=== PATIENT | female | born 1930 | race Caucasian/White ===

== ENCOUNTER 2016-06-15 13:35 | Inpatient (IN) | payer MEDICARE, OTHER ==
[2016-06-15] MEDS ORDERED: MORPHINE SULFATE 4 MG/ML SYRINGE IV STA ×3 (14:02→16:00)
--- NOTE | 2016-06-15 14:08 | ED ---
Lower Extremity Injury HPI - General Chief Complaint: Extremity Injury, Lower Stated Complaint: Leg Pain Time Seen by Provider: 06/15/16 13:39 Source: patient, EMS Mode of arrival: EMS Limitations: no limitations - History of Present Illness Initial Comments: This patient is an 85-year-old lady brought in by EMS to be evaluated after she had a fall. The patient states that she was at being transferred from wheelchair, lost her balance and fell landing on her left side. She complains of pain to the hip and inability to move her left leg without extreme pain. The patient denies any other injury in the fall. She denies left leg anesthesia or weakness. MD Complaint: hip injury, fall Onset/Timin -: hour(s) Injury: Hip: Left Place: home Severity: moderate Improves With: nothing Worsens With: movement Context: fall Associated Symptoms: snap/pop sensation - Related Data Home Medications Medication Instructions Recorded Confirmed Levothyroxine Sodium [Synthroid] 88 mcg PO DAILY 12/15/13 06/15/16 Allopurinol [Zyloprim] 100 mg PO DAILY 01/18/14 06/15/16 Clopidogrel [Plavix] 75 mg PO DAILY@1700 01/18/14 06/15/16 Albuterol Sulfate [Proair Hfa] 2 puff INHALATION RT-Q6H PRN 06/15/16 06/15/16 Atorvastatin [Lipitor] 20 mg PO DAILY 06/15/16 06/15/16 Cholecalciferol [Vitamin D3] 1,000 unit PO DAILY 06/15/16 06/15/16 Diclofenac 0.1% Ophth Soln 1 drops BOTH EYES QID 06/15/16 06/15/16 [Voltaren 0.1% Ophth Soln] Epoetin Basim [Procrit] 20,000 unit SQ Q14D 06/15/16 06/15/16 Ferrous Sulfate [Feosol] 325 mg PO HS 06/15/16 06/15/16 Furosemide [Lasix] 20 mg PO DAILY 06/15/16 06/15/16 HYDROcodone/APAP 5-325MG [[place] 1 tab PO DAILY PRN 06/15/16 06/15/16 5-325] Hydrocodone/Acetaminophen [[place] 1 tab PO DAILY 06/15/16 06/15/16 5-325] Insulin Glargine,Hum.rec.anlog 12 unit SQ DAILY 06/15/16 06/15/16 [Lantus Solostar] Loratadine [Claritin] 10 mg PO DAILY 06/15/16 06/15/16 Magnesium Oxide [Mag-Ox] 800 mg PO DAILY 06/15/16 06/15/16 Melatonin 3 mg PO HS 06/15/16 06/15/16 Sennosides [Senna] 8.6 mg PO BID 06/15/16 06/15/16 Triamcinolone 0.5% Cream [Kenalog 1 applic TOPICAL BID 06/15/16 06/15/16 0.5% Cream] amLODIPine [Norvasc] 5 mg PO DAILY 06/15/16 06/15/16 guaiFENesin [Mucinex] 600 mg PO Q12H 06/15/16 06/15/16 hydrALAZINE HCL [Apresoline] 25 mg PO DAILY 06/15/16 06/15/16 sitaGLIPtin PHOSPHATE [Januvia] 25 mg PO DAILY 06/15/16 06/15/16 traMADol HCL [Ultram] 50 mg PO Q6HR PRN 06/15/16 06/15/16 traMADol HCl [Ultram] 50 mg PO BID 06/15/16 06/15/16 Allergies Allergy/AdvReac Type Severity Reaction Status Date / Time amoxicillin trihydrate Allergy Unknown Verified 06/15/16 13:51 [From Augmentin] cephalexin monohydrate Allergy Unknown Verified 06/15/16 13:51 [From Keflex] cyclobenzaprine HCl Allergy Unknown Verified 06/15/16 13:51 [From Flexeril] eszopiclone [From Lunesta] Allergy Unknown Verified 06/15/16 13:51 gabapentin [From Neurontin] Allergy Unknown Verified 06/15/16 13:51 levocetirizine Allergy Unknown Verified 06/15/16 13:51 dihydrochloride [From Xyzal] meperidine HCl [From Demerol] Allergy Unknown Verified 06/15/16 13:51 potassium clavulanate Allergy Unknown Verified 06/15/16 13:51 [From Augmentin] adhesive AdvReac Unknown Verified 06/15/16 13:51 hydromorphone HCl AdvReac Hallucinati Verified 06/15/16 13:51 [From Dilaudid] ons Review of Systems ROS Statement: Those systems with pertinent positive or pertinent negative responses have been documented in the HPI. ROS Other: All systems not noted in ROS Statement are negative. Constitutional: Denies: fever Respiratory: Denies: cough, dyspnea Cardiovascular: Denies: chest pain, palpitations, syncope Gastrointestinal: Denies: abdominal pain, vomiting, diarrhea Genitourinary: Denies: dysuria Musculoskeletal: Denies: back pain Skin: Denies: rash Neurological: Denies: headache, weakness, numbness Past Medical History Past Medical History: CVA/TIA, Diabetes Mellitus, Eye Disorder, Hyperlipidemia, Hypertension, Renal Disease, Thyroid Disorder Additional Past Medical History / Comment(s): chronic back pain HAS A BROKEN TITANIUM CESIA IN HER BACK, cardiac murmur,MURMUR,RETINAL ROBLEMS, ATHRITIS, History of Any Multi-Drug Resistant Organisms: None Reported Past Surgical History: Back Surgery, Section, Cholecystectomy, Joint Replacement, Orthopedic Surgery Additional Past Surgical History / Comment(s): PARTIALthyroidECTOMY D/T NODULES trach 1195, TITANIUM CESIA IN BACK,LT KNEE REPLACEMENT,LT PARTIAL SHOULDER REPLACEMENT, Past Anesthesia/Blood Transfusion Reactions: Postoperative Nausea & Vomiting ( PONV) Past Psychological History: No Psychological Hx Reported Smoking Status: Never smoker Past Alcohol Use History: None Reported Past Drug Use History: None Reported General Exam Limitations: no limitations General appearance: alert, in no apparent distress Head exam: Present: atraumatic, normocephalic, normal inspection Eye exam: Present: normal appearance Neck exam: Present: normal inspection, full ROM. Absent: tenderness, meningismus Respiratory exam: Present: normal lung sounds bilaterally. Absent: respiratory distress, wheezes, rales, rhonchi, stridor Cardiovascular Exam: Present: regular rate, normal rhythm, normal heart sounds. Absent: systolic murmur, diastolic murmur, rubs, gallop GI/Abdominal exam: Present: soft. Absent: distended, tenderness, guarding, rebound, mass Extremities exam: Present: tenderness, normal capillary refill, other (There is foreshortening of the left leg and internal rotation. There is severe pain with attempt at range of motion of the left leg or with axial loading.). Absent : full ROM, pedal edema, calf tenderness Back exam: Absent: CVA tenderness (R), CVA tenderness (L), vertebral tenderness Neurological exam: Present: alert, oriented X3, CN II-XII intact. Absent: motor sensory deficit Skin exam: Present: warm, dry, intact, normal color. Absent: rash Course Vital Signs 06/15/16 06/15/16 13:41 15:27 Temperature 98.4 F 97.2 F L Pulse Rate 86 83 Respiratory 20 20 Rate Blood Pressure 171/81 173/76 O2 Sat by Pulse 96 96 Oximetry Medical Decision Making - Lab Data Result diagrams: 06/15/16 14:22 06/15/16 14:22 Lab Results 06/15/16 06/15/16 06/15/16 Range/Units 14:22 14:22 14:22 WBC 24.8 H (3.8-10.6) k/uL RBC 3.88 (3.80-5.40) m/uL Hgb 10.8 L (11.4-16.0) gm/dL Hct 35.0 (34.0-46.0) % MCV 90.1 (80.0-100.0) fL MCH 27.8 (25.0-35.0) pg MCHC 30.9 L (31.0-37.0) g/dL RDW 18.9 H (11.5-15.5) % Plt Count 291 (150-450) k/uL Neutrophils % 93 % Lymphocytes % 2 % Monocytes % 4 % Eosinophils % 0 % Basophils % 0 % Neutrophils # 23.1 H (1.3-7.7) k/uL Lymphocytes # 0.5 L (1.0-4.8) k/uL Monocytes # 1.0 (0-1.0) k/uL Eosinophils # 0.0 (0-0.7) k/uL Basophils # 0.1 (0-0.2) k/uL Hypochromasia Slight Anisocytosis Slight PT 11.2 (9.0-12.0) sec INR 1.1 (<1.1) APTT 25.4 (22.0-30.0) sec Sodium 138 (137-145) mmol/L Potassium 3.9 (3.5-5.1) mmol/L Chloride 102 (98-107) mmol/L Carbon Dioxide 23 (22-30) mmol/L Anion Gap 13 mmol/L BUN 38 H (7-17) mg/dL Creatinine 1.30 H (0.52-1.04) mg/dL Est GFR (MDRD) Af Amer 47 (>60 ml/min/1.73 sqM) Est GFR (MDRD) Non-Af 39 (>60 ml/min/1.73 sqM) Glucose 155 H (74-99) mg/dL Calcium 9.2 (8.4-10.2) mg/dL Urine Color Urine Appearance (Clear) Urine pH (5.0-8.0) Ur Specific [place] (1.001-1.035) Urine Protein (Negative) Urine Glucose (UA) (Negative) Urine Ketones (Negative) Urine Blood (Negative) Urine Nitrate (Negative) Urine Bilirubin (Negative) Urine Urobilinogen (<2.0) mg/dL Ur Leukocyte Esterase (Negative) Urine RBC (0-5) /hpf Urine WBC (0-5) /hpf Urine Bacteria (None) /hpf Hyaline Casts (0-2) /lpf Urine Mucus (None) /hpf 06/15/16 Range/Units 16:05 WBC (3.8-10.6) k/uL RBC (3.80-5.40) m/uL Hgb (11.4-16.0) gm/dL Hct (34.0-46.0) % MCV (80.0-100.0) fL MCH (25.0-35.0) pg MCHC (31.0-37.0) g/dL RDW (11.5-15.5) % Plt Count (150-450) k/uL Neutrophils % % Lymphocytes % % Monocytes % % Eosinophils % % Basophils % % Neutrophils # (1.3-7.7) k/uL Lymphocytes # (1.0-4.8) k/uL Monocytes # (0-1.0) k/uL Eosinophils # (0-0.7) k/uL Basophils # (0-0.2) k/uL Hypochromasia Anisocytosis PT (9.0-12.0) sec INR (<1.1) APTT (22.0-30.0) sec Sodium (137-145) mmol/L Potassium (3.5-5.1) mmol/L Chloride (98-107) mmol/L Carbon Dioxide (22-30) mmol/L Anion Gap mmol/L BUN (7-17) mg/dL Creatinine (0.52-1.04) mg/dL Est GFR (MDRD) Af Amer (>60 ml/min/1.73 sqM) Est GFR (MDRD) Non-Af (>60 ml/min/1.73 sqM) Glucose (74-99) mg/dL Calcium (8.4-10.2) mg/dL Urine Color Yellow Urine Appearance Cloudy H (Clear) Urine pH 5.0 (5.0-8.0) Ur Specific [place] 1.013 (1.001-1.035) Urine Protein 1+ H (Negative) Urine Glucose (UA) Negative (Negative) Urine Ketones Negative (Negative) Urine Blood Negative (Negative) Urine Nitrate Negative (Negative) Urine Bilirubin Negative (Negative) Urine Urobilinogen <2.0 (<2.0) mg/dL Ur Leukocyte Esterase Negative (Negative) Urine RBC 2 (0-5) /hpf Urine WBC 2 (0-5) /hpf Urine Bacteria Moderate H (None) /hpf Hyaline Casts 3 H (0-2) /lpf Urine Mucus Rare H (None) /hpf Disposition Clinical Impression: Fracture of hip Disposition: ADMITTED IP TO THIS HOSP Condition: Fair
[2016-06-15 14:34] LABS: Anisocytosis Slight; Basophils # (A) 0.1 k/uL (0-0.2); Basophils % (A) 0 %; CH 28.7; Eosinophils % (A) 0 %; HDW 2.87; HGB 10.8 gm/dL (11.4-16.0); Hypochromasia Slight; Luc # (Auto) 0.18; Luc % (Auto) 1; Lymphocytes # (A) 0.5 k/uL (1.0-4.8); Lymphocytes % (A) 2 %; MCH 27.8 pg (25.0-35.0); MCHC 30.9 g/dL (31.0-37.0); MCV 90.1 fL (80.0-100.0); Mean Platelet Volume 8.6; Monocytes % (A) 4 %; Neutrophils # (A) 23.1 k/uL (1.3-7.7); Neutrophils % (A) 93 %; RBC 3.88 m/uL (3.80-5.40); RDW 18.9 % (11.5-15.5); WBC 24.8 k/uL (3.8-10.6); WBC (Perox) 26.28
[2016-06-15 14:42] LABS: INR 1.1 (<1.1); Partial Thromboplastin Time 25.4 sec (22.0-30.0); Prothrombin Time 11.2 sec (9.0-12.0)
[2016-06-15 14:48] LABS: Calcium 9.2 mg/dL (8.4-10.2); Potassium 3.9 mmol/L (3.5-5.1)
--- NOTE | 2016-06-15 14:56 | XR ---
EXAMINATION TYPE: XR femur LT DATE OF EXAM: 06/15/2016 2:51 PM COMPARISON: NONE HISTORY: Pain post fall TECHNIQUE: 4 views of the left femur are obtained FINDINGS: There is a displaced fracture which appears comminuted through the neck of the femur. Vascu lar calcifications and severe arthropathy of the hip joint. Cortical offset of the superior pubic ramus suspected. Postsurgical change involving the knee and there is diffuse osteopenia. IMPRESSION: 1. Comminuted displaced left femoral neck fracture. 2. Could not exclude a fracture involving the left superior pubic ramus which is only partially inclu ded on the exam.
[2016-06-15 16:21] LABS: Appearance,Urine Cloudy (Clear); Bacteria,Urine Moderate /hpf; Bilirubin,Urine Negative (Negative); Glucose,Urine (UA) Negative (Negative); Ketones,Urine Negative (Negative); Leukocyte Esterase,Urine Negative (Negative); Mucus,Urine Rare /hpf; Nitrite,Urine Negative (Negative); Particle Count 15034; Protein,Urine 1+ (Negative); RBC,Urine 2 /hpf (0-5); Specific Gravity,Urine 1.013 (1.001-1.035); UA Billing (MACRO vs. MICRO) MICRO; Urobilinogen,Urine <2.0 mg/dL (<2.0); WBC,Urine 2 /hpf (0-5)
--- NOTE | 2016-06-15 16:34 | XR ---
EXAMINATION TYPE: XR chest 1V portable DATE OF EXAM: 06/15/2016 4:29 PM COMPARISON: Prior chest x-ray 20 December 2013 HISTORY: Preop TECHNIQUE: Single frontal view of the chest is obtained. FINDINGS: Postop changes noted to the left shoulder, lumbosacral spine. Lung volumes are low. No arcelia dent pneumonia, pneumothorax, or pleural effusion. Left-sided rib deformities compatible with fractur es of indeterminate age. Cardiac mediastinal silhouette, pulmonary vascularity and wilberto stable accoun ting for differences in technique. Surgical clips present in the right neck. IMPRESSION: No acute process.
--- NOTE | 2016-06-15 16:37 | XR ---
AP pelvis HISTORY: Trauma and pain Frontal view of the pelvis is submitted, 2 images There is an intertrochanteric proximal left femoral fracture with resulting varus deformity. Bone min eralization is reduced. No evident dislocation. There are vascular calcifications. Postop changes not ed at the lumbosacral spine. IMPRESSION: Proximal femoral fracture.
[2016-06-15] MEDS ORDERED: SODIUM CHLORIDE 0.9% 1,000 ML IV ONE (16:38)
[2016-06-15] MEDS: guaiFENesin 600 MG TABLET.ER PO SCH (18:03)
[2016-06-15] MEDS: HYDROcodone/APAP 5-325MG 1 EACH TAB PO PRN (18:03)
--- NOTE | 2016-06-15 18:11 | P.HPOR ---
History of Present Illness H&P Date: 06/15/16 The patient is a very pleasant 85-year-old female with a medical history significant for diabetes on insulin, peripheral vascular disease, macular degeneration, and multiple lumbar spine surgeries who is admitted with a left hip fracture. The patient currently resides at an assisted living facility and at her baseline is able to walk short distances with a walker but requires a wheelchair for any lengthy distance. Earlier today the patient was transferring from her wheelchair when she lost her balance and fell on her left side. She denies hitting her head or losing consciousness. She was a medially pain from the left hip and was unable to get up. She was brought to the emergency department where x-rays showed a displaced intertrochanteric hip fracture. She was admitted to the hospital. At time of my evaluation she is accompanied at bedside by her daughter who works at the hospital. She is complaining of isolated hip pain. She has a prior left knee replacement which is been doing well. She has no other complaints. Past Medical History Past Medical History: CVA/TIA, Diabetes Mellitus, Eye Disorder, Hyperlipidemia, Hypertension, Renal Disease, Thyroid Disorder Additional Past Medical History / Comment(s): chronic back pain HAS A BROKEN TITANIUM CESIA IN HER BACK, cardiac murmur,MURMUR,RETINAL ROBLEMS, ATHRITIS, History of Any Multi-Drug Resistant Organisms: None Reported Past Surgical History: Back Surgery, Section, Cholecystectomy, Joint Replacement, Orthopedic Surgery Additional Past Surgical History / Comment(s): PARTIALthyroidECTOMY D/T NODULES trach 1195, TITANIUM CESIA IN BACK,LT KNEE REPLACEMENT,LT PARTIAL SHOULDER REPLACEMENT, Past Anesthesia/Blood Transfusion Reactions: Postoperative Nausea & Vomiting ( PONV) Past Psychological History: No Psychological Hx Reported Smoking Status: Never smoker Past Alcohol Use History: None Reported Past Drug Use History: None Reported Medications and Allergies Home Medications Medication Instructions Recorded Confirmed Type Levothyroxine Sodium [Synthroid] 88 mcg PO DAILY 12/15/13 06/15/16 History Allopurinol [Zyloprim] 100 mg PO DAILY 01/18/14 06/15/16 History Clopidogrel [Plavix] 75 mg PO DAILY@1700 01/18/14 06/15/16 History Albuterol Sulfate [Proair Hfa] 2 puff INHALATION RT-Q6H PRN 06/15/16 06/15/16 History Atorvastatin [Lipitor] 20 mg PO DAILY 06/15/16 06/15/16 History Cholecalciferol [Vitamin D3] 1,000 unit PO DAILY 06/15/16 06/15/16 History Diclofenac 0.1% Ophth Soln 1 drops BOTH EYES QID 06/15/16 06/15/16 History [Voltaren 0.1% Ophth Soln] Epoetin Basim [Procrit] 20,000 unit SQ Q14D 06/15/16 06/15/16 History Ferrous Sulfate [Feosol] 325 mg PO HS 06/15/16 06/15/16 History Furosemide [Lasix] 20 mg PO DAILY 06/15/16 06/15/16 History HYDROcodone/APAP 5-325MG [[place] 1 tab PO DAILY PRN 06/15/16 06/15/16 History 5-325] Hydrocodone/Acetaminophen [[place] 1 tab PO DAILY 06/15/16 06/15/16 History 5-325] Insulin Glargine,Hum.rec.anlog 12 unit SQ DAILY 06/15/16 06/15/16 History [Lantus Solostar] Loratadine [Claritin] 10 mg PO DAILY 06/15/16 06/15/16 History Magnesium Oxide [Mag-Ox] 800 mg PO DAILY 06/15/16 06/15/16 History Melatonin 3 mg PO HS 06/15/16 06/15/16 History Sennosides [Senna] 8.6 mg PO BID 06/15/16 06/15/16 History Triamcinolone 0.5% Cream [Kenalog 1 applic TOPICAL BID 06/15/16 06/15/16 History 0.5% Cream] amLODIPine [Norvasc] 5 mg PO DAILY 06/15/16 06/15/16 History guaiFENesin [Mucinex] 600 mg PO Q12H 06/15/16 06/15/16 History hydrALAZINE HCL [Apresoline] 25 mg PO DAILY 06/15/16 06/15/16 History sitaGLIPtin PHOSPHATE [Januvia] 25 mg PO DAILY 06/15/16 06/15/16 History traMADol HCL [Ultram] 50 mg PO Q6HR PRN 06/15/16 06/15/16 History traMADol HCl [Ultram] 50 mg PO BID 06/15/16 06/15/16 History Allergies Allergy/AdvReac Type Severity Reaction Status Date / Time amoxicillin trihydrate Allergy Unknown Verified 06/15/16 13:51 [From Augmentin] cephalexin monohydrate Allergy Unknown Verified 06/15/16 13:51 [From Keflex] cyclobenzaprine HCl Allergy Unknown Verified 06/15/16 13:51 [From Flexeril] eszopiclone [From Lunesta] Allergy Unknown Verified 06/15/16 13:51 gabapentin [From Neurontin] Allergy Unknown Verified 06/15/16 13:51 levocetirizine Allergy Unknown Verified 06/15/16 13:51 dihydrochloride [From Xyzal] meperidine HCl [From Demerol] Allergy Unknown Verified 06/15/16 13:51 potassium clavulanate Allergy Unknown Verified 06/15/16 13:51 [From Augmentin] adhesive AdvReac Unknown Verified 06/15/16 13:51 hydromorphone HCl AdvReac Hallucinati Verified 06/15/16 13:51 [From Dilaudid] ons Physical Examination On exam the patient is in no apparent distress and is alert. Her head is normocephalic and atraumatic. Cervical spine is nontender. She demonstrates nonlabored breathing with symmetric chest expansion. Her abdomen is soft and nontender. She has no tenderness in her upper extremities. On examination of the lower extremities the left leg is shortened and externally rotated. She has a healed anterior incision over the knee from her prior knee replacement. She has no tenderness throughout the right leg. She has pain with any movement of the left leg. She has tenderness over the proximal aspect of the leg. She has no tenderness over her knee. She has no tenderness in his ankle or foot. Thigh and calf are soft. Sensation is intact to light touch throughout the left leg. An actively plantarflex dorsal flex her ankles and toes. Results AP pelvis and x-rays of the left femur show displaced intertrochanteric hip fracture. There is a total knee replacement distally on the left with no periprosthetic fractures. There is been higher lumbar spine surgery - Labs Result Diagrams: 06/15/16 14:22 06/15/16 14:22 Assessment and Plan (1) Fracture of hip Status: Acute Plan: Patient is admitted with a displaced intertrochanteric hip fracture. I had lengthy discussion with the patient and her daughter on treatment. We discussed standard of care for intertrochanteric fracture fractures is operative fixation to facilitate early mobilization. My recommendation was to go forward with an intramedullary screw. The patient is to remain nonweightbearing with strict bedrest toe after surgery. Internal medicine has been consulted for preoperative clearance and perioperative medical management. We'll plan for surgery tomorrow once she is cleared by internal medicine. We discussed potential risks and complication of surgery including but not limited to risk of anesthesia, risk of superficial infection, risk of deep infection, risk of damage to local blood vessels or nerves, risk of intraoperative fracture , risk of malreduction, risk of varus collapse with failure of implant postoperatively, risk of chronic pain, risk of inability to ambulate, risk of need for further surgery, risk of periprosthetic fracture, risk of need for revision surgery and possibly risk of medical complications including DVT, PE, acute coronary event, stroke, acute blood loss anemia requiring transfusion, urinary tract infection, pressure sore, and possibly .
[2016-06-15] MEDS: LEVOFLOXACIN 250MG-D5W PMX 250 MG in DEXTROSE/WATER 1 50ML.BAG IVPB SCH (18:32)
[2016-06-15] MEDS: traMADol 50 MG TAB PO PRN (18:39)
[2016-06-15] MEDS: DICLOFENAC 0.1% OPHTH SOLN 2.5 ML BTL BOTH EYES SCH ×2 (18:40→21:12)
[2016-06-15] MEDS: MORPHINE SULFATE 4 MG/ML SYRINGE IV PRN ×2 (21:00→23:11)
[2016-06-15] MEDS ORDERED: DARBEPOETIN ALFA 60 MCG/0.3 ML SYRINGE SQ SCH (21:00)
[2016-06-15] MEDS: MELATONIN 3 MG TABLET PO SCH (21:09)
[2016-06-15] MEDS: SENNOSIDES 8.6 MG TAB PO SCH (21:09)
[2016-06-15] MEDS: FERROUS SULFATE 325 MG TAB PO SCH (22:18)
[2016-06-16] MEDS: HYDROcodone/APAP 5-325MG 1 EACH TAB PO PRN ×3 (00:07→11:48)
[2016-06-16] MEDS: traMADol 50 MG TAB PO PRN ×3 (01:33→14:04)
[2016-06-16] MEDS: MORPHINE SULFATE 4 MG/ML SYRINGE IV PRN ×4 (02:23→12:39)
[2016-06-16] MEDS: guaiFENesin 600 MG TABLET.ER PO SCH ×2 (05:35→22:08)
[2016-06-16] MEDS: LEVOTHYROXINE 88 MCG TAB PO SCH (05:35)
[2016-06-16 07:05] LABS: Anisocytosis Slight; Basophils # (A) 0.1 k/uL (0-0.2); Basophils % (A) 1 %; CH 28.2; CHCM 30.8; Eosinophils # (A) 0.1 k/uL (0-0.7); Eosinophils % (A) 1 %; HCT 31.1 % (34.0-46.0); HGB 9.7 gm/dL (11.4-16.0); Hypochromasia Moderate; Luc # (Auto) 0.46; Luc % (Auto) 3; Lymphocytes # (A) 1.2 k/uL (1.0-4.8); Lymphocytes % (A) 8 %; MCH 28.7 pg (25.0-35.0); MCHC 31.1 g/dL (31.0-37.0); MCV 92.2 fL (80.0-100.0); Mean Platelet Volume 7.5; Monocytes # (A) 1.2 k/uL (0-1.0); Monocytes % (A) 9 %; Neutrophils % (A) 78 %; RBC 3.38 m/uL (3.80-5.40); RDW 18.4 % (11.5-15.5); WBC 14.1 k/uL (3.8-10.6); WBC (Perox) 15.18
[2016-06-16 07:15] LABS: Potassium 4.2 mmol/L (3.5-5.1); Total Bilirubin 0.8 mg/dL (0.2-1.3); Total Protein 5.5 g/dL (6.3-8.2)
[2016-06-16 07:30] LABS: Glucose,Whole Blood 93 mg/dL (75-99)
[2016-06-16] MEDS: hydrALAZINE HCL 25 MG TAB PO SCH (08:06)
[2016-06-16] MEDS: amLODIPine 5 MG TAB PO SCH (08:06)
[2016-06-16] MEDS: ALLOPURINOL 100 MG TAB PO SCH (08:06)
[2016-06-16] MEDS: SENNOSIDES 8.6 MG TAB PO SCH ×2 (08:07→22:10)
[2016-06-16] MEDS: LORATADINE 10 MG TAB PO SCH (08:07)
[2016-06-16] MEDS: DICLOFENAC 0.1% OPHTH SOLN 2.5 ML BTL BOTH EYES SCH ×4 (08:08→22:13)
[2016-06-16] MEDS: LINAGLIPTIN 5 MG TABLET PO SCH (08:08)
[2016-06-16] MEDS ORDERED: FUROSEMIDE 20 MG TAB PO SCH (09:00)
[2016-06-16] MEDS: ATORVASTATIN 20 MG TAB PO SCH (09:42)
[2016-06-16] MEDS: INSULIN GLARGINE 100 UNIT/ML 10 ML VIAL SQ SCH (10:41)
[2016-06-16] MEDS: MAGNESIUM OXIDE 400 MG TAB PO SCH (10:55)
[2016-06-16] MEDS: CHOLECALCIFEROL 1,000 UNIT TAB PO SCH (10:55)
--- NOTE | 2016-06-16 11:09 | P.CRDCN ---
History of Present Illness Consult date: 06/16/16 Reason for Consult (text): Preop clearance History of present illness: This is a 85-year-old female with history of chronic renal failure, chronic anemia, hyperlipidemia and also known aortic stenosis is admitted to the hospital with history of fall and fracture of the hip on the left side. [facility] and her activity is mostly wheelchair-bound. Appears that patient may be using a walker for walking. Yesterday while transferring from a walker to a recliner chair, patient fell and sustained a fracture of the left hip. Patient is being considered for surgery. She claims she did not have any chest pain, shortness of breath dizziness or syncopal episodes. A transthoracic echocardiogram showed significant gradient across the aortic valve. However some of the increasing gradient could be related to anemia. Given her age and multiple comorbidities including severe aortic stenosis, her risk for surgery is high. Family and patient understood and would like to undergo the surgery. Review of Systems As per the chart Past Medical History Past Medical History: CVA/TIA, Diabetes Mellitus, Eye Disorder, Hyperlipidemia, Hypertension, Osteoarthritis (OA), Renal Disease, Thyroid Disorder Additional Past Medical History / Comment(s): 06-15-16 fall/fx lt hip. chronic back pain HAS A BROKEN TITANIUM CESIA IN HER BACK, cardiac murmur, lt detatched retina," bleeding behind eyes' History of Any Multi-Drug Resistant Organisms: None Reported Past Surgical History: Back Surgery, Section, Cholecystectomy, Joint Replacement, Orthopedic Surgery Additional Past Surgical History / Comment(s): PARTIALthyroidECTOMY D/T NODULES -"had bleeding internal after sx ended up with a trach" . TITANIUM CESIA IN BACK, LT KNEE REPLACEMENT,LT PARTIAL SHOULDER REPLACEMENT,marlee cataracts, sx for detatched retina lt eye. Past Anesthesia/Blood Transfusion Reactions: Postoperative Nausea & Vomiting ( PONV) Past Psychological History: No Psychological Hx Reported Smoking Status: Never smoker Past Alcohol Use History: None Reported Past Drug Use History: None Reported - Past Family History Father Family Medical History: Diabetes Mellitus Mother Additional Family Medical History / Comment(s): jeimy(non smoker) at age 65 Medications and Allergies Home Medications Medication Instructions Recorded Confirmed Type Levothyroxine Sodium [Synthroid] 88 mcg PO DAILY 12/15/13 06/15/16 History Allopurinol [Zyloprim] 100 mg PO DAILY 01/18/14 06/15/16 History Clopidogrel [Plavix] 75 mg PO DAILY@1700 01/18/14 06/15/16 History Albuterol Sulfate [Proair Hfa] 2 puff INHALATION RT-Q6H PRN 06/15/16 06/15/16 History Atorvastatin [Lipitor] 20 mg PO DAILY 06/15/16 06/15/16 History Cholecalciferol [Vitamin D3] 1,000 unit PO DAILY 06/15/16 06/15/16 History Diclofenac 0.1% Ophth Soln 1 drops BOTH EYES QID 06/15/16 06/15/16 History [Voltaren 0.1% Ophth Soln] Epoetin Basim [Procrit] 20,000 unit SQ Q14D 06/15/16 06/15/16 History Ferrous Sulfate [Feosol] 325 mg PO HS 06/15/16 06/15/16 History Furosemide [Lasix] 20 mg PO DAILY 06/15/16 06/15/16 History HYDROcodone/APAP 5-325MG [[place] 1 tab PO DAILY PRN 06/15/16 06/15/16 History 5-325] Hydrocodone/Acetaminophen [[place] 1 tab PO DAILY 06/15/16 06/15/16 History 5-325] Insulin Glargine,Hum.rec.anlog 12 unit SQ DAILY 06/15/16 06/15/16 History [Lantus Solostar] Loratadine [Claritin] 10 mg PO DAILY 06/15/16 06/15/16 History Magnesium Oxide [Mag-Ox] 800 mg PO DAILY 06/15/16 06/15/16 History Melatonin 3 mg PO HS 06/15/16 06/15/16 History Sennosides [Senna] 8.6 mg PO BID 06/15/16 06/15/16 History Triamcinolone 0.5% Cream [Kenalog 1 applic TOPICAL BID 06/15/16 06/15/16 History 0.5% Cream] amLODIPine [Norvasc] 5 mg PO DAILY 06/15/16 06/15/16 History guaiFENesin [Mucinex] 600 mg PO Q12H 06/15/16 06/15/16 History hydrALAZINE HCL [Apresoline] 25 mg PO DAILY 06/15/16 06/15/16 History sitaGLIPtin PHOSPHATE [Januvia] 25 mg PO DAILY 06/15/16 06/15/16 History traMADol HCL [Ultram] 50 mg PO Q6HR PRN 06/15/16 06/15/16 History traMADol HCl [Ultram] 50 mg PO BID 06/15/16 06/15/16 History Allergies Allergy/AdvReac Type Severity Reaction Status Date / Time amoxicillin trihydrate Allergy Unknown Verified 06/15/16 13:51 [From Augmentin] cephalexin monohydrate Allergy Unknown Verified 06/15/16 13:51 [From Keflex] cyclobenzaprine HCl Allergy Unknown Verified 06/15/16 13:51 [From Flexeril] eszopiclone [From Lunesta] Allergy Unknown Verified 06/15/16 13:51 gabapentin [From Neurontin] Allergy Unknown Verified 06/15/16 13:51 levocetirizine Allergy Unknown Verified 06/15/16 13:51 dihydrochloride [From Xyzal] meperidine HCl [From Demerol] Allergy Unknown Verified 06/15/16 13:51 potassium clavulanate Allergy Unknown Verified 06/15/16 13:51 [From Augmentin] adhesive AdvReac Unknown Verified 06/15/16 13:51 hydromorphone HCl AdvReac Hallucinati Verified 06/15/16 13:51 [From Dilaudid] ons Physical Exam Vitals: Vital Signs Temp Pulse Pulse Resp BP BP Pulse Ox 06/16/16 08:00 79 16 06/16/16 07:00 97.5 F L 79 16 165/74 92 L 06/16/16 06:09 97.5 F L 75 18 154/77 97 06/15/16 19:17 86 16 06/15/16 17:40 97.4 F L 86 16 174/81 95 06/15/16 16:57 84 16 167/74 94 L Intake and Output 06/15/16 06/16/16 06/16/16 22:59 06:59 14:59 Intake Total 725 Output Total 500 Balance 225 Intake: IV 675 Sodium Chloride 0.9% 1, 675 000 ml @ 75 mls/hr IV . [id number] ONE Rx#:[id number] Intake, IV Titration 50 Amount Levofloxacin 250Mg-D5w 50 Pmx 250 mg In Dextrose/ Water 1 50ml.bag @ 50 mls /hr IVPB Q24H [facility] Rx#: [id number] Output: Urine 500 Other: Voiding Method Indwelling Catheter Indwelling Catheter GENERAL EXAM: Patient is alert and oriented and doesn't appear to be in any acute distress HEENT: Normocephalic. Normal reaction of pupils, equal size, normal range of extraocular motion. No erythema or exudates in the throat. NECK: No masses, no nuchal rigidity. CHEST: No chest wall deformity. LUNGS: Systolic murmur heard in the aortic area. Second sound is soft HEART: S1 and S2 normal with no audible mumurs or gallops. Regular rhythm, femorals equal on both sides.. ABDOMEN: No hepatosplenomegaly, normal bowel sounds, no guarding or rigidity. SKIN: No rashes CENTRAL NERVOUS SYSTEM: No focal deficits. EXTREMITIES: Mild edema Results 06/16/16 06:31 06/16/16 06:38 Cardiac Enzymes 06/16/16 Range/Units 06:38 AST 21 (14-36) U/L CBC 06/16/16 Range/Units 06:31 WBC 14.1 H (3.8-10.6) k/uL RBC 3.38 L (3.80-5.40) m/uL Hgb 9.7 L (11.4-16.0) gm/dL Hct 31.1 L (34.0-46.0) % Plt Count 253 (150-450) k/uL Comprehensive Metabolic Panel 06/16/16 Range/Units 06:38 Sodium 137 (137-145) mmol/L Potassium 4.2 (3.5-5.1) mmol/L Chloride 102 (98-107) mmol/L Carbon Dioxide 26 (22-30) mmol/L BUN 38 H (7-17) mg/dL Creatinine 1.32 H (0.52-1.04) mg/dL Glucose 95 (74-99) mg/dL Calcium 9.0 (8.4-10.2) mg/dL AST 21 (14-36) U/L ALT 30 (9-52) U/L Alkaline Phosphatase 121 (38-126) U/L Total Protein 5.5 L (6.3-8.2) g/dL Albumin 3.2 L (3.5-5.0) g/dL Current Medications Generic Name Dose Route Start Last Admin Trade Name Freq PRN Reason Stop Dose Admin Acetaminophen/Hydrocodone Bitart 1 each 06/15/16 17:49 06/16/16 06:32 [place] 5-325 PO 1 each Q6HR PRN Administration Pain Albuterol Sulfate 2.5 mg 06/15/16 16:41 Ventolin Nebulized INHALATION RT-Q6H PRN Shortness Of Breath Allopurinol 100 mg 06/16/16 09:00 06/16/16 08:06 Zyloprim PO 100 mg DAILY RAISA Administration Amlodipine Besylate 5 mg 06/16/16 09:00 06/16/16 08:06 Norvasc PO 5 mg DAILY RAISA Administration Atorvastatin Calcium 20 mg 06/16/16 09:00 06/16/16 09:42 Lipitor PO Not Given DAILY [facility] Cholecalciferol 1,000 unit 06/16/16 12:00 06/16/16 10:55 Vitamin D3 PO Not Given DAILY@1200 [facility] Darbepoetin Basim 60 mcg 06/15/16 21:00 06/15/16 22:16 Aranesp SQ 60 mcg Q14D [facility] Administration Diclofenac Sodium 1 drops 06/15/16 18:00 06/16/16 08:08 Voltaren 0.1% Ophth Soln BOTH EYES 1 drops QID [facility] Administration Ferrous Sulfate 325 mg 06/15/16 21:00 06/15/16 22:18 Feosol PO 325 mg HS [facility] Administration Guaifenesin 600 mg 06/15/16 18:00 06/16/16 05:35 Mucinex PO 600 mg Q12H RAISA Administration Hydralazine HCl 25 mg 06/16/16 09:00 06/16/16 08:06 Apresoline PO 25 mg DAILY [facility] Administration Levofloxacin/Dextrose 250 mg/ 50 mls @ 50 mls/hr 06/15/16 18:00 06/15/16 18: 32 IV Solution IVPB 50 mls/hr Q24H RAISA Administration Insulin Glargine 12 unit 06/16/16 09:00 06/16/16 10:41 Lantus SQ Not Given DAILY [facility] Levothyroxine Sodium 88 mcg 06/16/16 06:30 06/16/16 05:35 Synthroid PO 88 mcg DAILY@0630 [facility] Administration Linagliptin 5 mg 06/16/16 09:00 06/16/16 08:08 Tradjenta PO 5 mg DAILY RAISA Administration Loratadine 10 mg 06/16/16 09:00 06/16/16 08:07 Claritin PO 10 mg DAILY RAISA Administration Magnesium Oxide 800 mg 06/16/16 12:00 06/16/16 10:55 Mag-Ox PO Not Given DAILY@1200 [facility] Melatonin 3 mg 06/15/16 21:00 06/15/16 21:09 Melatonin PO 3 mg HS [facility] Administration Morphine Sulfate 4 mg 06/15/16 16:42 06/16/16 10:10 Morphine Sulfate (Inj) IV 4 mg Q3H PRN Administration MODERATE PAIN Senna 8.6 mg 06/15/16 21:00 06/16/16 08:07 Senokot PO 8.6 mg BID RAISA Administration Tramadol HCl 50 mg 06/15/16 16:41 06/16/16 08:05 Ultram PO 50 mg Q6HR PRN Administration Pain Intake and Output 06/15/16 06/16/16 06/16/16 22:59 06:59 14:59 Intake Total 725 Output Total 500 Balance 225 Intake: IV 675 Sodium Chloride 0.9% 1, 675 000 ml @ 75 mls/hr IV . [id number] ONE Rx#:[id number] Intake, IV Titration 50 Amount Levofloxacin 250Mg-D5w 50 Pmx 250 mg In Dextrose/ Water 1 50ml.bag @ 50 mls /hr IVPB Q24H [facility] Rx#: [id number] Output: Urine 500 Other: Voiding Method Indwelling Catheter Indwelling Catheter 06/16/16 06:31 06/16/16 06:38 EKG Interpretations (text) Sinus tachycardia Assessment and Plan (1) Chronic kidney failure Status: Acute (2) Fracture of hip Status: Acute (3) Chronic renal failure Status: Acute (4) Severe aortic stenosis Status: Acute (5) Chronic anemia Status: Acute Plan: This patient is admitted following a fall with fracture of the left hip. Patient doesn't have any symptoms of unstable angina or congestive heart failure. Patient does have history of chronic renal failure, chronic anemia and evidence of severe aortic stenosis. Given her multiple comorbidities and age, her risk for surgery is high. Family and patient fully understood and wants to go through the procedure. I'll recommend optimal blood pressure control and avoiding fluid overload and prognosis is guarded
--- NOTE | 2016-06-16 11:34 | ECHOF ---
Referral Reason:, preop MEASUREMENTS -------- HEIGHT: 157.5 cm WEIGHT: 67.1 kg BP: IVSd: 1.6 cm (0.6 - 1.1) LVIDd: 3.7 cm (3.9 - 5.3) LVPWd: 1.5 cm (0.6 - 1.1) IVSs: 2.1 cm LVIDs: 2.8 cm LVPWs: 1.8 cm LAESV Index (A-L): 60.23 ml/m MV EXCURSION: 10.065 mm (> 18.000) MV EF SLOPE: 32 mm/s (70 - 150) EPSS: 1.5 cm MV E Richard: 0.49 m/s MV DecT: 367 ms MV A Richard: 0.91 m/s MV E/A Ratio: 0.54 AV maxP.65 mmHg AV meanP.06 mmHg RAP: 5.00 mmHg RVSP: 21.83 mmHg FINDINGS -------- Sinus rhythm. Pt FX Left Hip: not able to turn. There is moderate concentric left ventricular hypertrophy. Overall left ventricular systolic function is low-normal with, an EF between 50 - 55 %. The right ventricle is normal in size. LA is severely dilated >40 ml/m2 The right atrial size is normal. There is mild aortic regurgitation. There is severe aortic stenosis present. Peak/mean gradient across the Aortic Valve is 109.65mmHg / 70.06mmHg. Mild mitral annular calcification present. Mild mitral regurgitation is present. Mild tricuspid regurgitation present. There is no evidence of pulmonary hypertension. The right ventricular systolic pressure, as measured by Doppler, is 21.83mmHg. The pulmonic valve was not well visualized. The aortic root size is normal. There is no pericardial effusion. CONCLUSIONS -------- 1. Pt FX Left Hip: not able to turn. 2. Mild tricuspid regurgitation present. 3. There is no evidence of pulmonary hypertension. 4. The right ventricular systolic pressure, as measured by Doppler, is 21.83mmHg. 5. The pulmonic valve was not well visualized. 6. There is moderate concentric left ventricular hypertrophy. 7. Overall left ventricular systolic function is low-normal with, an EF between 50 - 55 %. 8. LA is severely dilated >40 ml/m2 9. There is mild aortic regurgitation. 10. There is severe aortic stenosis present. 11. Peak/mean gradient across the Aortic Valve is 109.65mmHg / 70.06mmHg. 12. Mild mitral annular calcification present. 13. Mild mitral regurgitation is present. DIRECTOR REGULATORY AFFAIRS: Taina Underwood RDCS
[2016-06-16 12:02] LABS: Glucose,Whole Blood 104 mg/dL (75-99)
[2016-06-16] MEDS ORDERED: LACTATED RINGERS 1,000 ML IV ONE (15:07)
[2016-06-16 15:23] LABS: Glucose,Whole Blood 93 mg/dL (75-99)
[2016-06-16] MEDS ORDERED: ETOMIDATE 2 MG/ML 10 ML VIAL ONE (15:36)
[2016-06-16] MEDS ORDERED: fentaNYL (PF) 50 MCG/ML 2 ML AMP ONE (15:36)
[2016-06-16] MEDS ORDERED: PHENYLEPHRINE-0.9% NACL SYG 1 MG/10 ML SYRINGE ONE (15:36)
[2016-06-16] MEDS ORDERED: SUCCINYLCHOLINE CHLORIDE 100 MG/5 ML SYR IV ONE (15:36)
[2016-06-16] MEDS ORDERED: SODIUM CHLORIDE 0.9% 100 ML with CLINDAMYCIN 600 MG IV ONE ×2 (16:04)
[2016-06-16] MEDS ORDERED: CLINDAMYCIN 600 MG in SODIUM CHLORIDE 0.9% 1,000 ML IRRIGATION ONE (16:44)
[2016-06-16] MEDS ORDERED: MORPHINE SULFATE 2 MG/ML SYRINGE IV PRN (17:28)
[2016-06-16] MEDS ORDERED: NALOXONE 0.4 MG/ML 1 ML VIAL IV PRN (17:28)
[2016-06-16] MEDS ORDERED: MAGNESIUM HYDROXIDE 2,400 MG/10 ML CUP PO PRN (17:28)
--- NOTE | 2016-06-16 17:46 | P.OP ---
Date of Procedure: 06/16/16 Preoperative Diagnosis: 1. Left Intertrochanteric hip fracture 2. Insulin dependent Diabetes 3. Peripheral vascular disease 4. Coronary artery disease 5. Aortic Stenosis 6. History of stroke 7. Osteoporosis Postoperative Diagnosis: Same Procedure(s) Performed: Operative fixation of left hip fracture with intramedullary hip screw Implants: Short Synthes TFN nail Anesthesia: KAREEN Surgeon: Saurabh Carmona Pen Tester #1: Shereen Madrigal Estimated Blood Loss (ml): 200 IV fluids (ml): 1,200 Pathology: none sent Condition: stable Disposition: PACU Indications for Procedure: The patient is an 85-year-old female with multiple medical problems who at her baseline is only able to walk short distances with a walker and is otherwise in a wheelchair. She lives in an assisted living facility. Yesterday she was transferring from her wheelchair when she fell in her left hip area she was brought to the ER and x-rays showed a displaced hip fracture. She was admitted under the care of orthopedics. Internal medicine and cardiology saw her preoperatively and cleared her for surgery with a high risk due to her extensive medical problems. I do lengthy discussion with the patient and her family prior to surgery. We discussed that in the [place] standard of care is to fix hip fractures to facilitate early motion. The patient and her family understand that she is at a high risk of having a postoperative complication due to her multiple medical problems. We discussed the potential risks and complications of surgery including but not limited to risk of anesthesia, risk of superficial infection, risk of deep infection, risk of delayed wound healing, risk of intraoperative fracture, risk of postoperative periprosthetic fracture, risk of hardware failure, risk of varus collapse with cut out of the lag screw, risk of malreduction, risk of fracture nonunion, risk of hardware, risk of need for further surgery, risk of inability to ambulate, and possibly risk of postoperative medical problems including DVT, PE, acute coronary event, stroke, acute blood loss anemia requiring transfusion, pneumonia , urinary tract infection, pressure sore and possibly . Again the patient and her family understand the high risk due to her multiple medical problems but wished to proceed with operative stabilization of her hip fracture. Description of Procedure: I met with the patient and her family in preoperative holding and reviewed the consent form. All their questions were answered. The correct left leg was marked with a marker. The patient was then brought back to the operating room. Upon entering the operating room a general anesthetic was administered on her gurney. The patient was then carefully transferred onto the fracture table. Her left leg was placed in a boot attached the fracture table and her right leg was flexed and gently abducted at the hip and placed in a leg courtney. All bony prominences were well-padded. A perineal post was placed. The patient's left arm was draped across her body. Was gently shifted toward the right. C-arm was then brought in and a closed reduction was performed with the assistance of the fracture table. A combination of longitudinal traction, adduction, and internal rotation was performed. The hip fracture appeared to reduce in both the AP and lateral planes. The left leg was then prepped and draped in the standard sterile fashion. Prior to starting surgery timeout was performed identifying the correct patient operative extremity and procedure. A 3 cm incision was made just proximal to the greater trochanter in line with the femur. A guidepin was placed at the medial tip of the greater trochanter and was centered on both the AP and lateral planes. A scalpel was used to open a track along the guidepin and then an opening reamer was used again entrance the proximal femoral canal. A short 11 mm diameter Synthes TFN nail was then dispensed. I verified that the targeting arm and trochars lined up to the slots on the nail for the helical blade and distal interlocking screw. The short nail was then gently placed into the previously made opening the proximal femur and tapped down into the femur. Once the nail was fully seated the trocar for the helical blade was placed through the targeting arm down to the lateral skin over the femur and a skin incision was made in the corresponding location through the subcutaneous tissue and IT band. The trocar for the helical blade was brought down to the lateral aspect of the femur. A guidepin was then placed up attempting to place it within the center center position of the femoral head. C-arm was used to verify position of the guidepin in both the AP and lateral planes. I measured the guidepin to a depth of just over 90 mm. We elected to use a 90 mm helical blade. We then used a cannulated reamer to make a track for the helical blade. The helical blade was then dispensed and tapped up into the femoral head. Proximally the set screw was brought down and then backed off half a turn. The compression nut was used to generate slight compression at the fracture site. The trocar for the helical blade was then removed area a trocar for the distal interlocking screw was then placed through the targeting arm and down to the skin of the lateral aspect of the femur. A stab incision was made in the skin and through the IT band. The trocar was placed down to bone and a drill was used to create a bicortical hole. A 38 mm distal interlocking screw was dispensed and placed. The targeting arm was then removed. Final x-rays including an AP and lateral shots were taken. The fracture appeared reduced and the hardware was in except we'll place. All wounds were then copiously irrigated. The IT band was closed with an interrupted 0 Vicryl stitch. The deep subcu was closed with interrupted 2-0 Vicryl. Skin was closed with lynne. A sterile dressing consisting of Adaptic , 4 x 4, and ABDs was applied. The patient was then gently taken out of the fracture table and transferred to the [facility] having tolerated the procedure well. After the incisions were closer verified that all instrument, sponge, and sharp counts were correct. The patient was brought to PACU having tied the procedure well. Shereen Madrigal PA-C was needed as a skilled recruitment and outreach assistant throughout the procedure for assistance with patient positioning, reduction, placement of the intramedullary hip screw, closure of surgical wounds, and application of postoperative dressings. Plan: The patient is to be toe-touch weightbearing on the left leg. 24 hours of postoperative antibiotics. DVT prophylaxis with Lovenox 30 mg daily 4 weeks. Appreciate internal medicine and cardiology management for postoperative medical management.
[2016-06-16 18:07] LABS: Glucose,Whole Blood 111 mg/dL (75-99)
[2016-06-16 18:10] LABS: Anisocytosis Slight; Basophils # (A) 0.1 k/uL (0-0.2); Basophils % (A) 1 %; CH 28.5; CHCM 30.8; Eosinophils # (A) 0.2 k/uL (0-0.7); Eosinophils % (A) 1 %; HDW 2.83; HGB 9.2 gm/dL (11.4-16.0); Hypochromasia Moderate; Luc # (Auto) 0.41; Luc % (Auto) 2; Lymphocytes % (A) 4 %; MCH 28.5 pg (25.0-35.0); MCHC 30.6 g/dL (31.0-37.0); MCV 92.9 fL (80.0-100.0); Mean Platelet Volume 8.6; Monocytes # (A) 1.7 k/uL (0-1.0); Monocytes % (A) 7 %; Neutrophils # (A) 21.2 k/uL (1.3-7.7); Neutrophils % (A) 86 %; RBC 3.23 m/uL (3.80-5.40); RDW 18.6 % (11.5-15.5); WBC 24.7 k/uL (3.8-10.6); WBC (Perox) 26.58
--- NOTE | 2016-06-16 18:53 | P.CONS ---
History of Present Illness - Reason for Consult Consult date: 06/15/16 Medical management. Requesting physician: Saurabh Carmona - Chief Complaint Left intertrochanteric hip fracture/UTI with sepsis - History of Present Illness This is an 85-year-old female one of Dr. Silverio Chaney with a previous medical history significant for hypertension and hypertensive cardio vascular disease with left ventricular hypertrophy, hypothyroidism, chronic kidney disease stage II, diabetes mellitus type 2, hyperlipidemia, patient resides at assisted living facility in [place] and today she was transferring from her wheelchair using the walker and she lost her balance ended up falling onto her left side and she had a treatment as amount of pain she ended up getting transferred to [facility] where she was found to have a left intertrochanteric hip fracture she was admitted to the hospital and orthopedic surgery and we were asked to see the patient for medical management and preoperative medical clearance. Apparently the patient does appear to have a significant and severe aortic valve stenosis, and because of her comorbidities it was thought that the patient is at high risk for surgical intervention subsequently consult cardiology for further care and the patient will have an echo care gram for eval you should've LV function as well as the severity of her aortic valve stenosis prior to her surgical intervention. Review of Systems Constitutional: Reports fatigue, Reports weakness, Reports weight loss, Denies chronic headaches, Denies lethargy Eyes: bilateral blurred vision, denies bulging eye Ears: bilateral: decreased hearing Ears, nose, mouth and throat: Denies dysphagia, Denies neck lump, Denies sore throat, Denies vertigo Cardiovascular: Reports decreased exercise tolerance, Reports dyspnea on exertion, Reports high blood pressure, Reports shortness of breath, Denies chest pain, Denies rapid heart beat, Denies syncope Respiratory: Denies congestion, Denies home oxygen, Denies sleep apnea, Denies snoring, Denies wheezing Gastrointestinal: Denies abdominal pain, Denies bloating, Denies BRBPR, Denies excessive gas, Denies heartburn, Denies melena, Denies nausea, Denies vomiting Genitourinary: Denies dysuria, Denies urgency Menstruation: Reports post hysterectomy, Reports postmenopausal Musculoskeletal: Reports frequent falls, Reports gait dysfunction, Reports low back pain, Denies myalgias Musculoskeletal: left: hip pain, hip stiffness, hip swelling, knee pain, absent : ankle pain, ankle stiffness, ankle swelling, elbow pain, elbow stiffness, elbow swelling, foot pain, foot stiffness, foot swelling, hand pain, hand stiffness, hand swelling, knee stiffness, knee swelling, shoulder pain, shoulder stiffness, shoulder swelling, wrist pain, wrist stiffness, wrist swelling Integumentary: Denies pruritus, Denies rash Neurological: Reports gait dysfunction Psychiatric: Denies anxiety, Denies depression Endocrine: Denies fatigue, Denies weight change Past Medical History Past Medical History: CVA/TIA, Diabetes Mellitus, Eye Disorder, Hyperlipidemia, Hypertension, Musculoskeletal Disorder, Osteoarthritis (OA), Renal Disease, Thyroid Disorder Additional Past Medical History / Comment(s): chronic back pain HAS A BROKEN TITANIUM CESIA IN HER BACK, cardiac murmur,MURMUR,RETINAL ROBLEMS, ATHRITIS, History of Any Multi-Drug Resistant Organisms: None Reported Past Surgical History: Back Surgery, Section, Cholecystectomy, Joint Replacement, Orthopedic Surgery Additional Past Surgical History / Comment(s): PARTIALthyroidECTOMY D/T NODULES trach 1195, TITANIUM CESIA IN BACK,LT KNEE REPLACEMENT,LT PARTIAL SHOULDER REPLACEMENT, Past Anesthesia/Blood Transfusion Reactions: Postoperative Nausea & Vomiting ( PONV) Past Psychological History: No Psychological Hx Reported Smoking Status: Never smoker Past Alcohol Use History: None Reported Past Drug Use History: None Reported - Past Family History Father Family Medical History: Diabetes Mellitus (Father at age 75 from diabetes mellitus competition.) Mother Family Medical History: COPD (Mother at age of 68 from COPD/emphysema.) Additional Family Medical History / Comment(s): emyphema(non smoker) at age 65 Brother(s) Family Medical History: Diabetes Mellitus (Patient has one brother with diabetes minutes type II) Sister(s) Family Medical History: No Reported History (Patient has one sister who from old age.) Son(s) Family Medical History: No Reported History (Patient has 2 sons no major medical problems) Daughter(s) Family Medical History: Diabetes Mellitus (Patient has 2 daughters one with diabetes.) Medications and Allergies Home Medications Medication Instructions Recorded Confirmed Type Levothyroxine Sodium [Synthroid] 88 mcg PO DAILY 12/15/13 06/15/16 History Allopurinol [Zyloprim] 100 mg PO DAILY 01/18/14 06/15/16 History Clopidogrel [Plavix] 75 mg PO DAILY@1700 01/18/14 06/15/16 History Albuterol Sulfate [Proair Hfa] 2 puff INHALATION RT-Q6H PRN 06/15/16 06/15/16 History Atorvastatin [Lipitor] 20 mg PO DAILY 06/15/16 06/15/16 History Cholecalciferol [Vitamin D3] 1,000 unit PO DAILY 06/15/16 06/15/16 History Diclofenac 0.1% Ophth Soln 1 drops BOTH EYES QID 06/15/16 06/15/16 History [Voltaren 0.1% Ophth Soln] Epoetin Basim [Procrit] 20,000 unit SQ Q14D 06/15/16 06/15/16 History Ferrous Sulfate [Feosol] 325 mg PO HS 06/15/16 06/15/16 History Furosemide [Lasix] 20 mg PO DAILY 06/15/16 06/15/16 History HYDROcodone/APAP 5-325MG [[place] 1 tab PO DAILY PRN 06/15/16 06/15/16 History 5-325] Hydrocodone/Acetaminophen [[place] 1 tab PO DAILY 06/15/16 06/15/16 History 5-325] Insulin Glargine,Hum.rec.anlog 12 unit SQ DAILY 06/15/16 06/15/16 History [Lantus Solostar] Loratadine [Claritin] 10 mg PO DAILY 06/15/16 06/15/16 History Magnesium Oxide [Mag-Ox] 800 mg PO DAILY 06/15/16 06/15/16 History Melatonin 3 mg PO HS 06/15/16 06/15/16 History Sennosides [Senna] 8.6 mg PO BID 06/15/16 06/15/16 History Triamcinolone 0.5% Cream [Kenalog 1 applic TOPICAL BID 06/15/16 06/15/16 History 0.5% Cream] amLODIPine [Norvasc] 5 mg PO DAILY 06/15/16 06/15/16 History guaiFENesin [Mucinex] 600 mg PO Q12H 06/15/16 06/15/16 History hydrALAZINE HCL [Apresoline] 25 mg PO DAILY 06/15/16 06/15/16 History sitaGLIPtin PHOSPHATE [Januvia] 25 mg PO DAILY 06/15/16 06/15/16 History traMADol HCL [Ultram] 50 mg PO Q6HR PRN 06/15/16 06/15/16 History traMADol HCl [Ultram] 50 mg PO BID 06/15/16 06/15/16 History Allergies Allergy/AdvReac Type Severity Reaction Status Date / Time amoxicillin trihydrate Allergy Unknown Verified 06/15/16 13:51 [From Augmentin] cephalexin monohydrate Allergy Unknown Verified 06/15/16 13:51 [From Keflex] cyclobenzaprine HCl Allergy Unknown Verified 06/15/16 13:51 [From Flexeril] eszopiclone [From Lunesta] Allergy Unknown Verified 06/15/16 13:51 gabapentin [From Neurontin] Allergy Unknown Verified 06/15/16 13:51 levocetirizine Allergy Unknown Verified 06/15/16 13:51 dihydrochloride [From Xyzal] meperidine HCl [From Demerol] Allergy Unknown Verified 06/15/16 13:51 potassium clavulanate Allergy Unknown Verified 06/15/16 13:51 [From Augmentin] adhesive AdvReac Unknown Verified 06/15/16 13:51 hydromorphone HCl AdvReac Hallucinati Verified 06/15/16 13:51 [From Dilaudid] ons Physical Exam Vitals: Vital Signs Temp Pulse Pulse Resp BP BP Pulse Ox 06/15/16 17:40 97.4 F L 86 16 174/81 95 06/15/16 16:57 84 16 167/74 94 L - Constitutional General appearance: average body habitus, mild distress - EENT Eyes: anicteric sclerae, PERRLA, no ptosis, no scleral icterus, normal appearance ENT: hard of hearing, normal oropharynx, no thrush Ears: bilateral: normal - Neck Neck: no lymphadenopathy, normal ROM, no rigidity, no stridor, no thyromegaly Carotids: bilateral: upstroke delayed Thyroid: bilateral: normal size - Respiratory Respiratory: bilateral: diminished, negative: dullness, rales, rhonchi, wheezing , prolonged expiration, prolonged inspiration - Cardiovascular Rhythm: regular Heart sounds: normal: S1, S2 Abnormal Heart Sounds: systolic murmur (Systolic ejection murmur 3/6 located in the right upper sternal border radiating to the base of the neck), no S3 Gallop , no S4 Gallop, no click - Gastrointestinal General gastrointestinal: normal bowel sounds, soft, no splenomegaly, no tenderness, no umbilical hernia, no ventral hernia - Integumentary Integumentary: normal, normal turgor - Neurologic Neurologic: CNII-XII intact, focal deficits - Musculoskeletal Musculoskeletal: generalized weakness, left sided weakness - Psychiatric Psychiatric: A&O x's 3, appropriate affect, intact judgment & insight Results CBC & Chem 7: 06/16/16 17:42 06/16/16 06:38 Assessment and Plan Plan: Assessment and plan: 1. Left intertrochanteric hip fracture post fall. Patient is scheduled to go for intramedullary nailing of the left hip, patient does have significant coronary disease including severe aortic valve stenosis, chronic kidney disease , diabetes, hypertension, hyperlipidemia, was thought that she is at high risk for surgical intervention however the family is in agreement to go ahead and perform surgery, patient will be seen in consultation by cardiology for further recommendation, we will obtain echocardiogram to evaluate LV function as well as the severity of aortic valve stenosis. 2. Severe aortic valve stenosis. Check echocardiogram. 3. Hypertension and hypertensive cardiovascular disease. Continue patient on hydralazine 25 mg orally once every day, amlodipine 10 mg orally once every day. 4. Diabetes mellitus type 2. Continue Lantus 12 units at bedtime, Tradjenta 5 mg orally once every day, BGM before each meal and at bedtime. Apply sliding scale insulin . 5. Hypothyroidism. Continue Synthroid 88 g orally once every day. 6. Chronic kidney disease stage II. Monitor the patient CMP. 7. UTI with sepsis. Urine culture, blood culture, start the patient on Levaquin 500 mg IV piggyback every 24 hours. 8. Gout. Continue allopurinol 100 mg orally once every day. 9. Hyperlipidemia. Continue Lipitor 20 mg orally once every day. 10. Anemia of chronic renal disease. Continue Aranesp and iron supplement. Monitor the patient's CBC. 11. DVT prophylaxis. Continue the patient on Lovenox 30 mg subcutaneously every 24 hours. 12. GI prophylaxis. Continue Protonix 40 mg orally once every day. 13. Patient is full code. 14. Thank you Dr. Carmona for allowing me to participate in the care of your patient, we will follow the patient along with you.
--- NOTE | 2016-06-16 19:20 | XR ---
EXAMINATION TYPE: XR Hip Limited LT DATE OF EXAM: 06/16/2016 6:28 PM COMPARISON: NONE HISTORY: Postoperative left hip fracture TECHNIQUE: Single AP view FINDINGS: Postsurgical cutaneous and subcutaneous soft tissue changes are appreciated. Orthopedic ailin lia is well visualized, as is the orientation of the proximal femur with the left hip. IMPRESSION: Postoperative left hip.
[2016-06-16] MEDS: CLINDAMYCIN 900 MG in DEXTROSE 5% IN WATER 50 ML IVPB SCH ×2 (20:01)
[2016-06-16 21:54] LABS: Glucose,Whole Blood 114 mg/dL (75-99)
[2016-06-16] MEDS: MORPHINE SULFATE 2 MG/ML SYRINGE IV PRN (22:06)
[2016-06-16] MEDS: LEVOFLOXACIN 250MG-D5W PMX 250 MG in DEXTROSE/WATER 1 50ML.BAG IVPB SCH (22:08)
[2016-06-16] MEDS: MELATONIN 3 MG TABLET PO SCH (22:10)
[2016-06-16] MEDS: CALCIUM CARBONATE 500 MG CHEWABLE PO SCH (22:10)
[2016-06-16] MEDS: SENNOSIDES-DOCUSATE SODIUM 1 EACH TAB PO SCH (22:12)
--- NOTE | 2016-06-16 22:38 | FL ---
PROCEDURE: Fluoroscopy guidance provided in the operating room for the procedure. DESCRIPTION: 2 minutes 50 seconds fluoroscopy was provided, with 2 images stored. IMPRESSION: Operating room fluoroscopy guidance.
[2016-06-16] MEDS: FERROUS SULFATE 325 MG TAB PO SCH (23:22)
[2016-06-17] MEDS: CLINDAMYCIN 900 MG in DEXTROSE 5% IN WATER 50 ML IVPB SCH ×2 (00:03)
[2016-06-17] MEDS: MORPHINE SULFATE 2 MG/ML SYRINGE IV PRN ×2 (01:05→05:00)
[2016-06-17 06:23] LABS: Glucose,Whole Blood 117 mg/dL (75-99)
[2016-06-17] MEDS: LEVOTHYROXINE 88 MCG TAB PO SCH (06:31)
[2016-06-17] MEDS: guaiFENesin 600 MG TABLET.ER PO SCH ×2 (06:31→18:12)
--- NOTE | 2016-06-17 07:49 | XR ---
EXAMINATION TYPE: XR Hip Complete LT DATE OF EXAM: 06/16/2016 6:29 PM CLINICAL HISTORY: ORIF left hip 2 min 50 sec fl-2 images
[2016-06-17] MEDS: ALLOPURINOL 100 MG TAB PO SCH (08:20)
[2016-06-17] MEDS: amLODIPine 5 MG TAB PO SCH (08:20)
[2016-06-17] MEDS: DICLOFENAC 0.1% OPHTH SOLN 2.5 ML BTL BOTH EYES SCH ×4 (08:21→20:31)
[2016-06-17] MEDS: ATORVASTATIN 20 MG TAB PO SCH (08:21)
[2016-06-17] MEDS: hydrALAZINE HCL 25 MG TAB PO SCH (08:21)
[2016-06-17] MEDS: CALCIUM CARBONATE 500 MG CHEWABLE PO SCH ×3 (08:21→20:30)
[2016-06-17] MEDS: ENOXAPARIN 30 MG/0.3 ML SYRINGE SQ SCH (08:21)
[2016-06-17] MEDS: LORATADINE 10 MG TAB PO SCH (08:22)
[2016-06-17] MEDS: LINAGLIPTIN 5 MG TABLET PO SCH (08:22)
[2016-06-17] MEDS: SENNOSIDES 8.6 MG TAB PO SCH ×2 (08:22→20:30)
[2016-06-17] MEDS: INSULIN GLARGINE 100 UNIT/ML 10 ML VIAL SQ SCH (08:27)
[2016-06-17] MEDS: HYDROcodone/APAP 5-325MG 1 EACH TAB PO PRN ×2 (08:27→18:14)
--- NOTE | 2016-06-17 09:19 | P.PN ---
Subjective No acute events overnight. This morning the patient is complaining of mild discomfort in her left hip but otherwise has no complaints. She denies chest pain or shortness of breath. Objective - Vital Signs Vital signs: Vital Signs Temp 97 F L 06/17/16 08:00 Pulse 84 06/17/16 08:00 Resp 17 06/17/16 08:00 BP 126/58 06/17/16 08:00 Pulse Ox 100 06/17/16 08:00 Intake & Output 06/16/16 06/17/16 06/17/16 18:59 06:59 18:59 Intake Total 2003 680 Output Total 600 600 Balance 1404 80 Intake: IV 2004 310 0.9 160 Sodium Chloride 0.9% 1, 800 150 000 ml @ 75 mls/hr IV . [id number] [facility] Rx#:[id number] Intake, IV Titration 170 Amount Clindamycin 900 mg In 100 Dextrose 5% in Water 50 ml @ 100 mls/hr IVPB Q6HR [facility] Rx#:[id number] Lactated Ringers 1,000 ml 20 As IV .STK-MED ONE Rx#: [id number] Levofloxacin 250Mg-D5w 50 Pmx 250 mg In Dextrose/ Water 1 50ml.bag @ 50 mls /hr IVPB Q24H [facility] Rx#: [id number] Oral 200 Output: Urine 400 600 Estimated Blood Loss 200 Other: Voiding Method Indwelling Catheter Indwelling Catheter Indwelling Catheter - Exam On examination the patient is alert and able to answer questions. On examination of her left hip there is a clean-appearing dressing with no saturated blood. Her thigh and calf are soft. Sensation is intact to light touch in her left foot. She is able to actively plantarflex and dorsiflex her ankle and toes. She has no pain with passive range of motion of her foot - Labs CBC & Chem 7: 06/16/16 17:42 06/16/16 06:38 Labs: Abnormal Lab Results - Last 24 Hours (Table) 06/16/16 06/16/16 06/16/16 Range/Units 11:44 17:42 18:04 WBC 24.7 H (3.8-10.6) k/uL RBC 3.23 L (3.80-5.40) m/uL Hgb 9.2 L (11.4-16.0) gm/dL Hct 30.0 L (34.0-46.0) % MCHC 30.6 L (31.0-37.0) g/dL RDW 18.6 H (11.5-15.5) % Neutrophils # 21.2 H (1.3-7.7) k/uL Monocytes # 1.7 H (0-1.0) k/uL POC Glucose (mg/dL) 104 H 111 H (75-99) mg/dL 06/16/16 06/17/16 Range/Units 21:49 06:14 WBC (3.8-10.6) k/uL RBC (3.80-5.40) m/uL Hgb (11.4-16.0) gm/dL Hct (34.0-46.0) % MCHC (31.0-37.0) g/dL RDW (11.5-15.5) % Neutrophils # (1.3-7.7) k/uL Monocytes # (0-1.0) k/uL POC Glucose (mg/dL) 114 H 117 H (75-99) mg/dL Microbiology - Last 24 Hours (Table) 06/15/16 18:07 Blood Culture - Preliminary Blood No Growth after 24 hours 06/15/16 18:44 Urine Culture - Final Urine,Catheterized Assessment and Plan (1) Fracture of hip Status: Acute Plan: Postoperative day #1 status post operative fixation of left intertrochanteric hip fracture with intramedullary hip screw. 1. Toe-touch weight-bearing left leg 2. Mobilize out of bed into chair 3. 2 doses postoperative antibiotics 4. DVT prophylaxis with Lovenox 30 mg daily 4 weeks 5. Appreciate internal medicine and cardiology for perioperative medical management 6. Discharge planning
--- NOTE | 2016-06-17 09:36 | P.PN ---
Subjective Principal diagnosis: Left hip fracture This is a pleasant 85-year-old female with history of chronic renal failure, chronic anemia, hyperlipidemia, hypertension, diabetes, prior TIA, hypothyroidism, severe aortic stenosis who presented to the hospital after experiencing a fall. She had a hip fracture on the left side for which she underwent surgery. Cardiology consultation was initially requested preoperatively for clearance. She did have an echocardiogram with Doppler study performed this admission which revealed an ejection fraction of 50-55%, severe aortic stenosis with a peak/mean gradient of 109mmHg/70mmHg. She is now being followed on the telemetry unit, daughter is at bedside. At the time of my examination this morning, she is quite comfortable, states she only has pain when she moves. Breathing is stable. Blood pressure this morning 126/58, heart rate in the 80s, 100% on room air. Objective - Vital Signs Vital signs: Vital Signs Temp 97 F L 06/17/16 08:00 Pulse 84 06/17/16 08:00 Resp 17 06/17/16 08:00 BP 126/58 06/17/16 08:00 Pulse Ox 100 06/17/16 08:00 Intake & Output 06/16/16 06/17/16 06/17/16 18:59 06:59 18:59 Intake Total 2003 680 Output Total 600 600 Balance 1404 80 Intake: IV 2004 310 0.9 160 Sodium Chloride 0.9% 1, 800 150 000 ml @ 75 mls/hr IV . [id number] [facility] Rx#:[id number] Intake, IV Titration 170 Amount Clindamycin 900 mg In 100 Dextrose 5% in Water 50 ml @ 100 mls/hr IVPB Q6HR [facility] Rx#:[id number] Lactated Ringers 1,000 ml 20 As IV .STK-MED ONE Rx#: [id number] Levofloxacin 250Mg-D5w 50 Pmx 250 mg In Dextrose/ Water 1 50ml.bag @ 50 mls /hr IVPB Q24H [facility] Rx#: [id number] Oral 200 Output: Urine 400 600 Estimated Blood Loss 200 Other: Voiding Method Indwelling Catheter Indwelling Catheter Indwelling Catheter - Exam PHYSICAL EXAMINATION: HEENT: Head is atraumatic, normocephalic. Pupils equal, round. Neck is supple. There is no elevated jugular venous pressure. HEART EXAMINATION: Heart S1 and S2 systolic murmur is heard in the aortic area CHEST EXAMINATION: Lungs are clear to auscultation and precussion. No chest wall tenderness is noted on palpation or with deep breathing. ABDOMEN: Soft, nontender. Bowel sounds are heard. No organomegaly noted. EXTREMITIES: 2+ peripheral pulses with no evidence of peripheral edema and no calf tenderness noted. NEUROLOGIC patient is awake, alert and oriented -3. . - Labs CBC & Chem 7: 06/16/16 17:42 06/16/16 06:38 Labs: Abnormal Lab Results - Last 24 Hours (Table) 06/16/16 06/16/16 06/16/16 Range/Units 11:44 17:42 18:04 WBC 24.7 H (3.8-10.6) k/uL RBC 3.23 L (3.80-5.40) m/uL Hgb 9.2 L (11.4-16.0) gm/dL Hct 30.0 L (34.0-46.0) % MCHC 30.6 L (31.0-37.0) g/dL RDW 18.6 H (11.5-15.5) % Neutrophils # 21.2 H (1.3-7.7) k/uL Monocytes # 1.7 H (0-1.0) k/uL POC Glucose (mg/dL) 104 H 111 H (75-99) mg/dL 06/16/16 06/17/16 Range/Units 21:49 06:14 WBC (3.8-10.6) k/uL RBC (3.80-5.40) m/uL Hgb (11.4-16.0) gm/dL Hct (34.0-46.0) % MCHC (31.0-37.0) g/dL RDW (11.5-15.5) % Neutrophils # (1.3-7.7) k/uL Monocytes # (0-1.0) k/uL POC Glucose (mg/dL) 114 H 117 H (75-99) mg/dL Microbiology - Last 24 Hours (Table) 06/15/16 18:07 Blood Culture - Preliminary Blood No Growth after 24 hours 06/15/16 18:44 Urine Culture - Final Urine,Catheterized Assessment and Plan (1) Hip fracture, left Status: Acute (2) Diabetes Status: Acute (3) HTN (hypertension) Status: Acute (4) TIA (transient ischemic attack) Status: Acute (5) Hypothyroid Status: Acute (6) Severe aortic stenosis Status: Acute (7) Chronic renal failure Status: Acute Plan: From cardiology's perspective, patient overall is doing fairly well. Hemodynamically stable. She may be able to be transferred to the surgical unit. Follow-up appointment with Dr. Blair in the office post discharge. DNP note has been reviewed, I agree with a documented findings and plan of care. Patient was seen and examined.
[2016-06-17] MEDS: MULTIVITAMINS, THERA 1 EACH TAB PO SCH (11:16)
[2016-06-17] MEDS: CHOLECALCIFEROL 1,000 UNIT TAB PO SCH (11:16)
[2016-06-17] MEDS: MAGNESIUM OXIDE 400 MG TAB PO SCH (11:17)
[2016-06-17 11:50] LABS: Glucose,Whole Blood 128 mg/dL (75-99)
[2016-06-17] MEDS: traMADol 50 MG TAB PO PRN ×2 (13:09→20:40)
[2016-06-17] MEDS: ALBUTEROL NEBULIZED 2.5 MG/3 ML INHALATION PRN ×2 (13:39→21:02)
--- NOTE | 2016-06-17 16:08 | P.PN ---
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 with a previous medical history significant for hypertension and hypertensive cardio vascular disease with left ventricular hypertrophy, hypothyroidism, chronic kidney disease stage II, diabetes mellitus type 2, hyperlipidemia, patient resides at assisted living facility in [place] and today she was transferring from her wheelchair using the walker and she lost her balance ended up falling onto her left side and she had a treatment as amount of pain she ended up getting transferred to [facility] where she was found to have a left intertrochanteric hip fracture she was admitted to the hospital and orthopedic surgery and we were asked to see the patient for medical management and preoperative medical clearance. Apparently the patient does appear to have a significant and severe aortic valve stenosis, and because of her comorbidities it was thought that the patient is at high risk for surgical intervention subsequently consult cardiology for further care and the patient will have an echo care gram for eval you should've LV function as well as the severity of her aortic valve stenosis prior to her surgical intervention. Patient underwent left hip intertrochanteric IM nailing that was done by Dr. Carmona and she was admitted to the [facility] for overnight subsequent she was moved to the surgical unit in the morning, patient is sitting up in bed that she appears to be quite tired, her daughter was at bedside. She denies any chest pain or shortness breath she has no abdominal pain, she disclaims some neck pain that she has poor appetite today she did not eat much. Objective - Vital Signs Vital signs: Vital Signs Temp 97.5 F L 06/17/16 11:51 Pulse 92 06/17/16 11:51 Resp 15 06/17/16 11:51 BP 123/51 06/17/16 11:51 Pulse Ox 98 06/17/16 11:51 Intake & Output 06/16/16 06/17/16 06/17/16 18:59 06:59 18:59 Intake Total 2003 680 Output Total 600 600 Balance 1404 80 Intake: IV 2003 310 0.9 160 Sodium Chloride 0.9% 1, 800 150 000 ml @ 75 mls/hr IV . [id number] ONE Rx#:[id number] Intake, IV Titration 170 Amount Clindamycin 900 mg In 100 Dextrose 5% in Water 50 ml @ 100 mls/hr IVPB Q6HR [facility] Rx#:[id number] Lactated Ringers 1,000 ml 20 As IV .[facility] Rx#: [id number] Levofloxacin 250Mg-D5w 50 Pmx 250 mg In Dextrose/ Water 1 50ml.bag @ 50 mls /hr IVPB Q24H [facility] Rx#: [id number] Oral 200 Output: Urine 400 600 Estimated Blood Loss 200 Other: Voiding Method Indwelling Catheter Indwelling Catheter Indwelling Catheter - Exam - Constitutional General appearance: average body habitus, mild distress - EENT Eyes: anicteric sclerae, PERRLA, no ptosis, no scleral icterus, normal appearance ENT: hard of hearing, normal oropharynx, no thrush Ears: bilateral: normal - Neck Neck: no lymphadenopathy, normal ROM, no rigidity, no stridor, no thyromegaly Carotids: bilateral: upstroke delayed Thyroid: bilateral: normal size - Respiratory Respiratory: bilateral: diminished, negative: dullness, rales, rhonchi, wheezing , prolonged expiration, prolonged inspiration - Cardiovascular Rhythm: regular Heart sounds: normal: S1, S2 Abnormal Heart Sounds: systolic murmur (Systolic ejection murmur 3/6 located in the right upper sternal border radiating to the base of the neck), no S3 Gallop , no S4 Gallop, no click - Gastrointestinal General gastrointestinal: normal bowel sounds, soft, no splenomegaly, no tenderness, no umbilical hernia, no ventral hernia - Integumentary Integumentary: normal, normal turgor - Neurologic Neurologic: CNII-XII intact, focal deficits - Musculoskeletal Musculoskeletal: generalized weakness, left sided weakness - Psychiatric Psychiatric: A&O x's 3, appropriate affect, intact judgment & insight - Labs CBC & Chem 7: 06/16/16 17:42 06/16/16 06:38 Labs: Abnormal Lab Results - Last 24 Hours (Table) 06/16/16 06/16/16 06/16/16 Range/Units 17:42 18:04 21:49 WBC 24.7 H (3.8-10.6) k/uL RBC 3.23 L (3.80-5.40) m/uL Hgb 9.2 L (11.4-16.0) gm/dL Hct 30.0 L (34.0-46.0) % MCHC 30.6 L (31.0-37.0) g/dL RDW 18.6 H (11.5-15.5) % Neutrophils # 21.2 H (1.3-7.7) k/uL Monocytes # 1.7 H (0-1.0) k/uL POC Glucose (mg/dL) 111 H 114 H (75-99) mg/dL 06/17/16 06/17/16 Range/Units 06:14 11:47 WBC (3.8-10.6) k/uL RBC (3.80-5.40) m/uL Hgb (11.4-16.0) gm/dL Hct (34.0-46.0) % MCHC (31.0-37.0) g/dL RDW (11.5-15.5) % Neutrophils # (1.3-7.7) k/uL Monocytes # (0-1.0) k/uL POC Glucose (mg/dL) 117 H 128 H (75-99) mg/dL Microbiology - Last 24 Hours (Table) 06/15/16 18:07 Blood Culture - Preliminary Blood No Growth after 24 hours 06/15/16 18:44 Urine Culture - Final Urine,Catheterized Assessment and Plan Plan: Assessment and plan: 1. Left intertrochanteric hip fracture post fall. This is postoperative day # 1 status post left intertrochanteric IM nail. Continue since around her, continue current pain management, continue with physical therapy evaluation in the next 24 hours. Continue incentive spirometer to reduce the incidence of atelectasis and hospital acquired pneumonia 2. Severe aortic valve stenosis. Stable. 3. Hypertension and hypertensive cardiovascular disease. Continue patient on hydralazine 25 mg orally once every day, amlodipine 10 mg orally once every day. 4. Diabetes mellitus type 2. Continue Lantus 12 units at bedtime, Tradjenta 5 mg orally once every day, BGM before each meal and at bedtime. Apply sliding scale insulin . 5. Hypothyroidism. Continue Synthroid 88 g orally once every day. 6. Chronic kidney disease stage II. Monitor the patient CMP. 7. UTI with sepsis. Urine culture, blood culture, start the patient on Levaquin 500 mg IV piggyback every 24 hours. 8. Gout. Continue allopurinol 100 mg orally once every day. 9. Hyperlipidemia. Continue Lipitor 20 mg orally once every day. 10. Anemia of chronic renal disease. Continue Aranesp and iron supplement. Monitor the patient's CBC. 11. DVT prophylaxis. Continue the patient on Lovenox 30 mg subcutaneously every 24 hours. 12. GI prophylaxis. Continue Protonix 40 mg orally once every day. 13. Patient is full code.
[2016-06-17 17:34] LABS: Glucose,Whole Blood 135 mg/dL (75-99)
[2016-06-17] MEDS: LEVOFLOXACIN 250MG-D5W PMX 250 MG in DEXTROSE/WATER 1 50ML.BAG IVPB SCH (18:25)
[2016-06-17] MEDS: SENNOSIDES-DOCUSATE SODIUM 1 EACH TAB PO SCH (20:20)
[2016-06-17] MEDS: FERROUS SULFATE 325 MG TAB PO SCH (20:30)
[2016-06-17] MEDS: MELATONIN 3 MG TABLET PO SCH (20:30)
[2016-06-17 20:34] LABS: Glucose,Whole Blood 180 mg/dL (75-99)
[2016-06-17 20:48] LABS: Glucose,Whole Blood 187 mg/dL (75-99)
[2016-06-18] MEDS: HYDROcodone/APAP 5-325MG 1 EACH TAB PO PRN ×3 (05:25→18:01)
[2016-06-18] MEDS: LEVOTHYROXINE 88 MCG TAB PO SCH (05:48)
[2016-06-18] MEDS: guaiFENesin 600 MG TABLET.ER PO SCH ×2 (05:48→08:18)
[2016-06-18 06:50] LABS: Glucose,Whole Blood 191 mg/dL (75-99)
[2016-06-18 07:06] LABS: Anisocytosis Slight; Basophils % (A) 0 %; CH 28.1; CHCM 30.3; Calcium 8.4 mg/dL (8.4-10.2); Eosinophils # (A) 0.1 k/uL (0-0.7); Eosinophils % (A) 1 %; HCT 22.5 % (34.0-46.0); HDW 2.73; Hypochromasia Moderate; Luc # (Auto) 0.44; Luc % (Auto) 3; Lymphocytes # (A) 0.7 k/uL (1.0-4.8); Lymphocytes % (A) 4 %; MCH 29.2 pg (25.0-35.0); MCHC 31.4 g/dL (31.0-37.0); MCV 93.1 fL (80.0-100.0); Mean Platelet Volume 8.2; Monocytes # (A) 1.1 k/uL (0-1.0); Monocytes % (A) 7 %; Neutrophils % (A) 86 %; Potassium 4.2 mmol/L (3.5-5.1); RBC 2.42 m/uL (3.80-5.40); RDW 18.6 % (11.5-15.5); Total Bilirubin 0.6 mg/dL (0.2-1.3); Total Protein 4.6 g/dL (6.3-8.2); WBC 16.4 k/uL (3.8-10.6); WBC (Perox) 17.29
[2016-06-18 07:18] LABS: HGB 7.1 gm/dL (11.4-16.0)
[2016-06-18] MEDS: ALBUTEROL NEBULIZED 2.5 MG/3 ML INHALATION PRN ×4 (07:23→21:40)
[2016-06-18] MEDS: INSULIN GLARGINE 100 UNIT/ML 10 ML VIAL SQ SCH (08:07)
[2016-06-18] MEDS: MAGNESIUM OXIDE 400 MG TAB PO SCH (08:17)
[2016-06-18] MEDS: MULTIVITAMINS, THERA 1 EACH TAB PO SCH (08:17)
[2016-06-18] MEDS: ALLOPURINOL 100 MG TAB PO SCH (08:18)
[2016-06-18] MEDS: CHOLECALCIFEROL 1,000 UNIT TAB PO SCH (08:18)
[2016-06-18] MEDS: CALCIUM CARBONATE 500 MG CHEWABLE PO SCH ×3 (08:19→23:05)
[2016-06-18] MEDS: amLODIPine 5 MG TAB PO SCH (08:19)
[2016-06-18] MEDS: ATORVASTATIN 20 MG TAB PO SCH (08:19)
[2016-06-18] MEDS: DICLOFENAC 0.1% OPHTH SOLN 2.5 ML BTL BOTH EYES SCH ×4 (08:19→23:09)
[2016-06-18] MEDS: hydrALAZINE HCL 25 MG TAB PO SCH (08:20)
[2016-06-18] MEDS: LINAGLIPTIN 5 MG TABLET PO SCH (08:20)
[2016-06-18] MEDS: SENNOSIDES 8.6 MG TAB PO SCH ×2 (08:20→23:05)
[2016-06-18] MEDS: LORATADINE 10 MG TAB PO SCH (08:20)
[2016-06-18] MEDS: ENOXAPARIN 30 MG/0.3 ML SYRINGE SQ SCH (08:20)
[2016-06-18] MEDS: traMADol 50 MG TAB PO PRN ×3 (08:21→21:14)
--- NOTE | 2016-06-18 10:28 | P.PN ---
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 with a previous medical history significant for hypertension and hypertensive cardio vascular disease with left ventricular hypertrophy, hypothyroidism, chronic kidney disease stage II, diabetes mellitus type 2, hyperlipidemia, patient resides at assisted living facility in [place] and today she was transferring from her wheelchair using the walker and she lost her balance ended up falling onto her left side and she had a treatment as amount of pain she ended up getting transferred to [facility] where she was found to have a left intertrochanteric hip fracture she was admitted to the hospital and orthopedic surgery and we were asked to see the patient for medical management and preoperative medical clearance. Apparently the patient does appear to have a significant and severe aortic valve stenosis, and because of her comorbidities it was thought that the patient is at high risk for surgical intervention subsequently consult cardiology for further care and the patient will have an echo care gram for eval you should've LV function as well as the severity of her aortic valve stenosis prior to her surgical intervention. Patient underwent left hip intertrochanteric IM nailing that was done by Dr. Carmona and she was admitted to the [facility] for overnight subsequent she was moved to the surgical unit in the morning, patient is sitting up in bed that she appears to be quite tired, her daughter was at bedside. She denies any chest pain or shortness breath she has no abdominal pain, she disclaims some neck pain that she has poor appetite today she did not eat much. 06/18: Patient is sitting up in the recliner today she feels dizzy, she denies any chest pain, shortness breath, she has no abdominal pain, her photoradio operator better, her hemoglobin dropped to 7.1, she is scheduled to go for a 1 unit packed red blood cell transfusion today hold physical therapy and after blood transfusion. Objective - Vital Signs Vital signs: Vital Signs Temp 97.0 F L 06/18/16 01:08 Pulse 88 06/18/16 07:32 Resp 16 06/18/16 01:08 BP 116/56 06/18/16 01:08 Pulse Ox 97 06/18/16 07:24 Intake & Output 06/17/16 06/18/16 06/18/16 18:59 06:59 18:59 Intake Total 60 300 Output Total 600 Balance 60 -300 Weight 67.132 kg Intake: IV 300 Sodium Chloride 0.9% 1, 300 000 ml @ 75 mls/hr IV . [id number] ONE Rx#:[id number] Oral 60 Output: Urine 600 Uretheral (Douglas) 600 Other: Voiding Method Indwelling Catheter Indwelling Catheter # Voids 1 - Exam - Constitutional General appearance: average body habitus, mild distress - EENT Eyes: anicteric sclerae, PERRLA, no ptosis, no scleral icterus, normal appearance ENT: hard of hearing, normal oropharynx, no thrush Ears: bilateral: normal - Neck Neck: no lymphadenopathy, normal ROM, no rigidity, no stridor, no thyromegaly Carotids: bilateral: upstroke delayed Thyroid: bilateral: normal size - Respiratory Respiratory: bilateral: diminished, negative: dullness, rales, rhonchi, wheezing , prolonged expiration, prolonged inspiration - Cardiovascular Rhythm: regular Heart sounds: normal: S1, S2 Abnormal Heart Sounds: systolic murmur (Systolic ejection murmur 3/6 located in the right upper sternal border radiating to the base of the neck), no S3 Gallop , no S4 Gallop, no click - Gastrointestinal General gastrointestinal: normal bowel sounds, soft, no splenomegaly, no tenderness, no umbilical hernia, no ventral hernia - Integumentary Integumentary: normal, normal turgor - Neurologic Neurologic: CNII-XII intact, focal deficits - Musculoskeletal Musculoskeletal: generalized weakness, left sided weakness - Psychiatric Psychiatric: A&O x's 3, appropriate affect, intact judgment & insight - Labs CBC & Chem 7: 06/18/16 06:30 06/18/16 06:30 Labs: Abnormal Lab Results - Last 24 Hours (Table) 06/16/16 06/17/16 06/17/16 Range/Units 15:15 11:47 17:11 WBC (3.8-10.6) k/uL RBC (3.80-5.40) m/uL Hgb (11.4-16.0) gm/dL Hct (34.0-46.0) % RDW (11.5-15.5) % Neutrophils # (1.3-7.7) k/uL Lymphocytes # (1.0-4.8) k/uL Monocytes # (0-1.0) k/uL Sodium (137-145) mmol/L Carbon Dioxide (22-30) mmol/L BUN (7-17) mg/dL Creatinine (0.52-1.04) mg/dL Glucose (74-99) mg/dL POC Glucose (mg/dL) 128 H 135 H (75-99) mg/dL Total Protein (6.3-8.2) g/dL Albumin (3.5-5.0) g/dL Crossmatch See Detail 06/17/16 06/17/16 06/18/16 Range/Units 20:33 20:35 06:30 WBC 16.4 H (3.8-10.6) k/uL RBC 2.42 L (3.80-5.40) m/uL Hgb 7.1 L D (11.4-16.0) gm/dL Hct 22.5 L (34.0-46.0) % RDW 18.6 H (11.5-15.5) % Neutrophils # 14.0 H (1.3-7.7) k/uL Lymphocytes # 0.7 L (1.0-4.8) k/uL Monocytes # 1.1 H (0-1.0) k/uL Sodium (137-145) mmol/L Carbon Dioxide (22-30) mmol/L BUN (7-17) mg/dL Creatinine (0.52-1.04) mg/dL Glucose (74-99) mg/dL POC Glucose (mg/dL) 180 H 187 H (75-99) mg/dL Total Protein (6.3-8.2) g/dL Albumin (3.5-5.0) g/dL Crossmatch 06/18/16 06/18/16 Range/Units 06:30 06:48 WBC (3.8-10.6) k/uL RBC (3.80-5.40) m/uL Hgb (11.4-16.0) gm/dL Hct (34.0-46.0) % RDW (11.5-15.5) % Neutrophils # (1.3-7.7) k/uL Lymphocytes # (1.0-4.8) k/uL Monocytes # (0-1.0) k/uL Sodium 136 L (137-145) mmol/L Carbon Dioxide 18 L (22-30) mmol/L BUN 46 H (7-17) mg/dL Creatinine 1.59 H (0.52-1.04) mg/dL Glucose 163 H (74-99) mg/dL POC Glucose (mg/dL) 191 H (75-99) mg/dL Total Protein 4.6 L (6.3-8.2) g/dL Albumin 2.4 L (3.5-5.0) g/dL Crossmatch Microbiology - Last 24 Hours (Table) 06/15/16 18:07 Blood Culture - Preliminary Blood No Growth after 48 hours Assessment and Plan Plan: Assessment and plan: 1. Left intertrochanteric hip fracture post fall. This is postoperative day # 1 status post left intertrochanteric IM nail. Continue since around her, continue current pain management, continue with physical therapy evaluation in the next 24 hours. Continue incentive spirometer to reduce the incidence of atelectasis and hospital acquired pneumonia 2. Severe aortic valve stenosis. Stable. 3. Hypertension and hypertensive cardiovascular disease. Continue patient on hydralazine 25 mg orally once every day, amlodipine 10 mg orally once every day. 4. Diabetes mellitus type 2. Continue Lantus 12 units at bedtime, Tradjenta 5 mg orally once every day, BGM before each meal and at bedtime. Apply sliding scale insulin . 5. Hypothyroidism. Continue Synthroid 88 g orally once every day. 6. Chronic kidney disease stage II. Monitor the patient CMP. 7. UTI with sepsis. Urine culture, blood culture, start the patient on Levaquin 500 mg IV piggyback every 24 hours. 8. Gout. Continue allopurinol 100 mg orally once every day. 9. Hyperlipidemia. Continue Lipitor 20 mg orally once every day. 10. Anemia of chronic renal disease. Continue Aranesp and iron supplement. Monitor the patient's CBC. 11. DVT prophylaxis. Continue the patient on Lovenox 30 mg subcutaneously every 24 hours. 12. GI prophylaxis. Continue Protonix 40 mg orally once every day. 13. Patient is full code. 14. Acute blood loss anemia. Type and cross and transfuse 1 unit of packed cells. 15. Acute prerenal azotemia. IV fluid resuscitation normal saline 75 mL an hour, repeat CMP magnesium tomorrow morning.
--- NOTE | 2016-06-18 11:11 | P.PN ---
Subjective Principal diagnosis: Intertrochanteric fracture left hip Status post closed reduction, insertion intertrochanteric nail left hip This is an 85-year-old female who is status post close reduction and insertion of intertrochanteric nail left hip. She is stable from an orthopedic standpoint. She has no new complaints or concerns today. Vital signs are stable. Hemoglobin is 7.1 today. Objective - Vital Signs Vital signs: Vital Signs Temp 97.0 F L 06/18/16 01:08 Pulse 92 06/18/16 11:05 Resp 16 06/18/16 01:08 BP 116/56 06/18/16 01:08 Pulse Ox 97 06/18/16 07:24 Intake & Output 06/17/16 06/18/16 06/18/16 18:59 06:59 18:59 Intake Total 60 300 300 Output Total 600 200 Balance 60 -300 100 Weight 67.132 kg Intake: IV 300 Sodium Chloride 0.9% 1, 300 000 ml @ 75 mls/hr IV . [id number] ONE Rx#:[id number] Oral 60 300 Output: Urine 600 200 Uretheral (Douglas) 600 200 Other: Voiding Method Indwelling Catheter Indwelling Catheter # Voids 1 - Exam This is a pleasant 85-year-old female in no acute distress. She is alert and oriented 3. Her skin is pale and she has some global weakness. Exam of the left hip reveals that her dressings are clean, dry and intact. She has full foot and ankle motion without difficulty or pain. Neurovascular status to the lower extremity is intact. - Labs CBC & Chem 7: 06/18/16 06:30 06/18/16 06:30 Labs: Abnormal Lab Results - Last 24 Hours (Table) 06/16/16 06/17/16 06/17/16 Range/Units 15:15 11:47 17:11 WBC (3.8-10.6) k/uL RBC (3.80-5.40) m/uL Hgb (11.4-16.0) gm/dL Hct (34.0-46.0) % RDW (11.5-15.5) % Neutrophils # (1.3-7.7) k/uL Lymphocytes # (1.0-4.8) k/uL Monocytes # (0-1.0) k/uL Sodium (137-145) mmol/L Carbon Dioxide (22-30) mmol/L BUN (7-17) mg/dL Creatinine (0.52-1.04) mg/dL Glucose (74-99) mg/dL POC Glucose (mg/dL) 128 H 135 H (75-99) mg/dL Total Protein (6.3-8.2) g/dL Albumin (3.5-5.0) g/dL Crossmatch See Detail 06/17/16 06/17/16 06/18/16 Range/Units 20:33 20:35 06:30 WBC 16.4 H (3.8-10.6) k/uL RBC 2.42 L (3.80-5.40) m/uL Hgb 7.1 L D (11.4-16.0) gm/dL Hct 22.5 L (34.0-46.0) % RDW 18.6 H (11.5-15.5) % Neutrophils # 14.0 H (1.3-7.7) k/uL Lymphocytes # 0.7 L (1.0-4.8) k/uL Monocytes # 1.1 H (0-1.0) k/uL Sodium (137-145) mmol/L Carbon Dioxide (22-30) mmol/L BUN (7-17) mg/dL Creatinine (0.52-1.04) mg/dL Glucose (74-99) mg/dL POC Glucose (mg/dL) 180 H 187 H (75-99) mg/dL Total Protein (6.3-8.2) g/dL Albumin (3.5-5.0) g/dL Crossmatch 06/18/16 06/18/16 Range/Units 06:30 06:48 WBC (3.8-10.6) k/uL RBC (3.80-5.40) m/uL Hgb (11.4-16.0) gm/dL Hct (34.0-46.0) % RDW (11.5-15.5) % Neutrophils # (1.3-7.7) k/uL Lymphocytes # (1.0-4.8) k/uL Monocytes # (0-1.0) k/uL Sodium 136 L (137-145) mmol/L Carbon Dioxide 18 L (22-30) mmol/L BUN 46 H (7-17) mg/dL Creatinine 1.59 H (0.52-1.04) mg/dL Glucose 163 H (74-99) mg/dL POC Glucose (mg/dL) 191 H (75-99) mg/dL Total Protein 4.6 L (6.3-8.2) g/dL Albumin 2.4 L (3.5-5.0) g/dL Crossmatch Microbiology - Last 24 Hours (Table) 06/15/16 18:07 Blood Culture - Preliminary Blood No Growth after 48 hours Assessment and Plan (1) Chronic anemia Status: Acute (2) Severe aortic stenosis Status: Acute (3) Intertrochanteric fracture of left hip Status: Acute Plan: The clinical findings are discussed with the patient and her . Blood transfusion has been ordered this morning by internal medicine. We will continue to progress physical therapy as tolerated. We are planning discharge to inpatient rehab when cleared medically.
[2016-06-18 11:36] LABS: Glucose,Whole Blood 229 mg/dL (75-99)
[2016-06-18] MEDS: SODIUM CHLORIDE 0.9% 1,000 ML IV SCH ×2 (15:53→23:04)
[2016-06-18 16:45] LABS: Glucose,Whole Blood 165 mg/dL (75-99)
[2016-06-18] MEDS: LEVOFLOXACIN 250MG-D5W PMX 250 MG in DEXTROSE/WATER 1 50ML.BAG IVPB SCH (18:00)
[2016-06-18] MEDS ORDERED: FUROSEMIDE 10 MG/ML 4 ML VIAL IVP STA (21:50)
[2016-06-18 22:02] LABS: Glucose,Whole Blood 177 mg/dL (75-99)
[2016-06-18] MEDS: FERROUS SULFATE 325 MG TAB PO SCH (23:05)
[2016-06-18] MEDS: MELATONIN 3 MG TABLET PO SCH (23:05)
[2016-06-18] MEDS: INSULIN LISPRO (humaLOG) 300 UNIT/3 ML VIAL SQ SCH (23:13)
[2016-06-19] MEDS: SENNOSIDES-DOCUSATE SODIUM 1 EACH TAB PO SCH ×2 (00:14→19:43)
[2016-06-19] MEDS: HYDROcodone/APAP 5-325MG 1 EACH TAB PO PRN ×3 (02:38→19:50)
[2016-06-19] MEDS: guaiFENesin 600 MG TABLET.ER PO SCH ×2 (06:11→19:06)
[2016-06-19] MEDS: LEVOTHYROXINE 88 MCG TAB PO SCH (06:11)
[2016-06-19] MEDS: traMADol 50 MG TAB PO PRN ×2 (06:25→13:03)
[2016-06-19 06:33] LABS: Anisocytosis Slight; Basophils % (A) 0 %; CHCM 31.4; Eosinophils # (A) 0.1 k/uL (0-0.7); Eosinophils % (A) 0 %; HCT 26.2 % (34.0-46.0); HDW 3.19; HGB 8.4 gm/dL (11.4-16.0); Hypochromasia Slight; Luc # (Auto) 0.39; Luc % (Auto) 2; Lymphocytes # (A) 0.8 k/uL (1.0-4.8); Lymphocytes % (A) 3 %; MCH 29.6 pg (25.0-35.0); MCHC 31.9 g/dL (31.0-37.0); MCV 92.7 fL (80.0-100.0); Mean Platelet Volume 8.5; Monocytes # (A) 1.2 k/uL (0-1.0); Monocytes % (A) 5 %; Neutrophils # (A) 20.6 k/uL (1.3-7.7); Neutrophils % (A) 89 %; RBC 2.83 m/uL (3.80-5.40); RDW 17.7 % (11.5-15.5); WBC (Perox) 24.31
[2016-06-19 06:54] LABS: Calcium 8.7 mg/dL (8.4-10.2); Total Bilirubin 0.9 mg/dL (0.2-1.3); Total Protein 4.6 g/dL (6.3-8.2)
[2016-06-19 06:58] LABS: Glucose,Whole Blood 163 mg/dL (75-99)
[2016-06-19] MEDS: ALBUTEROL NEBULIZED 2.5 MG/3 ML INHALATION PRN ×3 (07:35→18:58)
[2016-06-19] MEDS: INSULIN GLARGINE 100 UNIT/ML 10 ML VIAL SQ SCH (08:04)
--- NOTE | 2016-06-19 08:17 | P.PN ---
Subjective Principal diagnosis: Intertrochanteric fracture left hip Status post closed reduction, insertion intertrochanteric nail left hip This is an 85-year-old female who is status post close reduction and insertion of intertrochanteric nail left hip. She is stable from an orthopedic standpoint. She has no new complaints or concerns today. Vital signs are stable. Hemoglobin is 8.4 today. Objective - Vital Signs Vital signs: Vital Signs Temp 98.2 F 06/19/16 02:00 Pulse 102 H 06/19/16 07:48 Resp 20 06/19/16 07:35 BP 152/69 06/19/16 02:00 Pulse Ox 98 06/19/16 02:00 Intake & Output 06/18/16 06/19/16 06/19/16 18:59 06:59 18:59 Intake Total 970 250 Output Total 334 Balance 636 250 Intake: IV 150 0.9 150 Oral 660 100 Blood Product 310 Rc As-1 Unit 310 [id number] Output: Urine 300 Uretheral (Douglas) 200 Post Void Residual 34 Other: Voiding Method Indwelling Catheter Diaper # Voids 1 - Exam This is a pleasant 85-year-old female in no acute distress. She is alert and oriented 3. Her skin is pale and she has some global weakness. Exam of the left hip reveals that her dressings are clean, dry and intact. She has full foot and ankle motion without difficulty or pain. Neurovascular status to the lower extremity is intact. - Labs CBC & Chem 7: 06/19/16 06:04 06/19/16 06:04 Labs: Abnormal Lab Results - Last 24 Hours (Table) 06/16/16 06/18/16 06/18/16 Range/Units 15:15 11:13 16:43 WBC (3.8-10.6) k/uL RBC (3.80-5.40) m/uL Hgb (11.4-16.0) gm/dL Hct (34.0-46.0) % RDW (11.5-15.5) % Neutrophils # (1.3-7.7) k/uL Lymphocytes # (1.0-4.8) k/uL Monocytes # (0-1.0) k/uL Sodium (137-145) mmol/L Carbon Dioxide (22-30) mmol/L BUN (7-17) mg/dL Creatinine (0.52-1.04) mg/dL Glucose (74-99) mg/dL POC Glucose (mg/dL) 229 H 165 H (75-99) mg/dL AST (14-36) U/L Total Protein (6.3-8.2) g/dL Albumin (3.5-5.0) g/dL Crossmatch See Detail 06/18/16 06/19/16 06/19/16 Range/Units 21:58 06:04 06:04 WBC 23.0 H (3.8-10.6) k/uL RBC 2.83 L (3.80-5.40) m/uL Hgb 8.4 L (11.4-16.0) gm/dL Hct 26.2 L (34.0-46.0) % RDW 17.7 H (11.5-15.5) % Neutrophils # 20.6 H (1.3-7.7) k/uL Lymphocytes # 0.8 L (1.0-4.8) k/uL Monocytes # 1.2 H (0-1.0) k/uL Sodium 135 L (137-145) mmol/L Carbon Dioxide 21 L (22-30) mmol/L BUN 49 H (7-17) mg/dL Creatinine 1.60 H (0.52-1.04) mg/dL Glucose 158 H (74-99) mg/dL POC Glucose (mg/dL) 177 H (75-99) mg/dL AST 38 H (14-36) U/L Total Protein 4.6 L (6.3-8.2) g/dL Albumin 2.4 L (3.5-5.0) g/dL Crossmatch 06/19/16 Range/Units 06:50 WBC (3.8-10.6) k/uL RBC (3.80-5.40) m/uL Hgb (11.4-16.0) gm/dL Hct (34.0-46.0) % RDW (11.5-15.5) % Neutrophils # (1.3-7.7) k/uL Lymphocytes # (1.0-4.8) k/uL Monocytes # (0-1.0) k/uL Sodium (137-145) mmol/L Carbon Dioxide (22-30) mmol/L BUN (7-17) mg/dL Creatinine (0.52-1.04) mg/dL Glucose (74-99) mg/dL POC Glucose (mg/dL) 163 H (75-99) mg/dL AST (14-36) U/L Total Protein (6.3-8.2) g/dL Albumin (3.5-5.0) g/dL Crossmatch Microbiology - Last 24 Hours (Table) 06/15/16 18:07 Blood Culture - Preliminary Blood No Growth after 72 hours Assessment and Plan (1) Chronic anemia Status: Acute (2) Severe aortic stenosis Status: Acute (3) Intertrochanteric fracture of left hip Status: Acute
[2016-06-19] MEDS: INSULIN LISPRO (humaLOG) 300 UNIT/3 ML VIAL SQ SCH ×4 (08:18→22:16)
[2016-06-19] MEDS: DICLOFENAC 0.1% OPHTH SOLN 2.5 ML BTL BOTH EYES SCH ×4 (08:20→22:16)
[2016-06-19] MEDS: CHOLECALCIFEROL 1,000 UNIT TAB PO SCH (08:21)
[2016-06-19] MEDS: MULTIVITAMINS, THERA 1 EACH TAB PO SCH (08:21)
[2016-06-19] MEDS: CALCIUM CARBONATE 500 MG CHEWABLE PO SCH ×3 (08:21→19:48)
[2016-06-19] MEDS: MAGNESIUM OXIDE 400 MG TAB PO SCH (08:21)
[2016-06-19] MEDS: ALLOPURINOL 100 MG TAB PO SCH (08:21)
[2016-06-19] MEDS: LORATADINE 10 MG TAB PO SCH (08:22)
[2016-06-19] MEDS: LINAGLIPTIN 5 MG TABLET PO SCH (08:22)
[2016-06-19] MEDS: SENNOSIDES 8.6 MG TAB PO SCH ×2 (08:22→19:48)
[2016-06-19] MEDS: ENOXAPARIN 30 MG/0.3 ML SYRINGE SQ SCH (08:22)
[2016-06-19] MEDS: amLODIPine 5 MG TAB PO SCH (08:22)
[2016-06-19] MEDS: ATORVASTATIN 20 MG TAB PO SCH (08:22)
[2016-06-19] MEDS: hydrALAZINE HCL 25 MG TAB PO SCH (08:22)
[2016-06-19 11:40] LABS: Glucose,Whole Blood 162 mg/dL (75-99)
[2016-06-19] MEDS ORDERED: FUROSEMIDE 10 MG/ML 4 ML VIAL IV STA (14:57)
[2016-06-19] MEDS ORDERED: POTASSIUM CHLORIDE ER 20 MEQ TAB.ER PO STA (14:57)
--- NOTE | 2016-06-19 15:38 | P.PN ---
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 with a previous medical history significant for hypertension and hypertensive cardio vascular disease with left ventricular hypertrophy, hypothyroidism, chronic kidney disease stage II, diabetes mellitus type 2, hyperlipidemia, patient resides at assisted living facility in [place] and today she was transferring from her wheelchair using the walker and she lost her balance ended up falling onto her left side and she had a treatment as amount of pain she ended up getting transferred to [facility] where she was found to have a left intertrochanteric hip fracture she was admitted to the hospital and orthopedic surgery and we were asked to see the patient for medical management and preoperative medical clearance. Apparently the patient does appear to have a significant and severe aortic valve stenosis, and because of her comorbidities it was thought that the patient is at high risk for surgical intervention subsequently consult cardiology for further care and the patient will have an echo care gram for eval you should've LV function as well as the severity of her aortic valve stenosis prior to her surgical intervention. Patient underwent left hip intertrochanteric IM nailing that was done by Dr. Carmona and she was admitted to the [facility] for overnight subsequent she was moved to the surgical unit in the morning, patient is sitting up in bed that she appears to be quite tired, her daughter was at bedside. She denies any chest pain or shortness breath she has no abdominal pain, she disclaims some neck pain that she has poor appetite today she did not eat much. 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 2/6: Patient did receive 1 unit of packed RBCs for hemoglobin of 7.1 from last night. Patient did develop some shortness of following this for which she'll was given Lasix. She is now on oxygen and continues to have some shortness of breath. A second dose of Lasix has been ordered. Repeat hemoglobin is 8.4. BUN 49 and creatinine 1.6. Anticipate she will be ready for discharge to [facility] tomorrow. Objective - Vital Signs Vital signs: Vital Signs Temp 97.8 F 06/19/16 07:00 Pulse 91 06/19/16 08:00 Resp 20 06/19/16 07:35 BP 133/60 06/19/16 07:00 Pulse Ox 96 06/19/16 07:00 Intake & Output 06/18/16 06/19/16 06/19/16 18:59 06:59 18:59 Intake Total 970 250 360 Output Total 334 Balance 636 250 360 Intake: IV 150 0.9 150 Oral 660 100 360 Blood Product 310 Rc As-1 Unit 310 [id number] Output: Urine 300 Uretheral (Douglas) 200 Post Void Residual 34 Other: Voiding Method Indwelling Catheter Diaper Diaper # Voids 1 1 - Exam General appearance: average body habitus, mild distress - EENT Eyes: anicteric sclerae, PERRLA, no ptosis, no scleral icterus, normal appearance ENT: hard of hearing, normal oropharynx, no thrush Ears: bilateral: normal - Neck Neck: no lymphadenopathy, normal ROM, no rigidity, no stridor, no thyromegaly Carotids: bilateral: upstroke delayed Thyroid: bilateral: normal size - Respiratory Respiratory: bilateral: diminished, negative: dullness, rales, rhonchi, wheezing , prolonged expiration, prolonged inspiration - Cardiovascular Rhythm: regular Heart sounds: normal: S1, S2 Abnormal Heart Sounds: systolic murmur (Systolic ejection murmur 3/6 located in the right upper sternal border radiating to the base of the neck), no S3 Gallop , no S4 Gallop, no click - Gastrointestinal General gastrointestinal: normal bowel sounds, soft, no splenomegaly, no tenderness, no umbilical hernia, no ventral hernia - Integumentary Integumentary: normal, normal turgor - Neurologic Neurologic: CNII-XII intact, focal deficits - Musculoskeletal Musculoskeletal: generalized weakness, left sided weakness - Psychiatric Psychiatric: A&O x's 3, appropriate affect, intact judgment & insight - Labs CBC & Chem 7: 06/19/16 06:04 06/19/16 06:04 Labs: Abnormal Lab Results - Last 24 Hours (Table) 06/16/16 06/18/16 06/18/16 Range/Units 15:15 11:13 16:43 WBC (3.8-10.6) k/uL RBC (3.80-5.40) m/uL Hgb (11.4-16.0) gm/dL Hct (34.0-46.0) % RDW (11.5-15.5) % Neutrophils # (1.3-7.7) k/uL Lymphocytes # (1.0-4.8) k/uL Monocytes # (0-1.0) k/uL Sodium (137-145) mmol/L Carbon Dioxide (22-30) mmol/L BUN (7-17) mg/dL Creatinine (0.52-1.04) mg/dL Glucose (74-99) mg/dL POC Glucose (mg/dL) 229 H 165 H (75-99) mg/dL AST (14-36) U/L Total Protein (6.3-8.2) g/dL Albumin (3.5-5.0) g/dL Crossmatch See Detail 06/18/16 06/19/16 06/19/16 Range/Units 21:58 06:04 06:04 WBC 23.0 H (3.8-10.6) k/uL RBC 2.83 L (3.80-5.40) m/uL Hgb 8.4 L (11.4-16.0) gm/dL Hct 26.2 L (34.0-46.0) % RDW 17.7 H (11.5-15.5) % Neutrophils # 20.6 H (1.3-7.7) k/uL Lymphocytes # 0.8 L (1.0-4.8) k/uL Monocytes # 1.2 H (0-1.0) k/uL Sodium 135 L (137-145) mmol/L Carbon Dioxide 21 L (22-30) mmol/L BUN 49 H (7-17) mg/dL Creatinine 1.60 H (0.52-1.04) mg/dL Glucose 158 H (74-99) mg/dL POC Glucose (mg/dL) 177 H (75-99) mg/dL AST 38 H (14-36) U/L Total Protein 4.6 L (6.3-8.2) g/dL Albumin 2.4 L (3.5-5.0) g/dL Crossmatch 06/19/16 Range/Units 06:50 WBC (3.8-10.6) k/uL RBC (3.80-5.40) m/uL Hgb (11.4-16.0) gm/dL Hct (34.0-46.0) % RDW (11.5-15.5) % Neutrophils # (1.3-7.7) k/uL Lymphocytes # (1.0-4.8) k/uL Monocytes # (0-1.0) k/uL Sodium (137-145) mmol/L Carbon Dioxide (22-30) mmol/L BUN (7-17) mg/dL Creatinine (0.52-1.04) mg/dL Glucose (74-99) mg/dL POC Glucose (mg/dL) 163 H (75-99) mg/dL AST (14-36) U/L Total Protein (6.3-8.2) g/dL Albumin (3.5-5.0) g/dL Crossmatch Microbiology - Last 24 Hours (Table) 06/15/16 18:07 Blood Culture - Preliminary Blood No Growth after 72 hours Assessment and Plan Plan: 1. Left intertrochanteric hip fracture post fall. This is postoperative day # 1 status post left intertrochanteric IM nail. Continue since around her, continue current pain management, continue with physical therapy evaluation in the next 24 hours. Continue incentive spirometer to reduce the incidence of atelectasis and hospital acquired pneumonia 2. Severe aortic valve stenosis. Stable. 3. Hypertension and hypertensive cardiovascular disease. Continue patient on hydralazine 25 mg orally once every day, amlodipine 10 mg orally once every day. 4. Diabetes mellitus type 2. Continue Lantus 12 units at bedtime, Tradjenta 5 mg orally once every day, BGM before each meal and at bedtime. Apply sliding scale insulin . 5. Hypothyroidism. Continue Synthroid 88 g orally once every day. 6. Chronic kidney disease stage II. Monitor the patient CMP. 7. UTI with sepsis. Urine culture, blood culture, start the patient on Levaquin 500 mg IV piggyback every 24 hours. 8. Gout. Continue allopurinol 100 mg orally once every day. 9. Hyperlipidemia. Continue Lipitor 20 mg orally once every day. 10. Anemia of chronic renal disease. Continue Aranesp and iron supplement. Monitor the patient's CBC. 11. DVT prophylaxis. Continue the patient on Lovenox 30 mg subcutaneously every 24 hours. 12. GI prophylaxis. Continue Protonix 40 mg orally once every day. 13. Patient is full code. 14. Acute blood loss anemia. Type and cross and transfuse 1 unit of packed cells. 15. Acute kidney injury. Repeat BMP magnesium tomorrow morning. 16. Acute diastolic heart failure due to fluid overload from blood transfusion and IV fluid resuscitation for acute kidney injury. Discharge plan: [facility] tomorrow. Impression and plan of care have been directed as dictated by the signing physician. Daiana Panda nurse practitioner acting as scribe for signing physician. Time with Patient: Greater than 30
[2016-06-19 16:38] LABS: Glucose,Whole Blood 157 mg/dL (75-99)
[2016-06-19] MEDS: LEVOFLOXACIN 250 MG TAB PO SCH (19:04)
[2016-06-19] MEDS: MELATONIN 3 MG TABLET PO SCH (19:47)
[2016-06-19] MEDS: FERROUS SULFATE 325 MG TAB PO SCH (19:47)
[2016-06-19 20:49] LABS: Glucose,Whole Blood 186 mg/dL (75-99)
[2016-06-20] MEDS: ALBUTEROL NEBULIZED 2.5 MG/3 ML INHALATION PRN ×2 (03:58→12:24)
[2016-06-20] MEDS: traMADol 50 MG TAB PO PRN ×3 (05:03→20:49)
[2016-06-20] MEDS: guaiFENesin 600 MG TABLET.ER PO SCH ×2 (05:36→17:36)
[2016-06-20] MEDS: LEVOTHYROXINE 88 MCG TAB PO SCH (05:36)
[2016-06-20 07:12] LABS: Glucose,Whole Blood 144 mg/dL (75-99)
[2016-06-20] MEDS: INSULIN LISPRO (humaLOG) 300 UNIT/3 ML VIAL SQ SCH ×4 (08:11→20:38)
[2016-06-20] MEDS: CALCIUM CARBONATE 500 MG CHEWABLE PO SCH ×3 (08:12→20:33)
[2016-06-20] MEDS: SENNOSIDES 8.6 MG TAB PO SCH ×2 (08:12→20:30)
[2016-06-20] MEDS: ENOXAPARIN 30 MG/0.3 ML SYRINGE SQ SCH (08:13)
[2016-06-20] MEDS: hydrALAZINE HCL 25 MG TAB PO SCH (08:13)
[2016-06-20] MEDS: LORATADINE 10 MG TAB PO SCH (08:13)
[2016-06-20] MEDS: LINAGLIPTIN 5 MG TABLET PO SCH (08:13)
[2016-06-20] MEDS: DICLOFENAC 0.1% OPHTH SOLN 2.5 ML BTL BOTH EYES SCH ×4 (08:14→20:40)
[2016-06-20] MEDS: amLODIPine 5 MG TAB PO SCH (08:14)
[2016-06-20] MEDS: ALLOPURINOL 100 MG TAB PO SCH (08:14)
[2016-06-20] MEDS: ATORVASTATIN 20 MG TAB PO SCH (08:15)
[2016-06-20] MEDS: INSULIN GLARGINE 100 UNIT/ML 10 ML VIAL SQ SCH (08:35)
[2016-06-20 08:50] LABS: Anisocytosis Slight; CH 28.9; CHCM 31.1; HCT 26.4 % (34.0-46.0); HDW 3.02; HGB 8.4 gm/dL (11.4-16.0); Hypochromasia Slight; MCH 29.5 pg (25.0-35.0); MCHC 31.6 g/dL (31.0-37.0); MCV 93.3 fL (80.0-100.0); Mean Platelet Volume 7.8; RBC 2.83 m/uL (3.80-5.40); RDW 17.9 % (11.5-15.5); WBC 16.9 k/uL (3.8-10.6)
[2016-06-20 09:06] LABS: Potassium 4.3 mmol/L (3.5-5.1)
--- NOTE | 2016-06-20 10:25 | P.PN ---
Subjective Principal diagnosis: Status post left IT nail for left femur fracture Patient is pleasant 85-year-old female seen at bedside this morning. She's postop day #4 from left IT nail insertion for left femur fracture performed by Dr. Carmona. She has pain at the surgical site as expected but is controlled mostly with medication. She denies any new left lower extremity complaints including numbness, tingling, calf pain or weakness. She continues to have some labored breathing where she's on 2 L of nasal cannula oxygen and also has albuterol when necessary. He is followed by internal medicine for medical management. Review of systems is negative for fever, chills, chest pain, nausea , vomiting, dizziness, headaches, slurred speech, calf pain. Objective - Vital Signs Vital signs: Vital Signs Temp 97.4 F L 06/20/16 07:00 Pulse 92 06/20/16 08:00 Resp 16 06/20/16 08:00 BP 138/75 06/20/16 07:00 Pulse Ox 100 06/20/16 07:54 Intake & Output 06/19/16 06/20/16 06/20/16 18:59 06:59 18:59 Intake Total 1440 Balance 1440 Weight 67.132 kg Intake: Oral 1440 Other: Voiding Method Diaper Bedpan Bedpan Incontinent Diaper Diaper Incontinent Incontinent # Voids 1 1 # Bowel Movements 1 - Exam Inspection of the left lower extremity reveals a benign surgical wounds with lynne in place. There is no active bleeding, dehiscence or purulent drainage. Neurovascular status is intact throughout the left lower extremity where she has active plantarflexion and dorsiflexion the left foot and toes. Sensation to touch is intact at the left lower extremity. Calf is soft and nontender. There is 2+ dorsalis pedis pulse and less than 2 second cap refill. - Constitutional General appearance: Present: no acute distress - Psychiatric Psychiatric: Present: A&O x's 3, appropriate affect, intact judgment & insight - Labs CBC & Chem 7: 06/20/16 07:55 06/20/16 08:00 Labs: Abnormal Lab Results - Last 24 Hours (Table) 06/19/16 06/19/16 06/19/16 Range/Units 11:27 16:22 20:47 WBC (3.8-10.6) k/uL RBC (3.80-5.40) m/uL Hgb (11.4-16.0) gm/dL Hct (34.0-46.0) % RDW (11.5-15.5) % BUN (7-17) mg/dL Creatinine (0.52-1.04) mg/dL Glucose (74-99) mg/dL POC Glucose (mg/dL) 162 H 157 H 186 H (75-99) mg/dL 06/20/16 06/20/16 06/20/16 Range/Units 07:02 07:55 08:00 WBC 16.9 H (3.8-10.6) k/uL RBC 2.83 L (3.80-5.40) m/uL Hgb 8.4 L (11.4-16.0) gm/dL Hct 26.4 L (34.0-46.0) % RDW 17.9 H (11.5-15.5) % BUN 52 H (7-17) mg/dL Creatinine 1.61 H (0.52-1.04) mg/dL Glucose 134 H (74-99) mg/dL POC Glucose (mg/dL) 144 H (75-99) mg/dL Microbiology - Last 24 Hours (Table) 06/15/16 18:07 Blood Culture - Preliminary Blood No Growth after 96 hours Assessment and Plan (1) Intertrochanteric fracture of left hip Narrative/Plan: She'll continue with routine postop orthopedic protocol including pain management, wound care, physical therapy, DVT prophylaxis and medical management. When internal medicine feels she is stable she may be transferred to an extended care facility for rehab. Status: Acute Time with Patient: Less than 30
[2016-06-20 11:31] LABS: Glucose,Whole Blood 169 mg/dL (75-99)
[2016-06-20] MEDS: HYDROcodone/APAP 5-325MG 1 EACH TAB PO PRN (12:18)
[2016-06-20] MEDS: MAGNESIUM OXIDE 400 MG TAB PO SCH (12:19)
[2016-06-20] MEDS: CHOLECALCIFEROL 1,000 UNIT TAB PO SCH (12:19)
[2016-06-20] MEDS: MULTIVITAMINS, THERA 1 EACH TAB PO SCH (12:19)
--- NOTE | 2016-06-20 14:06 | FL ---
MODIFIED SWALLOW / DEGLUTITION STUDY DATE OF EXAM: 06/20/2016 1:43 PM CLINICAL HISTORY: 85-year-old female rule out aspiration, patient with wet sounds on exam. TECHNIQUE: Deglutition study is performed utilizing thin liquid barium, honey and nectar thick liqui d barium, barium thick applesauce, and barium coated cracker. COMPARISON: None. FINDINGS: The oral and pharyngeal phases show satisfactory initiation and propagation with all modalities teste d. Normal mastication is seen with solid modalities tested. There are vallecular residuals noted. T ransient penetration is seen with nectar thickened liquid. There is deep penetration to the level of the false cords with thin liquid consistency. No aspiration is seen to course of the exam. IMPRESSION: Transient penetration with nectar thick liquids and deep penetration to the false vocal folds with th in liquids. No sowmya aspiration. Please refer to speech therapist notes for further details if necess moi.
--- NOTE | 2016-06-20 14:49 | XR ---
EXAMINATION TYPE: XR chest 1V DATE OF EXAM: 06/20/2016 2:44 PM COMPARISON: 06/15/2016 HISTORY: TECHNIQUE: Single frontal view of the chest is obtained. FINDINGS: Surgical changes noted. There is a new left lower lobe infiltrate and small effusion corre late for mild central venous congestion. Heart size, aorta and upper mediastinum is somewhat prominent. No pneumothorax. IMPRESSION: 1. New lower lobe infiltrate and small pleural effusion correlate for mild venous congestion.
[2016-06-20] MEDS ORDERED: POTASSIUM CHLORIDE ER 20 MEQ TAB.ER PO STA (15:52)
[2016-06-20] MEDS ORDERED: FUROSEMIDE 40 MG TAB PO STA (15:52)
[2016-06-20] MEDS: CLINDAMYCIN 150 MG CAP PO SCH ×2 (16:29→20:34)
[2016-06-20 16:37] LABS: Glucose,Whole Blood 120 mg/dL (75-99)
[2016-06-20] MEDS: LEVOFLOXACIN 250 MG TAB PO SCH (17:35)
[2016-06-20] MEDS: SENNOSIDES-DOCUSATE SODIUM 1 EACH TAB PO SCH (20:30)
[2016-06-20] MEDS: MELATONIN 3 MG TABLET PO SCH (20:34)
[2016-06-20] MEDS: FERROUS SULFATE 325 MG TAB PO SCH (20:35)
[2016-06-20 20:52] LABS: Glucose,Whole Blood 133 mg/dL (75-99)
[2016-06-21] MEDS: ALBUTEROL NEBULIZED 2.5 MG/3 ML INHALATION PRN ×2 (02:27→08:34)
[2016-06-21] MEDS: traMADol 50 MG TAB PO PRN ×3 (05:17→18:19)
[2016-06-21] MEDS: LEVOTHYROXINE 88 MCG TAB PO SCH (05:17)
[2016-06-21] MEDS: guaiFENesin 600 MG TABLET.ER PO SCH ×2 (05:17→18:23)
[2016-06-21 07:02] LABS: Glucose,Whole Blood 145 mg/dL (75-99)
[2016-06-21] MEDS: INSULIN GLARGINE 100 UNIT/ML 10 ML VIAL SQ SCH (08:32)
[2016-06-21] MEDS: ALLOPURINOL 100 MG TAB PO SCH (08:33)
[2016-06-21] MEDS: HYDROcodone/APAP 5-325MG 1 EACH TAB PO PRN (08:33)
[2016-06-21] MEDS: INSULIN LISPRO (humaLOG) 300 UNIT/3 ML VIAL SQ SCH ×4 (08:33→21:09)
[2016-06-21] MEDS: ATORVASTATIN 20 MG TAB PO SCH (08:34)
[2016-06-21] MEDS: amLODIPine 5 MG TAB PO SCH (08:34)
[2016-06-21] MEDS: CALCIUM CARBONATE 500 MG CHEWABLE PO SCH ×3 (08:34→20:56)
[2016-06-21] MEDS: CLINDAMYCIN 150 MG CAP PO SCH (08:34)
[2016-06-21] MEDS: LINAGLIPTIN 5 MG TABLET PO SCH (08:36)
[2016-06-21] MEDS: hydrALAZINE HCL 25 MG TAB PO SCH (08:36)
[2016-06-21] MEDS: ENOXAPARIN 30 MG/0.3 ML SYRINGE SQ SCH (08:36)
[2016-06-21] MEDS: SENNOSIDES 8.6 MG TAB PO SCH ×2 (08:36→20:56)
[2016-06-21] MEDS: LORATADINE 10 MG TAB PO SCH (08:36)
[2016-06-21] MEDS: DICLOFENAC 0.1% OPHTH SOLN 2.5 ML BTL BOTH EYES SCH ×4 (08:37→20:56)
--- NOTE | 2016-06-21 09:28 | P.PN ---
Subjective Principal diagnosis: Status post left IT nail for left femur fracture Patient is pleasant 85-year-old female seen at bedside this morning. She's postop day #5 from left IT nail insertion for left femur fracture performed by Dr. Carmona. She has pain at the surgical site as expected but is controlled mostly with medication. She denies any new left lower extremity complaints including numbness, tingling, calf pain or weakness. She continues to have labored breathing. She is followed by internal medicine for medical management. Review of systems is negative for fever, chills, chest pain, nausea , vomiting, dizziness, headaches, slurred speech, calf pain. Objective - Vital Signs Vital signs: Vital Signs Temp 98.6 F 06/21/16 07:00 Pulse 92 06/21/16 08:45 Resp 20 06/21/16 07:00 BP 163/74 06/21/16 07:00 Pulse Ox 97 06/21/16 07:00 Intake & Output 06/20/16 06/21/16 06/21/16 18:59 06:59 18:59 Intake Total 200 240 Balance 200 240 Weight 67.132 kg Intake: Oral 200 240 Other: Voiding Method Bedpan Bedpan Diaper Diaper Incontinent Incontinent # Voids 3 - Exam Inspection of the left lower extremity reveals a benign surgical wounds with lynne in place. There is no active bleeding, dehiscence or purulent drainage. Neurovascular status is intact throughout the left lower extremity where she has active plantarflexion and dorsiflexion the left foot and toes. Sensation to touch is intact at the left lower extremity. Calf is soft and nontender. There is 2+ dorsalis pedis pulse and less than 2 second cap refill. - Constitutional General appearance: Present: no acute distress - Psychiatric Psychiatric: Present: A&O x's 3, appropriate affect, intact judgment & insight - Labs CBC & Chem 7: 06/20/16 07:55 06/20/16 08:00 Labs: Abnormal Lab Results - Last 24 Hours (Table) 06/20/16 06/20/16 06/20/16 Range/Units 11:27 16:34 20:32 POC Glucose (mg/dL) 169 H 120 H 133 H (75-99) mg/dL 06/21/16 Range/Units 06:58 POC Glucose (mg/dL) 145 H (75-99) mg/dL Microbiology - Last 24 Hours (Table) 06/15/16 18:07 Blood Culture - Preliminary Blood No Growth after 120 hours Assessment and Plan (1) Intertrochanteric fracture of left hip Narrative/Plan: She'll continue with routine postop orthopedic protocol including pain management, wound care, physical therapy, DVT prophylaxis and medical management. When internal medicine feels she is stable she may be transferred to an extended care facility for rehab. Status: Acute Time with Patient: Less than 30
[2016-06-21] MEDS ORDERED: FUROSEMIDE 10 MG/ML 4 ML VIAL IV STA (09:54)
--- NOTE | 2016-06-21 10:11 | P.PN ---
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 with a previous medical history significant for hypertension and hypertensive cardio vascular disease with left ventricular hypertrophy, hypothyroidism, chronic kidney disease stage II, diabetes mellitus type 2, hyperlipidemia, patient resides at assisted living facility in [place] and today she was transferring from her wheelchair using the walker and she lost her balance ended up falling onto her left side and she had a treatment as amount of pain she ended up getting transferred to [facility] where she was found to have a left intertrochanteric hip fracture she was admitted to the hospital and orthopedic surgery and we were asked to see the patient for medical management and preoperative medical clearance. Apparently the patient does appear to have a significant and severe aortic valve stenosis, and because of her comorbidities it was thought that the patient is at high risk for surgical intervention subsequently consult cardiology for further care and the patient will have an echo care gram for eval you should've LV function as well as the severity of her aortic valve stenosis prior to her surgical intervention. Patient underwent left hip intertrochanteric IM nailing that was done by Dr. Carmona and she was admitted to the [facility] for overnight subsequent she was moved to the surgical unit in the morning, patient is sitting up in bed that she appears to be quite tired, her daughter was at bedside. She denies any chest pain or shortness breath she has no abdominal pain, she disclaims some neck pain that she has poor appetite today she did not eat much. 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 2: Patient did receive 1 unit of packed RBCs for hemoglobin of 7.1 from last night. Patient did develop some shortness of following this for which she'll was given Lasix. She is now on oxygen and continues to have some shortness of breath. A second dose of Lasix has been ordered. Repeat hemoglobin is 8.4. BUN 49 and creatinine 1.6. Anticipate she will be ready for discharge to [facility] tomorrow. 06/20: Repeat BUN 52 and creatinine 1.61. Hemoglobin 8.4 and white count 16.9. Blood blood glucose running between 134 and 186. Patient continues to have shortness of breath but pulse ox is running 97 200% on 2 L. Patient has been sleepy and weak. Repeat chest x-ray will be ordered. She underwent a modified barium swallow with recommendations for pured dysphagia 1, no straws, one-to- one supervision, encouraged chin tuck. Advance to soft diet as tolerated. Discharge to senior living was held today. Objective - Vital Signs Vital signs: Vital Signs Temp 97.4 F L 06/20/16 07:00 Pulse 92 06/20/16 08:00 Resp 16 06/20/16 08:00 BP 138/75 06/20/16 07:00 Pulse Ox 100 06/20/16 07:54 Intake & Output 06/19/16 06/20/16 06/20/16 18:59 06:59 18:59 Intake Total 1440 Balance 1440 Weight 67.132 kg Intake: Oral 1440 Other: Voiding Method Diaper Bedpan Bedpan Incontinent Diaper Diaper Incontinent Incontinent # Voids 1 1 # Bowel Movements 1 - Exam General appearance: average body habitus, mild distress - EENT Eyes: anicteric sclerae, PERRLA, no ptosis, no scleral icterus, normal appearance ENT: hard of hearing, normal oropharynx, no thrush Ears: bilateral: normal - Neck Neck: no lymphadenopathy, normal ROM, no rigidity, no stridor, no thyromegaly Carotids: bilateral: upstroke delayed Thyroid: bilateral: normal size - Respiratory Respiratory: bilateral: diminished, negative: dullness, rales, rhonchi, wheezing , prolonged expiration, prolonged inspiration - Cardiovascular Rhythm: regular Heart sounds: normal: S1, S2 Abnormal Heart Sounds: systolic murmur (Systolic ejection murmur 3/6 located in the right upper sternal border radiating to the base of the neck), no S3 Gallop , no S4 Gallop, no click - Gastrointestinal General gastrointestinal: normal bowel sounds, soft, no splenomegaly, no tenderness, no umbilical hernia, no ventral hernia - Integumentary Integumentary: normal, normal turgor - Neurologic Neurologic: CNII-XII intact, focal deficits - Musculoskeletal Musculoskeletal: generalized weakness, left sided weakness - Psychiatric Psychiatric: A&O x's 3, appropriate affect, intact judgment & insight - Labs CBC & Chem 7: 06/20/16 07:55 06/20/16 08:00 Labs: Abnormal Lab Results - Last 24 Hours (Table) 06/19/16 06/19/16 06/19/16 Range/Units 11:27 16:22 20:47 WBC (3.8-10.6) k/uL RBC (3.80-5.40) m/uL Hgb (11.4-16.0) gm/dL Hct (34.0-46.0) % RDW (11.5-15.5) % BUN (7-17) mg/dL Creatinine (0.52-1.04) mg/dL Glucose (74-99) mg/dL POC Glucose (mg/dL) 162 H 157 H 186 H (75-99) mg/dL 06/20/16 06/20/16 06/20/16 Range/Units 07:02 07:55 08:00 WBC 16.9 H (3.8-10.6) k/uL RBC 2.83 L (3.80-5.40) m/uL Hgb 8.4 L (11.4-16.0) gm/dL Hct 26.4 L (34.0-46.0) % RDW 17.9 H (11.5-15.5) % BUN 52 H (7-17) mg/dL Creatinine 1.61 H (0.52-1.04) mg/dL Glucose 134 H (74-99) mg/dL POC Glucose (mg/dL) 144 H (75-99) mg/dL 06/20/16 Range/Units 11:27 WBC (3.8-10.6) k/uL RBC (3.80-5.40) m/uL Hgb (11.4-16.0) gm/dL Hct (34.0-46.0) % RDW (11.5-15.5) % BUN (7-17) mg/dL Creatinine (0.52-1.04) mg/dL Glucose (74-99) mg/dL POC Glucose (mg/dL) 169 H (75-99) mg/dL Microbiology - Last 24 Hours (Table) 06/15/16 18:07 Blood Culture - Preliminary Blood No Growth after 96 hours Assessment and Plan Plan: 1. Left intertrochanteric hip fracture post fall. This is postoperative day # 1 status post left intertrochanteric IM nail. Continue since around her, continue current pain management, continue with physical therapy evaluation in the next 24 hours. Continue incentive spirometer to reduce the incidence of atelectasis and hospital acquired pneumonia 2. Severe aortic valve stenosis. Stable. 3. Hypertension and hypertensive cardiovascular disease. Continue patient on hydralazine 25 mg orally once every day, amlodipine 10 mg orally once every day. 4. Diabetes mellitus type 2. Continue Lantus 12 units at bedtime, Tradjenta 5 mg orally once every day, BGM before each meal and at bedtime. Apply sliding scale insulin . 5. Hypothyroidism. Continue Synthroid 88 g orally once every day. 6. Chronic kidney disease stage II. Monitor the patient CMP. 7. UTI with sepsis. Urine culture, blood culture, start the patient on Levaquin 500 mg IV piggyback every 24 hours. 8. Gout. Continue allopurinol 100 mg orally once every day. 9. Hyperlipidemia. Continue Lipitor 20 mg orally once every day. 10. Anemia of chronic renal disease. Continue Aranesp and iron supplement. Monitor the patient's CBC. 11. DVT prophylaxis. Continue the patient on Lovenox 30 mg subcutaneously every 24 hours. 12. GI prophylaxis. Continue Protonix 40 mg orally once every day. 13. Patient is full code. 14. Acute blood loss anemia. Type and cross and transfuse 1 unit of packed cells. 15. Acute kidney injury. Repeat BMP magnesium tomorrow morning. 16. Acute diastolic heart failure due to fluid overload from blood transfusion and IV fluid resuscitation for acute kidney injury. Discharge plan: [facility] tomorrow. Impression and plan of care have been directed as dictated by the signing physician. Daiana Panda nurse practitioner acting as scribe for signing physician. Time with Patient: Greater than 30
[2016-06-21] MEDS: CHOLECALCIFEROL 1,000 UNIT TAB PO SCH (10:45)
[2016-06-21] MEDS: MAGNESIUM OXIDE 400 MG TAB PO SCH (10:45)
[2016-06-21] MEDS: MULTIVITAMINS, THERA 1 EACH TAB PO SCH (10:46)
[2016-06-21 11:52] LABS: Glucose,Whole Blood 211 mg/dL (75-99)
[2016-06-21 12:01] LABS: Calcium 8.8 mg/dL (8.4-10.2); Total Protein 4.9 g/dL (6.3-8.2)
[2016-06-21] MEDS: methylPREDNISolone SOD SUCCI 125 MG/2 ML VIAL IV SCH ×2 (13:51→18:24)
--- NOTE | 2016-06-21 13:56 | NM ---
EXAMINATION TYPE: NM pul vent and perfuse DATE OF EXAM: 06/21/2016 1:50 PM COMPARISON: Chest x-ray 06/20/2016 HISTORY: Shortness of breath TECHNIQUE: Utilizing inhalation of 71.5 mCi Tc 99m DTPA aerosol and intravenous injection of 5.5 mCi of Tc 99m MAA, ventilation and perfusion images are acquired post injection in multiple projections. FINDINGS: There is a triple match involving the left lower lobe corresponding to the area of consolidation and pleural effusion at the left lung base noted by chest x-ray. IMPRESSION: Triple match compatible with intermediate probability for pulmonary embolism
[2016-06-21] MEDS: ALBUTEROL NEBULIZED 2.5 MG/3 ML INHALATION SCH ×4 (14:04→21:18)
--- NOTE | 2016-06-21 15:25 | P.PN ---
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 with a previous medical history significant for hypertension and hypertensive cardio vascular disease with left ventricular hypertrophy, hypothyroidism, chronic kidney disease stage II, diabetes mellitus type 2, hyperlipidemia, patient resides at assisted living facility in [place] and today she was transferring from her wheelchair using the walker and she lost her balance ended up falling onto her left side and she had a treatment as amount of pain she ended up getting transferred to [facility] where she was found to have a left intertrochanteric hip fracture she was admitted to the hospital and orthopedic surgery and we were asked to see the patient for medical management and preoperative medical clearance. Apparently the patient does appear to have a significant and severe aortic valve stenosis, and because of her comorbidities it was thought that the patient is at high risk for surgical intervention subsequently consult cardiology for further care and the patient will have an echo care gram for eval you should've LV function as well as the severity of her aortic valve stenosis prior to her surgical intervention. Patient underwent left hip intertrochanteric IM nailing that was done by Dr. Carmona and [facility] she was moved to the surgical unit in the morning, patient is sitting up in bed that she appears to be quite tired, her daughter was at bedside. She denies any chest pain or shortness breath she has no abdominal pain, she disclaims some neck pain that she has poor appetite today she did not eat much. 2: Patient is sitting up in the recliner today she feels dizzy, she denies any chest pain, shortness breath, she has no abdominal pain, her assembly member better, her hemoglobin dropped to 7.1, she is scheduled to go for a 1 unit packed red blood cell transfusion today hold physical therapy and after blood transfusion. 2: Patient did receive 1 unit of packed RBCs for hemoglobin of 7.1 from last night. Patient did develop some shortness of following this for which she'll was given Lasix. She is now on oxygen and continues to have some shortness of breath. A second dose of Lasix has been ordered. Repeat hemoglobin is 8.4. BUN 49 and creatinine 1.6. Anticipate she will be ready for discharge to [facility] tomorrow. 06/20: Repeat BUN 52 and creatinine 1.61. Hemoglobin 8.4 and white count 16.9. Blood blood glucose running between 134 and 186. Patient continues to have shortness of breath but pulse ox is running 97 200% on 2 L. Patient has been sleepy and weak. Repeat chest x-ray will be ordered. She underwent a modified barium swallow with recommendations for pured dysphagia 1, no straws, one-to- one supervision, encouraged chin tuck. Advance to soft diet as tolerated. Discharge to assisted was held today. 06/21: Patient is having more shortness of breath today despite nebulizer treatment with tachypnea and appears to be mostly upper airway distress. Additional dose of IV Lasix ordered. Chest x-ray shows new lower lobe infiltrate and small pleural effusion correlate for mild venous congestion. Patient was placed on clindamycin and Levaquin for possible aspiration. V/Q scan is showing triple match compatible with intermediate probability for pulmonary embolism. Lovenox increased to 90 mg daily subcu. Consult with Dr. Annie osman with anticipated possible need for ICU treatment if she does not turn around. She was started on IV Solu-Medrol at 60 mg IV every 6 hours 3 doses. ABGs ordered. Objective - Vital Signs Vital signs: Vital Signs Temp 98.6 F 06/21/16 07:00 Pulse 92 06/21/16 08:45 Resp 20 06/21/16 07:00 BP 163/74 06/21/16 07:00 Pulse Ox 97 06/21/16 07:00 Intake & Output 06/20/16 06/21/16 06/21/16 18:59 06:59 18:59 Intake Total 200 240 Balance 200 240 Weight 67.132 kg Intake: Oral 200 240 Other: Voiding Method Bedpan Bedpan Diaper Diaper Incontinent Incontinent # Voids 3 - Exam General appearance: average body habitus, mild distress - EENT Eyes: anicteric sclerae, PERRLA, no ptosis, no scleral icterus, normal appearance ENT: hard of hearing, normal oropharynx, no thrush Ears: bilateral: normal - Neck Neck: no lymphadenopathy, normal ROM, no rigidity, no stridor, no thyromegaly Carotids: bilateral: upstroke delayed Thyroid: bilateral: normal size - Respiratory Respiratory: bilateral: diminished, negative: dullness, rales, rhonchi, wheezing , prolonged expiration, prolonged inspiration - Cardiovascular Rhythm: regular Heart sounds: normal: S1, S2 Abnormal Heart Sounds: systolic murmur (Systolic ejection murmur 3/6 located in the right upper sternal border radiating to the base of the neck), no S3 Gallop , no S4 Gallop, no click - Gastrointestinal General gastrointestinal: normal bowel sounds, soft, no splenomegaly, no tenderness, no umbilical hernia, no ventral hernia - Integumentary Integumentary: normal, normal turgor - Neurologic Neurologic: CNII-XII intact, focal deficits - Musculoskeletal Musculoskeletal: generalized weakness, left sided weakness - Psychiatric Psychiatric: A&O x's 3, appropriate affect, intact judgment & insight - Labs CBC & Chem 7: 06/20/16 07:55 06/21/16 11:35 Labs: Abnormal Lab Results - Last 24 Hours (Table) 06/20/16 06/20/16 06/20/16 Range/Units 11:27 16:34 20:32 POC Glucose (mg/dL) 169 H 120 H 133 H (75-99) mg/dL 06/21/16 Range/Units 06:58 POC Glucose (mg/dL) 145 H (75-99) mg/dL Microbiology - Last 24 Hours (Table) 06/15/16 18:07 Blood Culture - Preliminary Blood No Growth after 120 hours Assessment and Plan Plan: 1. Left intertrochanteric hip fracture post fall. This is postoperative day # 1 status post left intertrochanteric IM nail. Continue since around her, continue current pain management, continue with physical therapy evaluation in the next 24 hours. Continue incentive spirometer to reduce the incidence of atelectasis and hospital acquired pneumonia 2. Severe aortic valve stenosis. Stable. 3. Hypertension and hypertensive cardiovascular disease. Continue patient on hydralazine 25 mg orally once every day, amlodipine 10 mg orally once every day. 4. Diabetes mellitus type 2. Continue Lantus 12 units at bedtime, Tradjenta 5 mg orally once every day, BGM before each meal and at bedtime. Apply sliding scale insulin . 5. Hypothyroidism. Continue Synthroid 88 g orally once every day. 6. Chronic kidney disease stage II. Monitor the patient CMP. 7. UTI with sepsis. Urine culture, blood culture, start the patient on Levaquin 500 mg IV piggyback every 24 hours. 8. Gout. Continue allopurinol 100 mg orally once every day. 9. Hyperlipidemia. Continue Lipitor 20 mg orally once every day. 10. Anemia of chronic renal disease. Continue Aranesp and iron supplement. Monitor the patient's CBC. 11. DVT prophylaxis. Continue the patient on Lovenox 30 mg subcutaneously every 24 hours. 12. GI prophylaxis. Continue Protonix 40 mg orally once every day. 13. Patient is full code. 14. Acute blood loss anemia. Type and cross and transfuse 1 unit of packed cells. 15. Acute kidney injury. Repeat BMP magnesium tomorrow morning. 16. Acute respiratory distress due to combination of acute diastolic heart failure due to fluid overload from blood transfusion and IV fluid resuscitation for acute kidney injury, possible aspiration pneumonia, possible pulmonary embolism. Antibiotics changed to Zosyn and Levaquin. Consult with Dr. Valencia requested and patient may need transfer to ICU. Solu-Medrol 60 mg IV every 6 hours 3 doses. ABGs. [facility] Impression and plan of care have been directed as dictated by the signing physician. Daiana Panda nurse practitioner acting as scribe for signing physician. Time with Patient: Greater than 30
[2016-06-21] MEDS ORDERED: ENOXAPARIN 40 MG/0.4 ML SYRINGE SQ ONE (16:00)
[2016-06-21 17:00] LABS: ABG Base Excess 0.3 mmol/L; ABG HCO3 24 mmol/L (21-25); ABG PCO2 36 mmHg (35-45); ABG PH 7.44 (7.35-7.45); ABG PO2 92 mmHg (83-108); ABG TCO2 25 mmol/L (19-24)
--- NOTE | 2016-06-21 17:08 | US ---
EXAMINATION TYPE: US chest DATE OF EXAM: 06/21/2016 5:01 PM COMPARISON: NONE CLINICAL HISTORY: LEFT PLEURAL EFFUSION. EXAM MEASUREMENTS: Left Pleural Effusion fluid pocket: 4.6 cm Left skin to fluid thickness: 1.6 cm Left side marked for possible thoracentesis outside the dept. Let nurse know pocket is very small. Pulmonologists are able to review the images in the patient?s EMR. TECHNOLOGIST IMPRESSION: IMPRESSIONS: Left pleural effusion is demonstrated that measures 3 cm in thickness.
[2016-06-21 17:59] LABS: Glucose,Whole Blood 168 mg/dL (75-99)
--- NOTE | 2016-06-21 18:03 | P.CNPUL ---
History of Present Illness Consult date: 06/21/16 Requesting physician: Jessica Francis Reason for consult: dyspnea Chief complaint: Shortness of breath History of present illness: This is an 85-year-old female with history of hypertension, hypothyroidism, chronic kidney disease stage II, type 2 diabetes, admitted recently with left hip fracture. Patient underwent surgery on 06/19/2016 and her immediate postoperative course was relatively uneventful. On 06/20/2016, patient had issue with swallowing, and a swallowing evaluation done showed transient penetration with nectar thick liquids and deep penetration into the false vocal cords with thin liquids. Chest x-ray on 06/20/2016 was suggestive of a new left lower lobe infiltrate and possibly a small pleural effusion. Patient was started on antibiotics, and she was also given Lasix. However she does not seem to be making much improvement. I was asked to see her today on consultation. Patient has mostly shortness of breath, she has a weak cough, no fever no chills no hemoptysis. VQ scan showed low to intermediate probability of pulmonary embolism, ultrasound of the chest showed a small tiny pocket of fluid , I did not feel it is safe enough to perform a left sided thoracentesis. Patient has mostly atelectasis with very minimal amount of fluid and even if drained will not make significant improvement in her overall pulmonary status. In the meantime the patient is on bronchodilators in the form of Ventolin updrafts, she is also on antibiotics, and on diuretics. Solu-Medrol was even added today. I even recommended a venous Doppler on both lower extremities to rule out possibility of DVT. However I believe we are dealing mostly with a picture of left lower lobe atelectasis or and the patient may need more aggressive incentive spirometry encouraging cough, and continue updrafts. Review of Systems 12 point review of systems were obtained, please refer to pertinent positives and negatives in HPI Past Medical History Past Medical History: CVA/TIA, Diabetes Mellitus, Eye Disorder, Hyperlipidemia, Hypertension, Musculoskeletal Disorder, Osteoarthritis (OA), Renal Disease, Thyroid Disorder Additional Past Medical History / Comment(s): chronic back pain HAS A BROKEN TITANIUM CESIA IN HER BACK, cardiac murmur,MURMUR,RETINAL ROBLEMS, ATHRITIS, history of aortic stenosis, severe History of Any Multi-Drug Resistant Organisms: None Reported Past Surgical History: Back Surgery, Section, Cholecystectomy, Joint Replacement, Orthopedic Surgery Additional Past Surgical History / Comment(s): PARTIALthyroidECTOMY D/T NODULES trach 1195, TITANIUM CESIA IN BACK,LT KNEE REPLACEMENT,LT PARTIAL SHOULDER REPLACEMENT, Past Anesthesia/Blood Transfusion Reactions: Postoperative Nausea & Vomiting ( PONV) Past Psychological History: No Psychological Hx Reported Smoking Status: Never smoker Past Alcohol Use History: None Reported Past Drug Use History: None Reported - Past Family History Father Family Medical History: Diabetes Mellitus (Father at age 75 from diabetes mellitus competition.) Mother Family Medical History: COPD (Mother at age of 68 from COPD/emphysema.) Additional Family Medical History / Comment(s): jeimy(non smoker) at age 65 Brother(s) Family Medical History: Diabetes Mellitus (Patient has one brother with diabetes minutes type II) Sister(s) Family Medical History: No Reported History (Patient has one sister who from old age.) Son(s) Family Medical History: No Reported History (Patient has 2 sons no major medical problems) Daughter(s) Family Medical History: Diabetes Mellitus (Patient has 2 daughters one with diabetes.) Medications and Allergies Home Medications Medication Instructions Recorded Confirmed Type Levothyroxine Sodium [Synthroid] 88 mcg PO DAILY 12/15/13 06/15/16 History Allopurinol [Zyloprim] 100 mg PO DAILY 01/18/14 06/15/16 History Clopidogrel [Plavix] 75 mg PO DAILY@1700 01/18/14 06/15/16 History Albuterol Sulfate [Proair Hfa] 2 puff INHALATION RT-Q6H PRN 06/15/16 06/15/16 History Atorvastatin [Lipitor] 20 mg PO DAILY 06/15/16 06/15/16 History Cholecalciferol [Vitamin D3] 1,000 unit PO DAILY 06/15/16 06/15/16 History Diclofenac 0.1% Ophth Soln 1 drops BOTH EYES QID 06/15/16 06/15/16 History [Voltaren 0.1% Ophth Soln] Epoetin Basim [Procrit] 20,000 unit SQ Q14D 06/15/16 06/15/16 History Ferrous Sulfate [Feosol] 325 mg PO HS 06/15/16 06/15/16 History Furosemide [Lasix] 20 mg PO DAILY 06/15/16 06/15/16 History HYDROcodone/APAP 5-325MG [Laurens 1 tab PO DAILY PRN 06/15/16 06/15/16 History 5-325] Hydrocodone/Acetaminophen [Laurens 1 tab PO DAILY 06/15/16 06/15/16 History 5-325] Insulin Glargine,Hum.rec.anlog 12 unit SQ DAILY 06/15/16 06/15/16 History [Lantus Solostar] Loratadine [Claritin] 10 mg PO DAILY 06/15/16 06/15/16 History Magnesium Oxide [Mag-Ox] 800 mg PO DAILY 06/15/16 06/15/16 History Melatonin 3 mg PO HS 06/15/16 06/15/16 History Sennosides [Senna] 8.6 mg PO BID 06/15/16 06/15/16 History Triamcinolone 0.5% Cream [Kenalog 1 applic TOPICAL BID 06/15/16 06/15/16 History 0.5% Cream] amLODIPine [Norvasc] 5 mg PO DAILY 06/15/16 06/15/16 History guaiFENesin [Mucinex] 600 mg PO Q12H 06/15/16 06/15/16 History hydrALAZINE HCL [Apresoline] 25 mg PO DAILY 06/15/16 06/15/16 History sitaGLIPtin PHOSPHATE [Januvia] 25 mg PO DAILY 06/15/16 06/15/16 History traMADol HCL [Ultram] 50 mg PO Q6HR PRN 06/15/16 06/15/16 History traMADol HCl [Ultram] 50 mg PO BID 06/15/16 06/15/16 History Allergies Allergy/AdvReac Type Severity Reaction Status Date / Time amoxicillin trihydrate Allergy Unknown Verified 06/15/16 13:51 [From Augmentin] cephalexin monohydrate Allergy Unknown Verified 06/15/16 13:51 [From Keflex] cyclobenzaprine HCl Allergy Unknown Verified 06/15/16 13:51 [From Flexeril] eszopiclone [From Lunesta] Allergy Unknown Verified 06/15/16 13:51 gabapentin [From Neurontin] Allergy Unknown Verified 06/15/16 13:51 levocetirizine Allergy Unknown Verified 06/15/16 13:51 dihydrochloride [From Xyzal] meperidine HCl [From Demerol] Allergy Unknown Verified 06/15/16 13:51 potassium clavulanate Allergy Unknown Verified 06/15/16 13:51 [From Augmentin] adhesive AdvReac Unknown Verified 06/15/16 13:51 hydromorphone HCl AdvReac Hallucinati Verified 06/15/16 13:51 [From Dilaudid] ons Physical Exam Vitals: Vital Signs Temp Pulse Pulse Resp BP Pulse Ox 06/21/16 16:48 98 06/21/16 14:19 98 06/21/16 14:17 97 28 H 158/74 100 06/21/16 14:04 96 06/21/16 10:47 98.8 F 98 30 H 133/60 93 L 06/21/16 08:45 92 06/21/16 08:35 92 06/21/16 07:00 98.6 F 86 30 H 163/74 97 06/21/16 03:11 97.8 F 96 18 146/75 100 06/21/16 02:37 88 06/21/16 02:29 84 06/20/16 19:07 97.0 F L 97 18 160/75 99 Intake and Output 06/21/16 06/21/16 06/21/16 06:59 14:59 22:59 Other: # Voids 3 2 # Bowel Movements 2 Weight 67.132 kg Patient Weight 06/22/16 06:59 Weight 67.132 kg Physical Exam: Revealed an 85-year-old female on room air, O2 sats are in the mid 90s, in minimal respiratory distress. HEENT:[Neck is supple.] [No neck masses.] [No thyromegaly.] [No JVD.] Chest: [Diminished breath sounds at the left base, no crackles or rhonchi or wheezes.] Cardiac Exam: [Normal S1 and S2, no S3 gallop, 2/6 systolic murmur over the right parasternal area..] Abdomen: [Soft, nontender, no megaly, no rebound, no guarding, normal bowel sounds.] Extremities: [No clubbing, no edema, no cyanosis.] Neurological Exam: [No focal neurologic deficit.] Results - Laboratory Findings CBC and BMP: 06/20/16 07:55 06/21/16 11:35 ABG ABG pH 7.44 (7.35-7.45) 06/21/16 16:45 ABG pCO2 36 mmHg (35-45) 06/21/16 16:45 ABG pO2 92 mmHg (83-108) 06/21/16 16:45 ABG O2 Saturation 98.0 % (94-97) H 06/21/16 16:45 PT/INR, D-dimer PT 11.2 sec (9.0-12.0) 06/15/16 14:22 INR 1.1 (<1.1) 06/15/16 14:22 Abnormal lab findings: Abnormal Labs 06/16/16 06/16/16 06/16/16 06:31 06:38 11:44 WBC 14.1 H RBC 3.38 L Hgb 9.7 L Hct 31.1 L MCHC RDW 18.4 H Neutrophils # 11.0 H Lymphocytes # Monocytes # 1.2 H ABG Total CO2 ABG O2 Saturation Sodium Carbon Dioxide BUN 38 H Creatinine 1.32 H Glucose POC Glucose (mg/dL) 104 H AST Total Protein 5.5 L Albumin 3.2 L Crossmatch 06/16/16 06/16/16 06/16/16 15:15 17:42 18:04 WBC 24.7 H RBC 3.23 L Hgb 9.2 L Hct 30.0 L MCHC 30.6 L RDW 18.6 H Neutrophils # 21.2 H Lymphocytes # Monocytes # 1.7 H ABG Total CO2 ABG O2 Saturation Sodium Carbon Dioxide BUN Creatinine Glucose POC Glucose (mg/dL) 111 H AST Total Protein Albumin Crossmatch See Detail 06/16/16 06/17/16 06/17/16 21:49 06:14 11:47 WBC RBC Hgb Hct MCHC RDW Neutrophils # Lymphocytes # Monocytes # ABG Total CO2 ABG O2 Saturation Sodium Carbon Dioxide BUN Creatinine Glucose POC Glucose (mg/dL) 114 H 117 H 128 H AST Total Protein Albumin Crossmatch 06/17/16 06/17/16 06/17/16 17:11 20:33 20:35 WBC RBC Hgb Hct MCHC RDW Neutrophils # Lymphocytes # Monocytes # ABG Total CO2 ABG O2 Saturation Sodium Carbon Dioxide BUN Creatinine Glucose POC Glucose (mg/dL) 135 H 180 H 187 H AST Total Protein Albumin Crossmatch 06/18/16 06/18/16 06/18/16 06:30 06:30 06:48 WBC 16.4 H RBC 2.42 L Hgb 7.1 L D Hct 22.5 L MCHC RDW 18.6 H Neutrophils # 14.0 H Lymphocytes # 0.7 L Monocytes # 1.1 H ABG Total CO2 ABG O2 Saturation Sodium 136 L Carbon Dioxide 18 L BUN 46 H Creatinine 1.59 H Glucose 163 H POC Glucose (mg/dL) 191 H AST Total Protein 4.6 L Albumin 2.4 L Crossmatch 06/18/16 06/18/16 06/18/16 11:13 16:43 21:58 WBC RBC Hgb Hct MCHC RDW Neutrophils # Lymphocytes # Monocytes # ABG Total CO2 ABG O2 Saturation Sodium Carbon Dioxide BUN Creatinine Glucose POC Glucose (mg/dL) 229 H 165 H 177 H AST Total Protein Albumin Crossmatch 06/19/16 06/19/16 06/19/16 06:04 06:04 06:50 WBC 23.0 H RBC 2.83 L Hgb 8.4 L Hct 26.2 L MCHC RDW 17.7 H Neutrophils # 20.6 H Lymphocytes # 0.8 L Monocytes # 1.2 H ABG Total CO2 ABG O2 Saturation Sodium 135 L Carbon Dioxide 21 L BUN 49 H Creatinine 1.60 H Glucose 158 H POC Glucose (mg/dL) 163 H AST 38 H Total Protein 4.6 L Albumin 2.4 L Crossmatch 06/19/16 06/19/16 06/19/16 11:27 16:22 20:47 WBC RBC Hgb Hct MCHC RDW Neutrophils # Lymphocytes # Monocytes # ABG Total CO2 ABG O2 Saturation Sodium Carbon Dioxide BUN Creatinine Glucose POC Glucose (mg/dL) 162 H 157 H 186 H AST Total Protein Albumin Crossmatch 06/20/16 06/20/16 06/20/16 07:02 07:55 08:00 WBC 16.9 H RBC 2.83 L Hgb 8.4 L Hct 26.4 L MCHC RDW 17.9 H Neutrophils # Lymphocytes # Monocytes # ABG Total CO2 ABG O2 Saturation Sodium Carbon Dioxide BUN 52 H Creatinine 1.61 H Glucose 134 H POC Glucose (mg/dL) 144 H AST Total Protein Albumin Crossmatch 06/20/16 06/20/16 06/20/16 11:27 16:34 20:32 WBC RBC Hgb Hct MCHC RDW Neutrophils # Lymphocytes # Monocytes # ABG Total CO2 ABG O2 Saturation Sodium Carbon Dioxide BUN Creatinine Glucose POC Glucose (mg/dL) 169 H 120 H 133 H AST Total Protein Albumin Crossmatch 06/21/16 06/21/16 06/21/16 06:58 11:32 11:35 WBC RBC Hgb Hct MCHC RDW Neutrophils # Lymphocytes # Monocytes # ABG Total CO2 ABG O2 Saturation Sodium Carbon Dioxide BUN 47 H Creatinine 1.49 H Glucose 208 H POC Glucose (mg/dL) 145 H 211 H AST Total Protein 4.9 L Albumin 2.7 L Crossmatch 06/21/16 16:45 WBC RBC Hgb Hct MCHC RDW Neutrophils # Lymphocytes # Monocytes # ABG Total CO2 25 H ABG O2 Saturation 98.0 H Sodium Carbon Dioxide BUN Creatinine Glucose POC Glucose (mg/dL) AST Total Protein Albumin Crossmatch - Diagnostic Findings Chest x-ray: image reviewed (Left lower lobe atelectasis and a small tiny effusion noted. Ultrasound was also reviewed and showed a small pocket of fluid not large enough to consider safe thoracentesis.) Assessment and Plan Plan: Impression: 1 Status post repair of left intertrochanteric hip fracture secondary to fall. Postoperative day #2. 2 left lower lobe atelectasis and small tiny left pleural effusion 3 history of severe aortic stenosis but stable 4 multiple comorbidities including hypertension and diabetes hypothyroidism chronic kidney disease and history of gout. Recommendation: Continue present treatment plan results of the VQ scan were reviewed ultrasound of the chest was reviewed. Chest x-ray was reviewed. Discussed her condition with the family at bedside, and I plan to transfer the patient to [facility] for close monitoring, will continue incentive spirometry continue updrafts, continue diuretics and antibiotics, and venous Doppler of lower extremities was ordered to make sure that were not dealing with DVT and pulmonary embolism clinically felt to be less likely. We'll continue to follow. Time with Patient: Greater than 30
[2016-06-21] MEDS: PIPERACILLIN-TAZOBACTAM 3.375 GM in DEXTROSE/WATER 1 50ML.BAG IVPB SCH (18:22)
[2016-06-21] MEDS: LEVOFLOXACIN 250 MG TAB PO SCH (18:23)
--- NOTE | 2016-06-21 18:27 | US ---
EXAMINATION TYPE: US venous doppler duplex LE DATE OF EXAM: 06/21/2016 6:16 PM COMPARISON: NONE CLINICAL HISTORY: possible dvt. SOB, patient had surgery on left hip about x1 week ago, is currently taking blood thinners. Extremely limited and difficult exam due to small vessel size. Exam was done a t the bedside, patient is unable to move left leg to achieve elongated images of left popliteal vein or proximal calf vein SIDE PERFORMED: Bilateral VESSELS IMAGED: External Iliac Vein (EIV) Common Femoral Vein Deep Femoral Vein Greater Saphenous Vein * Femoral Vein Popliteal Vein Small Saphenous Vein * Proximal Calf Veins (* superficial vessels) TECHNOLOGIST IMPRESSION: Right Leg: Unable to achieve complete color fill in right mid femoral vein, however there is spontan eous flow Left Leg: Unable to achieve complete color fill from the left mid to the lower femoral vein. There d oes appear to be spontaneous flow within IMPRESSION: Exam was technically limited. There is no evidence of acute deep venous thrombosis. Ther e was incomplete color filling of the femoral veins that may indicate some element of bilateral chron ic deep venous thrombosis.
[2016-06-21] MEDS: SENNOSIDES-DOCUSATE SODIUM 1 EACH TAB PO SCH (20:52)
[2016-06-21] MEDS: MELATONIN 3 MG TABLET PO SCH (20:56)
[2016-06-21] MEDS: FERROUS SULFATE 325 MG TAB PO SCH (20:56)
[2016-06-21 21:09] LABS: Glucose,Whole Blood 198 mg/dL (75-99)
[2016-06-22] MEDS: methylPREDNISolone SOD SUCCI 125 MG/2 ML VIAL IV SCH (00:01)
[2016-06-22] MEDS: traMADol 50 MG TAB PO PRN ×3 (02:09→20:18)
[2016-06-22] MEDS: ALBUTEROL NEBULIZED 2.5 MG/3 ML INHALATION PRN ×2 (02:10→20:20)
[2016-06-22 06:25] LABS: Glucose,Whole Blood 178 mg/dL (75-99)
[2016-06-22 06:28] LABS: Anisocytosis Slight; Basophils % (A) 0 %; CH 28.7; CHCM 30.3; Eosinophils % (A) 0 %; HCT 27.9 % (34.0-46.0); HDW 2.87; HGB 8.4 gm/dL (11.4-16.0); Hypochromasia Moderate; Luc # (Auto) 0.04; Luc % (Auto) 1; Lymphocytes # (A) 0.7 k/uL (1.0-4.8); Lymphocytes % (A) 9 %; MCH 28.9 pg (25.0-35.0); MCHC 30.3 g/dL (31.0-37.0); MCV 95.1 fL (80.0-100.0); Macrocytosis Slight; Mean Platelet Volume 8.2; Monocytes # (A) 0.2 k/uL (0-1.0); Monocytes % (A) 3 %; Neutrophils # (A) 6.7 k/uL (1.3-7.7); Neutrophils % (A) 88 %; RBC 2.93 m/uL (3.80-5.40); RDW 18.1 % (11.5-15.5); WBC 7.6 k/uL (3.8-10.6); WBC (Perox) 7.84
[2016-06-22 06:44] LABS: Calcium 8.7 mg/dL (8.4-10.2); Potassium 4.5 mmol/L (3.5-5.1)
[2016-06-22] MEDS: LEVOTHYROXINE 88 MCG TAB PO SCH (06:44)
[2016-06-22] MEDS: guaiFENesin 600 MG TABLET.ER PO SCH ×2 (06:44→17:35)
[2016-06-22] MEDS: INSULIN LISPRO (humaLOG) 300 UNIT/3 ML VIAL SQ SCH ×4 (06:47→21:05)
[2016-06-22] MEDS: ALBUTEROL NEBULIZED 2.5 MG/3 ML INHALATION SCH ×2 (07:43→11:54)
--- NOTE | 2016-06-22 09:54 | P.PN ---
Subjective Principal diagnosis: Status post left IT nail for left femur fracture Patient is pleasant 85-year-old female seen at bedside this morning. She's postop day #6 from left IT nail insertion for left femur fracture performed by Dr. Carmona. She has pain at the surgical site as expected but is improving. She denies any new left lower extremity complaints including numbness, tingling , calf pain or weakness. her labored breathing is improved today and is being treated per IM and Pulmonology. Review of systems is negative for fever, chills , chest pain, nausea, vomiting, dizziness, headaches, slurred speech, calf pain. Objective - Vital Signs Vital signs: Vital Signs Temp 96.8 F L 06/22/16 04:00 Pulse 86 06/22/16 07:57 Resp 20 06/22/16 04:00 BP 143/75 06/22/16 04:00 Pulse Ox 100 06/22/16 04:00 Intake & Output 06/21/16 06/22/16 06/22/16 18:59 06:59 18:59 Intake Total 170 120 Balance 170 120 Weight 67.132 kg Intake: IV 170 0.9 120 Piperacillin-Tazobactam 3 50 .375 gm In Dextrose/Water 1 50ml.bag @ 12.5 mls/hr IVPB Q8HR [facility] Rx#: [id number] Oral 120 Other: Voiding Method Diaper Diaper Incontinent # Voids 2 # Bowel Movements 2 - Exam Inspection of the left lower extremity reveals a benign surgical wounds with lynne in place. There is no active bleeding, dehiscence or purulent drainage. Neurovascular status is intact throughout the left lower extremity where she has active plantarflexion and dorsiflexion the left foot and toes. Sensation to touch is intact at the left lower extremity. Calf is soft and nontender. There is 2+ dorsalis pedis pulse and less than 2 second cap refill. - Constitutional General appearance: Present: no acute distress - Psychiatric Psychiatric: Present: A&O x's 3, appropriate affect, intact judgment & insight - Labs CBC & Chem 7: 06/22/16 05:42 06/22/16 05:38 Labs: Abnormal Lab Results - Last 24 Hours (Table) 06/21/16 06/21/16 06/21/16 Range/Units 11:32 11:35 16:45 RBC (3.80-5.40) m/uL Hgb (11.4-16.0) gm/dL Hct (34.0-46.0) % MCHC (31.0-37.0) g/dL RDW (11.5-15.5) % Lymphocytes # (1.0-4.8) k/uL ABG Total CO2 25 H (19-24) mmol/L ABG O2 Saturation 98.0 H (94-97) % BUN 47 H (7-17) mg/dL Creatinine 1.49 H (0.52-1.04) mg/dL Glucose 208 H (74-99) mg/dL POC Glucose (mg/dL) 211 H (75-99) mg/dL Total Protein 4.9 L (6.3-8.2) g/dL Albumin 2.7 L (3.5-5.0) g/dL 06/21/16 06/21/16 06/22/16 Range/Units 17:52 21:08 05:38 RBC (3.80-5.40) m/uL Hgb (11.4-16.0) gm/dL Hct (34.0-46.0) % MCHC (31.0-37.0) g/dL RDW (11.5-15.5) % Lymphocytes # (1.0-4.8) k/uL ABG Total CO2 (19-24) mmol/L ABG O2 Saturation (94-97) % BUN 57 H (7-17) mg/dL Creatinine 1.72 H (0.52-1.04) mg/dL Glucose 188 H (74-99) mg/dL POC Glucose (mg/dL) 168 H 198 H (75-99) mg/dL Total Protein (6.3-8.2) g/dL Albumin (3.5-5.0) g/dL 06/22/16 06/22/16 Range/Units 05:42 06:24 RBC 2.93 L (3.80-5.40) m/uL Hgb 8.4 L (11.4-16.0) gm/dL Hct 27.9 L (34.0-46.0) % MCHC 30.3 L (31.0-37.0) g/dL RDW 18.1 H (11.5-15.5) % Lymphocytes # 0.7 L (1.0-4.8) k/uL ABG Total CO2 (19-24) mmol/L ABG O2 Saturation (94-97) % BUN (7-17) mg/dL Creatinine (0.52-1.04) mg/dL Glucose (74-99) mg/dL POC Glucose (mg/dL) 178 H (75-99) mg/dL Total Protein (6.3-8.2) g/dL Albumin (3.5-5.0) g/dL Microbiology - Last 24 Hours (Table) 06/15/16 18:07 Blood Culture - Final Blood No Growth after 144 hours Assessment and Plan (1) Intertrochanteric fracture of left hip Narrative/Plan: She'll continue with routine postop orthopedic protocol including pain management, wound care, physical therapy, DVT prophylaxis and medical management. When internal medicine/pulmonology feels she is stable she may be transferred to an extended care facility for rehab. Status: Acute Time with Patient: Less than 30
[2016-06-22] MEDS: ALLOPURINOL 100 MG TAB PO SCH (10:15)
[2016-06-22] MEDS: CALCIUM CARBONATE 500 MG CHEWABLE PO SCH ×3 (10:16→20:16)
[2016-06-22] MEDS: amLODIPine 5 MG TAB PO SCH (10:16)
[2016-06-22] MEDS: ATORVASTATIN 20 MG TAB PO SCH (10:16)
[2016-06-22] MEDS: ENOXAPARIN 80 MG/0.8 ML SYRINGE SQ SCH (10:16)
[2016-06-22] MEDS: hydrALAZINE HCL 25 MG TAB PO SCH (10:17)
[2016-06-22] MEDS: LINAGLIPTIN 5 MG TABLET PO SCH (10:17)
[2016-06-22] MEDS: LORATADINE 10 MG TAB PO SCH (10:17)
[2016-06-22] MEDS: SENNOSIDES 8.6 MG TAB PO SCH ×2 (10:17→20:16)
[2016-06-22] MEDS: CHOLECALCIFEROL 1,000 UNIT TAB PO SCH (10:18)
[2016-06-22] MEDS: MAGNESIUM OXIDE 400 MG TAB PO SCH (10:18)
[2016-06-22] MEDS: methylPREDNISolone SOD SUCCI 40 MG/ML 1 ML VIAL IV SCH ×3 (10:18→23:02)
[2016-06-22] MEDS: MULTIVITAMINS, THERA 1 EACH TAB PO SCH (10:19)
--- NOTE | 2016-06-22 11:06 | P.PN ---
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 with a previous medical history significant for hypertension and hypertensive cardio vascular disease with left ventricular hypertrophy, hypothyroidism, chronic kidney disease stage II, diabetes mellitus type 2, hyperlipidemia, patient resides at assisted living facility in [place] and today she was transferring from her wheelchair using the walker and she lost her balance ended up falling onto her left side and she had a treatment as amount of pain she ended up getting transferred to [facility] where she was found to have a left intertrochanteric hip fracture she was admitted to the hospital and orthopedic surgery and we were asked to see the patient for medical management and preoperative medical clearance. Apparently the patient does appear to have a significant and severe aortic valve stenosis, and because of her comorbidities it was thought that the patient is at high risk for surgical intervention subsequently consult cardiology for further care and the patient will have an echo care gram for eval you should've LV function as well as the severity of her aortic valve stenosis prior to her surgical intervention. Patient underwent left hip intertrochanteric IM nailing that was done by Dr. Carmona and she was admitted to the [facility] for overnight subsequent she was moved to the surgical unit in the morning, patient is sitting up in bed that she appears to be quite tired, her daughter was at bedside. She denies any chest pain or shortness breath she has no abdominal pain, she disclaims some neck pain that she has poor appetite today she did not eat much. 2: Patient is sitting up in the recliner today she feels dizzy, she denies any chest pain, shortness breath, she has no abdominal pain, her daycare manager better, her hemoglobin dropped to 7.1, she is scheduled to go for a 1 unit packed red blood cell transfusion today hold physical therapy and after blood transfusion. 2: Patient did receive 1 unit of packed RBCs for hemoglobin of 7.1 from last night. Patient did develop some shortness of following this for which she'll was given Lasix. She is now on oxygen and continues to have some shortness of breath. A second dose of Lasix has been ordered. Repeat hemoglobin is 8.4. BUN 49 and creatinine 1.6. Anticipate she will be ready for discharge to [facility] tomorrow. 06/20: Repeat BUN 52 and creatinine 1.61. Hemoglobin 8.4 and white count 16.9. Blood blood glucose running between 134 and 186. Patient continues to have shortness of breath but pulse ox is running 97 200% on 2 L. Patient has been sleepy and weak. Repeat chest x-ray will be ordered. She underwent a modified barium swallow with recommendations for pured dysphagia 1, no straws, one-to- one supervision, encouraged chin tuck. Advance to soft diet as tolerated. Discharge to residential was held today. 06/21: Patient is having more shortness of breath today despite nebulizer treatment with tachypnea and appears to be mostly upper airway distress. Additional dose of IV Lasix ordered. Chest x-ray shows new lower lobe infiltrate and small pleural effusion correlate for mild venous congestion. Patient was placed on clindamycin and Levaquin for possible aspiration. V/Q scan is showing triple match compatible with intermediate probability for pulmonary embolism. Lovenox increased to 90 mg daily subcu. Consult with Dr. Valencia placed with anticipated possible need for ICU treatment if she does not turn around. She was started on IV Solu-Medrol at 60 mg IV every 6 hours 3 doses. ABGs ordered. 06/22: Patient was seen in consultation by Dr. Valencia. Pulmonary embolism was felt to be less likely. Ultrasound of the lower extremities was limited. No evidence of acute DVT. Patient was transferred to [facility] yesterday. Her breathing status is less labored today. Steroids are decreased to 40 mg every 8 hours IV. Patient does state that she slept better last evening. She seems to be most comfortable sitting up and was comfortable lying flat. She is bringing up more mucus this which is yellow and sputum culture has been requested. Anticipate that she may be ready for transfer to [facility] on Sunday. Objective - Vital Signs Vital signs: Vital Signs Temp 96.8 F L 06/22/16 04:00 Pulse 86 06/22/16 07:57 Resp 20 06/22/16 04:00 BP 143/75 06/22/16 04:00 Pulse Ox 100 06/22/16 04:00 Intake & Output 06/21/16 06/22/16 06/22/16 18:59 06:59 18:59 Intake Total 170 120 Balance 170 120 Weight 67.132 kg Intake: IV 170 0.9 120 Piperacillin-Tazobactam 3 50 .375 gm In Dextrose/Water 1 50ml.bag @ 12.5 mls/hr IVPB Q8HR [facility] Rx#: [id number] Oral 120 Other: Voiding Method Diaper Diaper Incontinent # Voids 2 # Bowel Movements 2 - Exam General appearance: average body habitus, mild distress - EENT Eyes: anicteric sclerae, PERRLA, no ptosis, no scleral icterus, normal appearance ENT: hard of hearing, normal oropharynx, no thrush Ears: bilateral: normal - Neck Neck: no lymphadenopathy, normal ROM, no rigidity, no stridor, no thyromegaly Carotids: bilateral: upstroke delayed Thyroid: bilateral: normal size - Respiratory Respiratory: bilateral: diminished, negative: dullness, rales, rhonchi, wheezing , prolonged expiration, prolonged inspiration - Cardiovascular Rhythm: regular Heart sounds: normal: S1, S2 Abnormal Heart Sounds: systolic murmur (Systolic ejection murmur 3/6 located in the right upper sternal border radiating to the base of the neck), no S3 Gallop , no S4 Gallop, no click - Gastrointestinal General gastrointestinal: normal bowel sounds, soft, no splenomegaly, no tenderness, no umbilical hernia, no ventral hernia - Integumentary Integumentary: normal, normal turgor - Neurologic Neurologic: CNII-XII intact, focal deficits - Musculoskeletal Musculoskeletal: generalized weakness, left sided weakness - Psychiatric Psychiatric: A&O x's 3, appropriate affect, intact judgment & insight - Labs CBC & Chem 7: 06/22/16 05:42 06/22/16 05:38 Labs: Abnormal Lab Results - Last 24 Hours (Table) 06/21/16 06/21/16 06/21/16 Range/Units 11:32 11:35 16:45 RBC (3.80-5.40) m/uL Hgb (11.4-16.0) gm/dL Hct (34.0-46.0) % MCHC (31.0-37.0) g/dL RDW (11.5-15.5) % Lymphocytes # (1.0-4.8) k/uL ABG Total CO2 25 H (19-24) mmol/L ABG O2 Saturation 98.0 H (94-97) % BUN 47 H (7-17) mg/dL Creatinine 1.49 H (0.52-1.04) mg/dL Glucose 208 H (74-99) mg/dL POC Glucose (mg/dL) 211 H (75-99) mg/dL Total Protein 4.9 L (6.3-8.2) g/dL Albumin 2.7 L (3.5-5.0) g/dL 06/21/16 06/21/16 06/22/16 Range/Units 17:52 21:08 05:38 RBC (3.80-5.40) m/uL Hgb (11.4-16.0) gm/dL Hct (34.0-46.0) % MCHC (31.0-37.0) g/dL RDW (11.5-15.5) % Lymphocytes # (1.0-4.8) k/uL ABG Total CO2 (19-24) mmol/L ABG O2 Saturation (94-97) % BUN 57 H (7-17) mg/dL Creatinine 1.72 H (0.52-1.04) mg/dL Glucose 188 H (74-99) mg/dL POC Glucose (mg/dL) 168 H 198 H (75-99) mg/dL Total Protein (6.3-8.2) g/dL Albumin (3.5-5.0) g/dL 06/22/16 06/22/16 Range/Units 05:42 06:24 RBC 2.93 L (3.80-5.40) m/uL Hgb 8.4 L (11.4-16.0) gm/dL Hct 27.9 L (34.0-46.0) % MCHC 30.3 L (31.0-37.0) g/dL RDW 18.1 H (11.5-15.5) % Lymphocytes # 0.7 L (1.0-4.8) k/uL ABG Total CO2 (19-24) mmol/L ABG O2 Saturation (94-97) % BUN (7-17) mg/dL Creatinine (0.52-1.04) mg/dL Glucose (74-99) mg/dL POC Glucose (mg/dL) 178 H (75-99) mg/dL Total Protein (6.3-8.2) g/dL Albumin (3.5-5.0) g/dL Microbiology - Last 24 Hours (Table) 06/15/16 18:07 Blood Culture - Final Blood No Growth after 144 hours Assessment and Plan Plan: 1. Left intertrochanteric hip fracture post fall. This is postoperative day # 1 status post left intertrochanteric IM nail. Continue since around her, continue current pain management, continue with physical therapy evaluation in the next 24 hours. Continue incentive spirometer to reduce the incidence of atelectasis and hospital acquired pneumonia 2. Severe aortic valve stenosis. Stable. 3. Hypertension and hypertensive cardiovascular disease. Continue patient on hydralazine 25 mg orally once every day, amlodipine 10 mg orally once every day. 4. Diabetes mellitus type 2. Continue Lantus 12 units at bedtime, Tradjenta 5 mg orally once every day, BGM before each meal and at bedtime. Apply sliding scale insulin . 5. Hypothyroidism. Continue Synthroid 88 g orally once every day. 6. Chronic kidney disease stage II. Monitor the patient CMP. 7. UTI with sepsis. Urine culture, blood culture, start the patient on Levaquin 500 mg IV piggyback every 24 hours. 8. Gout. Continue allopurinol 100 mg orally once every day. 9. Hyperlipidemia. Continue Lipitor 20 mg orally once every day. 10. Anemia of chronic renal disease. Continue Aranesp and iron supplement. Monitor the patient's CBC. 11. DVT prophylaxis. Continue the patient on Lovenox 30 mg subcutaneously every 24 hours. 12. GI prophylaxis. Continue Protonix 40 mg orally once every day. 13. Patient is full code. 14. Acute blood loss anemia. Type and cross and transfuse 1 unit of packed cells. 15. Acute kidney injury. Repeat BMP magnesium tomorrow morning. 16. Acute respiratory distress due to combination of acute diastolic heart failure due to fluid overload from blood transfusion and IV fluid resuscitation for acute kidney injury, possible aspiration pneumonia, pulmonary embolism ruled out. Antibiotics changed to Zosyn and Levaquin. Consult with Dr. Valencia requested and patient transferred to [facility]. Solu-Medrol 40 mg IV every 8 hours. Discharge plan: on Sunday Impression and plan of care have been directed as dictated by the signing physician. Daiana Panda nurse practitioner acting as scribe for signing physician. Time with Patient: Greater than 30
[2016-06-22] MEDS: INSULIN GLARGINE 100 UNIT/ML 10 ML VIAL SQ SCH (11:58)
[2016-06-22] MEDS: DICLOFENAC 0.1% OPHTH SOLN 2.5 ML BTL BOTH EYES SCH ×4 (11:59→21:04)
[2016-06-22 12:26] LABS: Glucose,Whole Blood 347 mg/dL (75-99)
[2016-06-22] MEDS: PIPERACILLIN-TAZOBACTAM 3.375 GM in DEXTROSE/WATER 1 50ML.BAG IVPB SCH ×3 (13:08→17:46)
--- NOTE | 2016-06-22 13:45 | P.PN ---
Subjective This is an 85-year-old female with history of hypertension, hypothyroidism, chronic kidney disease stage II, type 2 diabetes, admitted recently with left hip fracture. Patient underwent surgery on 06/19/2016 and her immediate postoperative course was relatively uneventful. On 06/20/2016, patient had issue with swallowing, and a swallowing evaluation done showed transient penetration with nectar thick liquids and deep penetration into the false vocal cords with thin liquids. Chest x-ray on 06/20/2016 was suggestive of a new left lower lobe infiltrate and possibly a small pleural effusion. Patient was started on antibiotics, and she was also given Lasix. However she does not seem to be making much improvement. I was asked to see her today on consultation. Patient has mostly shortness of breath, she has a weak cough, no fever no chills no hemoptysis. VQ scan showed low to intermediate probability of pulmonary embolism, ultrasound of the chest showed a small tiny pocket of fluid , we did not feel it is safe enough to perform a left sided thoracentesis. Patient has mostly atelectasis with very minimal amount of fluid and even if drained will not make significant improvement in her overall pulmonary status. In the meantime the patient is on bronchodilators in the form of Ventolin updrafts, she is also on antibiotics, and on diuretics. Solu-Medrol was even added today. We even recommended a venous Doppler on both lower extremities to rule out possibility of DVT. However we believe we are dealing mostly with a picture of left lower lobe atelectasis and the patient needed more aggressive incentive spirometry encouraging cough, and continue updrafts. The patient is seen again today 06/22/2016 in follow-up on the selective care unit. The bilateral Doppler of the lower extremities revealed no acute DVT. There was some incomplete filling in the femoral veins indicative of some component of bilateral chronic DVTs. She is anticoagulated with Lovenox. She is awake and alert in no acute distress. She is breathing easier today as compared to yesterday. Her family is at the bedside and also feels she is improved in the past 24 hours. She is less short of breath. She is maintaining O2 saturations up to 100% on 2 L/m per nasal cannula. Respiratory rate 16. She is afebrile. No leukocytosis. Hemoglobin stable at 8.4. Hemodynamically stable. She is working well with her incentive spirometer. Objective - Vital Signs Vital signs: Vital Signs Temp 97.2 F L 06/22/16 11:25 Pulse 96 06/22/16 12:05 Resp 18 06/22/16 11:25 BP 117/64 06/22/16 11:25 Pulse Ox 100 06/22/16 11:25 Intake & Output 06/21/16 06/22/16 06/22/16 18:59 06:59 18:59 Intake Total 170 550 Balance 170 550 Weight 67.132 kg Intake: IV 170 30 0.9 120 30 Piperacillin-Tazobactam 3 50 .375 gm In Dextrose/Water 1 50ml.bag @ 12.5 mls/hr IVPB Q8HR [facility] Rx#: [id number] Oral 520 Other: Voiding Method Diaper Diaper Diaper Incontinent Incontinent # Voids 2 # Bowel Movements 2 - Exam GENERAL EXAM: Alert, comfortable in no apparent distress. HEAD: Normocephalic. EYES: Normal reaction of pupils, equal size. NOSE: Clear with pink turbinates. THROAT: No erythema or exudates. NECK: No masses, no JVD. CHEST: No chest wall deformity. LUNGS: Equal air entry with faint crackles in the posterior bases. CVS: S1 and S2 normal with an audible murmur, regular rhythm. ABDOMEN: No hepatosplenomegaly, normal bowel sounds, no guarding or rigidity. Extremities: There is trace peripheral edema. No clubbing, no cyanosis. Peripheral pulses are intact. - Labs CBC & Chem 7: 06/22/16 05:42 06/22/16 05:38 Labs: Abnormal Lab Results - Last 24 Hours (Table) 06/21/16 06/21/16 06/21/16 Range/Units 16:45 17:52 21:08 RBC (3.80-5.40) m/uL Hgb (11.4-16.0) gm/dL Hct (34.0-46.0) % MCHC (31.0-37.0) g/dL RDW (11.5-15.5) % Lymphocytes # (1.0-4.8) k/uL ABG Total CO2 25 H (19-24) mmol/L ABG O2 Saturation 98.0 H (94-97) % BUN (7-17) mg/dL Creatinine (0.52-1.04) mg/dL Glucose (74-99) mg/dL POC Glucose (mg/dL) 168 H 198 H (75-99) mg/dL 06/22/16 06/22/16 06/22/16 Range/Units 05:38 05:42 06:24 RBC 2.93 L (3.80-5.40) m/uL Hgb 8.4 L (11.4-16.0) gm/dL Hct 27.9 L (34.0-46.0) % MCHC 30.3 L (31.0-37.0) g/dL RDW 18.1 H (11.5-15.5) % Lymphocytes # 0.7 L (1.0-4.8) k/uL ABG Total CO2 (19-24) mmol/L ABG O2 Saturation (94-97) % BUN 57 H (7-17) mg/dL Creatinine 1.72 H (0.52-1.04) mg/dL Glucose 188 H (74-99) mg/dL POC Glucose (mg/dL) 178 H (75-99) mg/dL 06/22/16 Range/Units 11:52 RBC (3.80-5.40) m/uL Hgb (11.4-16.0) gm/dL Hct (34.0-46.0) % MCHC (31.0-37.0) g/dL RDW (11.5-15.5) % Lymphocytes # (1.0-4.8) k/uL ABG Total CO2 (19-24) mmol/L ABG O2 Saturation (94-97) % BUN (7-17) mg/dL Creatinine (0.52-1.04) mg/dL Glucose (74-99) mg/dL POC Glucose (mg/dL) 347 H (75-99) mg/dL Microbiology - Last 24 Hours (Table) 06/15/16 18:07 Blood Culture - Final Blood No Growth after 144 hours Assessment and Plan Plan: Impression: #1 Left hip fracture secondary to fall. Status post repair of a left intercostal Canter Fracture. Postoperative day #3. #2 Left lower lobe atelectasis and small tiny left pleural effusion. Ultrasound reveals no significant fluid. No plans for thoracentesis. #3 Acute hypoxic respiratory failure secondary to above. #4 Severe aortic stenosis. #5 Hypertension. #6 Diabetes mellitus. #7 Hypothyroidism. #8 Chronic kidney disease. #9 History of gout. Plan: The patient was seen and evaluated by Dr. Valencia. She is improved today as compared to yesterday. We'll continue with bronchodilators, IV Solu-Medrol, antibiotics. We will continue to increase use of the incentive spirometer and encourage cough and deep breathing exercises. Will increase her activity as tolerated. She remains anticoagulated with Lovenox. We will continue to follow make further recommendations based on her clinical status.
[2016-06-22 16:57] LABS: Glucose,Whole Blood 259 mg/dL (75-99)
[2016-06-22] MEDS: LEVOFLOXACIN 250 MG TAB PO SCH (17:35)
[2016-06-22] MEDS: HYDROcodone/APAP 5-325MG 1 EACH TAB PO PRN ×2 (17:46→23:02)
[2016-06-22] MEDS: MELATONIN 3 MG TABLET PO SCH (20:15)
[2016-06-22] MEDS: FERROUS SULFATE 325 MG TAB PO SCH (20:15)
[2016-06-22] MEDS: SENNOSIDES-DOCUSATE SODIUM 1 EACH TAB PO SCH (20:16)
[2016-06-22 20:53] LABS: Glucose,Whole Blood 215 mg/dL (75-99)
[2016-06-23 06:30] LABS: Anisocytosis Slight; CH 28.5; CHCM 30.3; HCT 26.5 % (34.0-46.0); HGB 8.2 gm/dL (11.4-16.0); Hypochromasia Moderate; MCH 29.1 pg (25.0-35.0); MCHC 30.8 g/dL (31.0-37.0); MCV 94.7 fL (80.0-100.0); Macrocytosis Slight; Mean Platelet Volume 7.7; RDW 18.2 % (11.5-15.5); WBC 21.7 k/uL (3.8-10.6)
[2016-06-23 06:32] LABS: Glucose,Whole Blood 225 mg/dL (75-99)
[2016-06-23] MEDS: guaiFENesin 600 MG TABLET.ER PO SCH ×2 (06:36→17:30)
[2016-06-23] MEDS: INSULIN LISPRO (humaLOG) 300 UNIT/3 ML VIAL SQ SCH ×4 (06:36→22:18)
[2016-06-23] MEDS: LEVOTHYROXINE 88 MCG TAB PO SCH (06:36)
[2016-06-23] MEDS: traMADol 50 MG TAB PO PRN ×3 (06:47→22:17)
[2016-06-23 06:52] LABS: Calcium 8.9 mg/dL (8.4-10.2); Potassium 4.5 mmol/L (3.5-5.1); Total Bilirubin 0.8 mg/dL (0.2-1.3)
[2016-06-23] MEDS: PIPERACILLIN-TAZOBACTAM 3.375 GM in DEXTROSE/WATER 1 50ML.BAG IVPB SCH ×2 (08:13→22:19)
[2016-06-23] MEDS: ENOXAPARIN 80 MG/0.8 ML SYRINGE SQ SCH (08:13)
[2016-06-23] MEDS: HYDROcodone/APAP 5-325MG 1 EACH TAB PO PRN ×2 (08:13→17:38)
[2016-06-23] MEDS: LORATADINE 10 MG TAB PO SCH (08:14)
[2016-06-23] MEDS: ATORVASTATIN 20 MG TAB PO SCH (08:14)
[2016-06-23] MEDS: hydrALAZINE HCL 25 MG TAB PO SCH (08:14)
[2016-06-23] MEDS: SENNOSIDES 8.6 MG TAB PO SCH ×3 (08:14→22:19)
[2016-06-23] MEDS: methylPREDNISolone SOD SUCCI 40 MG/ML 1 ML VIAL IV SCH ×2 (08:15→17:30)
[2016-06-23] MEDS: ALLOPURINOL 100 MG TAB PO SCH (08:16)
[2016-06-23] MEDS: amLODIPine 5 MG TAB PO SCH (08:16)
[2016-06-23] MEDS: DICLOFENAC 0.1% OPHTH SOLN 2.5 ML BTL BOTH EYES SCH ×4 (08:16→22:21)
[2016-06-23] MEDS: CALCIUM CARBONATE 500 MG CHEWABLE PO SCH ×3 (08:16→22:17)
[2016-06-23] MEDS: LINAGLIPTIN 5 MG TABLET PO SCH (08:17)
[2016-06-23] MEDS: INSULIN GLARGINE 100 UNIT/ML 10 ML VIAL SQ SCH (08:17)
[2016-06-23] MEDS: ALBUTEROL NEBULIZED 2.5 MG/3 ML INHALATION PRN ×2 (09:28→19:33)
[2016-06-23] MEDS ORDERED: SODIUM FERRIC GLUCONAT-SUCROSE 125 MG in SODIUM CHLORIDE 0.9% 100 ML IVPB ONE ×2 (09:37→11:00)
[2016-06-23] MEDS ORDERED: SODIUM CHLORIDE 0.9% 1,000 ML IV SCH (09:45)
--- NOTE | 2016-06-23 09:59 | P.PN ---
Subjective Principal diagnosis: Left hip fracture This is a pleasant 85-year-old female with history of chronic renal failure, chronic anemia, hyperlipidemia, hypertension, diabetes, prior TIA, hypothyroidism, severe aortic stenosis who presented to the hospital after experiencing a fall. She had a hip fracture on the left side for which she underwent surgery. She did have an echocardiogram with Doppler study performed this admission which revealed an ejection fraction of 50-55%, severe aortic stenosis with a peak/mean gradient of 109mmHg/70mmHg. She is now being followed on the telemetry unit, daughter is at bedside. VQ scan was performed which was intermediate probability for PE, patient was initiated on Eliquis this morning. At the time of my examination this morning, she is quite comfortable, states she only has pain when she moves. Breathing is stable. Blood pressure this morning 136/68, heart rate in the 80s, 100% on 2 L O2 Objective - Vital Signs Vital signs: Vital Signs Temp 96.7 F L 06/23/16 04:00 Pulse 80 06/23/16 09:41 Resp 16 06/23/16 04:00 BP 139/68 06/23/16 04:00 Pulse Ox 100 06/23/16 04:00 Intake & Output 06/22/16 06/23/16 06/23/16 18:59 06:59 18:59 Intake Total 730 130 Balance 730 130 Weight 67 kg Intake: IV 30 130 0.9 30 80 Piperacillin-Tazobactam 3 50 .375 gm In Dextrose/Water 1 50ml.bag @ 12.5 mls/hr IVPB Q8HR [facility] Rx#: [id number] Oral 700 Other: Voiding Method Diaper Diaper Incontinent Incontinent # Voids 1 - Exam PHYSICAL EXAMINATION: HEENT: Head is atraumatic, normocephalic. Pupils equal, round. Neck is supple. There is no elevated jugular venous pressure. HEART EXAMINATION: Heart S1 and S2 systolic murmur is heard in the aortic area CHEST EXAMINATION: Lungs are clear to auscultation and precussion. No chest wall tenderness is noted on palpation or with deep breathing. ABDOMEN: Soft, nontender. Bowel sounds are heard. No organomegaly noted. EXTREMITIES: 2+ peripheral pulses with no evidence of peripheral edema and no calf tenderness noted. NEUROLOGIC patient is awake, alert and oriented -3. . - Labs CBC & Chem 7: 06/23/16 05:49 06/23/16 05:49 Labs: Abnormal Lab Results - Last 24 Hours (Table) 06/22/16 06/22/16 06/22/16 Range/Units 11:52 16:51 20:52 WBC (3.8-10.6) k/uL RBC (3.80-5.40) m/uL Hgb (11.4-16.0) gm/dL Hct (34.0-46.0) % MCHC (31.0-37.0) g/dL RDW (11.5-15.5) % Sodium (137-145) mmol/L BUN (7-17) mg/dL Creatinine (0.52-1.04) mg/dL Glucose (74-99) mg/dL POC Glucose (mg/dL) 347 H 259 H 215 H (75-99) mg/dL Total Protein (6.3-8.2) g/dL Albumin (3.5-5.0) g/dL 06/23/16 06/23/16 06/23/16 Range/Units 05:49 05:49 06:30 WBC 21.7 H (3.8-10.6) k/uL RBC 2.80 L (3.80-5.40) m/uL Hgb 8.2 L (11.4-16.0) gm/dL Hct 26.5 L (34.0-46.0) % MCHC 30.8 L (31.0-37.0) g/dL RDW 18.2 H (11.5-15.5) % Sodium 136 L (137-145) mmol/L BUN 75 H (7-17) mg/dL Creatinine 2.00 H (0.52-1.04) mg/dL Glucose 215 H (74-99) mg/dL POC Glucose (mg/dL) 225 H (75-99) mg/dL Total Protein 5.0 L (6.3-8.2) g/dL Albumin 2.9 L (3.5-5.0) g/dL Assessment and Plan (1) Hip fracture, left Status: Acute (2) Diabetes Status: Acute (3) HTN (hypertension) Status: Acute (4) TIA (transient ischemic attack) Status: Acute (5) Hypothyroid Status: Acute (6) Severe aortic stenosis Status: Acute (7) Chronic renal failure Status: Acute (8) Pulmonary embolism Status: Acute Plan: From cardiology's perspective, patient overall is doing fairly well. Hemodynamically stable. Initiated on Eliquis for PE. We will follow this patient with you now on an as-needed basis only, please don't hesitate to call with any questions. A follow-up appointment will be made in the office post discharge. DNP note has been reviewed, I agree with a documented findings and plan of care. Patient was seen and examined.
--- NOTE | 2016-06-23 11:39 | P.PN ---
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 with a previous medical history significant for hypertension and hypertensive cardio vascular disease with left ventricular hypertrophy, hypothyroidism, chronic kidney disease stage II, diabetes mellitus type 2, hyperlipidemia, patient resides at assisted living facility in [place] and today she was transferring from her wheelchair using the walker and she lost her balance ended up falling onto her left side and she had a treatment as amount of pain she ended up getting transferred to [facility] where she was found to have a left intertrochanteric hip fracture she was admitted to the hospital and orthopedic surgery and we were asked to see the patient for medical management and preoperative medical clearance. Apparently the patient does appear to have a significant and severe aortic valve stenosis, and because of her comorbidities it was thought that the patient is at high risk for surgical intervention subsequently consult cardiology for further care and the patient will have an echo care gram for eval you should've LV function as well as the severity of her aortic valve stenosis prior to her surgical intervention. Patient underwent left hip intertrochanteric IM nailing that was done by Dr. Carmona and she was admitted to the [facility] for overnight subsequent she was moved to the surgical unit in the morning, patient is sitting up in bed that she appears to be quite tired, her daughter was at bedside. She denies any chest pain or shortness breath she has no abdominal pain, she disclaims some neck pain that she has poor appetite today she did not eat much. 2: Patient is sitting up in the recliner today she feels dizzy, she denies any chest pain, shortness breath, she has no abdominal pain, her minibus driver better, her hemoglobin dropped to 7.1, she is scheduled to go for a 1 unit packed red blood cell transfusion today hold physical therapy and after blood transfusion. 2: Patient did receive 1 unit of packed RBCs for hemoglobin of 7.1 from last night. Patient did develop some shortness of following this for which she'll was given Lasix. She is now on oxygen and continues to have some shortness of breath. A second dose of Lasix has been ordered. Repeat hemoglobin is 8.4. BUN 49 and creatinine 1.6. Anticipate she will be ready for discharge to [facility] tomorrow. 06/20: Repeat BUN 52 and creatinine 1.61. Hemoglobin 8.4 and white count 16.9. Blood blood glucose running between 134 and 186. Patient continues to have shortness of breath but pulse ox is running 97 200% on 2 L. Patient has been sleepy and weak. Repeat chest x-ray will be ordered. She underwent a modified barium swallow with recommendations for pured dysphagia 1, no straws, one-to- one supervision, encouraged chin tuck. Advance to soft diet as tolerated. Discharge to group home was held today. 06/21: Patient is having more shortness of breath today despite nebulizer treatment with tachypnea and appears to be mostly upper airway distress. Additional dose of IV Lasix ordered. Chest x-ray shows new lower lobe infiltrate and small pleural effusion correlate for mild venous congestion. Patient was placed on clindamycin and Levaquin for possible aspiration. V/Q scan is showing triple match compatible with intermediate probability for pulmonary embolism. Lovenox increased to 90 mg daily subcu. Consult with Dr. Valencia placed with anticipated possible need for ICU treatment if she does not turn around. She was started on IV Solu-Medrol at 60 mg IV every 6 hours 3 doses. ABGs ordered. 06/22: Patient was seen in consultation by Dr. Valencia. Pulmonary embolism was felt to be less likely. Ultrasound of the lower extremities was limited. No evidence of acute DVT. Patient was transferred to [facility] care yesterday. Her breathing status is less labored today. Steroids are decreased to 40 mg every 8 hours IV. Patient does state that she slept better last evening. She seems to be most comfortable sitting up and was comfortable lying flat. She is bringing up more mucus this which is yellow and sputum culture has been requested. Anticipate that she may be ready for transfer to [facility] on Sunday. 06/23: White count 21.7, hemoglobin 8.2, sodium 136, BUN 75, creatinine 2.0. Her blood glucose running between 215 and 225. Steroids will be decreased and switched over to oral in the morning. IV fluids started at 50 mL per hour for 12 hours. At the group home, patient will be on eliquis 2.5 mg twice daily for 4 weeks and once this is completed, Plavix will be resumed. Patient will be given 1 dose of Ferrlecit. Medication reconciliation has been completed with anticipated discharge to [facility] on Sunday morning. Objective - Vital Signs Vital signs: Vital Signs Temp 96.7 F L 06/23/16 04:00 Pulse 84 06/23/16 04:00 Resp 16 06/23/16 04:00 BP 139/68 06/23/16 04:00 Pulse Ox 100 06/23/16 04:00 Intake & Output 06/22/16 06/23/16 06/23/16 18:59 06:59 18:59 Intake Total 730 130 Balance 730 130 Weight 67 kg Intake: IV 30 130 0.9 30 80 Piperacillin-Tazobactam 3 50 .375 gm In Dextrose/Water 1 50ml.bag @ 12.5 mls/hr IVPB Q8HR [facility] Rx#: [id number] Oral 700 Other: Voiding Method Diaper Diaper Incontinent Incontinent # Voids 1 - Exam General appearance: average body habitus, mild distress - EENT Eyes: anicteric sclerae, PERRLA, no ptosis, no scleral icterus, normal appearance ENT: hard of hearing, normal oropharynx, no thrush Ears: bilateral: normal - Neck Neck: no lymphadenopathy, normal ROM, no rigidity, no stridor, no thyromegaly Carotids: bilateral: upstroke delayed Thyroid: bilateral: normal size - Respiratory Respiratory: bilateral: diminished, negative: dullness, rales, rhonchi, wheezing , prolonged expiration, prolonged inspiration - Cardiovascular Rhythm: regular Heart sounds: normal: S1, S2 Abnormal Heart Sounds: systolic murmur (Systolic ejection murmur 3/6 located in the right upper sternal border radiating to the base of the neck), no S3 Gallop , no S4 Gallop, no click - Gastrointestinal General gastrointestinal: normal bowel sounds, soft, no splenomegaly, no tenderness, no umbilical hernia, no ventral hernia - Integumentary Integumentary: normal, normal turgor - Neurologic Neurologic: CNII-XII intact, focal deficits - Musculoskeletal Musculoskeletal: generalized weakness, left sided weakness - Psychiatric Psychiatric: A&O x's 3, appropriate affect, intact judgment & insight - Labs CBC & Chem 7: 06/23/16 05:49 06/23/16 05:49 Labs: Abnormal Lab Results - Last 24 Hours (Table) 06/22/16 06/22/16 06/22/16 Range/Units 11:52 16:51 20:52 WBC (3.8-10.6) k/uL RBC (3.80-5.40) m/uL Hgb (11.4-16.0) gm/dL Hct (34.0-46.0) % MCHC (31.0-37.0) g/dL RDW (11.5-15.5) % Sodium (137-145) mmol/L BUN (7-17) mg/dL Creatinine (0.52-1.04) mg/dL Glucose (74-99) mg/dL POC Glucose (mg/dL) 347 H 259 H 215 H (75-99) mg/dL Total Protein (6.3-8.2) g/dL Albumin (3.5-5.0) g/dL 06/23/16 06/23/16 06/23/16 Range/Units 05:49 05:49 06:30 WBC 21.7 H (3.8-10.6) k/uL RBC 2.80 L (3.80-5.40) m/uL Hgb 8.2 L (11.4-16.0) gm/dL Hct 26.5 L (34.0-46.0) % MCHC 30.8 L (31.0-37.0) g/dL RDW 18.2 H (11.5-15.5) % Sodium 136 L (137-145) mmol/L BUN 75 H (7-17) mg/dL Creatinine 2.00 H (0.52-1.04) mg/dL Glucose 215 H (74-99) mg/dL POC Glucose (mg/dL) 225 H (75-99) mg/dL Total Protein 5.0 L (6.3-8.2) g/dL Albumin 2.9 L (3.5-5.0) g/dL Assessment and Plan Plan: 1. Left intertrochanteric hip fracture post fall. This is postoperative day # 1 status post left intertrochanteric IM nail. Continue since around her, continue current pain management, continue with physical therapy evaluation in the next 24 hours. Continue incentive spirometer to reduce the incidence of atelectasis and hospital acquired pneumonia 2. Severe aortic valve stenosis. Stable. 3. Hypertension and hypertensive cardiovascular disease. Continue patient on hydralazine 25 mg orally once every day, amlodipine 10 mg orally once every day. 4. Diabetes mellitus type 2. Continue Lantus 12 units at bedtime, Tradjenta 5 mg orally once every day, BGM before each meal and at bedtime. Apply sliding scale insulin . 5. Hypothyroidism. Continue Synthroid 88 g orally once every day. 6. Chronic kidney disease stage II. Monitor the patient CMP. 7. UTI with sepsis. Urine culture, blood culture, Levaquin every 24 hours. 8. Gout. Continue allopurinol 100 mg orally once every day. 9. Hyperlipidemia. Continue Lipitor 20 mg orally once every day. 10. Anemia of chronic renal disease. Continue Aranesp and iron supplement. Monitor the patient's CBC. 11. DVT prophylaxis. Continue the patient on Lovenox 30 mg subcutaneously every 24 hours. 12. GI prophylaxis. Continue Protonix 40 mg orally once every day. 13. Patient is full code. 14. Acute blood loss anemia. Type and cross and transfuse 1 unit of packed cells. 15. Acute kidney injury. Repeat BMP magnesium tomorrow morning. 16. Acute respiratory distress due to combination of acute diastolic heart failure due to fluid overload from blood transfusion and IV fluid resuscitation for acute kidney injury, possible aspiration pneumonia, pulmonary embolism ruled out. Antibiotics changed to Zosyn and Levaquin. Consult with Dr. Valencia requested and patient transferred to [facility] care. Solu-Medrol to prednisone , nebulizer treatments, Mucinex, Lovenox. Discharge plan: [facility] on Sunday Impression and plan of care have been directed as dictated by the signing physician. Daiana Panda nurse practitioner acting as scribe for signing physician. Time with Patient: Greater than 30
[2016-06-23 11:51] LABS: Glucose,Whole Blood 311 mg/dL (75-99)
[2016-06-23] MEDS: MAGNESIUM OXIDE 400 MG TAB PO SCH (12:00)
[2016-06-23] MEDS: MULTIVITAMINS, THERA 1 EACH TAB PO SCH (12:01)
[2016-06-23] MEDS: CHOLECALCIFEROL 1,000 UNIT TAB PO SCH (12:01)
[2016-06-23 14:39] VITALS: BMI 27.0
--- NOTE | 2016-06-23 15:13 | P.PN ---
Subjective Principal diagnosis: Status post left IT nail for left femur fracture Patient is pleasant 85-year-old female seen at bedside this morning. She's postop day #7 from left IT nail insertion for left femur fracture performed by Dr. Carmona. She has pain at the surgical site as expected but is improving. She denies any new left lower extremity complaints including numbness, tingling , calf pain or weakness. Her labored breathing continues to improve and is being treated per IM and Pulmonology. Review of systems is negative for fever, chills, chest pain, nausea, vomiting, dizziness, headaches, slurred speech, calf pain. Objective - Vital Signs Vital signs: Vital Signs Temp 97.4 F L 06/23/16 12:00 Pulse 82 06/23/16 12:00 Resp 16 06/23/16 12:00 BP 127/54 06/23/16 12:00 Pulse Ox 100 06/23/16 12:00 Intake & Output 06/22/16 06/23/16 06/23/16 18:59 06:59 18:59 Intake Total 730 130 Balance 730 130 Weight 67 kg 67 kg Intake: IV 30 130 0.9 30 80 Piperacillin-Tazobactam 3 50 .375 gm In Dextrose/Water 1 50ml.bag @ 12.5 mls/hr IVPB Q8HR [facility] Rx#: [id number] Oral 700 Other: Voiding Method Diaper Diaper Diaper Incontinent Incontinent Incontinent # Voids 1 2 - Exam Inspection of the left lower extremity reveals a benign surgical wounds with lynne in place. There is no active bleeding, dehiscence or purulent drainage. Neurovascular status is intact throughout the left lower extremity where she has active plantarflexion and dorsiflexion the left foot and toes. Sensation to touch is intact at the left lower extremity. Calf is soft and nontender. There is 2+ dorsalis pedis pulse and less than 2 second cap refill. - Constitutional General appearance: Present: no acute distress - Psychiatric Psychiatric: Present: A&O x's 3, appropriate affect, intact judgment & insight - Labs CBC & Chem 7: 06/23/16 05:49 06/23/16 05:49 Labs: Abnormal Lab Results - Last 24 Hours (Table) 06/22/16 06/22/16 06/23/16 Range/Units 16:51 20:52 05:49 WBC 21.7 H (3.8-10.6) k/uL RBC 2.80 L (3.80-5.40) m/uL Hgb 8.2 L (11.4-16.0) gm/dL Hct 26.5 L (34.0-46.0) % MCHC 30.8 L (31.0-37.0) g/dL RDW 18.2 H (11.5-15.5) % Sodium (137-145) mmol/L BUN (7-17) mg/dL Creatinine (0.52-1.04) mg/dL Glucose (74-99) mg/dL POC Glucose (mg/dL) 259 H 215 H (75-99) mg/dL Total Protein (6.3-8.2) g/dL Albumin (3.5-5.0) g/dL 06/23/16 06/23/16 06/23/16 Range/Units 05:49 06:30 11:45 WBC (3.8-10.6) k/uL RBC (3.80-5.40) m/uL Hgb (11.4-16.0) gm/dL Hct (34.0-46.0) % MCHC (31.0-37.0) g/dL RDW (11.5-15.5) % Sodium 136 L (137-145) mmol/L BUN 75 H (7-17) mg/dL Creatinine 2.00 H (0.52-1.04) mg/dL Glucose 215 H (74-99) mg/dL POC Glucose (mg/dL) 225 H 311 H (75-99) mg/dL Total Protein 5.0 L (6.3-8.2) g/dL Albumin 2.9 L (3.5-5.0) g/dL Assessment and Plan (1) Intertrochanteric fracture of left hip Narrative/Plan: She'll continue with routine postop orthopedic protocol including pain management, wound care, physical therapy, DVT prophylaxis and medical management. has cleared her to transfer to rehab tomorrow 06/24/16 should she remain stable and continue to improve. Status: Acute Time with Patient: Less than 30
[2016-06-23 17:01] LABS: Glucose,Whole Blood 329 mg/dL (75-99)
--- NOTE | 2016-06-23 17:29 | P.PN ---
Subjective Principal diagnosis: Acute left lower lobe atelectasis and small left pleural effusion This is an 85-year-old female with history of hypertension, hypothyroidism, chronic kidney disease stage II, type 2 diabetes, admitted recently with left hip fracture. Patient underwent surgery on 06/19/2016 and her immediate postoperative course was relatively uneventful. On 06/20/2016, patient had issue with swallowing, and a swallowing evaluation done showed transient penetration with nectar thick liquids and deep penetration into the false vocal cords with thin liquids. Chest x-ray on 06/20/2016 was suggestive of a new left lower lobe infiltrate and possibly a small pleural effusion. Patient was started on antibiotics, and she was also given Lasix. However she does not seem to be making much improvement. I was asked to see her today on consultation. Patient has mostly shortness of breath, she has a weak cough, no fever no chills no hemoptysis. VQ scan showed low to intermediate probability of pulmonary embolism, ultrasound of the chest showed a small tiny pocket of fluid , we did not feel it is safe enough to perform a left sided thoracentesis. Patient has mostly atelectasis with very minimal amount of fluid and even if drained will not make significant improvement in her overall pulmonary status. In the meantime the patient is on bronchodilators in the form of Ventolin updrafts, she is also on antibiotics, and on diuretics. Solu-Medrol was even added today. We even recommended a venous Doppler on both lower extremities to rule out possibility of DVT. However we believe we are dealing mostly with a picture of left lower lobe atelectasis and the patient needed more aggressive incentive spirometry encouraging cough, and continue updrafts. The patient is seen again today 06/22/2016 in follow-up on the selective care unit. The bilateral Doppler of the lower extremities revealed no acute DVT. There was some incomplete filling in the femoral veins indicative of some component of bilateral chronic DVTs. She is anticoagulated with Lovenox. She is awake and alert in no acute distress. She is breathing easier today as compared to yesterday. Her family is at the bedside and also feels she is improved in the past 24 hours. She is less short of breath. She is maintaining O2 saturations up to 100% on 2 L/m per nasal cannula. Respiratory rate 16. She is afebrile. No leukocytosis. Hemoglobin stable at 8.4. Hemodynamically stable. She is working well with her incentive spirometer. Patient was reevaluated today on 06/23/2016, he is basically about the same, she continues to have a very weak cough, and not doing extremely well with incentive spirometry. But she seems to be saturating well on nasal cannula, and does not seem to be in any form of respiratory distress. Objective - Vital Signs Vital signs: Vital Signs Temp 98.4 F 06/23/16 15:25 Pulse 84 06/23/16 15:25 Resp 16 06/23/16 15:25 BP 142/66 06/23/16 15:25 Pulse Ox 100 06/23/16 15:25 Intake & Output 06/22/16 06/23/16 06/23/16 18:59 06:59 18:59 Intake Total 730 130 Balance 730 130 Weight 67 kg 67 kg Intake: IV 30 130 0.9 30 80 Piperacillin-Tazobactam 3 50 .375 gm In Dextrose/Water 1 50ml.bag @ 12.5 mls/hr IVPB Q8HR [facility] Rx#: [id number] Oral 700 Other: Voiding Method Diaper Diaper Diaper Incontinent Incontinent Incontinent # Voids 1 2 - Exam GENERAL EXAM: Alert, comfortable in no apparent distress. HEAD: Normocephalic. EYES: Normal reaction of pupils, equal size. NOSE: Clear with pink turbinates. THROAT: No erythema or exudates. NECK: No masses, no JVD. CHEST: No chest wall deformity. LUNGS: Equal air entry with faint crackles in the posterior bases. CVS: S1 and S2 normal with an audible murmur, regular rhythm. ABDOMEN: No hepatosplenomegaly, normal bowel sounds, no guarding or rigidity. Extremities: There is trace peripheral edema. No clubbing, no cyanosis. Peripheral pulses are intact. - Labs CBC & Chem 7: 06/23/16 05:49 06/23/16 05:49 Labs: Abnormal Lab Results - Last 24 Hours (Table) 06/22/16 06/23/16 06/23/16 Range/Units 20:52 05:49 05:49 WBC 21.7 H (3.8-10.6) k/uL RBC 2.80 L (3.80-5.40) m/uL Hgb 8.2 L (11.4-16.0) gm/dL Hct 26.5 L (34.0-46.0) % MCHC 30.8 L (31.0-37.0) g/dL RDW 18.2 H (11.5-15.5) % Sodium 136 L (137-145) mmol/L BUN 75 H (7-17) mg/dL Creatinine 2.00 H (0.52-1.04) mg/dL Glucose 215 H (74-99) mg/dL POC Glucose (mg/dL) 215 H (75-99) mg/dL Total Protein 5.0 L (6.3-8.2) g/dL Albumin 2.9 L (3.5-5.0) g/dL 06/23/16 06/23/16 06/23/16 Range/Units 06:30 11:45 16:55 WBC (3.8-10.6) k/uL RBC (3.80-5.40) m/uL Hgb (11.4-16.0) gm/dL Hct (34.0-46.0) % MCHC (31.0-37.0) g/dL RDW (11.5-15.5) % Sodium (137-145) mmol/L BUN (7-17) mg/dL Creatinine (0.52-1.04) mg/dL Glucose (74-99) mg/dL POC Glucose (mg/dL) 225 H 311 H 329 H (75-99) mg/dL Total Protein (6.3-8.2) g/dL Albumin (3.5-5.0) g/dL Assessment and Plan Plan: #1 Left hip fracture secondary to fall. Status post repair of a left intercostal Canter Fracture. Postoperative day #3. #2 Left lower lobe atelectasis and small tiny left pleural effusion. Ultrasound reveals no significant fluid. No plans for thoracentesis. #3 Acute hypoxic respiratory failure secondary to above. #4 Severe aortic stenosis. #5 Hypertension. #6 Diabetes mellitus. #7 Hypothyroidism. #8 Chronic kidney disease. #9 History of gout. Recommendation: Continue present treatment plan including bronchodilators, antibiotics, steroids, incentive spirometry, and hopefully early ambulation. Continue Lovenox empirically. We'll continue to follow Time with Patient: Less than 30
[2016-06-23] MEDS: LEVOFLOXACIN 250 MG TAB PO SCH (17:30)
[2016-06-23 18:31] LABS: Glucose,Whole Blood 315 mg/dL (75-99)
[2016-06-23 20:55] LABS: Glucose,Whole Blood 351 mg/dL (75-99)
[2016-06-23] MEDS ORDERED: FUROSEMIDE 10 MG/ML 4 ML VIAL IV STA (21:05)
[2016-06-23] MEDS ORDERED: POTASSIUM CHLORIDE ORAL LIQUID 40 MEQ/30 ML CUP PO ONE (21:06)
[2016-06-23] MEDS: MELATONIN 3 MG TABLET PO SCH (22:17)
[2016-06-23] MEDS: FERROUS SULFATE 325 MG TAB PO SCH (22:18)
[2016-06-23] MEDS: SENNOSIDES-DOCUSATE SODIUM 1 EACH TAB PO SCH (22:47)
[2016-06-24] MEDS: LEVOTHYROXINE 88 MCG TAB PO SCH (06:09)
[2016-06-24] MEDS: HYDROcodone/APAP 5-325MG 1 EACH TAB PO PRN (06:09)
[2016-06-24] MEDS: guaiFENesin 600 MG TABLET.ER PO SCH ×2 (06:09→16:06)
[2016-06-24 06:19] LABS: Anisocytosis Slight; CH 28.7; CHCM 30.6; HCT 25.8 % (34.0-46.0); HGB 7.9 gm/dL (11.4-16.0); Hypochromasia Moderate; MCH 28.9 pg (25.0-35.0); MCHC 30.7 g/dL (31.0-37.0); MCV 94.2 fL (80.0-100.0); Mean Platelet Volume 7.7; RBC 2.74 m/uL (3.80-5.40); RDW 18.2 % (11.5-15.5)
[2016-06-24 06:23] LABS: WBC 29.2 k/uL (3.8-10.6)
[2016-06-24 06:24] LABS: Glucose,Whole Blood 154 mg/dL (75-99)
[2016-06-24 06:33] LABS: Calcium 8.9 mg/dL (8.4-10.2); Potassium 4.4 mmol/L (3.5-5.1); Total Bilirubin 0.8 mg/dL (0.2-1.3); Total Protein 5.1 g/dL (6.3-8.2)
[2016-06-24] MEDS: INSULIN LISPRO (humaLOG) 300 UNIT/3 ML VIAL SQ SCH ×4 (06:58→22:23)
[2016-06-24] MEDS: ALBUTEROL NEBULIZED 2.5 MG/3 ML INHALATION PRN ×3 (07:23→19:19)
--- NOTE | 2016-06-24 08:30 | XR ---
EXAMINATION TYPE: XR chest 1V portable DATE OF EXAM: 06/24/2016 7:17 AM COMPARISON: 06/20/2016 INDICATION: Left lower lobe atelectasis TECHNIQUE: Single frontal view of the chest is obtained. FINDINGS: The heart size is normal. The pulmonary vasculature is normal. Left lower lobe infiltrate remains present. This is slightly improved over the interval. Small left p leural effusion may be present. IMPRESSION: 1. Left lower lobe infiltrate. Correlate for atelectasis versus pneumonia. A small left pleural effus ion may be present.
[2016-06-24] MEDS: ENOXAPARIN 80 MG/0.8 ML SYRINGE SQ SCH (08:51)
[2016-06-24] MEDS: DICLOFENAC 0.1% OPHTH SOLN 2.5 ML BTL BOTH EYES SCH ×4 (08:51→22:23)
[2016-06-24] MEDS: CALCIUM CARBONATE 500 MG CHEWABLE PO SCH ×3 (08:52→22:22)
[2016-06-24] MEDS: LINAGLIPTIN 5 MG TABLET PO SCH (08:52)
[2016-06-24] MEDS: MAGNESIUM OXIDE 400 MG TAB PO SCH (08:52)
[2016-06-24] MEDS: CHOLECALCIFEROL 1,000 UNIT TAB PO SCH (08:52)
[2016-06-24] MEDS: MULTIVITAMINS, THERA 1 EACH TAB PO SCH (08:53)
[2016-06-24] MEDS: ATORVASTATIN 20 MG TAB PO SCH (08:54)
[2016-06-24] MEDS: hydrALAZINE HCL 25 MG TAB PO SCH (08:54)
[2016-06-24] MEDS: ALLOPURINOL 100 MG TAB PO SCH (08:54)
[2016-06-24] MEDS: LORATADINE 10 MG TAB PO SCH (08:54)
[2016-06-24] MEDS: amLODIPine 5 MG TAB PO SCH (08:54)
[2016-06-24] MEDS: INSULIN GLARGINE 100 UNIT/ML 10 ML VIAL SQ SCH (08:57)
[2016-06-24] MEDS ORDERED: predniSONE 50 MG TAB PO SCH (09:00)
[2016-06-24] MEDS ORDERED: FUROSEMIDE 20 MG TAB PO SCH (09:45)
--- NOTE | 2016-06-24 10:12 | P.PN ---
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 with a previous medical history significant for hypertension and hypertensive cardio vascular disease with left ventricular hypertrophy, hypothyroidism, chronic kidney disease stage II, diabetes mellitus type 2, hyperlipidemia, patient resides at assisted living facility in [place] and today she was transferring from her wheelchair using the walker and she lost her balance ended up falling onto her left side and she had a treatment as amount of pain she ended up getting transferred to [facility] where she was found to have a left intertrochanteric hip fracture she was admitted to the hospital and orthopedic surgery and we were asked to see the patient for medical management and preoperative medical clearance. Apparently the patient does appear to have a significant and severe aortic valve stenosis, and because of her comorbidities it was thought that the patient is at high risk for surgical intervention subsequently consult cardiology for further care and the patient will have an echo care gram for eval you should've LV function as well as the severity of her aortic valve stenosis prior to her surgical intervention. Patient underwent left hip intertrochanteric IM nailing that was done by Dr. Carmona and [facility] subsequent she was moved to the surgical unit in the morning, patient is sitting up in bed that she appears to be quite tired, her daughter was at bedside. She denies any chest pain or shortness breath she has no abdominal pain, she disclaims some neck pain that she has poor appetite today she did not eat much. 2: Patient is sitting up in the recliner today she feels dizzy, she denies any chest pain, shortness breath, she has no abdominal pain, her roll grinder better, her hemoglobin dropped to 7.1, she is scheduled to go for a 1 unit packed red blood cell transfusion today hold physical therapy and after blood transfusion. 2: Patient did receive 1 unit of packed RBCs for hemoglobin of 7.1 from last night. Patient did develop some shortness of following this for which she'll was given Lasix. She is now on oxygen and continues to have some shortness of breath. A second dose of Lasix has been ordered. Repeat hemoglobin is 8.4. BUN 49 and creatinine 1.6. Anticipate she will be ready for discharge to [facility] tomorrow. 06/20: Repeat BUN 52 and creatinine 1.61. Hemoglobin 8.4 and white count 16.9. Blood blood glucose running between 134 and 186. Patient continues to have shortness of breath but pulse ox is running 97 200% on 2 L. Patient has been sleepy and weak. Repeat chest x-ray will be ordered. She underwent a modified barium swallow with recommendations for pured dysphagia 1, no straws, one-to- one supervision, encouraged chin tuck. Advance to soft diet as tolerated. Discharge to long-term was held today. 06/21: Patient is having more shortness of breath today despite nebulizer treatment with tachypnea and appears to be mostly upper airway distress. Additional dose of IV Lasix ordered. Chest x-ray shows new lower lobe infiltrate and small pleural effusion correlate for mild venous congestion. Patient was placed on clindamycin and Levaquin for possible aspiration. V/Q scan is showing triple match compatible with intermediate probability for pulmonary embolism. Lovenox increased to 90 mg daily subcu. Consult with Dr. Valencia placed with anticipated possible need for ICU treatment if she does not turn around. She was started on IV Solu-Medrol at 60 mg IV every 6 hours 3 doses. ABGs ordered. 06/22: Patient was seen in consultation by Dr. Valencia. Pulmonary embolism was felt to be less likely. Ultrasound of the lower extremities was limited. No evidence of acute DVT. Patient was transferred to [facility] care yesterday. Her breathing status is less labored today. Steroids are decreased to 40 mg every 8 hours IV. Patient does state that she slept better last evening. She seems to be most comfortable sitting up and was comfortable lying flat. She is bringing up more mucus this which is yellow and sputum culture has been requested. Anticipate that she may be ready for transfer to [facility] on Sunday. 06/23: White count 21.7, hemoglobin 8.2, sodium 136, BUN 75, creatinine 2.0. Her blood glucose running between 215 and 225. Steroids will be decreased and switched over to oral in the morning. IV fluids started at 50 mL per hour for 12 hours. At the long-term, patient will be on eliquis 2.5 mg twice daily for 4 weeks and once this is completed, Plavix will be resumed. Patient will be given 1 dose of Ferrlecit. Medication reconciliation has been completed with anticipated discharge to [facility] on Sunday morning. 06/24: Repeat white count is 29.2, hemoglobin 7.9. BUN 80 and creatinine 1.91. Patient had increased shortness of breath last night for which IV fluids were discontinued and she was given 1 dose of IV Lasix. Discharge to [facility] will be held. At time of evaluation, breathing status is stable and she has no respiratory distress. Objective - Vital Signs Vital signs: Vital Signs Temp 98.0 F 06/24/16 04:00 Pulse 78 06/24/16 07:37 Resp 18 06/24/16 04:00 BP 151/61 06/24/16 04:00 Pulse Ox 99 06/24/16 04:00 Intake & Output 06/23/16 06/24/16 06/24/16 18:59 06:59 18:59 Weight 67 kg 67 kg Other: Voiding Method Diaper Diaper Incontinent Incontinent # Voids 2 2 - Exam General appearance: average body habitus, mild distress - EENT Eyes: anicteric sclerae, PERRLA, no ptosis, no scleral icterus, normal appearance ENT: hard of hearing, normal oropharynx, no thrush Ears: bilateral: normal - Neck Neck: no lymphadenopathy, normal ROM, no rigidity, no stridor, no thyromegaly Carotids: bilateral: upstroke delayed Thyroid: bilateral: normal size - Respiratory Respiratory: bilateral: diminished, negative: dullness, rales, rhonchi, wheezing , prolonged expiration, prolonged inspiration - Cardiovascular Rhythm: regular Heart sounds: normal: S1, S2 Abnormal Heart Sounds: systolic murmur (Systolic ejection murmur 3/6 located in the right upper sternal border radiating to the base of the neck), no S3 Gallop , no S4 Gallop, no click - Gastrointestinal General gastrointestinal: normal bowel sounds, soft, no splenomegaly, no tenderness, no umbilical hernia, no ventral hernia - Integumentary Integumentary: normal, normal turgor - Neurologic Neurologic: CNII-XII intact, focal deficits - Musculoskeletal Musculoskeletal: generalized weakness, left sided weakness - Psychiatric Psychiatric: A&O x's 3, appropriate affect, intact judgment & insight - Labs CBC & Chem 7: 06/24/16 05:45 06/24/16 05:45 Labs: Abnormal Lab Results - Last 24 Hours (Table) 06/23/16 06/23/16 06/23/16 Range/Units 11:45 16:55 18:30 WBC (3.8-10.6) k/uL RBC (3.80-5.40) m/uL Hgb (11.4-16.0) gm/dL Hct (34.0-46.0) % MCHC (31.0-37.0) g/dL RDW (11.5-15.5) % Sodium (137-145) mmol/L BUN (7-17) mg/dL Creatinine (0.52-1.04) mg/dL Glucose (74-99) mg/dL POC Glucose (mg/dL) 311 H 329 H 315 H (75-99) mg/dL Total Protein (6.3-8.2) g/dL Albumin (3.5-5.0) g/dL 06/23/16 06/24/16 06/24/16 Range/Units 20:52 05:45 05:45 WBC 29.2 H* (3.8-10.6) k/uL RBC 2.74 L (3.80-5.40) m/uL Hgb 7.9 L (11.4-16.0) gm/dL Hct 25.8 L (34.0-46.0) % MCHC 30.7 L (31.0-37.0) g/dL RDW 18.2 H (11.5-15.5) % Sodium 136 L (137-145) mmol/L BUN 80 H* (7-17) mg/dL Creatinine 1.91 H (0.52-1.04) mg/dL Glucose 156 H (74-99) mg/dL POC Glucose (mg/dL) 351 H (75-99) mg/dL Total Protein 5.1 L (6.3-8.2) g/dL Albumin 2.8 L (3.5-5.0) g/dL 06/24/16 Range/Units 06:11 WBC (3.8-10.6) k/uL RBC (3.80-5.40) m/uL Hgb (11.4-16.0) gm/dL Hct (34.0-46.0) % MCHC (31.0-37.0) g/dL RDW (11.5-15.5) % Sodium (137-145) mmol/L BUN (7-17) mg/dL Creatinine (0.52-1.04) mg/dL Glucose (74-99) mg/dL POC Glucose (mg/dL) 154 H (75-99) mg/dL Total Protein (6.3-8.2) g/dL Albumin (3.5-5.0) g/dL Microbiology - Last 24 Hours (Table) 06/23/16 18:00 Gram Stain - Preliminary Sputum Sputum Culture - Preliminary Assessment and Plan Plan: 1. Left intertrochanteric hip fracture post fall. This is postoperative day # 1 status post left intertrochanteric IM nail. Continue since around her, continue current pain management, continue with physical therapy evaluation in the next 24 hours. Continue incentive spirometer to reduce the incidence of atelectasis and hospital acquired pneumonia 2. Severe aortic valve stenosis. Stable. 3. Hypertension and hypertensive cardiovascular disease. Continue patient on hydralazine 25 mg orally once every day, amlodipine 10 mg orally once every day. 4. Diabetes mellitus type 2. Continue Lantus 12 units at bedtime, Tradjenta 5 mg orally once every day, BGM before each meal and at bedtime. Apply sliding scale insulin . 5. Hypothyroidism. Continue Synthroid 88 g orally once every day. 6. Chronic kidney disease stage II. Monitor the patient CMP. 7. UTI with sepsis. Urine culture, blood culture, Levaquin every 24 hours. 8. Gout. Continue allopurinol 100 mg orally once every day. 9. Hyperlipidemia. Continue Lipitor 20 mg orally once every day. 10. Anemia of chronic renal disease. Continue Aranesp and iron supplement. Monitor the patient's CBC. 11. DVT prophylaxis. Continue the patient on Lovenox 30 mg subcutaneously every 24 hours. 12. GI prophylaxis. Continue Protonix 40 mg orally once every day. 13. Patient is full code. 14. Acute blood loss anemia. Type and cross and transfuse 1 unit of packed cells. 15. Acute kidney injury. Repeat BMP magnesium tomorrow morning. 16. Acute respiratory distress due to combination of acute diastolic heart failure due to fluid overload from blood transfusion and IV fluid resuscitation for acute kidney injury, possible aspiration pneumonia, pulmonary embolism ruled out. Antibiotics changed to Zosyn and Levaquin. Consult with Dr. Valencia requested and patient transferred to [facility] care. Solu-Medrol to prednisone , nebulizer treatments, Mucinex, Lovenox. Discharge plan: on Sunday Impression and plan of care have been directed as dictated by the signing physician. Daiana Panda nurse practitioner acting as scribe for signing physician. Time with Patient: Greater than 30
--- NOTE | 2016-06-24 10:38 | P.PN ---
Subjective This is an 85-year-old female who is status post IT nail insertion of the left femur. Today's postoperative day #8. She has minimal pain at her left hip today. She continues to have some difficulty with breathing is being followed closely by medicine and pulmonology. She reports little improvement in her breathing at this time. She otherwise has no other new complaints. Objective - Vital Signs Vital signs: Vital Signs Temp 98.2 F 06/24/16 08:00 Pulse 87 06/24/16 08:00 Resp 18 06/24/16 08:00 BP 131/52 06/24/16 08:00 Pulse Ox 100 06/24/16 08:00 Intake & Output 06/23/16 06/24/16 06/24/16 18:59 06:59 18:59 Weight 67 kg 67 kg Other: Voiding Method Diaper Diaper Diaper Incontinent Incontinent Incontinent # Voids 2 2 - Exam The patient does not appear in acute distress. Alert and orientated 3. Dressing is clean dry and intact. Incision appears fine with no erythema or active drainage. Calf is soft and nontender. Good foot and ankle motion without difficulty. Sensation and circulatory status is intact. - Labs CBC & Chem 7: 06/24/16 05:45 06/24/16 05:45 Labs: Abnormal Lab Results - Last 24 Hours (Table) 06/23/16 06/23/16 06/23/16 Range/Units 11:45 16:55 18:30 WBC (3.8-10.6) k/uL RBC (3.80-5.40) m/uL Hgb (11.4-16.0) gm/dL Hct (34.0-46.0) % MCHC (31.0-37.0) g/dL RDW (11.5-15.5) % Sodium (137-145) mmol/L BUN (7-17) mg/dL Creatinine (0.52-1.04) mg/dL Glucose (74-99) mg/dL POC Glucose (mg/dL) 311 H 329 H 315 H (75-99) mg/dL Total Protein (6.3-8.2) g/dL Albumin (3.5-5.0) g/dL 06/23/16 06/24/16 06/24/16 Range/Units 20:52 05:45 05:45 WBC 29.2 H* (3.8-10.6) k/uL RBC 2.74 L (3.80-5.40) m/uL Hgb 7.9 L (11.4-16.0) gm/dL Hct 25.8 L (34.0-46.0) % MCHC 30.7 L (31.0-37.0) g/dL RDW 18.2 H (11.5-15.5) % Sodium 136 L (137-145) mmol/L BUN 80 H* (7-17) mg/dL Creatinine 1.91 H (0.52-1.04) mg/dL Glucose 156 H (74-99) mg/dL POC Glucose (mg/dL) 351 H (75-99) mg/dL Total Protein 5.1 L (6.3-8.2) g/dL Albumin 2.8 L (3.5-5.0) g/dL 06/24/16 Range/Units 06:11 WBC (3.8-10.6) k/uL RBC (3.80-5.40) m/uL Hgb (11.4-16.0) gm/dL Hct (34.0-46.0) % MCHC (31.0-37.0) g/dL RDW (11.5-15.5) % Sodium (137-145) mmol/L BUN (7-17) mg/dL Creatinine (0.52-1.04) mg/dL Glucose (74-99) mg/dL POC Glucose (mg/dL) 154 H (75-99) mg/dL Total Protein (6.3-8.2) g/dL Albumin (3.5-5.0) g/dL Microbiology - Last 24 Hours (Table) 06/23/16 18:00 Gram Stain - Preliminary Sputum Sputum Culture - Preliminary Assessment and Plan (1) Intertrochanteric fracture of left hip Status: Acute Plan: Continue with routine postoperative care. Continue workup with internal medicine and pulmonary. The patient is not stable for transfer today. She was noted to have leukocytosis as well. She is currently on steroids.
[2016-06-24] MEDS: PIPERACILLIN-TAZOBACTAM 3.375 GM in DEXTROSE/WATER 1 50ML.BAG IVPB SCH ×2 (10:48→22:22)
[2016-06-24] MEDS: traMADol 50 MG TAB PO PRN ×3 (11:04→22:21)
--- NOTE | 2016-06-24 11:55 | P.PN ---
Subjective Principal diagnosis: Acute left lower lobe atelectasis and small left pleural effusion This is an 85-year-old female with history of hypertension, hypothyroidism, chronic kidney disease stage II, type 2 diabetes, admitted recently with left hip fracture. Patient underwent surgery on 06/19/2016 and her immediate postoperative course was relatively uneventful. On 06/20/2016, patient had issue with swallowing, and a swallowing evaluation done showed transient penetration with nectar thick liquids and deep penetration into the false vocal cords with thin liquids. Chest x-ray on 06/20/2016 was suggestive of a new left lower lobe infiltrate and possibly a small pleural effusion. Patient was started on antibiotics, and she was also given Lasix. However she does not seem to be making much improvement. I was asked to see her today on consultation. Patient has mostly shortness of breath, she has a weak cough, no fever no chills no hemoptysis. VQ scan showed low to intermediate probability of pulmonary embolism, ultrasound of the chest showed a small tiny pocket of fluid , we did not feel it is safe enough to perform a left sided thoracentesis. Patient has mostly atelectasis with very minimal amount of fluid and even if drained will not make significant improvement in her overall pulmonary status. In the meantime the patient is on bronchodilators in the form of Ventolin updrafts, she is also on antibiotics, and on diuretics. Solu-Medrol was even added today. We even recommended a venous Doppler on both lower extremities to rule out possibility of DVT. However we believe we are dealing mostly with a picture of left lower lobe atelectasis and the patient needed more aggressive incentive spirometry encouraging cough, and continue updrafts. The patient is seen again today 06/22/2016 in follow-up on the selective care unit. The bilateral Doppler of the lower extremities revealed no acute DVT. There was some incomplete filling in the femoral veins indicative of some component of bilateral chronic DVTs. She is anticoagulated with Lovenox. She is awake and alert in no acute distress. She is breathing easier today as compared to yesterday. Her family is at the bedside and also feels she is improved in the past 24 hours. She is less short of breath. She is maintaining O2 saturations up to 100% on 2 L/m per nasal cannula. Respiratory rate 16. She is afebrile. No leukocytosis. Hemoglobin stable at 8.4. Hemodynamically stable. She is working well with her incentive spirometer. Patient was reevaluated today on 06/23/2016, he is basically about the same, she continues to have a very weak cough, and not doing extremely well with incentive spirometry. But she seems to be saturating well on nasal cannula, and does not seem to be in any form of respiratory distress. Patient was reevaluated today on 06/24/2016, overall the patient is about the same, feels a bit better, chest x-ray is improved but the atelectasis is not completely resolved. But definite improvement compared to her baseline chest x- ray a few days ago. Patient continues to have a weak cough, she is compliant with incentive spirometry, overall the patient is doing better. Her white count however is 29.2, hemoglobin is 7.9, BUN is 80 creatinine is 1.91. The Lasix dose has been adjusted. Patient remains on antibiotics in the form of Levaquin 250 mg every 24 hours she also remains on Zosyn, and this is an excellent empiric coverage. I will cut down the prednisone dose significantly, no need for such a high dose at this point. Objective - Vital Signs Vital signs: Vital Signs Temp 98.2 F 06/24/16 08:00 Pulse 87 06/24/16 08:00 Resp 18 06/24/16 08:00 BP 131/52 06/24/16 08:00 Pulse Ox 100 06/24/16 08:00 Intake & Output 06/23/16 06/24/16 06/24/16 18:59 06:59 18:59 Weight 67 kg 67 kg Other: Voiding Method Diaper Diaper Diaper Incontinent Incontinent Incontinent # Voids 2 2 - Exam GENERAL EXAM: Alert, comfortable in no apparent distress. HEAD: Normocephalic. EYES: Normal reaction of pupils, equal size. NOSE: Clear with pink turbinates. THROAT: No erythema or exudates. NECK: No masses, no JVD. CHEST: No chest wall deformity. LUNGS: Equal air entry better flow noted at the left base today. CVS: S1 and S2 normal with an audible systolic ejection murmur, regular rhythm. ABDOMEN: No hepatosplenomegaly, normal bowel sounds, no guarding or rigidity. Extremities: There is trace peripheral edema. No clubbing, no cyanosis. Peripheral pulses are intact. - Labs CBC & Chem 7: 06/24/16 05:45 06/24/16 05:45 Labs: Abnormal Lab Results - Last 24 Hours (Table) 06/23/16 06/23/16 06/23/16 Range/Units 11:45 16:55 18:30 WBC (3.8-10.6) k/uL RBC (3.80-5.40) m/uL Hgb (11.4-16.0) gm/dL Hct (34.0-46.0) % MCHC (31.0-37.0) g/dL RDW (11.5-15.5) % Sodium (137-145) mmol/L BUN (7-17) mg/dL Creatinine (0.52-1.04) mg/dL Glucose (74-99) mg/dL POC Glucose (mg/dL) 311 H 329 H 315 H (75-99) mg/dL Total Protein (6.3-8.2) g/dL Albumin (3.5-5.0) g/dL 06/23/16 06/24/16 06/24/16 Range/Units 20:52 05:45 05:45 WBC 29.2 H* (3.8-10.6) k/uL RBC 2.74 L (3.80-5.40) m/uL Hgb 7.9 L (11.4-16.0) gm/dL Hct 25.8 L (34.0-46.0) % MCHC 30.7 L (31.0-37.0) g/dL RDW 18.2 H (11.5-15.5) % Sodium 136 L (137-145) mmol/L BUN 80 H* (7-17) mg/dL Creatinine 1.91 H (0.52-1.04) mg/dL Glucose 156 H (74-99) mg/dL POC Glucose (mg/dL) 351 H (75-99) mg/dL Total Protein 5.1 L (6.3-8.2) g/dL Albumin 2.8 L (3.5-5.0) g/dL 06/24/16 Range/Units 06:11 WBC (3.8-10.6) k/uL RBC (3.80-5.40) m/uL Hgb (11.4-16.0) gm/dL Hct (34.0-46.0) % MCHC (31.0-37.0) g/dL RDW (11.5-15.5) % Sodium (137-145) mmol/L BUN (7-17) mg/dL Creatinine (0.52-1.04) mg/dL Glucose (74-99) mg/dL POC Glucose (mg/dL) 154 H (75-99) mg/dL Total Protein (6.3-8.2) g/dL Albumin (3.5-5.0) g/dL Microbiology - Last 24 Hours (Table) 06/23/16 18:00 Gram Stain - Preliminary Sputum Sputum Culture - Preliminary Assessment and Plan Plan: #1 Left hip fracture secondary to fall. Status post repair of a left intercostal Canter Fracture. Postoperative day #4 #2 Left lower lobe atelectasis and small tiny left pleural effusion. Ultrasound reveals no significant fluid. No plans for thoracentesis. Patient continues to have a minimal atelectasis, chest x-ray is improving, strongly doubt pneumonia. #3 Acute hypoxic respiratory failure secondary to above. #4 Severe aortic stenosis. #5 Hypertension. #6 Diabetes mellitus. #7 Hypothyroidism. #8 Chronic kidney disease. #9 History of gout. Recommendation: Continue present treatment plan, cut down the prednisone dose that may help the leukocytosis, Lasix has been cut down already continue antibiotics empirically, continue incentive spirometry and hopefully rehab referral next week. Time with Patient: Less than 30
[2016-06-24 12:00] LABS: Glucose,Whole Blood 270 mg/dL (75-99)
[2016-06-24 14:24] LABS: Glucose,Whole Blood 288 mg/dL (75-99)
[2016-06-24] MEDS: LEVOFLOXACIN 250 MG TAB PO SCH (16:06)
[2016-06-24 16:51] LABS: Glucose,Whole Blood 282 mg/dL (75-99)
[2016-06-24 21:12] LABS: Glucose,Whole Blood 352 mg/dL (75-99)
[2016-06-24] MEDS: SENNOSIDES-DOCUSATE SODIUM 1 EACH TAB PO SCH (22:22)
[2016-06-24] MEDS: MELATONIN 3 MG TABLET PO SCH (22:22)
[2016-06-24] MEDS: APIXABAN 2.5 MG TABLET PO SCH (22:22)
[2016-06-24] MEDS: SENNOSIDES 8.6 MG TAB PO SCH (22:22)
[2016-06-24] MEDS: FERROUS SULFATE 325 MG TAB PO SCH (22:22)
[2016-06-25] MEDS: ALBUTEROL NEBULIZED 2.5 MG/3 ML INHALATION PRN ×3 (02:15→19:02)
[2016-06-25] MEDS: traMADol 50 MG TAB PO PRN ×2 (03:46→09:35)
[2016-06-25 06:28] LABS: Glucose,Whole Blood 145 mg/dL (75-99)
[2016-06-25] MEDS: guaiFENesin 600 MG TABLET.ER PO SCH ×2 (06:44→16:56)
[2016-06-25] MEDS: LEVOTHYROXINE 88 MCG TAB PO SCH (06:44)
[2016-06-25] MEDS: INSULIN LISPRO (humaLOG) 300 UNIT/3 ML VIAL SQ SCH ×4 (06:45→23:14)
[2016-06-25] MEDS ORDERED: POTASSIUM CHLORIDE ER 20 MEQ TAB.ER PO STA (08:46)
[2016-06-25] MEDS: CALCIUM CARBONATE 500 MG CHEWABLE PO SCH ×3 (09:15→22:51)
[2016-06-25] MEDS: MULTIVITAMINS, THERA 1 EACH TAB PO SCH (09:15)
[2016-06-25] MEDS: ATORVASTATIN 20 MG TAB PO SCH (09:15)
[2016-06-25] MEDS: SENNOSIDES 8.6 MG TAB PO SCH ×2 (09:15→22:50)
[2016-06-25] MEDS: DICLOFENAC 0.1% OPHTH SOLN 2.5 ML BTL BOTH EYES SCH ×4 (09:16→22:51)
[2016-06-25] MEDS: MAGNESIUM OXIDE 400 MG TAB PO SCH (09:16)
[2016-06-25] MEDS: APIXABAN 2.5 MG TABLET PO SCH ×2 (09:16→22:49)
[2016-06-25] MEDS: hydrALAZINE HCL 25 MG TAB PO SCH (09:16)
[2016-06-25] MEDS: CHOLECALCIFEROL 1,000 UNIT TAB PO SCH (09:17)
[2016-06-25] MEDS: ALLOPURINOL 100 MG TAB PO SCH (09:17)
[2016-06-25] MEDS: amLODIPine 5 MG TAB PO SCH (09:17)
[2016-06-25] MEDS: LINAGLIPTIN 5 MG TABLET PO SCH (09:17)
[2016-06-25] MEDS: LORATADINE 10 MG TAB PO SCH (09:17)
[2016-06-25] MEDS: PIPERACILLIN-TAZOBACTAM 3.375 GM in DEXTROSE/WATER 1 50ML.BAG IVPB SCH ×2 (09:18→22:55)
[2016-06-25] MEDS: predniSONE 20 MG TAB PO SCH (09:18)
[2016-06-25] MEDS: INSULIN GLARGINE 100 UNIT/ML 10 ML VIAL SQ SCH (09:20)
[2016-06-25 09:46] LABS: Anisocytosis Slight; CH 28.4; CHCM 30.1; HCT 28.1 % (34.0-46.0); HGB 8.6 gm/dL (11.4-16.0); Hypochromasia Marked; MCH 29.2 pg (25.0-35.0); MCHC 30.8 g/dL (31.0-37.0); MCV 94.9 fL (80.0-100.0); Macrocytosis Slight; Mean Platelet Volume 8.2; RBC 2.96 m/uL (3.80-5.40); RDW 18.1 % (11.5-15.5)
[2016-06-25 09:50] LABS: WBC 29.7 k/uL (3.8-10.6)
[2016-06-25 09:57] LABS: Calcium 8.8 mg/dL (8.4-10.2); Potassium 3.8 mmol/L (3.5-5.1); Total Bilirubin 0.9 mg/dL (0.2-1.3); Total Protein 5.2 g/dL (6.3-8.2)
[2016-06-25] MEDS ORDERED: FUROSEMIDE 10 MG/ML 4 ML VIAL IV SCH (10:00)
--- NOTE | 2016-06-25 10:12 | P.PN ---
Subjective This is an 85-year-old female who is status post IT nail insertion of the left femur. Today's postoperative day #9. She has minimal pain at her left hip today. She continues to have some difficulty with breathing is being followed closely by medicine and pulmonology. Family is present at bedside. Objective - Vital Signs Vital signs: Vital Signs Temp 97.4 F L 06/25/16 04:00 Pulse 84 06/25/16 09:01 Resp 16 06/25/16 04:00 BP 153/64 06/25/16 04:00 Pulse Ox 100 06/25/16 04:00 Intake & Output 06/24/16 06/25/16 06/25/16 18:59 06:59 18:59 Intake Total 240 Output Total 0 Balance 0 240 Weight 67 kg Intake: Oral 240 Output: Emesis 0 Other: Voiding Method Diaper Diaper Incontinent Incontinent # Voids 1 - Exam The patient does not appear in acute distress. Alert and orientated 3. Dressing is clean dry and intact. Incision appears fine with no erythema or active drainage. Clement are intact. Calf is soft and nontender. Good foot and ankle motion without difficulty. Sensation and circulatory status is intact. - Labs CBC & Chem 7: 06/25/16 09:36 06/25/16 09:30 Labs: Abnormal Lab Results - Last 24 Hours (Table) 06/24/16 06/24/16 06/24/16 Range/Units 11:53 14:21 16:46 WBC (3.8-10.6) k/uL RBC (3.80-5.40) m/uL Hgb (11.4-16.0) gm/dL Hct (34.0-46.0) % MCHC (31.0-37.0) g/dL RDW (11.5-15.5) % Sodium (137-145) mmol/L BUN (7-17) mg/dL Creatinine (0.52-1.04) mg/dL Glucose (74-99) mg/dL POC Glucose (mg/dL) 270 H 288 H 282 H (75-99) mg/dL Total Protein (6.3-8.2) g/dL Albumin (3.5-5.0) g/dL 06/24/16 06/25/16 06/25/16 Range/Units 21:08 06:24 09:30 WBC (3.8-10.6) k/uL RBC (3.80-5.40) m/uL Hgb (11.4-16.0) gm/dL Hct (34.0-46.0) % MCHC (31.0-37.0) g/dL RDW (11.5-15.5) % Sodium 136 L (137-145) mmol/L BUN 74 H (7-17) mg/dL Creatinine 1.56 H (0.52-1.04) mg/dL Glucose 186 H (74-99) mg/dL POC Glucose (mg/dL) 352 H 145 H (75-99) mg/dL Total Protein 5.2 L (6.3-8.2) g/dL Albumin 2.9 L (3.5-5.0) g/dL 06/25/16 Range/Units 09:36 WBC 29.7 H* (3.8-10.6) k/uL RBC 2.96 L (3.80-5.40) m/uL Hgb 8.6 L (11.4-16.0) gm/dL Hct 28.1 L (34.0-46.0) % MCHC 30.8 L (31.0-37.0) g/dL RDW 18.1 H (11.5-15.5) % Sodium (137-145) mmol/L BUN (7-17) mg/dL Creatinine (0.52-1.04) mg/dL Glucose (74-99) mg/dL POC Glucose (mg/dL) (75-99) mg/dL Total Protein (6.3-8.2) g/dL Albumin (3.5-5.0) g/dL Assessment and Plan (1) Intertrochanteric fracture of left hip Status: Acute Plan: Continue with routine postoperative care. Continue workup with internal medicine and pulmonary. Anticipate transfer to rehab when she is medically stable.
[2016-06-25 11:25] LABS: Glucose,Whole Blood 266 mg/dL (75-99)
--- NOTE | 2016-06-25 12:10 | P.PN ---
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 with a previous medical history significant for hypertension and hypertensive cardio vascular disease with left ventricular hypertrophy, hypothyroidism, chronic kidney disease stage II, diabetes mellitus type 2, hyperlipidemia, patient resides at assisted living facility in [place] and today she was transferring from her wheelchair using the walker and she lost her balance ended up falling onto her left side and she had a treatment as amount of pain she ended up getting transferred to [facility] where she was found to have a left intertrochanteric hip fracture she was admitted to the hospital and orthopedic surgery and we were asked to see the patient for medical management and preoperative medical clearance. Apparently the patient does appear to have a significant and severe aortic valve stenosis, and because of her comorbidities it was thought that the patient is at high risk for surgical intervention subsequently consult cardiology for further care and the patient will have an echo care gram for eval you should've LV function as well as the severity of her aortic valve stenosis prior to her surgical intervention. Patient underwent left hip intertrochanteric IM nailing that was done by Dr. Carmona and [facility] she was moved to the surgical unit in the morning, patient is sitting up in bed that she appears to be quite tired, her daughter was at bedside. She denies any chest pain or shortness breath she has no abdominal pain, she disclaims some neck pain that she has poor appetite today she did not eat much. 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 2: Patient did receive 1 unit of packed RBCs for hemoglobin of 7.1 from last night. Patient did develop some shortness of following this for which she'll was given Lasix. She is now on oxygen and continues to have some shortness of breath. A second dose of Lasix has been ordered. Repeat hemoglobin is 8.4. BUN 49 and creatinine 1.6. Anticipate she will be ready for discharge to [facility] tomorrow. 06/20: Repeat BUN 52 and creatinine 1.61. Hemoglobin 8.4 and white count 16.9. Blood blood glucose running between 134 and 186. Patient continues to have shortness of breath but pulse ox is running 97 200% on 2 L. Patient has been sleepy and weak. Repeat chest x-ray will be ordered. She underwent a modified barium swallow with recommendations for pured dysphagia 1, no straws, one-to- one supervision, encouraged chin tuck. Advance to soft diet as tolerated. Discharge to [facility] was held today. 06/21: Patient is having more shortness of breath today despite nebulizer treatment with tachypnea and appears to be mostly upper airway distress. Additional dose of IV Lasix ordered. Chest x-ray shows new lower lobe infiltrate and small pleural effusion correlate for mild venous congestion. Patient was placed on clindamycin and Levaquin for possible aspiration. V/Q scan is showing triple match compatible with intermediate probability for pulmonary embolism. Lovenox increased to 90 mg daily subcu. Consult with Dr. Valencia placed with anticipated possible need for ICU treatment if she does not turn around. She was started on IV Solu-Medrol at 60 mg IV every 6 hours 3 doses. ABGs ordered. 06/22: Patient was seen in consultation by Dr. Valencia. Pulmonary embolism was felt to be less likely. Ultrasound of the lower extremities was limited. No evidence of acute DVT. Patient was transferred to [facility] yesterday. Her breathing status is less labored today. Steroids are decreased to 40 mg every 8 hours IV. Patient does state that she slept better last evening. She seems to be most comfortable sitting up and was comfortable lying flat. She is bringing up more mucus this which is yellow and sputum culture has been requested. Anticipate that she may be ready for transfer to [facility] on Sunday. 06/23: White count 21.7, hemoglobin 8.2, sodium 136, BUN 75, creatinine 2.0. Her blood glucose running between 215 and 225. Steroids will be decreased and switched over to oral in the morning. IV fluids started at 50 mL per hour for 12 hours. At the [facility], patient will be on eliquis 2.5 mg twice daily for 4 weeks and once this is completed, Plavix will be resumed. Patient will be given 1 dose of Ferrlecit. Medication reconciliation has been completed with anticipated discharge to [facility] on Sunday morning. 06/24: Repeat white count is 29.2, hemoglobin 7.9. BUN 80 and creatinine 1.91. Patient had increased shortness of breath last night for which IV fluids were discontinued and she was given 1 dose of IV Lasix. Discharge to [facility] will be held. At time of evaluation, breathing status is stable and she has no respiratory distress. 06/25: Patient had another episode of shortness of breath last night but her pulse ox was 100%. We have added and Plavix 40 mg daily and Pulmicort was also added. Noted Dr. Antoine decrease prednisone to 20 mg which is also been updated on a new medication reconciliation done today. White count remains elevated at 29.7, hemoglobin improved to 8.6. Kidney function is much improved BUN of 74 and creatinine 1.56. Anticipate patient will be ready for discharge to [facility] tomorrow. Objective - Vital Signs Vital signs: Vital Signs Temp 97.4 F L 06/25/16 04:00 Pulse 83 06/25/16 04:00 Resp 16 06/25/16 04:00 BP 153/64 06/25/16 04:00 Pulse Ox 100 06/25/16 04:00 Intake & Output 06/24/16 06/25/16 06/25/16 18:59 06:59 18:59 Output Total 0 Balance 0 Weight 67 kg Output: Emesis 0 Other: Voiding Method Diaper Diaper Incontinent Incontinent # Voids 1 - Exam General appearance: average body habitus, mild distress - EENT Eyes: anicteric sclerae, PERRLA, no ptosis, no scleral icterus, normal appearance ENT: hard of hearing, normal oropharynx, no thrush Ears: bilateral: normal - Neck Neck: no lymphadenopathy, normal ROM, no rigidity, no stridor, no thyromegaly Carotids: bilateral: upstroke delayed Thyroid: bilateral: normal size - Respiratory Respiratory: bilateral: diminished, negative: dullness, rales, rhonchi, wheezing , prolonged expiration, prolonged inspiration - Cardiovascular Rhythm: regular Heart sounds: normal: S1, S2 Abnormal Heart Sounds: systolic murmur (Systolic ejection murmur 3/6 located in the right upper sternal border radiating to the base of the neck), no S3 Gallop , no S4 Gallop, no click - Gastrointestinal General gastrointestinal: normal bowel sounds, soft, no splenomegaly, no tenderness, no umbilical hernia, no ventral hernia - Integumentary Integumentary: normal, normal turgor - Neurologic Neurologic: CNII-XII intact, focal deficits - Musculoskeletal Musculoskeletal: generalized weakness, left sided weakness - Psychiatric Psychiatric: A&O x's 3, appropriate affect, intact judgment & insight - Labs CBC & Chem 7: 06/25/16 09:36 06/25/16 09:30 Labs: Abnormal Lab Results - Last 24 Hours (Table) 06/24/16 06/24/16 06/24/16 Range/Units 11:53 14:21 16:46 POC Glucose (mg/dL) 270 H 288 H 282 H (75-99) mg/dL 06/24/16 06/25/16 Range/Units 21:08 06:24 POC Glucose (mg/dL) 352 H 145 H (75-99) mg/dL Assessment and Plan Plan: 1. Left intertrochanteric hip fracture post fall. Status post left intertrochanteric IM nail. Continue since around her, continue current pain management, continue with physical therapy evaluation in the next 24 hours. Continue incentive spirometer to reduce the incidence of atelectasis and hospital acquired pneumonia 2. Severe aortic valve stenosis. Stable. 3. Hypertension and hypertensive cardiovascular disease. Continue patient on hydralazine 25 mg orally once every day, amlodipine 10 mg orally once every day. 4. Diabetes mellitus type 2. Continue Lantus 12 units at bedtime, Tradjenta 5 mg orally once every day, BGM before each meal and at bedtime. Apply sliding scale insulin . 5. Hypothyroidism. Continue Synthroid 88 g orally once every day. 6. Chronic kidney disease stage II. Monitor the patient CMP. 7. UTI with sepsis. Urine culture, blood culture, Levaquin every 24 hours. 8. Gout, unspecified. Continue allopurinol 100 mg orally once every day. 9. Hyperlipidemia. Continue Lipitor 20 mg orally once every day. 10. Anemia of chronic renal disease. Continue Aranesp and iron supplement. Monitor the patient's CBC. 11. DVT prophylaxis. Continue the patient on Lovenox 30 mg subcutaneously every 24 hours. 12. GI prophylaxis. Continue Protonix 40 mg orally once every day. 13. Patient is full code. 14. Acute blood loss anemia. Type and cross and transfuse 1 unit of packed cells. 15. Acute kidney injury. Repeat BMP magnesium tomorrow morning. 16. Acute respiratory distress due to combination of acute diastolic heart failure due to fluid overload from blood transfusion and IV fluid resuscitation for acute kidney injury, possible aspiration pneumonia, pulmonary embolism ruled out. Antibiotics changed to Zosyn and Levaquin. Consult with Dr. Valencia requested and patient transferred to [facility]. Solu-Medrol to prednisone , nebulizer treatments, Mucinex, eliquis, Lasix. Discharge plan: on Sunday Impression and plan of care have been directed as dictated by the signing physician. Daiana Panda nurse practitioner acting as scribe for signing physician. Time with Patient: Greater than 30
--- NOTE | 2016-06-25 12:39 | P.PN ---
Subjective Principal diagnosis: Acute left lower lobe atelectasis and small left pleural effusion This is an 85-year-old female with history of hypertension, hypothyroidism, chronic kidney disease stage II, type 2 diabetes, admitted recently with left hip fracture. Patient underwent surgery on 06/19/2016 and her immediate postoperative course was relatively uneventful. On 06/20/2016, patient had issue with swallowing, and a swallowing evaluation done showed transient penetration with nectar thick liquids and deep penetration into the false vocal cords with thin liquids. Chest x-ray on 06/20/2016 was suggestive of a new left lower lobe infiltrate and possibly a small pleural effusion. Patient was started on antibiotics, and she was also given Lasix. However she does not seem to be making much improvement. I was asked to see her today on consultation. Patient has mostly shortness of breath, she has a weak cough, no fever no chills no hemoptysis. VQ scan showed low to intermediate probability of pulmonary embolism, ultrasound of the chest showed a small tiny pocket of fluid , we did not feel it is safe enough to perform a left sided thoracentesis. Patient has mostly atelectasis with very minimal amount of fluid and even if drained will not make significant improvement in her overall pulmonary status. In the meantime the patient is on bronchodilators in the form of Ventolin updrafts, she is also on antibiotics, and on diuretics. Solu-Medrol was even added today. We even recommended a venous Doppler on both lower extremities to rule out possibility of DVT. However we believe we are dealing mostly with a picture of left lower lobe atelectasis and the patient needed more aggressive incentive spirometry encouraging cough, and continue updrafts. The patient is seen again today 06/22/2016 in follow-up on the selective care unit. The bilateral Doppler of the lower extremities revealed no acute DVT. There was some incomplete filling in the femoral veins indicative of some component of bilateral chronic DVTs. She is anticoagulated with Lovenox. She is awake and alert in no acute distress. She is breathing easier today as compared to yesterday. Her family is at the bedside and also feels she is improved in the past 24 hours. She is less short of breath. She is maintaining O2 saturations up to 100% on 2 L/m per nasal cannula. Respiratory rate 16. She is afebrile. No leukocytosis. Hemoglobin stable at 8.4. Hemodynamically stable. She is working well with her incentive spirometer. Patient was reevaluated today on 06/23/2016, he is basically about the same, she continues to have a very weak cough, and not doing extremely well with incentive spirometry. But she seems to be saturating well on nasal cannula, and does not seem to be in any form of respiratory distress. Patient was reevaluated today on 06/24/2016, overall the patient is about the same, feels a bit better, chest x-ray is improved but the atelectasis is not completely resolved. But definite improvement compared to her baseline chest x- ray a few days ago. Patient continues to have a weak cough, she is compliant with incentive spirometry, overall the patient is doing better. Her white count however is 29.2, hemoglobin is 7.9, BUN is 80 creatinine is 1.91. The Lasix dose has been adjusted. Patient remains on antibiotics in the form of Levaquin 250 mg every 24 hours she also remains on Zosyn, and this is an excellent empiric coverage. I will cut down the prednisone dose significantly, no need for such a high dose at this point. Reevaluated today on 06/25/2016, patient is about the same overall. She remained generally weak, weak cough is noted, continues to have some crackles and diminished breath sounds at the left base. Continues to have leukocytosis with WBC count of 29.7. Renal profile seems a bit better, and I believe that's mostly because we cut down the Lasix, hence I will keep the Lasix at 40 mg daily rather than twice a day. Blood sugars remain elevated at 266. Chest x- ray from yesterday was reviewed, and I plan to repeat the chest x-ray in a.m. Objective - Vital Signs Vital signs: Vital Signs Temp 97.3 F L 06/25/16 11:50 Pulse 85 06/25/16 11:50 Resp 20 06/25/16 11:50 BP 124/59 06/25/16 11:50 Pulse Ox 100 06/25/16 11:50 Intake & Output 06/24/16 06/25/16 06/25/16 18:59 06:59 18:59 Intake Total 240 Output Total 0 Balance 0 240 Weight 67 kg Intake: Oral 240 Output: Emesis 0 Other: Voiding Method Diaper Diaper Diaper Incontinent Incontinent Incontinent # Voids 1 - Exam GENERAL EXAM: Alert, comfortable in no apparent distress. HEAD: Normocephalic. EYES: Normal reaction of pupils, equal size. NOSE: Clear with pink turbinates. THROAT: No erythema or exudates. NECK: No masses, no JVD. CHEST: No chest wall deformity. LUNGS: Equal air entry better flow noted at the left base today. CVS: S1 and S2 normal with an audible systolic ejection murmur, regular rhythm. ABDOMEN: No hepatosplenomegaly, normal bowel sounds, no guarding or rigidity. Extremities: There is trace peripheral edema. No clubbing, no cyanosis. Peripheral pulses are intact. - Labs CBC & Chem 7: 06/25/16 09:36 06/25/16 09:30 Labs: Abnormal Lab Results - Last 24 Hours (Table) 06/24/16 06/24/16 06/24/16 Range/Units 14:21 16:46 21:08 WBC (3.8-10.6) k/uL RBC (3.80-5.40) m/uL Hgb (11.4-16.0) gm/dL Hct (34.0-46.0) % MCHC (31.0-37.0) g/dL RDW (11.5-15.5) % Sodium (137-145) mmol/L BUN (7-17) mg/dL Creatinine (0.52-1.04) mg/dL Glucose (74-99) mg/dL POC Glucose (mg/dL) 288 H 282 H 352 H (75-99) mg/dL Total Protein (6.3-8.2) g/dL Albumin (3.5-5.0) g/dL 06/25/16 06/25/16 06/25/16 Range/Units 06:24 09:30 09:36 WBC 29.7 H* (3.8-10.6) k/uL RBC 2.96 L (3.80-5.40) m/uL Hgb 8.6 L (11.4-16.0) gm/dL Hct 28.1 L (34.0-46.0) % MCHC 30.8 L (31.0-37.0) g/dL RDW 18.1 H (11.5-15.5) % Sodium 136 L (137-145) mmol/L BUN 74 H (7-17) mg/dL Creatinine 1.56 H (0.52-1.04) mg/dL Glucose 186 H (74-99) mg/dL POC Glucose (mg/dL) 145 H (75-99) mg/dL Total Protein 5.2 L (6.3-8.2) g/dL Albumin 2.9 L (3.5-5.0) g/dL 06/25/16 Range/Units 11:23 WBC (3.8-10.6) k/uL RBC (3.80-5.40) m/uL Hgb (11.4-16.0) gm/dL Hct (34.0-46.0) % MCHC (31.0-37.0) g/dL RDW (11.5-15.5) % Sodium (137-145) mmol/L BUN (7-17) mg/dL Creatinine (0.52-1.04) mg/dL Glucose (74-99) mg/dL POC Glucose (mg/dL) 266 H (75-99) mg/dL Total Protein (6.3-8.2) g/dL Albumin (3.5-5.0) g/dL Microbiology - Last 24 Hours (Table) 06/23/16 18:00 Gram Stain - Final Sputum Sputum Culture - Final Citlali albicans Assessment and Plan Plan: #1 Left hip fracture secondary to fall. Status post repair of a left intercostal Canter Fracture. Postoperative day #5 #2 Left lower lobe atelectasis and small tiny left pleural effusion. Ultrasound reveals no significant fluid. No plans for thoracentesis. Patient continues to have a minimal atelectasis, chest x-ray is improving, strongly doubt pneumonia. #3 Acute hypoxic respiratory failure secondary to above. #4 Severe aortic stenosis. #5 Hypertension. #6 Diabetes mellitus. #7 Hypothyroidism. #8 Chronic kidney disease. #9 History of gout. Recommendation: Continue present treatment plan, cut down the prednisone dose that may help the leukocytosis, Lasix has been cut down already continue antibiotics empirically, continue incentive spirometry and hopefully rehab referral next week. Chest x-ray was ordered for follow up on the left lower lobe atelectasis in a.m. Time with Patient: Less than 30
[2016-06-25] MEDS: LEVOFLOXACIN 250 MG TAB PO SCH (16:55)
[2016-06-25] MEDS: HYDROcodone/APAP 5-325MG 1 EACH TAB PO PRN (17:03)
[2016-06-25 17:31] LABS: Glucose,Whole Blood 261 mg/dL (75-99)
[2016-06-25] MEDS: BUDESONIDE 0.5 MG/2 ML NEBU INHALATION SCH (19:02)
[2016-06-25 21:08] LABS: Glucose,Whole Blood 263 mg/dL (75-99)
[2016-06-25] MEDS: FERROUS SULFATE 325 MG TAB PO SCH (22:49)
[2016-06-25] MEDS: MELATONIN 3 MG TABLET PO SCH (22:51)
[2016-06-25] MEDS: SENNOSIDES-DOCUSATE SODIUM 1 EACH TAB PO SCH (22:55)
[2016-06-25 23:31] LABS: Glucose,Whole Blood 211 mg/dL (75-99)
[2016-06-26] MEDS: HYDROcodone/APAP 5-325MG 1 EACH TAB PO PRN ×2 (02:12→16:40)
[2016-06-26] MEDS: LEVOTHYROXINE 88 MCG TAB PO SCH (06:59)
[2016-06-26] MEDS: guaiFENesin 600 MG TABLET.ER PO SCH ×2 (06:59→18:06)
[2016-06-26] MEDS: ALBUTEROL NEBULIZED 2.5 MG/3 ML INHALATION PRN ×2 (07:27→15:36)
[2016-06-26] MEDS: BUDESONIDE 0.5 MG/2 ML NEBU INHALATION SCH (07:27)
[2016-06-26 07:42] LABS: Glucose,Whole Blood 131 mg/dL (75-99)
[2016-06-26 09:06] LABS: Anisocytosis Slight; CH 28.6; CHCM 30.2; HCT 27.3 % (34.0-46.0); HDW 3.01; HGB 8.6 gm/dL (11.4-16.0); Hypochromasia Marked; MCH 29.8 pg (25.0-35.0); MCHC 31.4 g/dL (31.0-37.0); Macrocytosis Slight; Mean Platelet Volume 7.7; RBC 2.88 m/uL (3.80-5.40); RDW 18.6 % (11.5-15.5); WBC 24.6 k/uL (3.8-10.6)
[2016-06-26] MEDS: hydrALAZINE HCL 25 MG TAB PO SCH (09:10)
[2016-06-26] MEDS: APIXABAN 2.5 MG TABLET PO SCH ×2 (09:10→21:05)
[2016-06-26] MEDS: predniSONE 20 MG TAB PO SCH (09:10)
[2016-06-26] MEDS: FUROSEMIDE 10 MG/ML 4 ML VIAL IV SCH (09:11)
[2016-06-26] MEDS: LINAGLIPTIN 5 MG TABLET PO SCH (09:11)
[2016-06-26] MEDS: ALLOPURINOL 100 MG TAB PO SCH (09:11)
[2016-06-26] MEDS: amLODIPine 5 MG TAB PO SCH (09:11)
[2016-06-26] MEDS: SENNOSIDES 8.6 MG TAB PO SCH ×2 (09:12→21:05)
[2016-06-26] MEDS: LORATADINE 10 MG TAB PO SCH (09:12)
[2016-06-26] MEDS: ATORVASTATIN 20 MG TAB PO SCH (09:13)
[2016-06-26] MEDS: CALCIUM CARBONATE 500 MG CHEWABLE PO SCH ×3 (09:13→21:04)
[2016-06-26] MEDS: DICLOFENAC 0.1% OPHTH SOLN 2.5 ML BTL BOTH EYES SCH ×4 (09:13→21:05)
--- NOTE | 2016-06-26 09:14 | XR ---
EXAMINATION TYPE: XR chest 1V DATE OF EXAM: 06/26/2016 9:00 AM HISTORY: Difficulty breathing. REFERENCE: Previous study dated 06/24/2016. FINDINGS: There is a left shoulder arthroplasty in place. There has been meet fixation of the thoracol umbar junction. Heart size is upper limits of normal. There is left basilar airspace disease. This has improved sligh tly. There is a left effusion. IMPRESSION: SLIGHT IMPROVEMENT OF THE AERATION OF THE LEFT LUNG BASE.
[2016-06-26] MEDS: INSULIN GLARGINE 100 UNIT/ML 10 ML VIAL SQ SCH (09:21)
[2016-06-26] MEDS: INSULIN LISPRO (humaLOG) 300 UNIT/3 ML VIAL SQ SCH ×4 (09:21→22:16)
[2016-06-26 09:44] LABS: Calcium 8.5 mg/dL (8.4-10.2); Total Bilirubin 1.4 mg/dL (0.2-1.3); Total Protein 5.2 g/dL (6.3-8.2)
[2016-06-26] MEDS: PIPERACILLIN-TAZOBACTAM 3.375 GM in DEXTROSE/WATER 1 50ML.BAG IVPB SCH ×3 (09:54→23:56)
[2016-06-26 09:55] LABS: Potassium 4.2 mmol/L (3.5-5.1)
[2016-06-26] MEDS: traMADol 50 MG TAB PO PRN (09:55)
--- NOTE | 2016-06-26 10:47 | P.PN ---
Subjective Principal diagnosis: Status post left IT nail for left femur fracture Patient is pleasant 85-year-old female seen at bedside this morning. She's postop from left IT nail insertion for left femur fracture performed by Dr. Carmona on 06/16/16. She has pain at the surgical site as expected but is improving. She denies any new left lower extremity complaints including numbness, tingling, calf pain or weakness. Her labored breathing continues to be intermittent and is being treated per IM and Pulmonology. Review of systems is negative for fever, chills, chest pain, nausea, vomiting, dizziness, headaches, slurred speech, calf pain. Objective - Vital Signs Vital signs: Vital Signs Temp 98.2 F 06/26/16 07:00 Pulse 88 06/26/16 07:44 Resp 16 06/26/16 07:00 BP 150/76 06/26/16 07:00 Pulse Ox 100 06/26/16 07:00 Intake & Output 06/25/16 06/26/16 06/26/16 18:59 06:59 18:59 Intake Total 720 200 Output Total 100 Balance 720 100 Intake: Oral 720 200 Output: Urine 100 Other: Voiding Method Diaper Diaper Incontinent Incontinent # Voids 1 2 # Bowel Movements 0 - Exam Inspection of the left lower extremity reveals a benign surgical wounds with lynne in place. There is no active bleeding, dehiscence or purulent drainage. Neurovascular status is intact throughout the left lower extremity where she has active plantarflexion and dorsiflexion the left foot and toes. Sensation to touch is intact at the left lower extremity. Calf is soft and nontender. There is 2+ dorsalis pedis pulse and less than 2 second cap refill. - Constitutional General appearance: Present: no acute distress - Psychiatric Psychiatric: Present: A&O x's 3, appropriate affect, intact judgment & insight - Labs CBC & Chem 7: 06/26/16 08:44 06/26/16 08:44 Labs: Abnormal Lab Results - Last 24 Hours (Table) 06/25/16 06/25/16 06/25/16 Range/Units 11:23 16:58 20:43 WBC (3.8-10.6) k/uL RBC (3.80-5.40) m/uL Hgb (11.4-16.0) gm/dL Hct (34.0-46.0) % RDW (11.5-15.5) % Sodium (137-145) mmol/L BUN (7-17) mg/dL Creatinine (0.52-1.04) mg/dL Glucose (74-99) mg/dL POC Glucose (mg/dL) 266 H 261 H 263 H (75-99) mg/dL Total Bilirubin (0.2-1.3) mg/dL Total Protein (6.3-8.2) g/dL Albumin (3.5-5.0) g/dL 06/25/16 06/26/16 06/26/16 Range/Units 23:14 07:29 08:44 WBC 24.6 H (3.8-10.6) k/uL RBC 2.88 L (3.80-5.40) m/uL Hgb 8.6 L (11.4-16.0) gm/dL Hct 27.3 L (34.0-46.0) % RDW 18.6 H (11.5-15.5) % Sodium (137-145) mmol/L BUN (7-17) mg/dL Creatinine (0.52-1.04) mg/dL Glucose (74-99) mg/dL POC Glucose (mg/dL) 211 H 131 H (75-99) mg/dL Total Bilirubin (0.2-1.3) mg/dL Total Protein (6.3-8.2) g/dL Albumin (3.5-5.0) g/dL 06/26/16 Range/Units 08:44 WBC (3.8-10.6) k/uL RBC (3.80-5.40) m/uL Hgb (11.4-16.0) gm/dL Hct (34.0-46.0) % RDW (11.5-15.5) % Sodium 136 L (137-145) mmol/L BUN 70 H (7-17) mg/dL Creatinine 1.29 H (0.52-1.04) mg/dL Glucose 149 H (74-99) mg/dL POC Glucose (mg/dL) (75-99) mg/dL Total Bilirubin 1.4 H (0.2-1.3) mg/dL Total Protein 5.2 L (6.3-8.2) g/dL Albumin 2.9 L (3.5-5.0) g/dL Microbiology - Last 24 Hours (Table) 06/23/16 18:00 Gram Stain - Final Sputum Sputum Culture - Final Citlali albicans Assessment and Plan (1) Intertrochanteric fracture of left hip Narrative/Plan: She'll continue with routine postop orthopedic protocol including pain management, wound care, physical therapy, DVT prophylaxis and medical management. She may transfer to ECF when ok with IM and Pulmonology. Status: Acute Time with Patient: Less than 30
--- NOTE | 2016-06-26 11:45 | P.PN ---
Subjective Progress note dated 06/26/2016 This is an 85-year-old female with history of hypertension hypothyroidism chronic kidney disease type 2 diabetes admitted with a diagnosis of left hip fracture, status post repair. The patient underwent surgery on 06/19/2016. She developed some respiratory difficulty and was thought to have a basilar pneumonia on the left. From the pulmonary standpoint doing about the same or slightly better. His daughter who I take care of his in the room. No chest pain chest discomfort. Coughing occasionally. Minimal to no phlegm production. No fever no chills. Not coughing up any blood. The plan after discharge as to go to [facility] for rehab. Objective - Vital Signs Vital signs: Vital Signs Temp 98.2 F 06/26/16 07:00 Pulse 88 06/26/16 07:44 Resp 16 06/26/16 07:00 BP 150/76 06/26/16 07:00 Pulse Ox 100 06/26/16 07:00 Intake & Output 06/25/16 06/26/16 06/26/16 18:59 06:59 18:59 Intake Total 720 200 Output Total 100 Balance 720 100 Intake: Oral 720 200 Output: Urine 100 Other: Voiding Method Diaper Diaper Incontinent Incontinent # Voids 1 2 # Bowel Movements 0 - Exam No acute distress, oriented 3. Speaks softly. No obvious distress. Is wearing her nasal O2. HEENT examination is grossly unremarkable. Mucous membranes are moist. No oral lesions. Supple. Full range of motion. No adenopathy. Cardiovascular examination reveals distant heart sounds. S1-S2 normal. Grade 3 /6 systolic murmurs noted. No obvious S3 or S4. Lungs reveal few scattered rhonchi. No wheezes. No crackles. She does not really take deep breaths. Hard to auscultate her lungs. Breath sounds are equal. Abdomen soft. Extremities are intact. - Labs CBC & Chem 7: 06/26/16 08:44 06/26/16 08:44 Labs: Abnormal Lab Results - Last 24 Hours (Table) 06/25/16 06/25/16 06/25/16 Range/Units 16:58 20:43 23:14 WBC (3.8-10.6) k/uL RBC (3.80-5.40) m/uL Hgb (11.4-16.0) gm/dL Hct (34.0-46.0) % RDW (11.5-15.5) % Sodium (137-145) mmol/L BUN (7-17) mg/dL Creatinine (0.52-1.04) mg/dL Glucose (74-99) mg/dL POC Glucose (mg/dL) 261 H 263 H 211 H (75-99) mg/dL Total Bilirubin (0.2-1.3) mg/dL Total Protein (6.3-8.2) g/dL Albumin (3.5-5.0) g/dL 06/26/16 06/26/16 06/26/16 Range/Units 07:29 08:44 08:44 WBC 24.6 H (3.8-10.6) k/uL RBC 2.88 L (3.80-5.40) m/uL Hgb 8.6 L (11.4-16.0) gm/dL Hct 27.3 L (34.0-46.0) % RDW 18.6 H (11.5-15.5) % Sodium 136 L (137-145) mmol/L BUN 70 H (7-17) mg/dL Creatinine 1.29 H (0.52-1.04) mg/dL Glucose 149 H (74-99) mg/dL POC Glucose (mg/dL) 131 H (75-99) mg/dL Total Bilirubin 1.4 H (0.2-1.3) mg/dL Total Protein 5.2 L (6.3-8.2) g/dL Albumin 2.9 L (3.5-5.0) g/dL Microbiology - Last 24 Hours (Table) 06/23/16 18:00 Gram Stain - Final Sputum Sputum Culture - Final Citlali albicans Assessment and Plan (1) Pneumonia Status: Acute (2) Fracture of hip Status: Acute (3) Hip fracture, left Status: Acute (4) Severe aortic stenosis Status: Acute (5) Leukocytosis Status: Acute Plan: Plan This patient is postop day #6 status post left hip fracture. She developed a left lower lobe infiltrate with some associated atelectasis and a small left- sided effusion. In addition, she has a history of acute hypoxemic respiratory failure severe aortic stenosis hypertension diabetes hypothyroidism chronic kidney disease and history of gout. We'll continue to follow her closely. Hopefully discharge in next day or so to [facility]. Continue with breathing treatments and also the incentive spirometer. We'll follow. Chest x- ray has shown some improvement. Time with Patient: Less than 30
[2016-06-26 12:34] LABS: Glucose,Whole Blood 248 mg/dL (75-99)
[2016-06-26] MEDS: NYSTATIN 100,000 UNIT/ML SUSP 500,000 UNIT/5 ML CUP PO SCH ×3 (14:13→21:05)
[2016-06-26] MEDS: CHOLECALCIFEROL 1,000 UNIT TAB PO SCH (14:14)
[2016-06-26] MEDS: MULTIVITAMINS, THERA 1 EACH TAB PO SCH (14:14)
[2016-06-26] MEDS: MAGNESIUM OXIDE 400 MG TAB PO SCH (14:14)
--- NOTE | 2016-06-26 16:04 | P.PN ---
Subjective Principal diagnosis: left hip fracture post-ORIF, severe aortic valve stenosis, diabetes, hypertension, shortness of breath, hoarseness, stage II kidney disease, UTI, anemia. Debility require to go to [facility] rehab. This is an 85-year-old female one of Dr. Silverio Chaney with a previous medical history significant for hypertension and hypertensive cardio vascular disease with left ventricular hypertrophy, hypothyroidism, chronic kidney disease stage II, diabetes mellitus type 2, hyperlipidemia, patient resides at assisted living facility in [place] and today she was transferring from her wheelchair using the walker and she lost her balance ended up falling onto her left side and she had a treatment as amount of pain she ended up getting transferred to [facility] where she was found to have a left intertrochanteric hip fracture she was admitted to the hospital and orthopedic surgery and we were asked to see the patient for medical management and preoperative medical clearance. Apparently the patient does appear to have a significant and severe aortic valve stenosis, and because of her comorbidities it was thought that the patient is at high risk for surgical intervention subsequently consult cardiology for further care and the patient will have an echo care gram for eval you should've LV function as well as the severity of her aortic valve stenosis prior to her surgical intervention. Patient underwent left hip intertrochanteric IM nailing that was done by Dr. Carmona and she was admitted to the [facility] for overnight subsequent she was moved to the surgical unit in the morning, patient is sitting up in bed that she appears to be quite tired, her daughter was at bedside. She denies any chest pain or shortness breath she has no abdominal pain, she disclaims some neck pain that she has poor appetite today she did not eat much. 2/5: Patient is sitting up in the recliner today she feels dizzy, she denies any chest pain, shortness breath, she has no abdominal pain, her tankroom tender better, her hemoglobin dropped to 7.1, she is scheduled to go for a 1 unit packed red blood cell transfusion today hold physical therapy and after blood transfusion. 2/6: Patient did receive 1 unit of packed RBCs for hemoglobin of 7.1 from last night. Patient did develop some shortness of following this for which she'll was given Lasix. She is now on oxygen and continues to have some shortness of breath. A second dose of Lasix has been ordered. Repeat hemoglobin is 8.4. BUN 49 and creatinine 1.6. Anticipate she will be ready for discharge to [facility] tomorrow. 06/20: Repeat BUN 52 and creatinine 1.61. Hemoglobin 8.4 and white count 16.9. Blood blood glucose running between 134 and 186. Patient continues to have shortness of breath but pulse ox is running 97 200% on 2 L. Patient has been sleepy and weak. Repeat chest x-ray will be ordered. She underwent a modified barium swallow with recommendations for pured dysphagia 1, no straws, one-to- one supervision, encouraged chin tuck. Advance to soft diet as tolerated. Discharge to [facility] was held today. 06/21: Patient is having more shortness of breath today despite nebulizer treatment with tachypnea and appears to be mostly upper airway distress. Additional dose of IV Lasix ordered. Chest x-ray shows new lower lobe infiltrate and small pleural effusion correlate for mild venous congestion. Patient was placed on clindamycin and Levaquin for possible aspiration. V/Q scan is showing triple match compatible with intermediate probability for pulmonary embolism. Lovenox increased to 90 mg daily subcu. Consult with Dr. Valencia placed with anticipated possible need for ICU treatment if she does not turn around. She was started on IV Solu-Medrol at 60 mg IV every 6 hours 3 doses. ABGs ordered. 06/22: Patient was seen in consultation by Dr. Valencia. Pulmonary embolism was felt to be less likely. Ultrasound of the lower extremities was limited. No evidence of acute DVT. Patient was transferred to [facility] care yesterday. Her breathing status is less labored today. Steroids are decreased to 40 mg every 8 hours IV. Patient does state that she slept better last evening. She seems to be most comfortable sitting up and was comfortable lying flat. She is bringing up more mucus this which is yellow and sputum culture has been requested. Anticipate that she may be ready for transfer to [facility] on Sunday. 06/23: White count 21.7, hemoglobin 8.2, sodium 136, BUN 75, creatinine 2.0. Her blood glucose running between 215 and 225. Steroids will be decreased and switched over to oral in the morning. IV fluids started at 50 mL per hour for 12 hours. At the [facility], patient will be on eliquis 2.5 mg twice daily for 4 weeks and once this is completed, Plavix will be resumed. Patient will be given 1 dose of Ferrlecit. Medication reconciliation has been completed with anticipated discharge to [facility] on Sunday morning. 06/24: Repeat white count is 29.2, hemoglobin 7.9. BUN 80 and creatinine 1.91. Patient had increased shortness of breath last night for which IV fluids were discontinued and she was given 1 dose of IV Lasix. Discharge to [facility] will be held. At time of evaluation, breathing status is stable and she has no respiratory distress. 06/25: Patient had another episode of shortness of breath last night but her pulse ox was 100%. We have added and Plavix 40 mg daily and Pulmicort was also added. Noted Dr. Antoine decrease prednisone to 20 mg which is also been updated on a new medication reconciliation done today. White count remains elevated at 29.7, hemoglobin improved to 8.6. Kidney function is much improved BUN of 74 and creatinine 1.56. Anticipate patient will be ready for discharge to [facility] tomorrow. 06/26: patient is having more shortness of breath, chest x-ray showed slight improvement in her left lower lobe. Patient still have slight stridor and abnormal hoarseness with mild oral thrush worsening yeast infection and still not doing well. We'll delay her discharge consult ENT for vocal cord scope to make sure doesn't have vocal cord paralysis and will treat her oral thrush currently Objective - Vital Signs Vital signs: Vital Signs Temp 98.2 F 06/26/16 07:00 Pulse 88 06/26/16 07:44 Resp 16 06/26/16 07:00 BP 150/76 06/26/16 07:00 Pulse Ox 100 06/26/16 07:00 Intake & Output 06/25/16 06/26/16 06/26/16 18:59 06:59 18:59 Intake Total 720 200 Output Total 100 Balance 720 100 Intake: Oral 720 200 Output: Urine 100 Other: Voiding Method Diaper Diaper Incontinent Incontinent # Voids 1 2 # Bowel Movements 0 - Constitutional General appearance: Present: cooperative, disheveled, mild distress. Absent: average body habitus, morbidly obese, no acute distress, obese, severe distress , thin - EENT Eyes: Present: abnormal pupil, fundus normal, normal appearance. Absent: anicteric sclerae, disc margins sharp, edentulous, EOMI, PERRLA, photophobia, dentition normal, poor dentition, ptosis, scleral icterus ENT: Present: hard of hearing, normal oropharynx, thrush. Absent: hearing grossly normal, NA/AT, other, pharyngeal erythema, tonsillar exudates, tonsillar swelling Ears: bilateral: normal - Neck Neck: Present: normal ROM. Absent: lymphadenopathy, other, rigidity, stridor, thyromegaly Carotids: bilateral: upstroke normal, upstroke delayed Thyroid: bilateral: normal size, enlarged - Respiratory Respiratory: bilateral: CTA, diminished, dullness, rales - Cardiovascular Heart sounds: normal: S1, S2 Abnormal Heart Sounds: Present: systolic murmur, S3 Gallop - Gastrointestinal General gastrointestinal: Present: decreased bowel sounds, distended, soft. Absent: absent bowel sounds, hepatomegaly, hyperactive bowel sounds, normal bowel sounds, organomegaly, rigid, scaphoid, splenomegaly, tenderness, umbilical hernia, ventral hernia - Integumentary Integumentary: Present: normal, pale, rash. Absent: calor, cellulitis, cyanotic , decreased turgor, flushed, jaundiced, normal turgor, ulcer - Neurologic Neurologic: Present: CNII-XII intact - Musculoskeletal Musculoskeletal: Present: gait normal, generalized weakness - Psychiatric Psychiatric: Present: A&O x's 3 - Labs CBC & Chem 7: 06/26/16 08:44 06/26/16 08:44 Labs: Abnormal Lab Results - Last 24 Hours (Table) 06/25/16 06/25/16 06/25/16 Range/Units 16:58 20:43 23:14 WBC (3.8-10.6) k/uL RBC (3.80-5.40) m/uL Hgb (11.4-16.0) gm/dL Hct (34.0-46.0) % RDW (11.5-15.5) % Sodium (137-145) mmol/L BUN (7-17) mg/dL Creatinine (0.52-1.04) mg/dL Glucose (74-99) mg/dL POC Glucose (mg/dL) 261 H 263 H 211 H (75-99) mg/dL Total Bilirubin (0.2-1.3) mg/dL Total Protein (6.3-8.2) g/dL Albumin (3.5-5.0) g/dL 06/26/16 06/26/16 06/26/16 Range/Units 07:29 08:44 08:44 WBC 24.6 H (3.8-10.6) k/uL RBC 2.88 L (3.80-5.40) m/uL Hgb 8.6 L (11.4-16.0) gm/dL Hct 27.3 L (34.0-46.0) % RDW 18.6 H (11.5-15.5) % Sodium 136 L (137-145) mmol/L BUN 70 H (7-17) mg/dL Creatinine 1.29 H (0.52-1.04) mg/dL Glucose 149 H (74-99) mg/dL POC Glucose (mg/dL) 131 H (75-99) mg/dL Total Bilirubin 1.4 H (0.2-1.3) mg/dL Total Protein 5.2 L (6.3-8.2) g/dL Albumin 2.9 L (3.5-5.0) g/dL 06/26/16 Range/Units 12:02 WBC (3.8-10.6) k/uL RBC (3.80-5.40) m/uL Hgb (11.4-16.0) gm/dL Hct (34.0-46.0) % RDW (11.5-15.5) % Sodium (137-145) mmol/L BUN (7-17) mg/dL Creatinine (0.52-1.04) mg/dL Glucose (74-99) mg/dL POC Glucose (mg/dL) 248 H (75-99) mg/dL Total Bilirubin (0.2-1.3) mg/dL Total Protein (6.3-8.2) g/dL Albumin (3.5-5.0) g/dL Microbiology - Last 24 Hours (Table) 06/23/16 18:00 Gram Stain - Final Sputum Sputum Culture - Final Citlali albicans Assessment and Plan Plan: 1. Left intertrochanteric hip fracture post fall. Status post left intertrochanteric IM nail. Continue since around her, continue current pain management, continue with physical therapy evaluation in the next 24 hours. Continue incentive spirometer to reduce the incidence of atelectasis and hospital acquired pneumonia 2. Severe aortic valve stenosis. Stable. 3. Hypertension and hypertensive cardiovascular disease. Continue patient on hydralazine 25 mg orally once every day, amlodipine 10 mg orally once every day. 4. Diabetes mellitus type 2. Continue Lantus 12 units at bedtime, Tradjenta 5 mg orally once every day, BGM before each meal and at bedtime. Apply sliding scale insulin . 5. Hypothyroidism. Continue Synthroid 88 g orally once every day. 6. Chronic kidney disease stage II. Monitor the patient CMP. 7. UTI with sepsis. Urine culture, blood culture, Levaquin every 24 hours. 8. Gout, unspecified. Continue allopurinol 100 mg orally once every day. 9. Hyperlipidemia. Continue Lipitor 20 mg orally once every day. 10. Anemia of chronic renal disease. Continue Aranesp and iron supplement. Monitor the patient's CBC. 11. DVT prophylaxis. Continue the patient on Lovenox 30 mg subcutaneously every 24 hours. 12. GI prophylaxis. Continue Protonix 40 mg orally once every day. 13. Patient is full code. 14. Acute blood loss anemia. Type and cross and transfuse 1 unit of packed cells. 15. Acute kidney injury. Repeat BMP magnesium tomorrow morning. 16. Acute respiratory distress due to combination of acute diastolic heart failure due to fluid overload from blood transfusion and IV fluid resuscitation for acute kidney injury, possible aspiration pneumonia, pulmonary embolism ruled out. Antibiotics changed to Zosyn and Levaquin. Consult with Dr. Valencia requested and patient transferred to [facility]. Solu-Medrol to prednisone , nebulizer treatments, Mucinex, eliquis, Lasix. 17 hoarseness: Consult ENT for vocal cord scope and continue to treat patient with nystatin oral swish and swallow. If she is feeling better by tomorrow might be able to send her to [facility].
[2016-06-26 17:13] LABS: Glucose,Whole Blood 223 mg/dL (75-99)
[2016-06-26] MEDS: LEVOFLOXACIN 250 MG TAB PO SCH (18:06)
[2016-06-26] MEDS: MELATONIN 3 MG TABLET PO SCH (21:04)
[2016-06-26] MEDS: FERROUS SULFATE 325 MG TAB PO SCH (21:05)
[2016-06-26] MEDS: SENNOSIDES-DOCUSATE SODIUM 1 EACH TAB PO SCH (21:11)
[2016-06-26 22:21] LABS: Glucose,Whole Blood 292 mg/dL (75-99)
[2016-06-27] MEDS: MORPHINE SULFATE 2 MG/ML SYRINGE IV PRN (02:05)
[2016-06-27] MEDS: traMADol 50 MG TAB PO PRN ×3 (05:17→15:35)
[2016-06-27] MEDS: ALBUTEROL NEBULIZED 2.5 MG/3 ML INHALATION PRN ×2 (05:21→11:12)
[2016-06-27 08:03] LABS: Glucose,Whole Blood 158 mg/dL (75-99)
[2016-06-27] MEDS: guaiFENesin 600 MG TABLET.ER PO SCH (08:14)
[2016-06-27] MEDS: LORATADINE 10 MG TAB PO SCH (08:15)
[2016-06-27] MEDS: ALLOPURINOL 100 MG TAB PO SCH (08:15)
[2016-06-27] MEDS: INSULIN LISPRO (humaLOG) 300 UNIT/3 ML VIAL SQ SCH ×3 (08:15→13:33)
[2016-06-27] MEDS: predniSONE 20 MG TAB PO SCH (08:15)
[2016-06-27] MEDS: LEVOTHYROXINE 88 MCG TAB PO SCH (08:15)
[2016-06-27] MEDS: CALCIUM CARBONATE 500 MG CHEWABLE PO SCH (08:15)
[2016-06-27] MEDS: ATORVASTATIN 20 MG TAB PO SCH (08:16)
[2016-06-27] MEDS: LINAGLIPTIN 5 MG TABLET PO SCH (08:16)
[2016-06-27] MEDS: amLODIPine 5 MG TAB PO SCH (08:16)
[2016-06-27] MEDS: hydrALAZINE HCL 25 MG TAB PO SCH (08:16)
[2016-06-27] MEDS: SENNOSIDES 8.6 MG TAB PO SCH (08:16)
[2016-06-27] MEDS: APIXABAN 2.5 MG TABLET PO SCH (08:17)
[2016-06-27] MEDS: DICLOFENAC 0.1% OPHTH SOLN 2.5 ML BTL BOTH EYES SCH ×2 (08:17→13:30)
[2016-06-27] MEDS: NYSTATIN 100,000 UNIT/ML SUSP 500,000 UNIT/5 ML CUP PO SCH ×2 (08:17→13:30)
[2016-06-27] MEDS: FUROSEMIDE 10 MG/ML 4 ML VIAL IV SCH (08:17)
[2016-06-27] MEDS: PIPERACILLIN-TAZOBACTAM 3.375 GM in DEXTROSE/WATER 1 50ML.BAG IVPB SCH (08:17)
[2016-06-27] MEDS: INSULIN GLARGINE 100 UNIT/ML 10 ML VIAL SQ SCH (08:18)
[2016-06-27 08:44] VITALS: RESP 18; TEMP 96.5
[2016-06-27 08:46] VITALS: BP 131/58
--- NOTE | 2016-06-27 09:34 | P.PN ---
Subjective Principal diagnosis: Status post left IT nail for left femur fracture Patient is pleasant 85-year-old female seen at bedside this morning. She's postop from left IT nail insertion for left femur fracture performed by Dr. Carmona on 06/16/16. She has pain at the surgical site as expected but is improving. She denies any new left lower extremity complaints including numbness, tingling, calf pain or weakness. She is being followed by IM and Pulmonology for left lung consolidation that is improving. ENT has also been consulted for vocal cord assessment. Review of systems is negative for fever, chills, chest pain, nausea, vomiting, dizziness, headaches, slurred speech, calf pain. Objective - Vital Signs Vital signs: Vital Signs Temp 96.5 F L 06/27/16 07:00 Pulse 83 06/27/16 07:00 Resp 18 06/27/16 07:00 BP 131/58 06/27/16 07:00 Pulse Ox 100 06/27/16 07:00 Intake & Output 06/26/16 06/27/16 06/27/16 18:59 06:59 18:59 Intake Total 500 Balance 500 Intake: Oral 500 Other: Voiding Method Diaper Incontinent # Voids 3 1 # Bowel Movements 3 - Exam Inspection of the left lower extremity reveals a benign surgical wounds with lynne in place. There is no active bleeding, dehiscence or purulent drainage. Neurovascular status is intact throughout the left lower extremity where she has active plantarflexion and dorsiflexion the left foot and toes. Sensation to touch is intact at the left lower extremity. Calf is soft and nontender. There is 2+ dorsalis pedis pulse and less than 2 second cap refill. - Constitutional General appearance: Present: no acute distress - Psychiatric Psychiatric: Present: A&O x's 3, appropriate affect, intact judgment & insight - Labs CBC & Chem 7: 06/26/16 08:44 06/26/16 08:44 Labs: Abnormal Lab Results - Last 24 Hours (Table) 06/26/16 06/26/16 06/26/16 Range/Units 08:44 12:02 16:49 Sodium 136 L (137-145) mmol/L BUN 70 H (7-17) mg/dL Creatinine 1.29 H (0.52-1.04) mg/dL Glucose 149 H (74-99) mg/dL POC Glucose (mg/dL) 248 H 223 H (75-99) mg/dL Total Bilirubin 1.4 H (0.2-1.3) mg/dL Total Protein 5.2 L (6.3-8.2) g/dL Albumin 2.9 L (3.5-5.0) g/dL 06/26/16 06/27/16 Range/Units 21:57 07:57 Sodium (137-145) mmol/L BUN (7-17) mg/dL Creatinine (0.52-1.04) mg/dL Glucose (74-99) mg/dL POC Glucose (mg/dL) 292 H 158 H (75-99) mg/dL Total Bilirubin (0.2-1.3) mg/dL Total Protein (6.3-8.2) g/dL Albumin (3.5-5.0) g/dL Assessment and Plan (1) Intertrochanteric fracture of left hip Narrative/Plan: She'll continue with routine postop orthopedic protocol including pain management, wound care, physical therapy, DVT prophylaxis and medical management. She remains stable from orthopedic standpoint and can resume PT if ok with IM/Pulmonology. She may transfer to [facility] when ok with IM and Pulmonology. Status: Acute Time with Patient: Less than 30
[2016-06-27 10:14] LABS: Anisocytosis Slight; CH 28.5; CHCM 29.9; HCT 26.2 % (34.0-46.0); HDW 3.03; Hypochromasia Marked; Immature Gran Flag Slight; MCH 29.2 pg (25.0-35.0); MCHC 30.5 g/dL (31.0-37.0); MCV 95.8 fL (80.0-100.0); Macrocytosis Slight; Mean Platelet Volume 8.3; RBC 2.73 m/uL (3.80-5.40); RDW 18.8 % (11.5-15.5); WBC (Perox) 28.02
[2016-06-27 10:31] LABS: Calcium 8.4 mg/dL (8.4-10.2); Potassium 3.9 mmol/L (3.5-5.1); Total Bilirubin 0.9 mg/dL (0.2-1.3); Total Protein 4.7 g/dL (6.3-8.2)
[2016-06-27 10:55] LABS: Add Differential Manual Differential
[2016-06-27 10:58] LABS: Metamyelocytes % 4.5 %; Myelocytes % 4.5 %; Nucleated Red Blood Cells 1 /100 WBC (0-0); Total Cells Counted 200
[2016-06-27 11:00] LABS: Manual Review Performed
[2016-06-27 11:15] VITALS: PULSE 90
[2016-06-27 11:59] LABS: Glucose,Whole Blood 305 mg/dL (75-99)
[2016-06-27] MEDS: HYDROcodone/APAP 5-325MG 1 EACH TAB PO PRN (13:30)
[2016-06-27] MEDS: MAGNESIUM OXIDE 400 MG TAB PO SCH (13:30)
[2016-06-27] MEDS: CHOLECALCIFEROL 1,000 UNIT TAB PO SCH (13:30)
[2016-06-27] MEDS: MULTIVITAMINS, THERA 1 EACH TAB PO SCH (13:30)
--- NOTE | 2016-06-27 14:51 | P.PN ---
Subjective Progress note dated 06/26/2016 This is an 85-year-old female with history of hypertension hypothyroidism chronic kidney disease type 2 diabetes admitted with a diagnosis of left hip fracture, status post repair. The patient underwent surgery on 06/19/2016. She developed some respiratory difficulty and was thought to have a basilar pneumonia on the left. From the pulmonary standpoint doing about the same or slightly better. His daughter who I take care of his in the room. No chest pain chest discomfort. Coughing occasionally. Minimal to no phlegm production. No fever no chills. Not coughing up any blood. The plan after discharge as to go to [facility] for rehab. Progress note dated 06/27/2016 This is an 85-year-old female with a history of hypertension hypothyroidism chronic kidney disease diabetes and left hip fracture. She did have the left hip repaired by Dr. Carmona. The patient had surgery on June 19. She is being discharged to [facility] today. She doing relatively well. Was found to have a pneumonia on lung x-ray. From the pulmonary standpoint doing much better. Less short of breath. Minimal cough. No phlegm production. No wheezing. No coughing up blood. No fever no chills. Objective - Vital Signs Vital signs: Vital Signs Temp 96.5 F L 06/27/16 07:00 Pulse 90 06/27/16 11:28 Resp 18 06/27/16 07:00 BP 131/58 06/27/16 07:00 Pulse Ox 100 06/27/16 07:00 Intake & Output 06/26/16 06/27/16 06/27/16 18:59 06:59 18:59 Intake Total 500 50 Balance 500 50 Intake: Intake, IV Titration 50 Amount Piperacillin-Tazobactam 3 50 .375 gm In Dextrose/Water 1 50ml.bag @ 12.5 mls/hr IVPB Q8HR [facility] Rx#: [id number] Oral 500 Other: Voiding Method Diaper Diaper Incontinent Incontinent # Voids 3 1 # Bowel Movements 3 - Exam No acute distress, oriented 3. Speaks softly. No obvious distress. Is wearing her nasal O2. HEENT examination is grossly unremarkable. Mucous membranes are moist. No oral lesions. Supple. Full range of motion. No adenopathy. Cardiovascular examination reveals distant heart sounds. S1-S2 normal. Grade 3 /6 systolic murmurs noted. No obvious S3 or S4. Lungs reveal few scattered rhonchi. No wheezes. No crackles. She does not really take deep breaths. Hard to auscultate her lungs. Breath sounds are equal. Abdomen soft. Extremities are intact. - Labs CBC & Chem 7: 06/27/16 09:02 06/27/16 09:02 Labs: Abnormal Lab Results - Last 24 Hours (Table) 06/26/16 06/26/16 06/27/16 Range/Units 16:49 21:57 07:57 WBC (3.8-10.6) k/uL RBC (3.80-5.40) m/uL Hgb (11.4-16.0) gm/dL Hct (34.0-46.0) % MCHC (31.0-37.0) g/dL RDW (11.5-15.5) % Neutrophils # (Manual) (1.3-7.7) k/uL Nucleated RBCs (0-0) /100 WBC Sodium (137-145) mmol/L BUN (7-17) mg/dL Creatinine (0.52-1.04) mg/dL Glucose (74-99) mg/dL POC Glucose (mg/dL) 223 H 292 H 158 H (75-99) mg/dL Total Protein (6.3-8.2) g/dL Albumin (3.5-5.0) g/dL 06/27/16 06/27/16 06/27/16 Range/Units 09:02 09:02 11:57 WBC 27.0 H* (3.8-10.6) k/uL RBC 2.73 L (3.80-5.40) m/uL Hgb 8.0 L (11.4-16.0) gm/dL Hct 26.2 L (34.0-46.0) % MCHC 30.5 L (31.0-37.0) g/dL RDW 18.8 H (11.5-15.5) % Neutrophils # (Manual) 21.9 H (1.3-7.7) k/uL Nucleated RBCs 1 H (0-0) /100 WBC Sodium 136 L (137-145) mmol/L BUN 63 H (7-17) mg/dL Creatinine 1.33 H (0.52-1.04) mg/dL Glucose 215 H (74-99) mg/dL POC Glucose (mg/dL) 305 H (75-99) mg/dL Total Protein 4.7 L (6.3-8.2) g/dL Albumin 2.7 L (3.5-5.0) g/dL Assessment and Plan (1) Pneumonia Status: Acute (2) Fracture of hip Status: Acute (3) Hip fracture, left Status: Acute (4) Severe aortic stenosis Status: Acute (5) Leukocytosis Status: Acute Plan: Plan This patient is postop day #6 status post left hip fracture. She developed a left lower lobe infiltrate with some associated atelectasis and a small left- sided effusion. In addition, she has a history of acute hypoxemic respiratory failure severe aortic stenosis hypertension diabetes hypothyroidism chronic kidney disease and history of gout. We'll continue to follow her closely. Hopefully discharge in next day or so to [facility]. Continue with breathing treatments and also the incentive spirometer. We'll follow. Chest x- ray has shown some improvement. Plan dated 06/27/2016 The patient is postop day #7, status post left hip fracture. She developed a left lower lobe infiltrate which is improved clinically and to a certain extent radiographically. She is being discharged home to [facility]. In addition, she has a history of respiratory failure severe aortic stenosis essential hypertension diabetes mellitus hypothyroidism chronic kidney disease and gout. We'll follow her closely. Additional recommendations suggestions are forthcoming. Her daughter who I take care of, can bring her mother in to see me if there is a need. Time with Patient: Less than 30
--- NOTE | 2016-07-31 23:02 | P.DS ---
Providers Date of admission: 06/15/16 16:38 Expected date of discharge: 06/27/16 Attending physician: Saurabh Carmona Consults: 06/16/16 10:08 Consult Physician Stat Consulting Provider: Da Madera Consult Reason/Comments: preop clearance, Do you want consulting provider notified?: Yes 06/21/16 14:38 Consult Physician Routine Consulting Provider: Lisy Valencia Consult Reason/Comments: postop respiratory distress, see VQ scan Do you want consulting provider notified?: Yes 06/26/16 13:32 Consult Physician Routine Consulting Provider: Judson Goodman Consult Reason/Comments: Hoarsness Do you want consulting provider notified?: Yes Primary care physician: Silverio Chaney - Discharge Diagnosis(es) (1) Intertrochanteric fracture of left hip Patient is an 83 yo female that was admitted through the ED on 06/15/16 for a left femur fracture. She underwent a closed reduction with internal fixation of the left hip using an intramedullary screw/IT nail performed by Dr. Carmona on 06/16/16. She tolerated the procedure well without complication. Postoperatively she developed shortness of breath and lung consolidation that has improved clinically. She has been followed by pulmonology and internal medicine. She has been cleared my medicine to transfer to an [facility] for rehab. On day of discharge her vital signs are stable, labs within acceptable ranges, wound is benign, neurovascular status is intact, abdomen is soft and nontender, calf is soft and nontender and is in NAD. She has no new complaints and pain is controlled. Review of systems is negative for fever, chills, chest pain, shortness of breath , cough, numbness, tingling, calf pain, abdominal pain, dizziness, headaches, nausea, vomitting, slurred speech or other. Status: Acute Priority: Medium Procedures: Left It Nail or left hip fracture Patient Condition at Discharge: Fair Plan - Discharge Summary Discharge Medication List Allopurinol [Zyloprim] 100 mg PO DAILY@0800 01/18/14 [History] Atorvastatin [Lipitor] 20 mg PO HS@2100 06/15/16 [History] Cholecalciferol [Vitamin D3] 1,000 unit PO DAILY@1700 06/15/16 [History] Diclofenac 0.1% Ophth Soln [Voltaren 0.1% Ophth Soln] 1 drops BOTH EYES QID 06/30 [History] Epoetin Basim [Procrit] 20,000 unit SQ Q14D 06/15/16 [History] Ferrous Sulfate [Iron (65 MG Elemental)] 325 mg PO DAILY@169906/15/16 [History] Insulin Glargine,Hum.rec.anlog [Lantus Solostar] 12 unit SQ DAILY@0806/15/16 [History] Loratadine [Claritin] 10 mg PO DAILY@0806/15/16 [History] Magnesium Oxide [Mag-Ox] 800 mg PO DAILY@169906/15/16 [History] Melatonin 3 mg PO HS@209906/15/16 [History] Sennosides [Senna] 8.6 mg PO BID@0800,209906/15/16 [History] Triamcinolone 0.5% Cream [Kenalog 0.5% Cream] 1 applic TOPICAL BID 06/15/16 [ History] amLODIPine [Norvasc] 5 mg PO DAILY@0806/15/16 [History] guaiFENesin [Mucinex] 600 mg PO BID@0800,209906/15/16 [History] sitaGLIPtin PHOSPHATE [Januvia] 25 mg PO DAILY@79906/15/16 [History] Bisacodyl [Dulcolax] 10 mg RECTAL DAILY PRN 06/28/16 [History] Budesonide [Pulmicort] 0.5 mg INHALATION RT-BID@0800,17006/28/16 [History] Furosemide [Lasix] 40 mg PO DAILY@0806/28/16 [History] INSULIN LISPRO (humaLOG) [humaLOG (formulary)] See Protocol SQ ACHS 06/28/16 [ History] Ipratropium-Albuterol Nebulize [Duoneb 0.5 mg-3 mg/3 ml Soln] 3 ml INHALATION RT -QID 06/28/16 [History] Levothyroxine Sodium [Synthroid] 88 mcg PO DAILY@0600 06/28/16 [History] Magnesium Hydroxide [Milk of Magnesia] 2,400 mg PO DAILY PRN 06/28/16 [History] Multivitamins, Thera [Multivitamin (formulary)] 1 tab PO DAILY@06/28/17 [ History] Na Phos,M-B/Na Phos,Di-Ba [Fleet Adult] 133 ml RECTAL ONCE PRN 06/28/16 [History ] Apixaban [Eliquis] 2.5 mg PO BID@0800,2100 #0 07/04/16 [Rx] Aspirin 81 mg PO DAILY chew 07/04/16 [Rx] Fluconazole [Diflucan] 100 mg PO DAILY #7 tab 07/04/16 [Rx] HYDROcodone/APAP 5-325MG [[place] 5-325] 1 tab PO DAILY PRN #30 tab 07/04/16 [Rx] Nitroglycerin Sl Tabs [Nitrostat] 0.4 mg SUBLINGUAL Q5M PRN #0 tab 07/04/16 [Rx] Nystatin 100,000 Unit/ml Susp [Mycostatin Oral Susp] 500,000 unit PO QID 7 Days 07/04/16 [Rx] hydrALAZINE HCL [Apresoline] 25 mg PO BID tab 07/04/16 [Rx] methylPREDNISolone Dose Pack [Medrol Dose Pack] 4 mg PO DIRECTED #21 package 07/04/16 [Rx] Follow up Appointment(s)/Referral(s): Silverio Chaney MD [Primary Care Provider] - 1 Week (after discharge from [facility]) Saurabh Carmona MD [Medical Doctor] - 2 Weeks Ambulatory/Diagnostic Orders: Complete Blood Count w/diff [LAB.AMB] Location: Determined By Patient Comprehensive Metabolic Panel [LAB.AMB] Location: Determined By Patient Patient Instructions/Handouts: Hip Fracture (GEN) Activity/Diet/Wound Care/Special Instructions: Take meds as directed Follow-up with Dr. Carmona in office Touchdown weightbearing left lower extremity Keep wound clean and dry Cardiac, diabetic diet. Diabetic folder given. Discharge Disposition: TRANSFER TO SNF/ECF
== END 2016-06-27 15:44 | DRG 480 ==
LOC: EC 13:35 → 3SUR 16:38 → 6SEL 06-16 17:43 → 3SUR 06-17 11:43 → 6SEL 06-21 17:21 → 4MS4W 06-25 14:01
PROVIDERS: ADMIT Orthopaedic Surgery; ATTEND Orthopaedic Surgery
PROC: 0QS704Z Reposition Left Upper Femur with Internal Fixation Device, Open Approach (ICD-10-PCS; principal; 2016-06-15)
DX: S72.142A Displaced intertrochanteric fracture of left femur, initial encounter for closed fracture (principal); A41.9 Sepsis, unspecified organism; J96.01 Acute respiratory failure with hypoxia; I26.99 Other pulmonary embolism without acute cor pulmonale; J69.0 Pneumonitis due to inhalation of food and vomit; I50.31 Acute diastolic (congestive) heart failure; N17.9 Acute kidney failure, unspecified; D62 Acute posthemorrhagic anemia; N39.0 Urinary tract infection, site not specified; J98.11 Atelectasis; G45.9 Transient cerebral ischemic attack, unspecified; E11.22 Type 2 diabetes mellitus with diabetic chronic kidney disease; I13.10 Hypertensive heart and chronic kidney disease without heart failure, with stage 1 through stage 4 chronic kidney disease, or unspecified chronic kidney disease; I35.0 Nonrheumatic aortic (valve) stenosis; I73.9 Peripheral vascular disease, unspecified; H35.30 Unspecified macular degeneration; Z96.652 Presence of left artificial knee joint; E03.9 Hypothyroidism, unspecified; N18.2 Chronic kidney disease, stage 2 (mild); M10.9 Gout, unspecified; E78.5 Hyperlipidemia, unspecified; Z99.3 Dependence on wheelchair; Z86.73 Personal history of transient ischemic attack (TIA), and cerebral infarction without residual deficits; M19.90 Unspecified osteoarthritis, unspecified site; H26.9 Unspecified cataract; E07.9 Disorder of thyroid, unspecified; I25.10 Atherosclerotic heart disease of native coronary artery without angina pectoris; M81.0 Age-related osteoporosis without current pathological fracture; D63.1 Anemia in chronic kidney disease; Z79.4 Long term (current) use of insulin; Y95 Nosocomial condition; W05.0XXA Fall from non-moving wheelchair, initial encounter; Z96.619 Presence of unspecified artificial shoulder joint; Z79.02 Long term (current) use of antithrombotics/antiplatelets; Z79.891 Long term (current) use of opiate analgesic; Z79.899 Other long term (current) drug therapy; Z88.1 Allergy status to other antibiotic agents; Z88.5 Allergy status to narcotic agent; Z88.8 Allergy status to other drugs, medicaments and biological substances; Z82.5 Family history of asthma and other chronic lower respiratory diseases; Z83.3 Family history of diabetes mellitus
CPT/HCPCS: 36415; 36600; 71010; 72170; 73501; 73502; 74230; 76604; 78582; 80048; 80053; 81001; 82306; 82805; 83036; 83605; 85025; 85027; 85610; 85730; 86850; 86900; 86901; 86920; 87040; 87070; 87086; 87205; 93005; 93306; 93970; 94640; 94760; 96374; 96376; 99285

== ENCOUNTER 2016-06-28 11:31 | Inpatient (IN) | payer MEDICARE, OTHER ==
[2016-06-28] MEDS ORDERED: IPRATROPIUM-ALBUTEROL 3 ML NEB INHALATION STA (11:48)
--- NOTE | 2016-06-28 11:55 | ED ---
General Adult HPI - General Stated complaint: SOB Time Seen by Provider: 06/28/16 11:35 Source: RN notes reviewed - History of Present Illness Initial comments: This is an 86-year-old female who was recently released from the hospital as of yesterday afternoon at 4:00 she was sent to a [facility] and today she was having multiple episodes of significant difficulty breathing so they sent her back to the emergency department. Patient currently is doing better according to family but earlier she was in significant respiratory distress. Patient has not had any fevers noted. Patient was diagnosed with pneumonia while she was in the hospital she was initially admitted to the hospital for a hip fracture. She did have surgery on that hip. Patient is also on eliquis. Patient denies any palpitations or chest pain. Patient denies abdominal pain patient denies nausea vomiting or diarrhea. There's been no indication of any trauma. Patient denies headache patient denies numbness weakness. - Related Data Home Medications Medication Instructions Recorded Confirmed Allopurinol [Zyloprim] 100 mg PO DAILY@0800 01/18/14 06/28/16 Albuterol Sulfate [Proair Hfa] 2 puff INHALATION RT-Q6H PRN 06/15/16 06/28/16 Atorvastatin [Lipitor] 20 mg PO HS@209906/15/16 06/28/16 Cholecalciferol [Vitamin D3] 1,000 unit PO DAILY@169906/15/16 06/28/16 Diclofenac 0.1% Ophth Soln 1 drops BOTH EYES QID 06/15/16 06/28/16 [Voltaren 0.1% Ophth Soln] Epoetin Basim [Procrit] 20,000 unit SQ Q14D 06/15/16 06/28/16 Ferrous Sulfate [Iron (65 MG 325 mg PO DAILY@169906/15/16 06/28/16 Elemental)] Insulin Glargine,Hum.rec.anlog 12 unit SQ DAILY@79906/15/16 06/28/16 [Lantus Solostar] Loratadine [Claritin] 10 mg PO DAILY@0800 06/15/16 06/28/16 Magnesium Oxide [Mag-Ox] 800 mg PO DAILY@0 06/15/16 06/28/16 Melatonin 3 mg PO HS@209906/15/16 06/28/16 Sennosides [Senna] 8.6 mg PO BID@0800,209906/15/16 06/28/16 Triamcinolone 0.5% Cream [Kenalog 1 applic TOPICAL BID 06/15/16 06/28/16 0.5% Cream] amLODIPine [Norvasc] 5 mg PO DAILY@0800 06/15/16 06/28/16 guaiFENesin [Mucinex] 600 mg PO BID@0800,209906/15/16 06/28/16 hydrALAZINE HCL [Apresoline] 25 mg PO DAILY@0800 06/15/16 06/28/16 sitaGLIPtin PHOSPHATE [Januvia] 25 mg PO DAILY@0800 06/15/16 06/28/16 Apixaban [Eliquis] 2.5 mg PO BID@0800,209906/28/16 06/28/16 Bisacodyl [Dulcolax] 10 mg RECTAL DAILY PRN 06/28/16 06/28/16 Budesonide [Pulmicort] 0.5 mg INHALATION RT-BID@0800,1700 06/28/16 06/28/16 Furosemide [Lasix] 40 mg PO DAILY@0800 06/28/16 06/28/16 HYDROcodone/APAP 5-325MG [[place] 1 tab PO DAILY PRN 06/28/16 06/28/16 5-325] INSULIN LISPRO (humaLOG) [humaLOG See Protocol SQ ACHS 06/28/16 06/28/16 (formulary)] Ipratropium-Albuterol Nebulize 3 ml INHALATION RT-QID 06/28/16 06/28/16 [Duoneb 0.5 mg-3 mg/3 ml Soln] Levofloxacin [Levaquin] 250 mg PO DAILY@0800 06/28/16 06/28/16 Levothyroxine Sodium [Synthroid] 88 mcg PO DAILY@0600 06/28/16 06/28/16 Magnesium Hydroxide [Milk of 2,400 mg PO DAILY PRN 06/28/16 06/28/16 Magnesia] Multivitamins, Thera [Multivitamin] 1 tab PO DAILY@1700 06/28/16 06/28/16 Na Phos,M-B/Na Phos,Di-Ba [Fleet 133 ml RECTAL ONCE PRN 06/28/16 06/28/16 Adult] predniSONE 5 mg PO QID 06/28/16 06/28/16 Previous Rx's Medication Instructions Recorded Nystatin 100,000 Unit/ml Susp 500,000 unit PO QID cup 06/27/16 [Mycostatin Oral Susp] Allergies Allergy/AdvReac Type Severity Reaction Status Date / Time amoxicillin trihydrate Allergy Unknown Verified 06/28/16 12:04 [From Augmentin] cephalexin monohydrate Allergy Unknown Verified 06/28/16 12:04 [From Keflex] cyclobenzaprine HCl Allergy Unknown Verified 06/28/16 12:04 [From Flexeril] eszopiclone [From Lunesta] Allergy Unknown Verified 06/28/16 12:04 gabapentin [From Neurontin] Allergy Unknown Verified 06/28/16 12:04 levocetirizine Allergy Unknown Verified 06/28/16 12:04 dihydrochloride [From Xyzal] meperidine HCl [From Demerol] Allergy Unknown Verified 06/28/16 12:04 potassium clavulanate Allergy Unknown Verified 06/28/16 12:04 [From Augmentin] adhesive AdvReac Unknown Verified 06/28/16 12:04 hydromorphone HCl AdvReac Hallucinati Verified 06/28/16 12:04 [From Dilaudid] ons Review of Systems ROS Statement: Those systems with pertinent positive or pertinent negative responses have been documented in the HPI. ROS Other: All systems not noted in ROS Statement are negative. Past Medical History Past Medical History: CVA/TIA, Diabetes Mellitus, Eye Disorder, Hyperlipidemia, Hypertension, Musculoskeletal Disorder, Osteoarthritis (OA), Renal Disease, Thyroid Disorder Additional Past Medical History / Comment(s): chronic back pain HAS A BROKEN TITANIUM CESIA IN HER BACK, cardiac murmur,MURMUR,RETINAL ROBLEMS, ATHRITIS, history of aortic stenosis, severe History of Any Multi-Drug Resistant Organisms: None Reported Past Surgical History: Back Surgery, Section, Cholecystectomy, Joint Replacement, Orthopedic Surgery Additional Past Surgical History / Comment(s): PARTIALthyroidECTOMY D/T NODULES trach 1195, TITANIUM CESIA IN BACK,LT KNEE REPLACEMENT,LT PARTIAL SHOULDER REPLACEMENT, Past Anesthesia/Blood Transfusion Reactions: Postoperative Nausea & Vomiting ( PONV) Past Psychological History: No Psychological Hx Reported Smoking Status: Never smoker Past Alcohol Use History: None Reported Past Drug Use History: None Reported - Past Family History Father Family Medical History: Diabetes Mellitus (Father at age 75 from diabetes mellitus competition.) Mother Family Medical History: COPD (Mother at age of 68 from COPD/emphysema.) Additional Family Medical History / Comment(s): jeimy(non smoker) at age 65 Brother(s) Family Medical History: Diabetes Mellitus (Patient has one brother with diabetes minutes type II) Sister(s) Family Medical History: No Reported History (Patient has one sister who from old age.) Son(s) Family Medical History: No Reported History (Patient has 2 sons no major medical problems) Daughter(s) Family Medical History: Diabetes Mellitus (Patient has 2 daughters one with diabetes.) General Exam - General Exam Comments Initial Comments: GENERAL: Patient is well-developed and well-nourished. Patient is nontoxic and well- hydrated and is in no acute distress. ENT: Neck is soft and supple. No significant lymphadenopathy is noted. Oropharynx is clear. Moist mucous membranes. Neck has full range of motion without eliciting any pain. EYES: The sclera were anicteric and conjunctiva were pink and moist. Extraocular movements were intact and pupils were equal round and reactive to light. Eyelids were unremarkable. PULMONARY: Unlabored respirations. Good breath sounds bilaterally. No audible rales rhonchi or wheezing was noted. CARDIOVASCULAR: There is a regular rate and rhythm without any murmurs gallops or rubs. ABDOMEN: Soft and nontender with normal bowel sounds. No palpable organomegaly was noted. There is no palpable pulsatile mass. SKIN: Skin is clear with no lesions or rashes and otherwise unremarkable. NEUROLOGIC Patient is alert and oriented x3. Cranial nerves II through XII are grossly intact. Motor and sensory are also intact. Normal speech, volume and content. Symmetrical smile. MUSCULOSKELETAL: Normal extremities with adequate strength and full range of motion. No lower extremity swelling or edema. No calf tenderness. LYMPHATICS: No significant lymphadenopathy is noted PSYCHIATRIC: Normal psychiatric evaluation. Normal interpersonal interactions appears functionally intact in deals appropriately with others. No signs of depression. No signs of anxiety. Course Vital Signs 06/28/16 06/28/16 06/28/16 11:33 12:17 12:29 Temperature 99.2 F Pulse Rate 97 84 84 Respiratory 18 Rate Blood Pressure 129/60 O2 Sat by Pulse 100 Oximetry 06/28/16 13:44 Temperature 99.3 F Pulse Rate 93 Respiratory 18 Rate Blood Pressure 141/67 O2 Sat by Pulse 100 Oximetry Medical Decision Making - Medical Decision Making EKG shows sinus rhythm at a rate of 97 bpm WA interval is 148 QRS is 98 QT interval 372 QTC is 472. EKG shows ST segment depression in leads 1 and 2 as well as in the floor 5 and 6. An old EKG these ST segment changes are new. Chest x-ray shows no acute abnormality. After the patient received a breathing treatment I listened to her again and she had no wheezing. Because of the patient's ST segment depressions and elevated troponin I decided to admit the patient spoke with Dr. Guillaume he agreed with the admission I admitted the patient and consult cardiology and pulmonary. - Lab Data Result diagrams: 06/28/16 12:12 06/28/16 12:12 Lab Results 06/28/16 06/28/16 06/28/16 Range/Units 12:12 12:12 12:12 WBC 26.0 H* (3.8-10.6) k/uL RBC 2.62 L (3.80-5.40) m/uL Hgb 7.6 L (11.4-16.0) gm/dL Hct 24.9 L (34.0-46.0) % MCV 94.8 (80.0-100.0) fL MCH 29.1 (25.0-35.0) pg MCHC 30.7 L (31.0-37.0) g/dL RDW 19.1 H (11.5-15.5) % Plt Count 292 (150-450) k/uL Neutrophils % Not Reportable Neutrophils % (Manual) 90.0 % Band Neutrophils % 0.5 % Lymphocytes % Not Reportable Lymphocytes % (Manual) 3.5 % Monocytes % Not Reportable Monocytes % (Manual) 2.5 % Eosinophils % Not Reportable Basophils % Not Reportable Myelocytes % 3.5 % Neutrophils # Not Reportable Neutrophils # (Manual) 23.5 H (1.3-7.7) k/uL Lymphocytes # Not Reportable Lymphocytes # (Manual) 0.9 L (1.0-4.8) k/uL Monocytes # Not Reportable Monocytes # (Manual) 0.7 (0-1.0) k/uL Eosinophils # Not Reportable Basophils # Not Reportable Nucleated RBCs 0 (0-0) /100 WBC Manual Slide Review Performed Polychromasia Present Hypochromasia Marked Poikilocytosis (manual Present Anisocytosis Slight Macrocytosis Slight PT 11.6 (9.0-12.0) sec INR 1.2 (<1.1) APTT 26.0 (22.0-30.0) sec Sodium 134 L (137-145) mmol/L Potassium 3.8 (3.5-5.1) mmol/L Chloride 96 L (98-107) mmol/L Carbon Dioxide 29 (22-30) mmol/L Anion Gap 9 mmol/L BUN 70 H (7-17) mg/dL Creatinine 1.36 H (0.52-1.04) mg/dL Est GFR (MDRD) Af Amer 45 (>60 ml/min/1.73 sqM) Est GFR (MDRD) Non-Af 37 (>60 ml/min/1.73 sqM) Glucose 200 H (74-99) mg/dL Calcium 8.0 L (8.4-10.2) mg/dL Magnesium 2.4 H (1.6-2.3) mg/dL Total Bilirubin 0.8 (0.2-1.3) mg/dL AST 24 (14-36) U/L ALT 27 (9-52) U/L Alkaline Phosphatase 93 (38-126) U/L Total Creatine Kinase (30-135) U/L CK-MB (CK-2) (0.0-2.4) ng/mL CK-MB (CK-2) Rel Index Troponin I (0.000-0.034) ng/mL Total Protein 5.1 L (6.3-8.2) g/dL Albumin 2.9 L (3.5-5.0) g/dL 06/28/16 Range/Units 12:12 WBC (3.8-10.6) k/uL RBC (3.80-5.40) m/uL Hgb (11.4-16.0) gm/dL Hct (34.0-46.0) % MCV (80.0-100.0) fL MCH (25.0-35.0) pg MCHC (31.0-37.0) g/dL RDW (11.5-15.5) % Plt Count (150-450) k/uL Neutrophils % Neutrophils % (Manual) % Band Neutrophils % % Lymphocytes % Lymphocytes % (Manual) % Monocytes % Monocytes % (Manual) % Eosinophils % Basophils % Myelocytes % % Neutrophils # Neutrophils # (Manual) (1.3-7.7) k/uL Lymphocytes # Lymphocytes # (Manual) (1.0-4.8) k/uL Monocytes # Monocytes # (Manual) (0-1.0) k/uL Eosinophils # Basophils # Nucleated RBCs (0-0) /100 WBC Manual Slide Review Polychromasia Hypochromasia Poikilocytosis (manual Anisocytosis Macrocytosis PT (9.0-12.0) sec INR (<1.1) APTT (22.0-30.0) sec Sodium (137-145) mmol/L Potassium (3.5-5.1) mmol/L Chloride (98-107) mmol/L Carbon Dioxide (22-30) mmol/L Anion Gap mmol/L BUN (7-17) mg/dL Creatinine (0.52-1.04) mg/dL Est GFR (MDRD) Af Amer (>60 ml/min/1.73 sqM) Est GFR (MDRD) Non-Af (>60 ml/min/1.73 sqM) Glucose (74-99) mg/dL Calcium (8.4-10.2) mg/dL Magnesium (1.6-2.3) mg/dL Total Bilirubin (0.2-1.3) mg/dL AST (14-36) U/L ALT (9-52) U/L Alkaline Phosphatase (38-126) U/L Total Creatine Kinase 45 (30-135) U/L CK-MB (CK-2) 1.2 (0.0-2.4) ng/mL CK-MB (CK-2) Rel Index 2.7 Troponin I 0.219 H* (0.000-0.034) ng/mL Total Protein (6.3-8.2) g/dL Albumin (3.5-5.0) g/dL Critical Care Time Critical Care Time: Yes Total Critical Care Time: 35 Disposition Clinical Impression: Non-STEMI (non-ST elevated myocardial infarction), COPD (chronic obstructive pulmonary disease), Anemia, Leukocytosis Disposition: ADMITTED IP TO THIS HOSP Time of Disposition: 14:46
[2016-06-28 12:47] LABS: INR 1.2 (<1.1); Prothrombin Time 11.6 sec (9.0-12.0)
[2016-06-28 12:56] LABS: Magnesium 2.4 mg/dL (1.6-2.3); Potassium 3.8 mmol/L (3.5-5.1); Total Bilirubin 0.8 mg/dL (0.2-1.3); Total Protein 5.1 g/dL (6.3-8.2)
[2016-06-28 13:00] LABS: Anisocytosis Slight; CH 28.5; CHCM 30.3; HCT 24.9 % (34.0-46.0); HDW 3.02; HGB 7.6 gm/dL (11.4-16.0); Hypochromasia Marked; MCH 29.1 pg (25.0-35.0); MCHC 30.7 g/dL (31.0-37.0); MCV 94.8 fL (80.0-100.0); Macrocytosis Slight; Mean Platelet Volume 8.1; RBC 2.62 m/uL (3.80-5.40); RDW 19.1 % (11.5-15.5)
[2016-06-28 13:14] LABS: Creatine Kinase MB 1.2 ng/mL (0.0-2.4)
[2016-06-28 13:23] LABS: Troponin I 0.219 ng/mL (0.000-0.034)
[2016-06-28 13:28] LABS: Manual Review Performed
[2016-06-28 13:29] LABS: Add Differential Manual Differential
[2016-06-28 13:32] LABS: Band Neutrophils % 0.5 %; Myelocytes % 3.5 %; Nucleated Red Blood Cells 0 /100 WBC (0-0); Polychromasia Present; Total Cells Counted 200
--- NOTE | 2016-06-28 13:38 | XR ---
EXAMINATION TYPE: XR chest 2V DATE OF EXAM: 06/28/2016 1:14 PM COMPARISON: Prior chest x-ray 26 June 2016 HISTORY: Difficulty breathing TECHNIQUE: Frontal and lateral views of the chest are obtained. FINDINGS: There is no focal air space opacity, pleural effusion, or pneumothorax seen. The cardiac silhouette size is stable. Interstitium somewhat increased. Postop changes are noted to the left sh oulder, thoracic and lumbar spine, patient is rotated and there are overlying cardiac leads. There is a kyphosis. Thoracic vertebral body compression fractures are present of indeterminate age. The osse ous structures are intact. IMPRESSION: Similar findings. Cardiomegaly. Postop changes. Difficult to exclude a component of pulm onary venous hypertension and interstitial edema. There may be some improvement in aeration at the le ft lung base.
[2016-06-28] MEDS ORDERED: NITROGLYCERIN SL TABS 0.4 MG TAB SUBLINGUAL PRN (14:46)
[2016-06-28] MEDS ORDERED: MORPHINE SULFATE 4 MG/ML SYRINGE IVP STA (14:59)
[2016-06-28] MEDS ORDERED: ONDANSETRON 4 MG/2 ML VIAL IVP STA (14:59)
[2016-06-28] MEDS ORDERED: ALBUTEROL NEBULIZED 2.5 MG/3 ML INHALATION PRN (16:49)
[2016-06-28] MEDS ORDERED: BISACODYL 10 MG SUPP RECTAL PRN (16:49)
--- NOTE | 2016-06-28 16:49 | P.HPIM ---
History of Present Illness H&P Date: 06/28/16 Chief Complaint: Acute respiratory failure, COPD exacerbation, acute non-ST NE, vocal cord p 86-year-old female one of Dr. Silverio Chaney's patient with multiple medical problem was known to have history of hypertension hypertensive cardiovascular disease history of CVA/TIA history of diabetes history of hyperlipidemia and recurrent osteoarthritis who resides at assisted living facility in [place] was transferred to [facility] on 06/15/2016 because while she is using the walker she lost her balance and fall on the left side and fracture her hip ended up having intratrochanteric fracture of the hip was admitted to the hospital by Dr. Carmona and ended up going for ORIF of the left hip. Subsequently patient had multiple complication including significant shortness of breath, anemia, recurrent UTI and worsening kidney function. With worsening hypoxia and wheezes with cough and aspiration pneumonia patient ended up seen pulmonary Dr. Mahan and cardiology Dr. Ferrera. VQ scan done early showed a possibility of pulmonary embolism and patient was placed on anticoagulation and sent to [facility] on anticoagulation at the time. Patient developed to have significant hoarseness and vocal cord pyrolysis clinically diagnosed patient was supposed to have vocal cord scope by ENT as an outpatient. She left the hospital to go to [facility] yesterday was feeling much better continue to have hoarseness mild shortness of breath and quite bit leukocytosis as a leukemoid reaction from steroid use. Ex line patient a blood to have significant shortness of breath cough wheezes and worsening dyspnea with severe hypoxia could not breathe was having severe tachypnea ended up coming back to the emergency department at [facility] where was seen and evaluated was giving nebulizer treatment her symptoms had resolved partially. Blood work showed elevated troponin with looks like slightly elevated with change in EKG consistent with possible ST waves NE. Patient also had worsening anemia compared to last week. She'll be hospitalized with acute respiratory failure secondary to possible acute NE, COPD exacerbation, pneumonia , vocal cord paralysis with sputum blood. Review of Systems Constitutional: Reports chronic headaches, Reports chronic pain, Reports fatigue , Reports lethargy, Reports malaise, Reports poor appetite, Reports weakness, Reports weight loss, Denies as per HPI, Denies anorexia, Denies chills, Denies daytime sleepiness, Denies fever, Denies night sweats, Denies sweats, Denies weight gain Eyes: bilateral as per HPI Ears: bilateral: decreased hearing Ears, nose, mouth and throat: Reports dysphagia, Reports nasal congestion, Reports nasal discharge, Reports neck fullness/pressure, Reports odynophagia, Reports voice changes, Denies as per HPI, Denies ant. neck pain, Denies bleeding gums, Denies dental pain, Denies epistaxis, Denies headache, Denies hoarseness, Denies mouth pain, Denies neck lump, Denies nose pain, Denies post- nasal drip, Denies sinus pain, Denies sinus pressure, Denies swelling in mouth, Denies swelling in throat, Denies sore throat, Denies vertigo Cardiovascular: Reports decreased exercise tolerance, Reports dyspnea on exertion, Reports edema, Reports high blood pressure, Reports irregular heart beat, Reports leg edema, Reports lightheadedness, Reports orthopnea, Reports palpitations, Reports paroxysmal nocturnal dyspnea, Reports rapid heart beat, Reports shortness of breath, Reports syncope, Denies as per HPI, Denies chest pain, Denies claudication, Denies phlebitis Respiratory: Reports congestion, Reports cough, Reports dyspnea, Reports pain, Reports pain on inspiration, Reports respiratory infections, Reports sleep apnea , Reports wheezing, Denies as per HPI, Denies cough with sputum, Denies excessive sputum, Denies hemoptysis, Denies home oxygen, Denies pleurisy, Denies snoring Gastrointestinal: Reports abdominal pain, Reports bloating, Reports dyspepsia, Reports indigestion, Reports lactose intolerance, Reports loss of appetite, Reports nausea, Denies as per HPI, Denies belching, Denies BRBPR, Denies change in bowel habits, Denies coffee ground emesis, Denies constipation, Denies diarrhea, Denies early satiety, Denies excessive gas, Denies heartburn, Denies hematemesis, Denies hematochezia, Denies jaundice, Denies melena, Denies vomiting Genitourinary: Reports urge incontinence, Reports urgency, Reports urinary frequency, Denies as per HPI, Denies abnormal vaginal bleeding, Denies decreased libido, Denies difficulty conceiving, Denies difficulty voiding, Denies dysmenorrhea, Denies dyspareunia, Denies dysuria, Denies flank pain, Denies genital sores, Denies hematuria, Denies hot flashes, Denies incomplete emptying, Denies kidney stones, Denies menorrhagia, Denies mixed incontinence, Denies nocturia, Denies pelvic pain, Denies post void dribbling, Denies , Denies prolapse symptoms, Denies stress incontinence, Denies vaginal discharge , Denies vaginal dryness, Denies vaginal itching, Denies vaginal odor Musculoskeletal: Reports arm numbness/tingling, Reports fractures, Reports frequent falls, Reports low back pain, Reports morning stiffness, Reports muscle cramps, Reports myalgias, Reports neck pain, Reports neck stiffness, Reports prior amputations, Denies as per HPI, Denies atrophy, Denies gait dysfunction, Denies hot joints, Denies leg numbness/tingling, Denies limitation of motion, Denies loss of height, Denies muscle weakness, Denies redness of joints, Denies shooting arm pain, Denies shooting leg pain Musculoskeletal: left: hip pain, hip stiffness, hip swelling Integumentary: Reports pruritus, Reports rash, Denies as per HPI, Denies acne, Denies boils, Denies brittle nails, Denies change in hair/nails, Denies color changes, Denies darkening of skin, Denies depigmentation, Denies dryness, Denies foot/leg ulcers, Denies growths, Denies hirsutism, Denies lesions, Denies onychomycosis, Denies sores, Denies striae, Denies unusual bruising, Denies wounds Neurological: Reports ataxia, Reports balance difficulties, Reports numbness, Reports paralysis, Reports weakness, Denies as per HPI, Denies aphasia, Denies burning pain, Denies change in mentation, Denies change in smell/taste, Denies change in speech, Denies confusion, Denies convulsions, Denies double vision, Denies gait dysfunction, Denies head injury, Denies headaches, Denies hearing difficulties, Denies lack of coordination, Denies loss of vision, Denies memory loss, Denies migraines, Denies motor disturbance, Denies paresthesias, Denies seizures, Denies sensory deficit, Denies spasticity, Denies syncope, Denies tic , Denies tingling, Denies transient paralysis, Denies tremors, Denies vertigo, Denies visual changes Psychiatric: Reports anhedonia, Reports depression, Reports sadness/tearfulness , Denies as per HPI, Denies anxiety, Denies anxiety attacks, Denies change in appetite, Denies change in libido, Denies change in sleep habits, Denies confusion, Denies difficulty concentrating, Denies disorientation, Denies hallucinations, Denies hopelessness, Denies hypersomnia, Denies insomnia, Denies irritability, Denies memory loss, Denies mood swings, Denies paranoia, Denies sleep disturbances, Denies suicidal ideation Endocrine: Reports cold intolerance, Reports excessive thirst, Reports fatigue, Reports heat intolerance, Denies as per HPI, Denies deepening of the voice, Denies excessive sweating, Denies flushing, Denies high blood sugars, Denies increase in ring/shoe/hat size, Denies low blood sugars, Denies nocturia, Denies palpitations, Denies polydipsia, Denies polyphagia, Denies polyuria, Denies proptosis, Denies recent glucocorticoid use, Denies thyroid mass, Denies weight change Hematologic/Lymphatic: Reports easy bruising Allergic/Immunologic: Reports allergic rhinitis Past Medical History Past Medical History: CVA/TIA, Diabetes Mellitus, Eye Disorder, Hyperlipidemia, Hypertension, Musculoskeletal Disorder, Osteoarthritis (OA), Pneumonia, Renal Disease, Thyroid Disorder Additional Past Medical History / Comment(s): chronic back pain HAS A BROKEN TITANIUM CESIA IN HER BACK, cardiac murmur,MURMUR,RETINAL ROBLEMS, ATHRITIS, history of aortic stenosis, severe, 2-06-30 fall/lt hip fx History of Any Multi-Drug Resistant Organisms: None Reported Past Surgical History: Back Surgery, Section, Cholecystectomy, Joint Replacement, Orthopedic Surgery Additional Past Surgical History / Comment(s): PARTIALthyroidECTOMY D/T NODULES trach 1195, TITANIUM CESIA IN BACK,LT KNEE REPLACEMENT,LT PARTIAL SHOULDER REPLACEMENT,2 operative fixation lt hip fx w/IM HIP SCREW. Past Anesthesia/Blood Transfusion Reactions: Postoperative Nausea & Vomiting ( PONV) Past Psychological History: No Psychological Hx Reported Smoking Status: Never smoker Past Alcohol Use History: None Reported Past Drug Use History: None Reported - Past Family History Father Family Medical History: Diabetes Mellitus Mother Family Medical History: COPD Additional Family Medical History / Comment(s): jeimy(non smoker) at age 65 Brother(s) Family Medical History: Diabetes Mellitus Sister(s) Family Medical History: No Reported History Son(s) Family Medical History: No Reported History Daughter(s) Family Medical History: Diabetes Mellitus Medications and Allergies Home Medications Medication Instructions Recorded Confirmed Type Allopurinol [Zyloprim] 100 mg PO DAILY@0800 01/18/14 06/28/16 History Albuterol Sulfate [Proair Hfa] 2 puff INHALATION RT-Q6H PRN 06/15/16 06/28/16 History Atorvastatin [Lipitor] 20 mg PO HS@209906/15/16 06/28/16 History Cholecalciferol [Vitamin D3] 1,000 unit PO DAILY@169906/15/16 06/28/16 History Diclofenac 0.1% Ophth Soln 1 drops BOTH EYES QID 06/15/16 06/28/16 History [Voltaren 0.1% Ophth Soln] Epoetin Basim [Procrit] 20,000 unit SQ Q14D 06/15/16 06/28/16 History Ferrous Sulfate [Iron (65 MG 325 mg PO DAILY@169906/15/16 06/28/16 History Elemental)] Insulin Glargine,Hum.rec.anlog 12 unit SQ DAILY@79906/15/16 06/28/16 History [Lantus Solostar] Loratadine [Claritin] 10 mg PO DAILY@79906/15/16 06/28/16 History Magnesium Oxide [Mag-Ox] 800 mg PO DAILY@169906/15/16 06/28/16 History Melatonin 3 mg PO HS@209906/15/16 06/28/16 History Sennosides [Senna] 8.6 mg PO BID@08,209906/15/16 06/28/16 History Triamcinolone 0.5% Cream [Kenalog 1 applic TOPICAL BID 06/15/16 06/28/16 History 0.5% Cream] amLODIPine [Norvasc] 5 mg PO DAILY@79906/15/16 06/28/16 History guaiFENesin [Mucinex] 600 mg PO BID@0800,209906/15/16 06/28/16 History hydrALAZINE HCL [Apresoline] 25 mg PO DAILY@79906/15/16 06/28/16 History sitaGLIPtin PHOSPHATE [Januvia] 25 mg PO DAILY@00 06/15/16 06/28/16 History Apixaban [Eliquis] 2.5 mg PO BID@0800,2100 06/28/16 06/28/16 History Bisacodyl [Dulcolax] 10 mg RECTAL DAILY PRN 06/28/16 06/28/16 History Budesonide [Pulmicort] 0.5 mg INHALATION RT-BID@0800,1700 06/28/16 06/28/16 History Furosemide [Lasix] 40 mg PO DAILY@0800 06/28/16 06/28/16 History HYDROcodone/APAP 5-325MG [[place] 1 tab PO DAILY PRN 06/28/16 06/28/16 History 5-325] INSULIN LISPRO (humaLOG) [humaLOG See Protocol SQ ACHS 06/28/16 06/28/16 History (formulary)] Ipratropium-Albuterol Nebulize 3 ml INHALATION RT-QID 06/28/16 06/28/16 History [Duoneb 0.5 mg-3 mg/3 ml Soln] Levofloxacin [Levaquin] 250 mg PO DAILY@0800 06/28/16 06/28/16 History Levothyroxine Sodium [Synthroid] 88 mcg PO DAILY@0600 06/28/16 06/28/16 History Magnesium Hydroxide [Milk of 2,400 mg PO DAILY PRN 06/28/16 06/28/16 History Magnesia] Multivitamins, Thera [Multivitamin] 1 tab PO DAILY@1700 06/28/16 06/28/16 History Na Phos,M-B/Na Phos,Di-Ba [Fleet 133 ml RECTAL ONCE PRN 06/28/16 06/28/16 History Adult] predniSONE 5 mg PO QID 06/28/16 06/28/16 History Allergies Allergy/AdvReac Type Severity Reaction Status Date / Time amoxicillin trihydrate Allergy Unknown Verified 06/28/16 12:04 [From Augmentin] cephalexin monohydrate Allergy Unknown Verified 06/28/16 12:04 [From Keflex] cyclobenzaprine HCl Allergy Unknown Verified 06/28/16 12:04 [From Flexeril] eszopiclone [From Lunesta] Allergy Unknown Verified 06/28/16 12:04 gabapentin [From Neurontin] Allergy Unknown Verified 06/28/16 12:04 levocetirizine Allergy Unknown Verified 06/28/16 12:04 dihydrochloride [From Xyzal] meperidine HCl [From Demerol] Allergy Unknown Verified 06/28/16 12:04 potassium clavulanate Allergy Unknown Verified 06/28/16 12:04 [From Augmentin] adhesive AdvReac Unknown Verified 06/28/16 12:04 hydromorphone HCl AdvReac Hallucinati Verified 06/28/16 12:04 [From Dilaudid] ons Physical Exam Vitals: Vital Signs Temp Pulse Resp BP Pulse Ox 06/28/16 15:43 96.9 F L 97 16 141/65 99 06/28/16 15:06 98.5 F 96 18 148/72 99 - Constitutional General appearance: no average body habitus, cooperative, disheveled, mild distress, no morbidly obese, no no acute distress, no obese, no severe distress , no thin - EENT Eyes: no abnormal pupil, anicteric sclerae, no disc margins sharp, no edentulous , no EOMI, no PERRLA, no fundus normal, no photophobia, no dentition normal, no poor dentition, no ptosis, no scleral icterus, normal appearance ENT: no hard of hearing, no hearing grossly normal, no NA/AT, normal oropharynx , no other, pharyngeal erythema, no thrush, no tonsillar exudates, no tonsillar swelling Ears: bilateral: normal - Neck Neck: no lymphadenopathy, normal ROM, no other, no rigidity, stridor, no thyromegaly Carotids: bilateral: upstroke normal Thyroid: bilateral: normal size - Respiratory Respiratory: bilateral: diminished, dullness, rales, rhonchi, wheezing, prolonged expiration - Cardiovascular Rhythm: irregularly irregular Heart sounds: normal: S1, S2 Abnormal Heart Sounds: systolic murmur, S3 Gallop - Gastrointestinal General gastrointestinal: no absent bowel sounds, decreased bowel sounds, no distended, hepatomegaly, no hyperactive bowel sounds, no normal bowel sounds, no organomegaly, no rigid, scaphoid, soft, splenomegaly, no tenderness, no umbilical hernia, no ventral hernia - Integumentary Integumentary: no calor, no cellulitis, no cyanotic, no decreased turgor, no flushed, no jaundiced, normal, no normal turgor, pale, rash, no ulcer - Neurologic Neurologic: CNII-XII intact - Musculoskeletal Musculoskeletal: gait normal, generalized weakness, strength equal bilaterally - Psychiatric Psychiatric: A&O x's 3, appropriate affect Results CBC & Chem 7: 06/28/16 12:12 06/28/16 12:12 Assessment and Plan Plan: 1 acute respiratory failure: Secondary to sputum blood, acute NE, COPD exacerbation, aspiration pneumonia, vocal cord paralysis, anemia, and recent suspicion for pulmonary embolism. 2 acute myocardial infarction: Most likely non-ST NE, patient would not be on heparin drip currently continue nitro will consult cardiology continue to watch her CK with troponin. 3 COPD exacerbation: Patient will be placed back onset of Medrol 60 mg every 6 along with DuoNeb and Pulmicort will consult pulmonary again in patient's care. For mild fluid overload and congestive heart failure: Patient will be on light dose of diuretics with Lasix 40 mg daily. 5 vocal cord paralysis: Patient will be seen in ENT in consultation for further plan. 6 anemia acute on subacute, will continue to watch her hemoglobin and try to corrected to at least keep patient above 80 g. 7 leukemoid reaction and leukocytosis: Was supposedly reaction to steroid but to keep watching symptoms and consult hematology for any evidence-based for change in bone marrow consistent with leukemia aggravated by the surgery stress in the steroid. 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 9 possible pulmonary embolism with abnormal VQ scan last time if the kidney function improved slightly patient should be going for CTA for full diagnosis and to see the possibility need for long-term anticoagulation. 10 severe aortic stenosis: Patient has been on medical management so far might repeat echocardiogram again. 11 recent aspiration pneumonia: Patient still on antibiotic which should be continue gram-negative coverage. 12 diabetes mellitus type 2: Continue Lantus along with Tradjenta and Humalog. 13 hypothyroidism: Continue patient on levothyroxine 88 g daily. 14 hyperlipidemia: Patient is on atorvastatin 20 mg daily. 15 GI prophylaxis: Patient is on pantoprazole 40 mg daily. 16 debility and left hip fracture post-ORIF patient will require long-term physical therapy in a slow base rehab such as a intermediate when she is ready again. DVT prophylaxis: Patient has been on anticoagulation. CODE STATUS: Full code. Expectation from this admission: Patient be in the hospital for more than 2 nights.
[2016-06-28] MEDS ORDERED: NA PHOS,M-B/NA PHOS,DI-BA 133 ML ENEMA RECTAL PRN (16:50)
[2016-06-28 17:11] LABS: Glucose,Whole Blood 191 mg/dL (75-99)
[2016-06-28] MEDS: CHOLECALCIFEROL 1,000 UNIT TAB PO SCH (17:41)
[2016-06-28] MEDS: FERROUS SULFATE 325 MG TAB PO SCH (17:41)
[2016-06-28] MEDS: DICLOFENAC 0.1% OPHTH SOLN 2.5 ML BTL BOTH EYES SCH ×2 (17:43→20:30)
[2016-06-28] MEDS: methylPREDNISolone SOD SUCCI 40 MG/ML 1 ML VIAL IV SCH (18:41)
[2016-06-28] MEDS: NYSTATIN 100,000 UNIT/ML SUSP 500,000 UNIT/5 ML CUP PO SCH ×2 (18:41→20:43)
[2016-06-28] MEDS: INSULIN LISPRO (humaLOG) 300 UNIT/3 ML VIAL SQ SCH ×2 (18:41→22:29)
[2016-06-28] MEDS: MULTIVITAMINS, THERA 1 EACH TAB PO SCH (18:42)
[2016-06-28] MEDS: MAGNESIUM OXIDE 400 MG TAB PO SCH (18:42)
[2016-06-28] MEDS: BUDESONIDE 0.5 MG/2 ML NEBU INHALATION SCH (19:37)
[2016-06-28] MEDS: IPRATROPIUM-ALBUTEROL 3 ML NEB INHALATION SCH (19:37)
[2016-06-28 20:15] LABS: Creatine Kinase MB 0.9 ng/mL (0.0-2.4)
[2016-06-28 20:20] LABS: Troponin I 0.227 ng/mL (0.000-0.034)
[2016-06-28] MEDS: guaiFENesin 600 MG TABLET.ER PO SCH (20:30)
[2016-06-28] MEDS: MELATONIN 3 MG TABLET PO SCH (20:30)
[2016-06-28] MEDS: ATORVASTATIN 20 MG TAB PO SCH (20:30)
[2016-06-28] MEDS: APIXABAN 2.5 MG TABLET PO SCH (20:30)
[2016-06-28] MEDS: TRIAMCINOLONE ACET 0.5% CREAM 15 GM TUBE TOPICAL SCH ×2 (20:43→20:52)
[2016-06-28] MEDS: SENNOSIDES 8.6 MG TAB PO SCH (22:36)
[2016-06-28 22:37] LABS: Glucose,Whole Blood 159 mg/dL (75-99)
[2016-06-29 01:06] LABS: Creatine Kinase MB 0.9 ng/mL (0.0-2.4)
[2016-06-29 01:08] LABS: Troponin I 0.226 ng/mL (0.000-0.034)
[2016-06-29] MEDS: methylPREDNISolone SOD SUCCI 40 MG/ML 1 ML VIAL IV SCH ×4 (02:15→22:41)
[2016-06-29 02:48] LABS: Glucose,Whole Blood 130 mg/dL (75-99)
[2016-06-29 06:15] LABS: Glucose,Whole Blood 168 mg/dL (75-99)
[2016-06-29 06:33] LABS: Anisocytosis Slight; Basophils # (A) 0.1 k/uL (0-0.2); Basophils % (A) 0 %; CH 28.5; CHCM 29.9; Eosinophils % (A) 0 %; HCT 25.3 % (34.0-46.0); HDW 2.99; HGB 7.8 gm/dL (11.4-16.0); Hypochromasia Marked; Luc # (Auto) 0.11; Luc % (Auto) 1; Lymphocytes # (A) 0.9 k/uL (1.0-4.8); Lymphocytes % (A) 5 %; MCH 29.7 pg (25.0-35.0); MCV 95.9 fL (80.0-100.0); Macrocytosis Slight; Monocytes # (A) 0.6 k/uL (0-1.0); Monocytes % (A) 3 %; Neutrophils % (A) 91 %; RBC 2.63 m/uL (3.80-5.40); WBC 18.7 k/uL (3.8-10.6); WBC (Perox) 19.95
[2016-06-29 06:50] LABS: Calcium 8.3 mg/dL (8.4-10.2); Potassium 4.8 mmol/L (3.5-5.1); Total Bilirubin 0.8 mg/dL (0.2-1.3); Total Protein 5.3 g/dL (6.3-8.2)
[2016-06-29] MEDS: LEVOTHYROXINE 88 MCG TAB PO SCH (06:59)
[2016-06-29] MEDS: INSULIN LISPRO (humaLOG) 300 UNIT/3 ML VIAL SQ SCH ×4 (07:00→22:41)
[2016-06-29] MEDS: BUDESONIDE 0.5 MG/2 ML NEBU INHALATION SCH (07:19)
[2016-06-29] MEDS: IPRATROPIUM-ALBUTEROL 3 ML NEB INHALATION SCH ×4 (07:19→20:06)
[2016-06-29] MEDS ORDERED: FUROSEMIDE 40 MG TAB PO SCH (08:00)
[2016-06-29] MEDS: NYSTATIN 100,000 UNIT/ML SUSP 500,000 UNIT/5 ML CUP PO SCH ×4 (08:56→19:59)
[2016-06-29] MEDS: hydrALAZINE HCL 25 MG TAB PO SCH (08:56)
[2016-06-29] MEDS: LINAGLIPTIN 5 MG TABLET PO SCH (08:56)
[2016-06-29] MEDS: ALLOPURINOL 100 MG TAB PO SCH (08:57)
[2016-06-29] MEDS: LORATADINE 10 MG TAB PO SCH (08:57)
[2016-06-29] MEDS: LEVOFLOXACIN 250 MG TAB PO SCH (08:57)
[2016-06-29] MEDS: amLODIPine 5 MG TAB PO SCH (08:58)
[2016-06-29] MEDS: APIXABAN 2.5 MG TABLET PO SCH ×2 (08:58→19:59)
[2016-06-29] MEDS: DICLOFENAC 0.1% OPHTH SOLN 2.5 ML BTL BOTH EYES SCH ×4 (08:58→19:59)
[2016-06-29] MEDS: guaiFENesin 600 MG TABLET.ER PO SCH ×2 (08:58→19:59)
[2016-06-29] MEDS: TRIAMCINOLONE ACET 0.5% CREAM 15 GM TUBE TOPICAL SCH ×2 (08:58→22:37)
[2016-06-29] MEDS: SENNOSIDES 8.6 MG TAB PO SCH ×2 (08:59→19:59)
[2016-06-29] MEDS ORDERED: ASPIRIN 325 MG TAB PO SCH (09:00)
[2016-06-29] MEDS: INSULIN GLARGINE 100 UNIT/ML 10 ML VIAL SQ SCH (09:51)
--- NOTE | 2016-06-29 10:45 | CONS ---
DATE OF CONSULTATION: CHIEF COMPLAINT: Shortness of breath and non-ST segment elevation myocardial infarction. HISTORY OF PRESENT ILLNESS: Sara is an 86-year-old lady who was recently in the hospital with fractured hip and underwent surgery. Prior to surgery, Dr. Garcia had evaluated her for preop cardiac evaluation and during that evaluation, she was found to have aortic stenosis. The patient underwent surgery and tolerated the surgery and following the surgery was discharged home and 2 days ago, then she developed sudden onset shortness of breath and was sent back to the hospital. Echocardiogram on her reveals severe aortic stenosis with normal LV function at last admission. She has had 3 sets of cardiac enzymes that are elevated at 0.2 and she also has renal insufficiency with BUN 79 and creatinine of 1.5. Her baseline creatinine was around 1.05 in the past. At the time of my evaluation this morning, she is not short of breath. Denies chest pain. EKG shows changes of ischemia. She also has history of atrial fibrillation. Past medical history is significant for aortic stenosis, hypertension, dyslipidemia, insulin-requiring diabetes, hypothyroidism. Medications include: 1. Ventolin. 2. Duoneb. 3. Norvasc. 4. Eliquis. 5. Aspirin. 6. Lipitor. 7. Pulmicort. 8. Iron. 9. Patient is on Lasix. 10. Apresoline. 11. Insulin. 12. Synthroid. 13. The patient is on Solu-Medrol. PATIENT HAS MULTIPLE DRUG ALLERGIES. I HAVE REVIEWED THEM. SOCIAL HISTORY: Negative for smoking. REVIEW OF SYSTEMS: HEENT: The patient is not able to speak, but can understand well. RESPIRATORY: As described above. CARDIAC: As described above. GI: Negative. GENITOURINARY: Negative. SKIN: Negative. MUSCULOSKELETAL: As described above. PSYCHOSOCIAL: Negative. CONSTITUTIONAL: Negative. DERM: Negative. On exam, she is comfortable at rest. Vital signs are stable. Chest exam reveals good air entry bilaterally. I do not hear any crackles or rhonchi. Heart exam reveals first and second heart sounds. A grade 4/6 ejection systolic murmur in the aortic area. ABDOMEN: Soft. Exam of the extremities did not reveal any edema. Peripheral pulses are felt. At last admission she had pulmonary embolism with an intermediate probability V/Q scan. EKG shows changes of myocardial ischemia. BUN is elevated as is mostly suggestive of intravascular volume depletion. ASSESSMENT: 1. Non-ST segment elevation myocardial infarction. 2. Severe aortic stenosis. 3. Chronic renal failure. 4. History of pulmonary embolism. PLAN: I am going to stop the IV heparin at this time. Continue the Eliquis she is on. I spoke to patient and family about her treatment options including invasive angiography, and addressing the underlying aortic stenosis. I will talk to Dr. Garcia who has seen her at last visit and will decide on further course of action. She is at high risk for contrast-induced nephropathy given the renal insufficiency.
[2016-06-29 11:48] LABS: Glucose,Whole Blood 209 mg/dL (75-99)
--- NOTE | 2016-06-29 12:00 | P.PN ---
Subjective Progress note dated 06/29/2016 This is an 86-year-old patient that was recently discharged from the hospital. I think she went home on June 27. She asked he was transferred from the hospital to [facility]. She has a history of hypertension hypothyroidism chronic kidney disease type 2 diabetes and a left hip fracture. She had a repair of the left hip fracture by one of the surgeons at [facility]. Surgical repair took place on . She developed some respiratory difficulty and was noted to have a basilar pneumonia. That has improved. She was discharged to [facility] I believe on the . She was readmitted either yesterday or last night. She apparently developed some chest discomfort and some shortness of breath there. Her troponin was mildly elevated. Her chest x- ray looks good. May be some mild heart failure. Nothing much. The infiltrate had actually cleared. He is not doing poorly today but this certainly feels or seems to be a little short of breath. Doesn't appear to have any cough or significant phlegm. No fever no chills. No nausea vomiting or diarrhea. Objective - Vital Signs Vital signs: Vital Signs Temp 97.1 F L 06/29/16 08:00 Pulse 84 06/29/16 11:34 Resp 18 06/29/16 08:00 BP 114/49 06/29/16 08:00 Pulse Ox 99 06/29/16 08:00 Intake & Output 06/28/16 06/29/16 06/29/16 18:59 06:59 18:59 Intake Total 236 Output Total 1 0 Balance 236 -1 0 Weight 75.5 kg Intake: Oral 236 Output: Urine 0 Urine/Stool Mix 1 - Exam No acute distress, mildly tachypneic and dyspneic. Oriented 3. HEENT examination is grossly unremarkable. Neck supple. Full range of motion. No adenopathy. Cardio vascular examination reveals regular rhythm rate. A soft systolic murmurs heard. Lungs reveal clear breath sounds. No wheezes or rhonchi. No crackles. No adventitious lung sounds. Her lung sounds are better than they were the last time she was here. Abdomen soft bowel sounds are heard. Extremities are intact. - Labs CBC & Chem 7: 06/29/16 05:57 06/29/16 05:57 Labs: Abnormal Lab Results - Last 24 Hours (Table) 06/28/16 06/28/16 06/28/16 Range/Units 17:08 19:25 22:25 WBC (3.8-10.6) k/uL RBC (3.80-5.40) m/uL Hgb (11.4-16.0) gm/dL Hct (34.0-46.0) % RDW (11.5-15.5) % Neutrophils # (1.3-7.7) k/uL Lymphocytes # (1.0-4.8) k/uL BUN (7-17) mg/dL Creatinine (0.52-1.04) mg/dL Glucose (74-99) mg/dL POC Glucose (mg/dL) 191 H 159 H (75-99) mg/dL Calcium (8.4-10.2) mg/dL Troponin I 0.227 H* (0.000-0.034) ng/mL Total Protein (6.3-8.2) g/dL Albumin (3.5-5.0) g/dL 06/29/16 06/29/16 06/29/16 Range/Units 00:12 02:46 05:57 WBC (3.8-10.6) k/uL RBC (3.80-5.40) m/uL Hgb (11.4-16.0) gm/dL Hct (34.0-46.0) % RDW (11.5-15.5) % Neutrophils # (1.3-7.7) k/uL Lymphocytes # (1.0-4.8) k/uL BUN 79 H (7-17) mg/dL Creatinine 1.55 H (0.52-1.04) mg/dL Glucose 155 H (74-99) mg/dL POC Glucose (mg/dL) 130 H (75-99) mg/dL Calcium 8.3 L (8.4-10.2) mg/dL Troponin I 0.226 H* (0.000-0.034) ng/mL Total Protein 5.3 L (6.3-8.2) g/dL Albumin 3.1 L (3.5-5.0) g/dL 06/29/16 06/29/16 06/29/16 Range/Units 05:57 06:13 11:44 WBC 18.7 H (3.8-10.6) k/uL RBC 2.63 L (3.80-5.40) m/uL Hgb 7.8 L (11.4-16.0) gm/dL Hct 25.3 L (34.0-46.0) % RDW 19.0 H (11.5-15.5) % Neutrophils # 17.0 H (1.3-7.7) k/uL Lymphocytes # 0.9 L (1.0-4.8) k/uL BUN (7-17) mg/dL Creatinine (0.52-1.04) mg/dL Glucose (74-99) mg/dL POC Glucose (mg/dL) 168 H 209 H (75-99) mg/dL Calcium (8.4-10.2) mg/dL Troponin I (0.000-0.034) ng/mL Total Protein (6.3-8.2) g/dL Albumin (3.5-5.0) g/dL Assessment and Plan (1) COPD (chronic obstructive pulmonary disease) Status: Acute (2) Non-STEMI (non-ST elevated myocardial infarction) Status: Acute (3) Chronic anemia Status: Acute (4) Chronic kidney failure Status: Acute (5) Chronic renal failure Status: Acute (6) Dehydration Status: Acute (7) Fracture of hip Status: Acute (8) HTN (hypertension) Status: Acute (9) Hip fracture, left Status: Acute (10) Leukocytosis Status: Acute (11) Severe aortic stenosis Status: Acute (12) TIA (transient ischemic attack) Status: Acute Plan: Plan Look back at her discharge medications and make sure she's back on the antibiotic she was discharged with. Her pulmonary status is stable. She's currently being evaluated by cardiology and other physicians. I don't believe he has an active infiltrate at this time. Her troponins were modestly elevated and she had a chest x-ray which suggested mild mild to moderate pulmonary venous hypertension. The issue may be more cardiac than pulmonary on this admission. Time with Patient: Less than 30
--- NOTE | 2016-06-29 14:49 | P.PN ---
Subjective 86-year-old female one of Dr. Silverio Chaney's patient with multiple medical problem was known to have history of hypertension hypertensive cardiovascular disease history of CVA/TIA history of diabetes history of hyperlipidemia and recurrent osteoarthritis who resides at assisted living facility in [place] was transferred to [facility] on 06/15/2016 because while she is using the walker she lost her balance and fall on the left side and fracture her hip ended up having intratrochanteric fracture of the hip was admitted to the hospital by Dr. Carmona and ended up going for ORIF of the left hip. Subsequently patient had multiple complication including significant shortness of breath, anemia, recurrent UTI and worsening kidney function. With worsening hypoxia and wheezes with cough and aspiration pneumonia patient ended up seen pulmonary Dr. Mahan and cardiology Dr. Ferrera. VQ scan done early showed a possibility of pulmonary embolism and patient was placed on anticoagulation and sent to [facility] on anticoagulation at the time. Patient developed to have significant hoarseness and vocal cord pyrolysis clinically diagnosed patient was supposed to have vocal cord scope by ENT as an outpatient. She left the hospital to go to [facility] yesterday was feeling much better continue to have hoarseness mild shortness of breath and quite bit leukocytosis as a leukemoid reaction from steroid use. Ex line patient a blood to have significant shortness of breath cough wheezes and worsening dyspnea with severe hypoxia could not breathe was having severe tachypnea ended up coming back to the emergency department at [facility] where was seen and evaluated was giving nebulizer treatment her symptoms had resolved partially. Blood work showed elevated troponin with looks like slightly elevated with change in EKG consistent with possible ST waves TX. Patient also had worsening anemia compared to last week. She'll be hospitalized with acute respiratory failure secondary to possible acute TX, COPD exacerbation, pneumonia , vocal cord paralysis with sputum blood. 06/29: Repeat labs show an improved white count 18.7, hemoglobin 7.8. BUN is 79 creatinine 1.55. Troponins have been 0.219, 0.227, 0.226. Patient has been seen by wind energy mechanic with plan to DC IV heparin and continue eliquis. Patient has also been seen and evaluated by Dr. Mahan. Patient has also been seen by Dr. Adams and consult with depression and her is pending. Social work is on consult as patient does not want to return to [facility]. She does wish to return to her assisted living environment. Objective - Vital Signs Vital signs: Vital Signs Temp 97.1 F L 06/29/16 08:00 Pulse 97 06/29/16 08:00 Resp 18 06/29/16 08:00 BP 114/49 06/29/16 08:00 Pulse Ox 99 06/29/16 08:00 Intake & Output 06/28/16 06/29/16 06/29/16 18:59 06:59 18:59 Intake Total 236 Output Total 1 0 Balance 236 -1 0 Weight 75.5 kg Intake: Oral 236 Output: Urine 0 Urine/Stool Mix 1 - Exam General appearance: no average body habitus, cooperative, disheveled, mild distress, no morbidly obese, no no acute distress, no obese, no severe distress , no thin - EENT Eyes: no abnormal pupil, anicteric sclerae, no disc margins sharp, no edentulous , no EOMI, no PERRLA, no fundus normal, no photophobia, no dentition normal, no poor dentition, no ptosis, no scleral icterus, normal appearance ENT: no hard of hearing, no hearing grossly normal, no NA/AT, normal oropharynx , no other, pharyngeal erythema, no thrush, no tonsillar exudates, no tonsillar swelling Ears: bilateral: normal - Neck Neck: no lymphadenopathy, normal ROM, no other, no rigidity, stridor, no thyromegaly Carotids: bilateral: upstroke normal Thyroid: bilateral: normal size - Respiratory Respiratory: bilateral: diminished, dullness, rales, rhonchi, wheezing, prolonged expiration - Cardiovascular Rhythm: irregularly irregular Heart sounds: normal: S1, S2 Abnormal Heart Sounds: systolic murmur, S3 Gallop - Gastrointestinal General gastrointestinal: no absent bowel sounds, decreased bowel sounds, no distended, hepatomegaly, no hyperactive bowel sounds, no normal bowel sounds, no organomegaly, no rigid, scaphoid, soft, splenomegaly, no tenderness, no umbilical hernia, no ventral hernia - Integumentary Integumentary: no calor, no cellulitis, no cyanotic, no decreased turgor, no flushed, no jaundiced, normal, no normal turgor, pale, rash, no ulcer - Neurologic Neurologic: CNII-XII intact - Musculoskeletal Musculoskeletal: gait normal, generalized weakness, strength equal bilaterally - Psychiatric Psychiatric: A&O x's 3, appropriate affect - Labs CBC & Chem 7: 06/29/16 05:57 06/29/16 05:57 Labs: Abnormal Lab Results - Last 24 Hours (Table) 06/28/16 06/28/16 06/28/16 Range/Units 17:08 19:25 22:25 WBC (3.8-10.6) k/uL RBC (3.80-5.40) m/uL Hgb (11.4-16.0) gm/dL Hct (34.0-46.0) % RDW (11.5-15.5) % Neutrophils # (1.3-7.7) k/uL Lymphocytes # (1.0-4.8) k/uL BUN (7-17) mg/dL Creatinine (0.52-1.04) mg/dL Glucose (74-99) mg/dL POC Glucose (mg/dL) 191 H 159 H (75-99) mg/dL Calcium (8.4-10.2) mg/dL Troponin I 0.227 H* (0.000-0.034) ng/mL Total Protein (6.3-8.2) g/dL Albumin (3.5-5.0) g/dL 06/29/16 06/29/16 06/29/16 Range/Units 00:12 02:46 05:57 WBC (3.8-10.6) k/uL RBC (3.80-5.40) m/uL Hgb (11.4-16.0) gm/dL Hct (34.0-46.0) % RDW (11.5-15.5) % Neutrophils # (1.3-7.7) k/uL Lymphocytes # (1.0-4.8) k/uL BUN 79 H (7-17) mg/dL Creatinine 1.55 H (0.52-1.04) mg/dL Glucose 155 H (74-99) mg/dL POC Glucose (mg/dL) 130 H (75-99) mg/dL Calcium 8.3 L (8.4-10.2) mg/dL Troponin I 0.226 H* (0.000-0.034) ng/mL Total Protein 5.3 L (6.3-8.2) g/dL Albumin 3.1 L (3.5-5.0) g/dL 06/29/16 06/29/16 Range/Units 05:57 06:13 WBC 18.7 H (3.8-10.6) k/uL RBC 2.63 L (3.80-5.40) m/uL Hgb 7.8 L (11.4-16.0) gm/dL Hct 25.3 L (34.0-46.0) % RDW 19.0 H (11.5-15.5) % Neutrophils # 17.0 H (1.3-7.7) k/uL Lymphocytes # 0.9 L (1.0-4.8) k/uL BUN (7-17) mg/dL Creatinine (0.52-1.04) mg/dL Glucose (74-99) mg/dL POC Glucose (mg/dL) 168 H (75-99) mg/dL Calcium (8.4-10.2) mg/dL Troponin I (0.000-0.034) ng/mL Total Protein (6.3-8.2) g/dL Albumin (3.5-5.0) g/dL Assessment and Plan Plan: 1 acute respiratory distress: Secondary to sputum blood, acute TX, COPD exacerbation, aspiration pneumonia, vocal cord paralysis, anemia, and recent suspicion for pulmonary embolism. 2 acute myocardial infarction: Most likely non-ST TX, patient would not be on heparin drip discontinued, consult cardiology. 3 COPD exacerbation: Patient will be placed back onset of Solu-Medrol 40 mg every 8 hours, DuoNeb and Pulmicort will consult pulmonary again in patient's care. 4. mild fluid overload and congestive heart failure: Patient will be on light dose of diuretics with Lasix 40 mg daily. 5 vocal cord paralysis: Patient will be seen in ENT in consultation for further plan. 6 anemia acute on subacute, will continue to watch her hemoglobin and try to corrected to at least keep patient above 8g. 7 leukemoid reaction and leukocytosis: Was supposedly reaction to steroid but to keep watching symptoms and consult hematology for any evidence-based for change in bone marrow consistent with leukemia aggravated by the surgery stress in the steroid. 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 9 possible pulmonary embolism with abnormal VQ scan last time if the kidney function improved slightly patient should be going for CTA for full diagnosis and to see the possibility need for long-term anticoagulation. 10 severe aortic stenosis: Patient has been on medical management so far might repeat echocardiogram again. 11 recent aspiration pneumonia: Patient still on antibiotic which should be continue gram-negative coverage. 12 diabetes mellitus type 2: Continue Lantus along with Tradjenta and Humalog. 13 hypothyroidism: Continue patient on levothyroxine 88 g daily. 14 hyperlipidemia: Patient is on atorvastatin 20 mg daily. 15 GI prophylaxis: Patient is on pantoprazole 40 mg daily. 16 debility and left hip fracture post-ORIF patient will require long-term physical therapy in a slow base rehab such as a alf when she is ready again. DVT prophylaxis: Patient has been on anticoagulation. CODE STATUS: Full code. Discharge plan: To be determined Impression and plan of care have been directed as dictated by the signing physician. Daiana Panda nurse practitioner acting as scribe for signing physician. Time with Patient: Greater than 30
--- NOTE | 2016-06-29 15:41 | P.OP ---
Date of Procedure: 06/29/16 Preoperative Diagnosis: Aphonic Postoperative Diagnosis: same Procedure(s) Performed: Flexible nasopharyngolaryngoscopy Anesthesia: none Surgeon: Ronan Fragoso Estimated Blood Loss (ml): 0 Pathology: none sent Condition: stable Disposition: PACU Indications for Procedure: Pt has been aphonic for 2 weeks from today. Aspiration has been a problem in addition to her loss of voice Operative Findings: Right vocal cord paresis Acute laryngitis with exudate, severe Description of Procedure: This patient was placed in a sitting position. An EF type GP nasopharyngoscope was inserted into the patient's left nose. We cannulated the nose then proceeded into the nasopharynx which was unremarkable. The oropharynx shows no signs of any pathology. The hypopharynx shows significant inflammation. The patient has an exudative laryngitis severe inflammation noted. The right vocal cord is a week. The right vocal cord is still functioning but paresis is noted. The post arytenoid region is extremely inflamed. I'm unable to installation technician the height of the arytenoids because of the severe inflammation and obvious infection. Right vocal cord weakness is noted along with severe laryngitis which is exudative.
--- NOTE | 2016-06-29 15:47 | P.CONS ---
History of Present Illness - Reason for Consult Consult date: 06/29/16 leukocytosis Requesting physician: Richie Doty - Chief Complaint ONI - History of Present Illness Pt admitted from [facility] for difficulty breathing, she was recently discharged after hip fracture with ORIF, pneumonia diagnosed while inpatient. We have been asked to see pt re: leukocytosis. Pt denies any history or knowledge of elevated WBC count, she has anemia due to CKD and she is followed by Nephrology and receives monthly procrit. She denies fevers, sweats, masses, new onset pain , bleeding, easy bruising, she is not ambulatory. Review of Systems All systems: negative Constitutional: Reports as per HPI Past Medical History Past Medical History: CVA/TIA, Diabetes Mellitus, Eye Disorder, Hyperlipidemia, Hypertension, Musculoskeletal Disorder, Osteoarthritis (OA), Pneumonia, Renal Disease, Thyroid Disorder Additional Past Medical History / Comment(s): chronic back pain HAS A BROKEN TITANIUM CESIA IN HER BACK, cardiac murmur,MURMUR,RETINAL ROBLEMS, ATHRITIS, history of aortic stenosis, severe, 2-06-30 fall/lt hip fx History of Any Multi-Drug Resistant Organisms: None Reported Past Surgical History: Back Surgery, Section, Cholecystectomy, Joint Replacement, Orthopedic Surgery Additional Past Surgical History / Comment(s): PARTIALthyroidECTOMY D/T NODULES trach 1195, TITANIUM CESIA IN BACK,LT KNEE REPLACEMENT,LT PARTIAL SHOULDER REPLACEMENT,2 operative fixation lt hip fx w/IM HIP SCREW. Past Anesthesia/Blood Transfusion Reactions: Postoperative Nausea & Vomiting ( PONV) Past Psychological History: No Psychological Hx Reported Smoking Status: Never smoker Past Alcohol Use History: None Reported Past Drug Use History: None Reported - Past Family History Father Family Medical History: Diabetes Mellitus Mother Family Medical History: COPD Additional Family Medical History / Comment(s): jeimy(non smoker) at age 65 Brother(s) Family Medical History: Diabetes Mellitus Sister(s) Family Medical History: No Reported History Son(s) Family Medical History: No Reported History Daughter(s) Family Medical History: Diabetes Mellitus Medications and Allergies Home Medications Medication Instructions Recorded Confirmed Type Allopurinol [Zyloprim] 100 mg PO DAILY@0800 01/18/14 06/28/16 History Albuterol Sulfate [Proair Hfa] 2 puff INHALATION RT-Q6H PRN 06/15/16 06/28/16 History Atorvastatin [Lipitor] 20 mg PO HS@209906/15/16 06/28/16 History Cholecalciferol [Vitamin D3] 1,000 unit PO DAILY@169906/15/16 06/28/16 History Diclofenac 0.1% Ophth Soln 1 drops BOTH EYES QID 06/15/16 06/28/16 History [Voltaren 0.1% Ophth Soln] Epoetin Basim [Procrit] 20,000 unit SQ Q14D 06/15/16 06/28/16 History Ferrous Sulfate [Iron (65 MG 325 mg PO DAILY@169906/15/16 06/28/16 History Elemental)] Insulin Glargine,Hum.rec.anlog 12 unit SQ DAILY@79906/15/16 06/28/16 History [Lantus Solostar] Loratadine [Claritin] 10 mg PO DAILY@79906/15/16 06/28/16 History Magnesium Oxide [Mag-Ox] 800 mg PO DAILY@169906/15/16 06/28/16 History Melatonin 3 mg PO HS@209906/15/16 06/28/16 History Sennosides [Senna] 8.6 mg PO BID@08,209906/15/16 06/28/16 History Triamcinolone 0.5% Cream [Kenalog 1 applic TOPICAL BID 06/15/16 06/28/16 History 0.5% Cream] amLODIPine [Norvasc] 5 mg PO DAILY@79906/15/16 06/28/16 History guaiFENesin [Mucinex] 600 mg PO BID@0800,209906/15/16 06/28/16 History hydrALAZINE HCL [Apresoline] 25 mg PO DAILY@79906/15/16 06/28/16 History sitaGLIPtin PHOSPHATE [Januvia] 25 mg PO DAILY@79906/15/16 06/28/16 History Apixaban [Eliquis] 2.5 mg PO BID@0800,209906/28/16 06/28/16 History Bisacodyl [Dulcolax] 10 mg RECTAL DAILY PRN 06/28/16 06/28/16 History Budesonide [Pulmicort] 0.5 mg INHALATION RT-BID@0800,1700 06/28/16 06/28/16 History Furosemide [Lasix] 40 mg PO DAILY@0800 06/28/16 06/28/16 History HYDROcodone/APAP 5-325MG [[place] 1 tab PO DAILY PRN 06/28/16 06/28/16 History 5-325] INSULIN LISPRO (humaLOG) [humaLOG See Protocol SQ ACHS 06/28/16 06/28/16 History (formulary)] Ipratropium-Albuterol Nebulize 3 ml INHALATION RT-QID 06/28/16 06/28/16 History [Duoneb 0.5 mg-3 mg/3 ml Soln] Levofloxacin [Levaquin] 250 mg PO DAILY@0800 06/28/16 06/28/16 History Levothyroxine Sodium [Synthroid] 88 mcg PO DAILY@0600 06/28/16 06/28/16 History Magnesium Hydroxide [Milk of 2,400 mg PO DAILY PRN 06/28/16 06/28/16 History Magnesia] Multivitamins, Thera [Multivitamin] 1 tab PO DAILY@1700 06/28/16 06/28/16 History Na Phos,M-B/Na Phos,Di-Ba [Fleet 133 ml RECTAL ONCE PRN 06/28/16 06/28/16 History Adult] predniSONE 5 mg PO QID 06/28/16 06/28/16 History Allergies Allergy/AdvReac Type Severity Reaction Status Date / Time amoxicillin trihydrate Allergy Unknown Verified 06/28/16 12:04 [From Augmentin] cephalexin monohydrate Allergy Unknown Verified 06/28/16 12:04 [From Keflex] cyclobenzaprine HCl Allergy Unknown Verified 06/28/16 12:04 [From Flexeril] eszopiclone [From Lunesta] Allergy Unknown Verified 06/28/16 12:04 gabapentin [From Neurontin] Allergy Unknown Verified 06/28/16 12:04 levocetirizine Allergy Unknown Verified 06/28/16 12:04 dihydrochloride [From Xyzal] meperidine HCl [From Demerol] Allergy Unknown Verified 06/28/16 12:04 potassium clavulanate Allergy Unknown Verified 06/28/16 12:04 [From Augmentin] adhesive AdvReac Unknown Verified 06/28/16 12:04 hydromorphone HCl AdvReac Hallucinati Verified 06/28/16 12:04 [From Dilaudid] ons Physical Exam Vitals: Vital Signs Temp Pulse Pulse Resp BP BP BP 06/29/16 12:00 85 18 143/66 06/29/16 11:34 84 06/29/16 11:21 88 06/29/16 08:00 97.1 F L 97 18 114/49 06/29/16 07:33 80 06/29/16 07:20 80 06/29/16 04:30 85 06/29/16 04:23 84 06/29/16 04:00 97.1 F L 82 18 138/61 06/29/16 00:00 84 18 130/60 06/28/16 20:00 99.1 F 90 18 133/58 06/28/16 19:57 83 06/28/16 19:41 83 06/28/16 17:21 97 F L 96 16 111/53 06/28/16 15:43 96.9 F L 97 16 141/65 Pulse Ox 06/29/16 12:00 100 06/29/16 11:34 06/29/16 11:21 06/29/16 08:00 99 06/29/16 07:33 06/29/16 07:20 06/29/16 04:30 06/29/16 04:23 06/29/16 04:00 99 06/29/16 00:00 99 06/28/16 20:00 97 06/28/16 19:57 06/28/16 19:41 06/28/16 17:21 97 06/28/16 15:43 99 Intake and Output 06/29/16 06/29/16 06/29/16 06:59 14:59 22:59 Output Total 1 0 Balance -1 0 Output: Urine 0 Urine/Stool Mix 1 Other: Weight 75.5 kg - Constitutional General appearance: average body habitus, cooperative, no acute distress - EENT Eyes: anicteric sclerae, normal appearance - Neck Neck: no lymphadenopathy - Respiratory Respiratory: bilateral: CTA - Cardiovascular Heart sounds: normal: S1, S2 leg Peripheral Edema: bilateral: Trace - Gastrointestinal General gastrointestinal: no absent bowel sounds, no decreased bowel sounds, no distended, no hepatomegaly, no hyperactive bowel sounds, normal bowel sounds, no organomegaly, no rigid, no scaphoid, soft, no splenomegaly, no tenderness, no umbilical hernia, no ventral hernia - Integumentary Integumentary: pale - Neurologic Neurologic: CNII-XII intact - Musculoskeletal Musculoskeletal: generalized weakness, strength equal bilaterally - Psychiatric Psychiatric: A&O x's 3, appropriate affect, intact judgment & insight Results CBC & Chem 7: 06/29/16 05:57 06/29/16 05:57 Labs: Abnormal Lab Results - Last 24 Hours (Table) 06/28/16 06/28/16 06/28/16 Range/Units 17:08 19:25 22:25 WBC (3.8-10.6) k/uL RBC (3.80-5.40) m/uL Hgb (11.4-16.0) gm/dL Hct (34.0-46.0) % RDW (11.5-15.5) % Neutrophils # (1.3-7.7) k/uL Lymphocytes # (1.0-4.8) k/uL BUN (7-17) mg/dL Creatinine (0.52-1.04) mg/dL Glucose (74-99) mg/dL POC Glucose (mg/dL) 191 H 159 H (75-99) mg/dL Calcium (8.4-10.2) mg/dL Troponin I 0.227 H* (0.000-0.034) ng/mL Total Protein (6.3-8.2) g/dL Albumin (3.5-5.0) g/dL 06/29/16 06/29/16 06/29/16 Range/Units 00:12 02:46 05:57 WBC (3.8-10.6) k/uL RBC (3.80-5.40) m/uL Hgb (11.4-16.0) gm/dL Hct (34.0-46.0) % RDW (11.5-15.5) % Neutrophils # (1.3-7.7) k/uL Lymphocytes # (1.0-4.8) k/uL BUN 79 H (7-17) mg/dL Creatinine 1.55 H (0.52-1.04) mg/dL Glucose 155 H (74-99) mg/dL POC Glucose (mg/dL) 130 H (75-99) mg/dL Calcium 8.3 L (8.4-10.2) mg/dL Troponin I 0.226 H* (0.000-0.034) ng/mL Total Protein 5.3 L (6.3-8.2) g/dL Albumin 3.1 L (3.5-5.0) g/dL 06/29/16 06/29/16 06/29/16 Range/Units 05:57 06:13 11:44 WBC 18.7 H (3.8-10.6) k/uL RBC 2.63 L (3.80-5.40) m/uL Hgb 7.8 L (11.4-16.0) gm/dL Hct 25.3 L (34.0-46.0) % RDW 19.0 H (11.5-15.5) % Neutrophils # 17.0 H (1.3-7.7) k/uL Lymphocytes # 0.9 L (1.0-4.8) k/uL BUN (7-17) mg/dL Creatinine (0.52-1.04) mg/dL Glucose (74-99) mg/dL POC Glucose (mg/dL) 168 H 209 H (75-99) mg/dL Calcium (8.4-10.2) mg/dL Troponin I (0.000-0.034) ng/mL Total Protein (6.3-8.2) g/dL Albumin (3.5-5.0) g/dL Assessment and Plan (1) Anemia in chronic kidney disease Status: Chronic (2) Leukocytosis Status: Acute Plan: Case was reviewed with Nephrology, pt has been on procrit monthly for anemia of CKD. Her Hgb is typically between 8 and 9 during hospital admissions when she is experiencing illness or trauma her Hgb is overall stable at this time. Will request anemia work up to evaluate for any deficiencies or underlying marrow disorder. Pt will continue to follow with Nephrology and receive procrit. Leukocytosis is mostly neutrophils and felt to be related to recent surgery, inflammation and steroid use. Would anticipate return to baseline as she recovers. Recommend monitoring of labs and if leukocytosis persists despite recovery further work up can be ordered.
[2016-06-29] MEDS ORDERED: CLOTRIMAZOLE TROCHE 10 MG TROCHE MUCOUS MEM SCH (16:00)
--- NOTE | 2016-06-29 16:06 | P.GSCN ---
History of Present Illness Consult date: 06/29/16 Reason for Consult: Aphonic for 2 weeks Requesting physician: Richie Doty History of present illness: This patient is a very pleasant 86-year-old white female who 2 weeks ago underwent a hip surgery. She awoken and was aphonic and has been aphonic ever since. She been unable to talk for 2 weeks. She has a very mild a whisper voice today. She also is aspirating and has had problems with aspiration pneumonia. She's had a previous thyroid surgery in the past and [place] and had complications were the needed to do a tracheotomy and evacuated a large hematoma. Her voice is always been low but not breathy and not week like it is today. The patient is relatively aphonic. She has aspiration across when she drinks water and that has been a problem since she's been admitted and since she started having vocal cord weakness. Patient does have a history many years ago having a total thyroidectomy and has a thyroid scar. Again her voice was weak prior to 2 weeks ago but that has been severely affected over the last 2 weeks. Review of Systems - Constitutional Reports as per HPI - EENT Ears, nose, mouth and throat: Reports as per HPI (Tylenol 90 mg accordingly with the 360 mg or) - Breasts Reports as per HPI - Cardiovascular Reports as per HPI - Respiratory Reports as per HPI - Gastrointestinal Reports as per HPI - Genitourinary Genitourinary: Reports as per HPI Menstruation: Reports as per HPI - Musculoskeletal Reports as per HPI ( problems according nose) - Integumentary Reports as per HPI - Neurological Reports as per HPI - Psychiatric Reports as per HPI - Endocrine Reports as per HPI - Hematologic/Lymphatic Reports as per HPI - Allergic/Immunologic Reports as per HPI Past Medical History Past Medical History: CVA/TIA, Diabetes Mellitus, Eye Disorder, Hyperlipidemia, Hypertension, Musculoskeletal Disorder, Osteoarthritis (OA), Pneumonia, Renal Disease, Thyroid Disorder Additional Past Medical History / Comment(s): chronic back pain HAS A BROKEN TITANIUM CESIA IN HER BACK, cardiac murmur,MURMUR,RETINAL ROBLEMS, ATHRITIS, history of aortic stenosis, severe, 2-2-17 fall/lt hip fx History of Any Multi-Drug Resistant Organisms: None Reported Past Surgical History: Back Surgery, Section, Cholecystectomy, Joint Replacement, Orthopedic Surgery Additional Past Surgical History / Comment(s): PARTIALthyroidECTOMY D/T NODULES trach 1195, TITANIUM CESIA IN BACK,LT KNEE REPLACEMENT,LT PARTIAL SHOULDER REPLACEMENT,06-16-16 operative fixation lt hip fx w/IM HIP SCREW. Past Anesthesia/Blood Transfusion Reactions: Postoperative Nausea & Vomiting ( PONV) Past Psychological History: No Psychological Hx Reported Smoking Status: Never smoker Past Alcohol Use History: None Reported Past Drug Use History: None Reported - Past Family History Father Family Medical History: Diabetes Mellitus Mother Family Medical History: COPD Additional Family Medical History / Comment(s): jeimy(non smoker) at age 65 Brother(s) Family Medical History: Diabetes Mellitus Sister(s) Family Medical History: No Reported History Son(s) Family Medical History: No Reported History Daughter(s) Family Medical History: Diabetes Mellitus Medications and Allergies Home Medications Medication Instructions Recorded Confirmed Type Allopurinol [Zyloprim] 100 mg PO DAILY@0800 01/18/14 06/28/16 History Albuterol Sulfate [Proair Hfa] 2 puff INHALATION RT-Q6H PRN 06/15/16 06/28/16 History Atorvastatin [Lipitor] 20 mg PO HS@209906/15/16 06/28/16 History Cholecalciferol [Vitamin D3] 1,000 unit PO DAILY@169906/15/16 06/28/16 History Diclofenac 0.1% Ophth Soln 1 drops BOTH EYES QID 06/15/16 06/28/16 History [Voltaren 0.1% Ophth Soln] Epoetin Basim [Procrit] 20,000 unit SQ Q14D 06/15/16 06/28/16 History Ferrous Sulfate [Iron (65 MG 325 mg PO DAILY@169906/15/16 06/28/16 History Elemental)] Insulin Glargine,Hum.rec.anlog 12 unit SQ DAILY@79906/15/16 06/28/16 History [Lantus Solostar] Loratadine [Claritin] 10 mg PO DAILY@0806/15/16 06/28/16 History Magnesium Oxide [Mag-Ox] 800 mg PO DAILY@169906/15/16 06/28/16 History Melatonin 3 mg PO HS@209906/15/16 06/28/16 History Sennosides [Senna] 8.6 mg PO BID@0800,2100 06/15/16 06/28/16 History Triamcinolone 0.5% Cream [Kenalog 1 applic TOPICAL BID 06/15/16 06/28/16 History 0.5% Cream] amLODIPine [Norvasc] 5 mg PO DAILY@0800 06/15/16 06/28/16 History guaiFENesin [Mucinex] 600 mg PO BID@0800,209906/15/16 06/28/16 History hydrALAZINE HCL [Apresoline] 25 mg PO DAILY@0800 06/15/16 06/28/16 History sitaGLIPtin PHOSPHATE [Januvia] 25 mg PO DAILY@0800 06/15/16 06/28/16 History Apixaban [Eliquis] 2.5 mg PO BID@0800,209906/28/16 06/28/16 History Bisacodyl [Dulcolax] 10 mg RECTAL DAILY PRN 06/28/16 06/28/16 History Budesonide [Pulmicort] 0.5 mg INHALATION RT-BID@0800,1700 06/28/16 06/28/16 History Furosemide [Lasix] 40 mg PO DAILY@0800 06/28/16 06/28/16 History HYDROcodone/APAP 5-325MG [Daniels 1 tab PO DAILY PRN 06/28/16 06/28/16 History 5-325] INSULIN LISPRO (humaLOG) [humaLOG See Protocol SQ ACHS 06/28/16 06/28/16 History (formulary)] Ipratropium-Albuterol Nebulize 3 ml INHALATION RT-QID 06/28/16 06/28/16 History [Duoneb 0.5 mg-3 mg/3 ml Soln] Levofloxacin [Levaquin] 250 mg PO DAILY@0800 06/28/16 06/28/16 History Levothyroxine Sodium [Synthroid] 88 mcg PO DAILY@0600 06/28/16 06/28/16 History Magnesium Hydroxide [Milk of 2,400 mg PO DAILY PRN 06/28/16 06/28/16 History Magnesia] Multivitamins, Thera [Multivitamin] 1 tab PO DAILY@1700 06/28/16 06/28/16 History Na Phos,M-B/Na Phos,Di-Ba [Fleet 133 ml RECTAL ONCE PRN 06/28/16 06/28/16 History Adult] predniSONE 5 mg PO QID 06/28/16 06/28/16 History Allergies Allergy/AdvReac Type Severity Reaction Status Date / Time amoxicillin trihydrate Allergy Unknown Verified 06/28/16 12:04 [From Augmentin] cephalexin monohydrate Allergy Unknown Verified 06/28/16 12:04 [From Keflex] cyclobenzaprine HCl Allergy Unknown Verified 06/28/16 12:04 [From Flexeril] eszopiclone [From Lunesta] Allergy Unknown Verified 06/28/16 12:04 gabapentin [From Neurontin] Allergy Unknown Verified 06/28/16 12:04 levocetirizine Allergy Unknown Verified 06/28/16 12:04 dihydrochloride [From Xyzal] meperidine HCl [From Demerol] Allergy Unknown Verified 06/28/16 12:04 potassium clavulanate Allergy Unknown Verified 06/28/16 12:04 [From Augmentin] adhesive AdvReac Unknown Verified 06/28/16 12:04 hydromorphone HCl AdvReac Hallucinati Verified 06/28/16 12:04 [From Dilaudid] ons Surgical - Exam Osteopathic Statement: *. No significant issues noted on an osteopathic structural exam other than those noted in the History and Physical/Consult. Vital Signs Temp Pulse Resp BP Pulse Ox 99.2 F 97 18 129/60 100 06/28/16 11:33 06/28/16 11:33 06/28/16 11:33 06/28/16 11:33 06/28/16 11:33 - General Patient is aphonic and only has a mild whisper voice. Much of the history was obtained through the family. well developed, well nourished, no distress - Eyes PERRL, normal ocular movement - ENT Head is normocephalic, the face is symmetric, there is no abnormal movements, there is no tenderness of the sinuses are mastoids, there is no nodules or eruptions or parasites on scalp. The ears show normal development of the pinna. Some wax is noted. Tympanic membranes are unremarkable. Nose is patent is a right septal deviation present. Mouth and throat no oral lesions is seen. Neck no tumors masses. Thyroidectomy was noted. Thyroidectomy was done many years with associated tracheotomy because of a complication of hemorrhage. This was done in [place]. normal pinna, normal nares, no congestion - Neck no masses, no bruits - Integumentary no rash, no growths - Neurologic normal sensation - Psychiatric oriented to time, oriented to person, oriented to place, no speech is normal Results - Labs 06/29/16 05:57 06/29/16 05:57 Abnormal Lab Results - Last 24 Hours (Table) 06/28/16 06/28/16 06/28/16 Range/Units 17:08 19:25 22:25 WBC (3.8-10.6) k/uL RBC (3.80-5.40) m/uL Hgb (11.4-16.0) gm/dL Hct (34.0-46.0) % RDW (11.5-15.5) % Neutrophils # (1.3-7.7) k/uL Lymphocytes # (1.0-4.8) k/uL BUN (7-17) mg/dL Creatinine (0.52-1.04) mg/dL Glucose (74-99) mg/dL POC Glucose (mg/dL) 191 H 159 H (75-99) mg/dL Calcium (8.4-10.2) mg/dL Troponin I 0.227 H* (0.000-0.034) ng/mL Total Protein (6.3-8.2) g/dL Albumin (3.5-5.0) g/dL 06/29/16 06/29/16 06/29/16 Range/Units 00:12 02:46 05:57 WBC (3.8-10.6) k/uL RBC (3.80-5.40) m/uL Hgb (11.4-16.0) gm/dL Hct (34.0-46.0) % RDW (11.5-15.5) % Neutrophils # (1.3-7.7) k/uL Lymphocytes # (1.0-4.8) k/uL BUN 79 H (7-17) mg/dL Creatinine 1.55 H (0.52-1.04) mg/dL Glucose 155 H (74-99) mg/dL POC Glucose (mg/dL) 130 H (75-99) mg/dL Calcium 8.3 L (8.4-10.2) mg/dL Troponin I 0.226 H* (0.000-0.034) ng/mL Total Protein 5.3 L (6.3-8.2) g/dL Albumin 3.1 L (3.5-5.0) g/dL 06/29/16 06/29/16 06/29/16 Range/Units 05:57 06:13 11:44 WBC 18.7 H (3.8-10.6) k/uL RBC 2.63 L (3.80-5.40) m/uL Hgb 7.8 L (11.4-16.0) gm/dL Hct 25.3 L (34.0-46.0) % RDW 19.0 H (11.5-15.5) % Neutrophils # 17.0 H (1.3-7.7) k/uL Lymphocytes # 0.9 L (1.0-4.8) k/uL BUN (7-17) mg/dL Creatinine (0.52-1.04) mg/dL Glucose (74-99) mg/dL POC Glucose (mg/dL) 168 H 209 H (75-99) mg/dL Calcium (8.4-10.2) mg/dL Troponin I (0.000-0.034) ng/mL Total Protein (6.3-8.2) g/dL Albumin (3.5-5.0) g/dL Diabetes panel 06/29/16 Range/Units 05:57 Sodium 138 (137-145) mmol/L Potassium 4.8 (3.5-5.1) mmol/L Chloride 98 (98-107) mmol/L Carbon Dioxide 27 (22-30) mmol/L BUN 79 H (7-17) mg/dL Creatinine 1.55 H (0.52-1.04) mg/dL Glucose 155 H (74-99) mg/dL Calcium 8.3 L (8.4-10.2) mg/dL AST 25 (14-36) U/L ALT 30 (9-52) U/L Alkaline Phosphatase 94 (38-126) U/L Total Protein 5.3 L (6.3-8.2) g/dL Albumin 3.1 L (3.5-5.0) g/dL Triglycerides 47 (<150) mg/dL HDL Cholesterol 45 (40-60) mg/dL Calcium panel 06/29/16 Range/Units 05:57 Calcium 8.3 L (8.4-10.2) mg/dL Albumin 3.1 L (3.5-5.0) g/dL Pituitary panel 06/29/16 Range/Units 05:57 Sodium 138 (137-145) mmol/L Potassium 4.8 (3.5-5.1) mmol/L Chloride 98 (98-107) mmol/L Carbon Dioxide 27 (22-30) mmol/L BUN 79 H (7-17) mg/dL Creatinine 1.55 H (0.52-1.04) mg/dL Glucose 155 H (74-99) mg/dL Calcium 8.3 L (8.4-10.2) mg/dL Adrenal panel 06/29/16 Range/Units 05:57 Sodium 138 (137-145) mmol/L Potassium 4.8 (3.5-5.1) mmol/L Chloride 98 (98-107) mmol/L Carbon Dioxide 27 (22-30) mmol/L BUN 79 H (7-17) mg/dL Creatinine 1.55 H (0.52-1.04) mg/dL Glucose 155 H (74-99) mg/dL Calcium 8.3 L (8.4-10.2) mg/dL Total Bilirubin 0.8 (0.2-1.3) mg/dL AST 25 (14-36) U/L ALT 30 (9-52) U/L Alkaline Phosphatase 94 (38-126) U/L Total Protein 5.3 L (6.3-8.2) g/dL Albumin 3.1 L (3.5-5.0) g/dL Assessment and Plan (1) Aphonia Narrative/Plan: This patient's right vocal cord paresis and severe acute exudative laryngitis is etiology for her aphonic state. The etiology for her vocal cord paresis is unknown. I do not identify an arytenoid dislocation although with the tremendous amount of hypopharyngeal and laryngeal inflammation I'm unable to ascertain the height of the retinoids to rule out an arytenoid dislocation. Therefore, I will obtain a CAT scan of the neck. Unfortunately were unable to get contrast injection because of her kidney status. I also recommended speech therapy for evaluation with a video stroboscopy. Patient is currently on Levaquin and nystatin which should reasonably help her laryngitis. Physical large amount of exudate present and more fluid would be helpful but I understand she has a cardiac issue and heart failure issue were large amount of fluids or unable to be given. I'm requesting neurologic consultation to rule out a mini stroke as a possible etiology for her vocal cord paresis. A barium swallow with Gastrografin has been ordered to ascertain the amount of aspiration the patient's dealing with. Consideration a feeding tube may be an option if her aspiration is significant. I think some of her voice will improve with use of antifungals and antibiotics for her acute exudative laryngitis. Further recommendations will be made after her workup is complete. Status: Acute (2) Vocal cord paresis determined by laryngoscopy Status: Acute (3) Acute laryngitis Status: Acute
[2016-06-29] MEDS: HYDROcodone/APAP 5-325MG 1 EACH TAB PO PRN (16:16)
[2016-06-29] MEDS: MULTIVITAMINS, THERA 1 EACH TAB PO SCH (16:16)
[2016-06-29] MEDS: FERROUS SULFATE 325 MG TAB PO SCH (16:17)
[2016-06-29] MEDS: CHOLECALCIFEROL 1,000 UNIT TAB PO SCH (16:17)
[2016-06-29] MEDS: MAGNESIUM OXIDE 400 MG TAB PO SCH (16:18)
[2016-06-29 16:41] LABS: Iron 56 ug/dL (37-170)
[2016-06-29 16:51] LABS: Total Iron Binding Capacity 254 ug/dL (265-497)
[2016-06-29 17:04] LABS: Reticulocyte % 11.5 % (0.5-2.0)
[2016-06-29 17:37] LABS: Vitamin B12 >1000 pg/mL
[2016-06-29 17:57] LABS: Glucose,Whole Blood 211 mg/dL (75-99)
[2016-06-29] MEDS: MELATONIN 3 MG TABLET PO SCH (19:59)
[2016-06-29] MEDS: ATORVASTATIN 20 MG TAB PO SCH (19:59)
[2016-06-29 22:23] LABS: Glucose,Whole Blood 283 mg/dL (75-99)
[2016-06-29 22:41] LABS: Glucose,Whole Blood 259 mg/dL (75-99)
[2016-06-30 06:48] LABS: Anisocytosis Slight; CH 28.8; CHCM 30.3; HCT 24.5 % (34.0-46.0); HDW 3.02; HGB 7.5 gm/dL (11.4-16.0); Hypochromasia Marked; MCH 29.1 pg (25.0-35.0); MCHC 30.5 g/dL (31.0-37.0); MCV 95.5 fL (80.0-100.0); Macrocytosis Slight; Mean Platelet Volume 8.2; RBC 2.57 m/uL (3.80-5.40); RDW 19.2 % (11.5-15.5); WBC 18.7 k/uL (3.8-10.6)
[2016-06-30 06:56] LABS: Calcium 8.4 mg/dL (8.4-10.2); Potassium 4.8 mmol/L (3.5-5.1); Total Bilirubin 0.8 mg/dL (0.2-1.3); Total Protein 5.3 g/dL (6.3-8.2)
[2016-06-30] MEDS: LEVOTHYROXINE 88 MCG TAB PO SCH (06:58)
[2016-06-30 07:21] LABS: Glucose,Whole Blood 175 mg/dL (75-99)
[2016-06-30] MEDS: INSULIN LISPRO (humaLOG) 300 UNIT/3 ML VIAL SQ SCH ×4 (07:33→22:34)
--- NOTE | 2016-06-30 08:10 | P.PN ---
Subjective This is a pleasant 86-year-old lady who was recently discharged from the hospital to an extended care facility following a hip fracture and subsequent ORIF. At that time she developed some pneumonia however this seems to have improved. Prior to surgery she was evaluated by Dr. Garcia for surgical clearance and during that evaluation she was found have aortic stenosis. She was readmitted after developing complaints of sudden onset shortness of breath. Most recent echocardiogram during her last admission showed severe aortic stenosis with a normal LV function enzymes were shown to be elevated at 0.2 as well as elevated BUN and creatinine. Laboratory values were significant for BUN of 91 and creatinine 1.77, her white count remains elevated at 18.7. Upon examination today, patient denies complaints of chest discomfort, dizziness or lightheadedness. She does complain of some shortness of breath however patient does not appear to be short of breath. She is resting comfortably in bed family member at the bedside. In no acute distress. The patient was seen and examined just today by Dr. Carlin who spoke with the patient and family at length regarding risk for contrast-induced nephropathy and they decided upon medical therapy. Objective - Vital Signs Vital signs: Vital Signs Temp 97.3 F L 06/30/16 04:00 Pulse 80 06/30/16 04:00 Resp 18 06/30/16 04:00 BP 146/67 06/30/16 04:00 Pulse Ox 99 06/30/16 04:00 Intake & Output 06/29/16 06/30/16 06/30/16 18:59 06:59 18:59 Intake Total 90 Output Total 0 Balance 90 Intake: Oral 90 Output: Urine 0 Other: # Voids 2 1 # Bowel Movements 1 - Exam PHYSICAL EXAMINATION: HEENT: Head is atraumatic, normocephalic. Pupils equal, round. Neck is supple. There is no elevated jugular venous pressure. HEART EXAMINATION: Heart sounds regular, S1 and S2 with a grade 4/6 systolic murmur. CHEST EXAMINATION: Lungs are clear to auscultation and precussion. No chest wall tenderness is noted on palpation or with deep breathing. ABDOMEN: Soft, nontender. Bowel sounds are heard. No organomegaly noted. EXTREMITIES: 2+ peripheral pulses with no evidence of peripheral edema and no calf tenderness noted. NEUROLOGIC patient is awake, alert and oriented x3. . - Labs CBC & Chem 7: 06/30/16 05:55 06/30/16 05:55 Labs: Abnormal Lab Results - Last 24 Hours (Table) 06/29/16 06/29/16 06/29/16 Range/Units 05:57 05:57 05:57 WBC (3.8-10.6) k/uL RBC (3.80-5.40) m/uL Hgb (11.4-16.0) gm/dL Hct (34.0-46.0) % MCHC (31.0-37.0) g/dL RDW (11.5-15.5) % Retic Count 11.5 H (0.5-2.0) % Chloride (98-107) mmol/L Carbon Dioxide (22-30) mmol/L BUN (7-17) mg/dL Creatinine (0.52-1.04) mg/dL Glucose (74-99) mg/dL POC Glucose (mg/dL) (75-99) mg/dL TIBC 254 L (265-497) ug/dL Ferritin 1310 H (11-264) ng/mL Total Protein (6.3-8.2) g/dL Total Protein (PEP) (6.2-8.2) g/dL Albumin (3.5-5.0) g/dL RBC Folate 1,283 H (280 - 791) ng/mL 06/29/16 06/29/16 06/29/16 Range/Units 05:57 11:44 17:24 WBC (3.8-10.6) k/uL RBC (3.80-5.40) m/uL Hgb (11.4-16.0) gm/dL Hct (34.0-46.0) % MCHC (31.0-37.0) g/dL RDW (11.5-15.5) % Retic Count (0.5-2.0) % Chloride (98-107) mmol/L Carbon Dioxide (22-30) mmol/L BUN (7-17) mg/dL Creatinine (0.52-1.04) mg/dL Glucose (74-99) mg/dL POC Glucose (mg/dL) 209 H 211 H (75-99) mg/dL TIBC (265-497) ug/dL Ferritin (11-264) ng/mL Total Protein (6.3-8.2) g/dL Total Protein (PEP) 5.1 L (6.2-8.2) g/dL Albumin (3.5-5.0) g/dL RBC Folate (280 - 791) ng/mL 06/29/16 06/29/16 06/30/16 Range/Units 20:58 22:40 05:55 WBC 18.7 H (3.8-10.6) k/uL RBC 2.57 L (3.80-5.40) m/uL Hgb 7.5 L (11.4-16.0) gm/dL Hct 24.5 L (34.0-46.0) % MCHC 30.5 L (31.0-37.0) g/dL RDW 19.2 H (11.5-15.5) % Retic Count (0.5-2.0) % Chloride (98-107) mmol/L Carbon Dioxide (22-30) mmol/L BUN (7-17) mg/dL Creatinine (0.52-1.04) mg/dL Glucose (74-99) mg/dL POC Glucose (mg/dL) 283 H 259 H (75-99) mg/dL TIBC (265-497) ug/dL Ferritin (11-264) ng/mL Total Protein (6.3-8.2) g/dL Total Protein (PEP) (6.2-8.2) g/dL Albumin (3.5-5.0) g/dL RBC Folate (280 - 791) ng/mL 06/30/16 06/30/16 Range/Units 05:55 07:15 WBC (3.8-10.6) k/uL RBC (3.80-5.40) m/uL Hgb (11.4-16.0) gm/dL Hct (34.0-46.0) % MCHC (31.0-37.0) g/dL RDW (11.5-15.5) % Retic Count (0.5-2.0) % Chloride 97 L (98-107) mmol/L Carbon Dioxide 31 H (22-30) mmol/L BUN 91 H* (7-17) mg/dL Creatinine 1.77 H (0.52-1.04) mg/dL Glucose 143 H (74-99) mg/dL POC Glucose (mg/dL) 175 H (75-99) mg/dL TIBC (265-497) ug/dL Ferritin (11-264) ng/mL Total Protein 5.3 L (6.3-8.2) g/dL Total Protein (PEP) (6.2-8.2) g/dL Albumin 3.1 L (3.5-5.0) g/dL RBC Folate (280 - 791) ng/mL Assessment and Plan Plan: Assessment and plan #1 non-STEMI #2 severe aortic stenosis #3 acute on chronic renal failure #4 history of PE, on Eliquis #5 hypertension From a Cardiac standpoint, medications were reviewed and we will continue the same. We will continue to maximize medical treatment. We'll monitor patient's lytes, BUN and creatinine. Will follow patient with you and provide further recommendations accordingly. The above dictated assessment and findings were discussed with signing physician. The impression and plan of care have been directed as dictated. Padmini Lees, Nurse Practitioner, acting as scribe for signing physician.
--- NOTE | 2016-06-30 08:15 | CONS ---
DATE OF CONSULTATION: 06/29/2016 CHIEF COMPLAINT: Stroke. HISTORY OF PRESENT ILLNESS: Mrs. Alfonso is a pleasant, 86-year-old female who is being evaluated by the neurology service per the request of Dr. Fragoso for a stroke. The patient was brought into [facility] emergency room for shortness of breath. She has been having significant shortness of breath over the past few weeks. She was admitted to [facility] earlier this month after she suffered a hip fracture, which was surgically repaired. The patient had fallen at home. During her hospital stay, she developed recurrent shortness of breath, which did resolve according to her daughter. She was then transferred to inpatient rehab but had to be transferred back to [facility] the following day due to more shortness of breath. The patient was also noticed to have difficulty swallowing and she was evaluated by speech therapy and by Dr. Fragoso. Dr. Fragoso's evaluation was done earlier today and he recommended a neurology consultation for possible ischemic etiology for dysphasia. The patient's diet is with thickened liquids at this time and speech therapy has been consulted. The patient is already on Eliquis for anticoagulation therapy. Her CBC today showed leukocytosis at 18.7 and significant anemia with a hemoglobin of 7.8 and hematocrit of 25%. Her iron studies showed no significant abnormalities. Her comprehensive metabolic profile showed renal insufficiency with a BUN of 79 and creatinine of 1.55. The patient does have history of chronic renal insufficiency and does see Dr. Sousa for this. Her fasting lipid panel and vitamin B12 levels were normal. At the time of my evaluation, she is ( ) and is sitting in her bed and appears to be in no acute distress. She denies any lateralizing numbness or weakness. PAST MEDICAL HISTORY: Hypertension, dyslipidemia, diabetes, hypothyroidism, aortic stenosis. SOCIAL HISTORY: She denies any tobacco, alcohol or drug use. FAMILY HISTORY: Noncontributory. HOME MEDICATIONS: Reviewed in the chart. ALLERGIES: AUGMENTIN, KEFLEX, FLEXERIL, LUNESTA, NEURONTIN, ( ), DEMEROL, DILAUDID, ADHESIVE TAPE. REVIEW OF SYSTEMS: CONSTITUTIONAL: Positive for fatigue. EYES: Negative. ENT: Positive for chronic diminished hearing. CARDIOVASCULAR: Negative. RESPIRATORY: As mentioned above. NEUROLOGICAL: As mentioned above. GASTROINTESTINAL: Negative. GENITOURINARY: Negative. ENT: As mentioned above. MUSCULOSKELETAL: As mentioned above. PSYCHIATRIC: Negative. Dermatological: Negative. PHYSICAL EXAM: Vital signs show a temperature of 97.2, pulse 87, respirations 16, blood pressure 115/57. GENERAL APPEARANCE: The patient is a well-developed, elderly female who appears to be in no acute distress. HEENT: Normocephalic, atraumatic, no facial asymmetry is seen. NECK: Supple with no masses felt. CARDIOVASCULAR: Regular rate and rhythm. ABDOMEN: Nontender, nondistended. EXTREMITIES: Showed trace edema with no clubbing seen. NEUROLOGICAL EXAM: The patient is awake, and oriented x3. Her speech is very soft. Language testing was normal. No lateralizing weakness is seen. No facial asymmetry is noticed on cranial nerve testing. Postural tremors are noticed. No seizure-like activity is seen. Sensory exam was normal to light touch in all 4 extremities. IMPRESSION: 1. Dysphagia. 2. Chronic obstructive pulmonary disease. 3. Mild generalized weakness. RECOMMENDATIONS: The patient continues to have some dysphagia and speech therapy is following the patient. Although I doubt any ischemic etiology causing her dysphagia, the patient is already on Eliquis for anticoagulation therapy and no further treatments would be recommended other than that. I do recommend treatment with DVT prophylaxis especially given her recent hip surgery. Physical therapy has been consulted as well. I will continue to follow with you. Further recommendations to follow.
--- NOTE | 2016-06-30 08:25 | CT ---
EXAMINATION TYPE: CT soft tissue neck wo con DATE OF EXAM: 06/29/2016 7:57 PM COMPARISON: NONE HISTORY: r/o arytenoid dislocation CT DLP: 498.4 mGycm Automated exposure control for dose reduction was used. Helical acquisition through the neck without contrast FINDINGS: Lack of contrast may compromise sensitivity. Patient shows status post right thyroidectomy change. Katz rgical clip is present adjacent to the sternocleidomastoid muscle on the right at the level of the th yroid cartilage. There is a soft tissue mass measuring 18 x 24mm immediately anterior to the thyroid cartilage just inferior to the hyoid bone with an inferior extension, possible small second focus phillip suring 6 mm just superior to the left lobe and isthmus of the thyroid. Similar attenuation. Level 2 a nd false cords shows no definite abnormality. Small laryngoceles may be present. There are dense athe rosclerotic calcifications of the carotid bifurcation levels. Salivary glands show symmetric appearan ce. There is no evident adenopathy. Skull base is normal. Cortical atrophy noted in the visualized br ain. Calcifications in the pharyngeal soft tissues compatible with chronic infection. Lung apices are within normal limits. No evident esophageal abnormality. Airway is patent. Dental amalgam, left shou lder arthroplasty causes some streak artifact which could limit sensitivity. Dense calcifications pre sent within the aorta and supraaortic branch vessels. There is curvature of the spine. Upper thoracic vertebral body at T6 shows some loss of height. IMPRESSION: NONCONTRAST EXAM. POSSIBLE VIRAL GLOSSAL DUCT CYST DESCRIBED. DEGENERATIVE DISC DISEASE, SCOLIOSIS . Postop changes. Additional findings above.
[2016-06-30] MEDS: IPRATROPIUM-ALBUTEROL 3 ML NEB INHALATION SCH ×4 (08:31→20:26)
[2016-06-30] MEDS ORDERED: DARBEPOETIN ALFA 60 MCG/0.3 ML SYRINGE SQ SCH (09:00)
[2016-06-30] MEDS: NYSTATIN 100,000 UNIT/ML SUSP 500,000 UNIT/5 ML CUP PO SCH ×4 (09:03→23:33)
[2016-06-30] MEDS: LEVOFLOXACIN 250 MG TAB PO SCH (09:04)
[2016-06-30] MEDS: ASPIRIN 81 MG CHEW PO SCH (09:04)
[2016-06-30] MEDS: ALLOPURINOL 100 MG TAB PO SCH (09:04)
[2016-06-30] MEDS: guaiFENesin 600 MG TABLET.ER PO SCH ×2 (09:04→22:34)
[2016-06-30] MEDS: TRIAMCINOLONE ACET 0.5% CREAM 15 GM TUBE TOPICAL SCH ×2 (09:04→22:36)
[2016-06-30] MEDS: hydrALAZINE HCL 25 MG TAB PO SCH (09:04)
[2016-06-30] MEDS: amLODIPine 5 MG TAB PO SCH (09:05)
[2016-06-30] MEDS: LORATADINE 10 MG TAB PO SCH (09:05)
[2016-06-30] MEDS: methylPREDNISolone SOD SUCCI 40 MG/ML 1 ML VIAL IV SCH ×2 (09:06→17:23)
[2016-06-30] MEDS: LINAGLIPTIN 5 MG TABLET PO SCH (09:06)
[2016-06-30] MEDS: SENNOSIDES 8.6 MG TAB PO SCH ×2 (09:06→22:37)
[2016-06-30] MEDS: APIXABAN 2.5 MG TABLET PO SCH ×2 (09:06→22:36)
[2016-06-30] MEDS: DICLOFENAC 0.1% OPHTH SOLN 2.5 ML BTL BOTH EYES SCH ×4 (09:07→22:38)
[2016-06-30] MEDS: INSULIN GLARGINE 100 UNIT/ML 10 ML VIAL SQ SCH (09:20)
[2016-06-30] MEDS: HYDROcodone/APAP 5-325MG 1 EACH TAB PO PRN (10:13)
[2016-06-30 10:30] LABS: Free Kappa Lt Chain Qnt, Serum 2.36 mg/dL (0.33 - 1.94); Kappa/Lambda Light Chain Ratio 1.28 (0.26 - 1.65)
[2016-06-30 13:03] LABS: Glucose,Whole Blood 345 mg/dL (75-99)
--- NOTE | 2016-06-30 13:39 | P.PN ---
Subjective 86-year-old female one of Dr. Silverio Chaney's patient with multiple medical problem was known to have history of hypertension hypertensive cardiovascular disease history of CVA/TIA history of diabetes history of hyperlipidemia and recurrent osteoarthritis who resides at assisted living facility in [place] was transferred to [facility] on 06/15/2016 because while she is using the walker she lost her balance and fall on the left side and fracture her hip ended up having intratrochanteric fracture of the hip was admitted to the hospital by Dr. Carmona and ended up going for ORIF of the left hip. Subsequently patient had multiple complication including significant shortness of breath, anemia, recurrent UTI and worsening kidney function. With worsening hypoxia and wheezes with cough and aspiration pneumonia patient ended up seen pulmonary Dr. Mahan and cardiology Dr. Ferrera. VQ scan done early showed a possibility of pulmonary embolism and patient was placed on anticoagulation and sent to [facility] on anticoagulation at the time. Patient developed to have significant hoarseness and vocal cord pyrolysis clinically diagnosed patient was supposed to have vocal cord scope by ENT as an outpatient. She left the hospital to go to [facility] yesterday was feeling much better continue to have hoarseness mild shortness of breath and quite bit leukocytosis as a leukemoid reaction from steroid use. Ex line patient a blood to have significant shortness of breath cough wheezes and worsening dyspnea with severe hypoxia could not breathe was having severe tachypnea ended up coming back to the emergency department at [facility] where was seen and evaluated was giving nebulizer treatment her symptoms had resolved partially. Blood work showed elevated troponin with looks like slightly elevated with change in EKG consistent with possible ST waves OK. Patient also had worsening anemia compared to last week. She'll be hospitalized with acute respiratory failure secondary to possible acute OK, COPD exacerbation, pneumonia , vocal cord paralysis with sputum blood. 06/29: Repeat labs show an improved white count 18.7, hemoglobin 7.8. BUN is 79 creatinine 1.55. Troponins have been 0.219, 0.227, 0.226. Patient has been seen by chief technician x ray with plan to DC IV heparin and continue eliquis. Patient has also been seen and evaluated by Dr. Mahan. Patient has also been seen by Dr. Adams and consult with depression and her is pending. Social work is on consult as patient does not want to return to [facility]. She does wish to return to her assisted living environment. 06/30: BUN is elevated [address] Falcon has evaluated with concern for exudative pharyngitis. Patient is on nystatin swish and swallow and Diflucan will also be added. IV Solu-Medrol will be switched to prednisone for tomorrow. Discussed discharge plan in detail with the patient's family and recommend discharge to [facility] on Sunday and patient may return to her adult foster nursing home after that. Objective - Vital Signs Vital signs: Vital Signs Temp 97.1 F L 06/30/16 08:00 Pulse 86 06/30/16 08:47 Resp 18 06/30/16 08:00 BP 125/58 06/30/16 08:00 Pulse Ox 100 06/30/16 08:00 Intake & Output 06/29/16 06/30/16 06/30/16 18:59 06:59 18:59 Intake Total 90 560 Output Total 0 Balance 90 560 Intake: Oral 90 560 Output: Urine 0 Other: # Voids 2 1 1 # Bowel Movements 1 1 - Exam General appearance: no average body habitus, cooperative, disheveled, mild distress, no morbidly obese, no no acute distress, no obese, no severe distress , no thin - EENT Eyes: no abnormal pupil, anicteric sclerae, no disc margins sharp, no edentulous , no EOMI, no PERRLA, no fundus normal, no photophobia, no dentition normal, no poor dentition, no ptosis, no scleral icterus, normal appearance ENT: no hard of hearing, no hearing grossly normal, no NA/AT, normal oropharynx , no other, pharyngeal erythema, no thrush, no tonsillar exudates, no tonsillar swelling Ears: bilateral: normal - Neck Neck: no lymphadenopathy, normal ROM, no other, no rigidity, stridor, no thyromegaly Carotids: bilateral: upstroke normal Thyroid: bilateral: normal size - Respiratory Respiratory: bilateral: diminished, dullness, rales, rhonchi, wheezing, prolonged expiration - Cardiovascular Rhythm: irregularly irregular Heart sounds: normal: S1, S2 Abnormal Heart Sounds: systolic murmur, S3 Gallop - Gastrointestinal General gastrointestinal: no absent bowel sounds, decreased bowel sounds, no distended, hepatomegaly, no hyperactive bowel sounds, no normal bowel sounds, no organomegaly, no rigid, scaphoid, soft, splenomegaly, no tenderness, no umbilical hernia, no ventral hernia - Integumentary Integumentary: no calor, no cellulitis, no cyanotic, no decreased turgor, no flushed, no jaundiced, normal, no normal turgor, pale, rash, no ulcer - Neurologic Neurologic: CNII-XII intact - Musculoskeletal Musculoskeletal: gait normal, generalized weakness, strength equal bilaterally - Psychiatric Psychiatric: A&O x's 3, appropriate affect - Labs CBC & Chem 7: 06/30/16 05:55 06/30/16 05:55 Labs: Abnormal Lab Results - Last 24 Hours (Table) 06/29/16 06/29/16 06/29/16 Range/Units 05:57 05:57 05:57 WBC (3.8-10.6) k/uL RBC (3.80-5.40) m/uL Hgb (11.4-16.0) gm/dL Hct (34.0-46.0) % MCHC (31.0-37.0) g/dL RDW (11.5-15.5) % Retic Count 11.5 H (0.5-2.0) % Chloride (98-107) mmol/L Carbon Dioxide (22-30) mmol/L BUN (7-17) mg/dL Creatinine (0.52-1.04) mg/dL Glucose (74-99) mg/dL POC Glucose (mg/dL) (75-99) mg/dL TIBC 254 L (265-497) ug/dL Ferritin 1310 H (11-264) ng/mL Total Protein (6.3-8.2) g/dL Total Protein (PEP) (6.2-8.2) g/dL Albumin (3.5-5.0) g/dL RBC Folate 1,283 H (280 - 791) ng/mL Free [place] LC, Quant 2.36 H (0.33 - 1.94) mg/dL 06/29/16 06/29/16 06/29/16 Range/Units 05:57 17:24 20:58 WBC (3.8-10.6) k/uL RBC (3.80-5.40) m/uL Hgb (11.4-16.0) gm/dL Hct (34.0-46.0) % MCHC (31.0-37.0) g/dL RDW (11.5-15.5) % Retic Count (0.5-2.0) % Chloride (98-107) mmol/L Carbon Dioxide (22-30) mmol/L BUN (7-17) mg/dL Creatinine (0.52-1.04) mg/dL Glucose (74-99) mg/dL POC Glucose (mg/dL) 211 H 283 H (75-99) mg/dL TIBC (265-497) ug/dL Ferritin (11-264) ng/mL Total Protein (6.3-8.2) g/dL Total Protein (PEP) 5.1 L (6.2-8.2) g/dL Albumin (3.5-5.0) g/dL RBC Folate (280 - 791) ng/mL Free [place] LC, Quant (0.33 - 1.94) mg/dL 06/29/16 06/30/16 06/30/16 Range/Units 22:40 05:55 05:55 WBC 18.7 H (3.8-10.6) k/uL RBC 2.57 L (3.80-5.40) m/uL Hgb 7.5 L (11.4-16.0) gm/dL Hct 24.5 L (34.0-46.0) % MCHC 30.5 L (31.0-37.0) g/dL RDW 19.2 H (11.5-15.5) % Retic Count (0.5-2.0) % Chloride 97 L (98-107) mmol/L Carbon Dioxide 31 H (22-30) mmol/L BUN 91 H* (7-17) mg/dL Creatinine 1.77 H (0.52-1.04) mg/dL Glucose 143 H (74-99) mg/dL POC Glucose (mg/dL) 259 H (75-99) mg/dL TIBC (265-497) ug/dL Ferritin (11-264) ng/mL Total Protein 5.3 L (6.3-8.2) g/dL Total Protein (PEP) (6.2-8.2) g/dL Albumin 3.1 L (3.5-5.0) g/dL RBC Folate (280 - 791) ng/mL Free [place] LC, Quant (0.33 - 1.94) mg/dL 06/30/16 06/30/16 Range/Units 07:15 13:00 WBC (3.8-10.6) k/uL RBC (3.80-5.40) m/uL Hgb (11.4-16.0) gm/dL Hct (34.0-46.0) % MCHC (31.0-37.0) g/dL RDW (11.5-15.5) % Retic Count (0.5-2.0) % Chloride (98-107) mmol/L Carbon Dioxide (22-30) mmol/L BUN (7-17) mg/dL Creatinine (0.52-1.04) mg/dL Glucose (74-99) mg/dL POC Glucose (mg/dL) 175 H 345 H (75-99) mg/dL TIBC (265-497) ug/dL Ferritin (11-264) ng/mL Total Protein (6.3-8.2) g/dL Total Protein (PEP) (6.2-8.2) g/dL Albumin (3.5-5.0) g/dL RBC Folate (280 - 791) ng/mL Free [place] LC, Quant (0.33 - 1.94) mg/dL Assessment and Plan Plan: 1 acute respiratory distress: Secondary to sputum blood, acute OK, COPD exacerbation, aspiration pneumonia, vocal cord paralysis, anemia, and recent suspicion for pulmonary embolism. 2 acute myocardial infarction: Most likely non-ST OK, patient would not be on heparin drip discontinued, consult cardiology. 3 COPD exacerbation: Patient will be placed back onset of Solu-Medrol to prednisone, DuoNeb and Pulmicort will consult pulmonary again in patient's care. 4. mild fluid overload and congestive heart failure: Patient will be on light dose of diuretics with Lasix 40 mg daily. 5 vocal cord paralysis and exudative pharyngitis: Consult with Dr. Fragoso is appreciated. Patient is on nystatin and Diflucan will be added. 6 anemia acute on subacute, will continue to watch her hemoglobin and try to corrected to at least keep patient above 8g. 7 leukemoid reaction and leukocytosis: Was supposedly reaction to steroid but to keep watching symptoms and consult hematology for any evidence-based for change in bone marrow consistent with leukemia aggravated by the surgery stress in the steroid. 8 acute kidney injury with stage II kidney disease: Consult with nephrology. 9 possible pulmonary embolism with abnormal VQ scan last time if the kidney function improved slightly patient should be going for CTA for full diagnosis and to see the possibility need for long-term anticoagulation. 10 severe aortic stenosis: Patient has been on medical management so far might repeat echocardiogram again. 11 recent aspiration pneumonia: Patient still on antibiotic which should be continue gram-negative coverage. 12 diabetes mellitus type 2: Continue Lantus along with Tradjenta and Humalog. 13 hypothyroidism: Continue patient on levothyroxine 88 g daily. 14 hyperlipidemia: Patient is on atorvastatin 20 mg daily. 15 GI prophylaxis: Patient is on pantoprazole 40 mg daily. 16 debility and left hip fracture post-ORIF patient will require long-term physical therapy in a slow base rehab such as a long-term when she is ready again. DVT prophylaxis: Patient has been on anticoagulation. CODE STATUS: Full code. Discharge plan: on Sunday Impression and plan of care have been directed as dictated by the signing physician. Daiana Panda nurse practitioner acting as scribe for signing physician. Time with Patient: Greater than 30
--- NOTE | 2016-06-30 14:35 | P.PN ---
Subjective Progress note dated 06/29/2016 This is an 86-year-old patient that was recently discharged from the hospital. I think she went home on June 27. She asked he was transferred from the hospital to [facility]. She has a history of hypertension hypothyroidism chronic kidney disease type 2 diabetes and a left hip fracture. She had a repair of the left hip fracture by one of the surgeons at [facility]. Surgical repair took place on . She developed some respiratory difficulty and was noted to have a basilar pneumonia. That has improved. She was discharged to [facility] I believe on the . She was readmitted either yesterday or last night. She apparently developed some chest discomfort and some shortness of breath there. Her troponin was mildly elevated. Her chest x- ray looks good. May be some mild heart failure. Nothing much. The infiltrate had actually cleared. He is not doing poorly today but this certainly feels or seems to be a little short of breath. Doesn't appear to have any cough or significant phlegm. No fever no chills. No nausea vomiting or diarrhea. Progress note dated 06/30/2016 86-year-old female who was recently discharged from the hospital to the intermediate. She went home on . She has a history of hypertension hypothyroidism chronic kidney disease diabetes and left hip fracture. Had her left hip. Here and rehabilitated here for a bit and then discharged to the intermediate. She was readmitted I believe on June 28. Doing much better. Her troponins were mildly elevated. She has some chest discomfort and some shortness of breath which all was consistent with some mild heart failure. Doing much better now. Objective - Vital Signs Vital signs: Vital Signs Temp 97.1 F L 06/30/16 08:00 Pulse 90 06/30/16 13:30 Resp 18 06/30/16 12:00 BP 137/65 06/30/16 12:00 Pulse Ox 100 06/30/16 12:00 Intake & Output 06/29/16 06/30/16 06/30/16 18:59 06:59 18:59 Intake Total 90 560 Output Total 0 Balance 90 560 Intake: Oral 90 560 Output: Urine 0 Other: # Voids 2 1 1 # Bowel Movements 1 1 - Exam No acute distress, mildly tachypneic and dyspneic. Oriented 3. HEENT examination is grossly unremarkable. Neck supple. Full range of motion. No adenopathy. Cardio vascular examination reveals regular rhythm rate. A soft systolic murmurs heard. Lungs reveal clear breath sounds. No wheezes or rhonchi. No crackles. No adventitious lung sounds. Her lung sounds are better than they were the last time she was here. Abdomen soft bowel sounds are heard. Extremities are intact. - Labs CBC & Chem 7: 06/30/16 05:55 06/30/16 05:55 Labs: Abnormal Lab Results - Last 24 Hours (Table) 06/29/16 06/29/16 06/29/16 Range/Units 05:57 05:57 05:57 WBC (3.8-10.6) k/uL RBC (3.80-5.40) m/uL Hgb (11.4-16.0) gm/dL Hct (34.0-46.0) % MCHC (31.0-37.0) g/dL RDW (11.5-15.5) % Retic Count 11.5 H (0.5-2.0) % Chloride (98-107) mmol/L Carbon Dioxide (22-30) mmol/L BUN (7-17) mg/dL Creatinine (0.52-1.04) mg/dL Glucose (74-99) mg/dL POC Glucose (mg/dL) (75-99) mg/dL TIBC 254 L (265-497) ug/dL Ferritin 1310 H (11-264) ng/mL Total Protein (6.3-8.2) g/dL Total Protein (PEP) (6.2-8.2) g/dL Albumin (3.5-5.0) g/dL RBC Folate 1,283 H (280 - 791) ng/mL Free [place] LC, Quant 2.36 H (0.33 - 1.94) mg/dL 06/29/16 06/29/16 06/29/16 Range/Units 05:57 17:24 20:58 WBC (3.8-10.6) k/uL RBC (3.80-5.40) m/uL Hgb (11.4-16.0) gm/dL Hct (34.0-46.0) % MCHC (31.0-37.0) g/dL RDW (11.5-15.5) % Retic Count (0.5-2.0) % Chloride (98-107) mmol/L Carbon Dioxide (22-30) mmol/L BUN (7-17) mg/dL Creatinine (0.52-1.04) mg/dL Glucose (74-99) mg/dL POC Glucose (mg/dL) 211 H 283 H (75-99) mg/dL TIBC (265-497) ug/dL Ferritin (11-264) ng/mL Total Protein (6.3-8.2) g/dL Total Protein (PEP) 5.1 L (6.2-8.2) g/dL Albumin (3.5-5.0) g/dL RBC Folate (280 - 791) ng/mL Free [place] LC, Quant (0.33 - 1.94) mg/dL 06/29/16 06/30/16 06/30/16 Range/Units 22:40 05:55 05:55 WBC 18.7 H (3.8-10.6) k/uL RBC 2.57 L (3.80-5.40) m/uL Hgb 7.5 L (11.4-16.0) gm/dL Hct 24.5 L (34.0-46.0) % MCHC 30.5 L (31.0-37.0) g/dL RDW 19.2 H (11.5-15.5) % Retic Count (0.5-2.0) % Chloride 97 L (98-107) mmol/L Carbon Dioxide 31 H (22-30) mmol/L BUN 91 H* (7-17) mg/dL Creatinine 1.77 H (0.52-1.04) mg/dL Glucose 143 H (74-99) mg/dL POC Glucose (mg/dL) 259 H (75-99) mg/dL TIBC (265-497) ug/dL Ferritin (11-264) ng/mL Total Protein 5.3 L (6.3-8.2) g/dL Total Protein (PEP) (6.2-8.2) g/dL Albumin 3.1 L (3.5-5.0) g/dL RBC Folate (280 - 791) ng/mL Free [place] LC, Quant (0.33 - 1.94) mg/dL 06/30/16 06/30/16 Range/Units 07:15 13:00 WBC (3.8-10.6) k/uL RBC (3.80-5.40) m/uL Hgb (11.4-16.0) gm/dL Hct (34.0-46.0) % MCHC (31.0-37.0) g/dL RDW (11.5-15.5) % Retic Count (0.5-2.0) % Chloride (98-107) mmol/L Carbon Dioxide (22-30) mmol/L BUN (7-17) mg/dL Creatinine (0.52-1.04) mg/dL Glucose (74-99) mg/dL POC Glucose (mg/dL) 175 H 345 H (75-99) mg/dL TIBC (265-497) ug/dL Ferritin (11-264) ng/mL Total Protein (6.3-8.2) g/dL Total Protein (PEP) (6.2-8.2) g/dL Albumin (3.5-5.0) g/dL RBC Folate (280 - 791) ng/mL Free [place] LC, Quant (0.33 - 1.94) mg/dL Assessment and Plan (1) COPD (chronic obstructive pulmonary disease) Status: Acute (2) Non-STEMI (non-ST elevated myocardial infarction) Status: Acute (3) Chronic anemia Status: Acute (4) Chronic kidney failure Status: Acute (5) Chronic renal failure Status: Acute (6) Dehydration Status: Acute (7) Fracture of hip Status: Acute (8) HTN (hypertension) Status: Acute (9) Hip fracture, left Status: Acute (10) Leukocytosis Status: Acute (11) Severe aortic stenosis Status: Acute (12) TIA (transient ischemic attack) Status: Acute Plan: Plan Look back at her discharge medications and make sure she's back on the antibiotic she was discharged with. Her pulmonary status is stable. She's currently being evaluated by cardiology and other physicians. I don't believe he has an active infiltrate at this time. Her troponins were modestly elevated and she had a chest x-ray which suggested mild mild to moderate pulmonary venous hypertension. The issue may be more cardiac than pulmonary on this admission. Plan dated 06/30/2016 The patient's respiratory status on this as mentioned is relatively stable. Her chest x-ray seemed to show complete resolution of the basilar infiltrate. No shortness of breath. No cough. No wheezing. No phlegm production. No fever no chills. Still currently being evaluated by cardiology. We'll continue to follow. Prognosis is guarded. Time with Patient: Less than 30
--- NOTE | 2016-06-30 14:45 | CDI ---
In responding to this query, please exercise your independent professional judgment. The [facility] Coding Staff and Clinical Documentation Specialists appreciate your assistance in clarifying documentation, maintaining compliance with coding guidelines, accurately documenting patients condition and capturing severity of illness. The fact that a question is asked does not imply that any particular answer is desired or expected. Communication forms are a method of clarifying documentation and are not made part of the Legal Health Record. Thank you in advance for your clarification. Last Revision, July 2015 Taran Monahan [address] [place] [address] Documentation Clarification Form Date: 06/30/2016 1:48:00 PM From: Mona Lozada Admit Date: 06/28/2016 2:49:00 PM Patient Name: Sara Alfonso Visit Number: [id number] Discharge Date: Dr. Richie Doty/Daiana Panda CHF is documented in the H/P and progress notes . History/Risk Factors: COPD, Aspiration pneumonia Anemia, Clinical Indicators: Complains of hoarseness significant shortness of breath cough wheezes and worsening dyspnea severe hypoxia and severe tachypnea. VS/Pulse OX: 129/60 97 18 99.2 100 % RA Chest X Ray: Cardiomegaly, Difficult to exclude a component of pulmonary venous hypertension and interstitial edema H/P and progress note: Mild fluid overload and congestive heart failure: Patient will be on light dose of diuretics with Lasix 40 daily Treatment: Lasix 40 PO daily In your professional opinion, can you please clarify the acuity and type of CHF if known? Acute Chronic Acute on Chronic AND Systolic Diastolic Systolic and Diastolic Cor Pulmonale (Right Sided HF w/ Pulmonary HTN) Unable to determine Other, please specify If known, please specify if Heart Failure is due to: Hypertension Rheumatic Fever Please document in your progress notes and discharge summary in order to capture severity of illness and risk of mortality. Include clinical findings that support your diagnosis. FYI: Press F11 to launch patient chart. Place X here if this finding has no clinical significance, is not applicable or if you are not able to provide any additional documentation. CLARKD
[2016-06-30] MEDS: MAGNESIUM HYDROXIDE 2,400 MG/10 ML CUP PO PRN (14:55)
[2016-06-30] MEDS: FLUCONAZOLE 100 MG TAB PO SCH (14:55)
--- NOTE | 2016-06-30 16:09 | FL ---
EXAMINATION TYPE: FL barium swallow w video DATE OF EXAM: 06/30/2016 3:50 PM COMPARISON: NONE HISTORY: Vocal cord paralysis. FINDINGS: Patient was evaluated in real-time fluoroscopy in the lateral projection while ingesting barium mixe d with liquids. Some laryngeal penetration was noted on thin liquids. Exam was modified per speech pa thology. Residuals noted at the vallecula. See dictated report from speech pathology.
[2016-06-30 16:55] LABS: Glucose,Whole Blood 299 mg/dL (75-99)
[2016-06-30] MEDS: MAGNESIUM OXIDE 400 MG TAB PO SCH (17:23)
[2016-06-30] MEDS: FERROUS SULFATE 325 MG TAB PO SCH (17:23)
[2016-06-30] MEDS: MULTIVITAMINS, THERA 1 EACH TAB PO SCH (17:23)
[2016-06-30] MEDS: CHOLECALCIFEROL 1,000 UNIT TAB PO SCH (17:23)
--- NOTE | 2016-06-30 17:38 | P.PN ---
Subjective Principal diagnosis: Stroke This is a pleasant 86-year-old female continuing be evaluated by the neurology service. She was brought to [facility] Emergency room for shortness of breath. Later this month she suffered a hip fracture requiring surgical repair. While in rehabilitation she developed some increased shortness of breath and difficulty in swallowing. She did have a swallowing study earlier today and the results are pending. She is tolerating pured foods well with no choking or gagging. No problems with liquids. We will call to evaluate for possibility of stroke. Again we doubt any ischemic etiology for her symptoms. However she is already on Ellick was for anticoagulation. At time my evaluation she is sitting up resting comfortably in bed eating her dinner with no problems. Objective - Vital Signs Vital signs: Vital Signs Temp 97.1 F L 06/30/16 08:00 Pulse 88 06/30/16 16:31 Resp 18 06/30/16 16:00 BP 137/65 06/30/16 12:00 Pulse Ox 100 06/30/16 12:00 Intake & Output 06/29/16 06/30/16 06/30/16 18:59 06:59 18:59 Intake Total 90 680 Output Total 0 Balance 90 680 Intake: Oral 90 680 Output: Urine 0 Other: # Voids 2 1 1 # Bowel Movements 1 1 - Constitutional General appearance: Present: average body habitus, no acute distress - EENT Eyes: Present: EOMI, PERRLA. Absent: abnormal pupil, ptosis ENT: Present: hearing grossly normal - Neck Neck: Present: normal ROM. Absent: rigidity - Respiratory Respiratory: negative: prolonged expiration, prolonged inspiration - Cardiovascular Rhythm: regular - Gastrointestinal General gastrointestinal: Absent: distended, tenderness - Neurologic Neurologic Comment(s): Patient is alert awake and oriented 3. She has soft speech. Her language is normal. There is no lateralizing weakness. She is no facial asymmetry. No tremors or seizure-like activities are seen. - Labs CBC & Chem 7: 06/30/16 05:55 06/30/16 05:55 Labs: Abnormal Lab Results - Last 24 Hours (Table) 06/29/16 06/29/16 06/29/16 Range/Units 05:57 05:57 05:57 WBC (3.8-10.6) k/uL RBC (3.80-5.40) m/uL Hgb (11.4-16.0) gm/dL Hct (34.0-46.0) % MCHC (31.0-37.0) g/dL RDW (11.5-15.5) % Retic Count 11.5 H (0.5-2.0) % Chloride (98-107) mmol/L Carbon Dioxide (22-30) mmol/L BUN (7-17) mg/dL Creatinine (0.52-1.04) mg/dL Glucose (74-99) mg/dL POC Glucose (mg/dL) (75-99) mg/dL TIBC 254 L (265-497) ug/dL Ferritin 1310 H (11-264) ng/mL Total Protein (6.3-8.2) g/dL Total Protein (PEP) (6.2-8.2) g/dL Albumin (3.5-5.0) g/dL RBC Folate 1,283 H (280 - 791) ng/mL Free [place] LC, Quant 2.36 H (0.33 - 1.94) mg/dL 06/29/16 06/29/16 06/29/16 Range/Units 05:57 17:24 20:58 WBC (3.8-10.6) k/uL RBC (3.80-5.40) m/uL Hgb (11.4-16.0) gm/dL Hct (34.0-46.0) % MCHC (31.0-37.0) g/dL RDW (11.5-15.5) % Retic Count (0.5-2.0) % Chloride (98-107) mmol/L Carbon Dioxide (22-30) mmol/L BUN (7-17) mg/dL Creatinine (0.52-1.04) mg/dL Glucose (74-99) mg/dL POC Glucose (mg/dL) 211 H 283 H (75-99) mg/dL TIBC (265-497) ug/dL Ferritin (11-264) ng/mL Total Protein (6.3-8.2) g/dL Total Protein (PEP) 5.1 L (6.2-8.2) g/dL Albumin (3.5-5.0) g/dL RBC Folate (280 - 791) ng/mL Free [place] LC, Quant (0.33 - 1.94) mg/dL 06/29/16 06/30/16 06/30/16 Range/Units 22:40 05:55 05:55 WBC 18.7 H (3.8-10.6) k/uL RBC 2.57 L (3.80-5.40) m/uL Hgb 7.5 L (11.4-16.0) gm/dL Hct 24.5 L (34.0-46.0) % MCHC 30.5 L (31.0-37.0) g/dL RDW 19.2 H (11.5-15.5) % Retic Count (0.5-2.0) % Chloride 97 L (98-107) mmol/L Carbon Dioxide 31 H (22-30) mmol/L BUN 91 H* (7-17) mg/dL Creatinine 1.77 H (0.52-1.04) mg/dL Glucose 143 H (74-99) mg/dL POC Glucose (mg/dL) 259 H (75-99) mg/dL TIBC (265-497) ug/dL Ferritin (11-264) ng/mL Total Protein 5.3 L (6.3-8.2) g/dL Total Protein (PEP) (6.2-8.2) g/dL Albumin 3.1 L (3.5-5.0) g/dL RBC Folate (280 - 791) ng/mL Free [place] LC, Quant (0.33 - 1.94) mg/dL 06/30/16 06/30/16 06/30/16 Range/Units 07:15 13:00 16:47 WBC (3.8-10.6) k/uL RBC (3.80-5.40) m/uL Hgb (11.4-16.0) gm/dL Hct (34.0-46.0) % MCHC (31.0-37.0) g/dL RDW (11.5-15.5) % Retic Count (0.5-2.0) % Chloride (98-107) mmol/L Carbon Dioxide (22-30) mmol/L BUN (7-17) mg/dL Creatinine (0.52-1.04) mg/dL Glucose (74-99) mg/dL POC Glucose (mg/dL) 175 H 345 H 299 H (75-99) mg/dL TIBC (265-497) ug/dL Ferritin (11-264) ng/mL Total Protein (6.3-8.2) g/dL Total Protein (PEP) (6.2-8.2) g/dL Albumin (3.5-5.0) g/dL RBC Folate (280 - 791) ng/mL Free [place] LC, Quant (0.33 - 1.94) mg/dL Assessment and Plan Plan: Continue diet as tolerated. Continue on Eliquis was. Continue physical and speech therapy. We can be consulted on as-needed basis for any further neurological symptoms otherwise she is cleared from a neurological standpoint. I have performed a history and physical on the above patient. I have reviewed the above note, and agree.
[2016-06-30 21:10] LABS: Glucose,Whole Blood 367 mg/dL (75-99)
[2016-06-30] MEDS: MELATONIN 3 MG TABLET PO SCH (22:34)
[2016-06-30] MEDS: ATORVASTATIN 20 MG TAB PO SCH (22:34)
[2016-06-30] MEDS: traMADol 50 MG TAB PO PRN (22:41)
[2016-07-01] MEDS: IPRATROPIUM-ALBUTEROL 3 ML NEB INHALATION PRN (03:29)
[2016-07-01] MEDS: LEVOTHYROXINE 88 MCG TAB PO SCH (06:39)
[2016-07-01] MEDS: traMADol 50 MG TAB PO PRN (06:40)
[2016-07-01 06:45] LABS: Anisocytosis Slight; CH 28.8; CHCM 30.6; HCT 23.5 % (34.0-46.0); HDW 2.98; HGB 7.1 gm/dL (11.4-16.0); Hypochromasia Marked; MCH 28.8 pg (25.0-35.0); MCHC 30.4 g/dL (31.0-37.0); MCV 94.7 fL (80.0-100.0); Macrocytosis Slight; Mean Platelet Volume 8.1; RBC 2.48 m/uL (3.80-5.40); RDW 18.6 % (11.5-15.5); WBC 18.3 k/uL (3.8-10.6)
[2016-07-01 06:50] LABS: Glucose,Whole Blood 265 mg/dL (75-99)
[2016-07-01 06:55] LABS: Calcium 8.4 mg/dL (8.4-10.2); Potassium 4.8 mmol/L (3.5-5.1)
[2016-07-01] MEDS: INSULIN LISPRO (humaLOG) 300 UNIT/3 ML VIAL SQ SCH ×4 (06:56→21:44)
[2016-07-01] MEDS: IPRATROPIUM-ALBUTEROL 3 ML NEB INHALATION SCH ×5 (08:24→20:25)
[2016-07-01] MEDS: FLUCONAZOLE 100 MG TAB PO SCH (09:31)
[2016-07-01] MEDS: NYSTATIN 100,000 UNIT/ML SUSP 500,000 UNIT/5 ML CUP PO SCH ×4 (09:31→19:50)
[2016-07-01] MEDS: TRIAMCINOLONE ACET 0.5% CREAM 15 GM TUBE TOPICAL SCH ×2 (09:31→19:50)
[2016-07-01] MEDS: predniSONE 20 MG TAB PO SCH (09:31)
[2016-07-01] MEDS: DICLOFENAC 0.1% OPHTH SOLN 2.5 ML BTL BOTH EYES SCH ×4 (09:31→19:50)
[2016-07-01] MEDS: FERROUS SULFATE 325 MG TAB PO SCH (09:32)
[2016-07-01] MEDS: ASPIRIN 81 MG CHEW PO SCH (09:32)
[2016-07-01] MEDS: MULTIVITAMINS, THERA 1 EACH TAB PO SCH (09:33)
[2016-07-01] MEDS: MAGNESIUM OXIDE 400 MG TAB PO SCH (09:33)
[2016-07-01] MEDS: CHOLECALCIFEROL 1,000 UNIT TAB PO SCH (09:33)
[2016-07-01] MEDS: SENNOSIDES 8.6 MG TAB PO SCH ×2 (09:33→19:51)
[2016-07-01] MEDS: LEVOFLOXACIN 250 MG TAB PO SCH (09:34)
[2016-07-01] MEDS: LINAGLIPTIN 5 MG TABLET PO SCH (09:34)
[2016-07-01] MEDS: amLODIPine 5 MG TAB PO SCH (09:34)
[2016-07-01] MEDS: LORATADINE 10 MG TAB PO SCH (09:34)
[2016-07-01] MEDS: ALLOPURINOL 100 MG TAB PO SCH (09:34)
[2016-07-01] MEDS: APIXABAN 2.5 MG TABLET PO SCH ×2 (09:35→19:51)
[2016-07-01] MEDS: guaiFENesin 600 MG TABLET.ER PO SCH ×2 (09:35→19:49)
[2016-07-01] MEDS: hydrALAZINE HCL 25 MG TAB PO SCH ×2 (09:35→19:49)
[2016-07-01] MEDS: INSULIN GLARGINE 100 UNIT/ML 10 ML VIAL SQ SCH (09:40)
[2016-07-01] MEDS ORDERED: amLODIPine 5 MG TAB PO STA (10:29)
--- NOTE | 2016-07-01 10:56 | PN ---
INTERVAL HISTORY: Patient is still having generalized weakness, found to be at the bedside. Patient is denying chest pain, nausea, vomiting, or abdominal pain. Said that her bowel movement was a long time ago. PHYSICAL EXAMINATION: VITAL SIGNS: 97.1, 88, 18, 189/79, saturations 100% on room air. LUNGS: Diminished bilaterally. HEART: Normal S1, S2. ABDOMEN: Soft, distended. Positive bowel sounds in all 4 quadrants. No guarding or rebound noted on physical examination. LOWER EXTREMITIES: Positive for edema bilaterally. PSYCH: Alert, and oriented x3. SKIN: No new rash. IMAGING AND LABS: White blood count 18.3 down from 28 prior to that. Hemoglobin is stable at 7.1, platelets within acceptable range. BUN is increasing steadily to 99. Creatinine is 1.6, stable from prior finding. Glucose fluctuating between 251 and 345. ASSESSMENT AND PLAN: 1. Elevated BUN likely related to steroids. I would like to consult Nephrology for close followup in that regard. We are encouraging oral intake and fluid intake. Will discuss with Nephrology need for IV fluid at this point. 2. Acute respiratory failure, likely multifactorial. Patient seems to be improving overall. 3. Recent non-ST elevation myocardial infarction. We will continue with cardiology recommendation. 4. Chronic obstructive pulmonary disease, seems to be improving. Patient on prednisone 40, will wean her off as tolerated. 5. Diabetes, uncontrolled due to steroids. Will wean off steroids as tolerated. Continue insulin sliding scale. 6. Vocal cord paralysis and pharyngitis. We will continue antibiotics at this point. 7. Anemia, has been stable around 7. We will consider transfusion 2 units per nephrology recommendation. 8. Leukocytosis, likely secondary to steroids. 9. Severe aortic, stenosis. We will continue careful fluid balance, 10. Prognosis is guarded. 11. Discharge planning based on clinical progress. 12. Aspiration, will continue with swallow evaluation on Sunday.
[2016-07-01 11:28] LABS: Glucose,Whole Blood 355 mg/dL (75-99)
[2016-07-01] MEDS ORDERED: MINERAL OIL 133 ML ENEMA RECTAL STA (11:38)
--- NOTE | 2016-07-01 11:49 | P.NPCON ---
History of Present Illness - Reason for Consult Consult date: 07/01/16 acute renal failure - Chief Complaint Acute kidney injury - History of Present Illness This is an 86-year-old female seen in consultation because of acute kidney injury, and chronic kidney disease. Should been admitted twice recently. Initially she came in on 06/15/2016 after a fall and fracture and underwent hip surgery on 06/16/2016. Should discharged to [facility] on 06/27/2016. During that hospitalization which there was suspicion of PE based on VQ scan and 06/21/2016 and was started on anticoagulation. She returned back to the hospital within the few hours of discharge on 2016 with shortness of breath and possibility of acute TN. Her troponin was 0.2 at max. He was diagnosed to have non-ST TN. Her creatinine baseline has been varying. Earliest creatinine available in 08/2013 is 2.08. It improves to 1.29 on 01/18/2014. More recently baseline creatinine is 1.3 as of 06/28/2016 has developed 1.6. Known to our group and follows up with Dr. Sousa. She is also on Aranesp monthly injections as needed and is therefore known with anemia Her hemoglobin currently is 7.1. She is symptomatic with shortness of breath. Mildly wheezing as well. She has hoarseness of voice which occurred after surgery and intubation and supposedly has vocal cord paralysis. Other additional history includes history of diabetes, previous CVA, COPD, tight aortic stenosis, Past Medical History Past Medical History: CVA/TIA, Diabetes Mellitus, Eye Disorder, Hyperlipidemia, Hypertension, Musculoskeletal Disorder, Osteoarthritis (OA), Pneumonia, Renal Disease, Thyroid Disorder Additional Past Medical History / Comment(s): chronic back pain HAS A BROKEN TITANIUM CESIA IN HER BACK, cardiac murmur,MURMUR,RETINAL ROBLEMS, ATHRITIS, history of aortic stenosis, severe, 2-2-17 fall/lt hip fx History of Any Multi-Drug Resistant Organisms: None Reported Past Surgical History: Back Surgery, Section, Cholecystectomy, Joint Replacement, Orthopedic Surgery Additional Past Surgical History / Comment(s): PARTIALthyroidECTOMY D/T NODULES trach 1195, TITANIUM CESIA IN BACK,LT KNEE REPLACEMENT,LT PARTIAL SHOULDER REPLACEMENT,2-317 operative fixation lt hip fx w/IM HIP SCREW. Past Anesthesia/Blood Transfusion Reactions: Postoperative Nausea & Vomiting ( PONV) Past Psychological History: No Psychological Hx Reported Smoking Status: Never smoker Past Alcohol Use History: None Reported Past Drug Use History: None Reported - Past Family History Father Family Medical History: Diabetes Mellitus Mother Family Medical History: COPD Additional Family Medical History / Comment(s): jeimy(non smoker) at age 65 Brother(s) Family Medical History: Diabetes Mellitus Sister(s) Family Medical History: No Reported History Son(s) Family Medical History: No Reported History Daughter(s) Family Medical History: Diabetes Mellitus Medications and Allergies Home Medications Medication Instructions Recorded Confirmed Type Allopurinol [Zyloprim] 100 mg PO DAILY@0800 01/18/14 06/28/16 History Albuterol Sulfate [Proair Hfa] 2 puff INHALATION RT-Q6H PRN 06/15/16 06/28/16 History Atorvastatin [Lipitor] 20 mg PO HS@209906/15/16 06/28/16 History Cholecalciferol [Vitamin D3] 1,000 unit PO DAILY@169906/15/16 06/28/16 History Diclofenac 0.1% Ophth Soln 1 drops BOTH EYES QID 06/15/16 06/28/16 History [Voltaren 0.1% Ophth Soln] Epoetin Basim [Procrit] 20,000 unit SQ Q14D 06/15/16 06/28/16 History Ferrous Sulfate [Iron (65 MG 325 mg PO DAILY@169906/15/16 06/28/16 History Elemental)] Insulin Glargine,Hum.rec.anlog 12 unit SQ DAILY@0806/15/16 06/28/16 History [Lantus Solostar] Loratadine [Claritin] 10 mg PO DAILY@0800 06/15/16 06/28/16 History Magnesium Oxide [Mag-Ox] 800 mg PO DAILY@169906/15/16 06/28/16 History Melatonin 3 mg PO HS@209906/15/16 06/28/16 History Sennosides [Senna] 8.6 mg PO BID@0800,2100 06/15/16 06/28/16 History Triamcinolone 0.5% Cream [Kenalog 1 applic TOPICAL BID 06/15/16 06/28/16 History 0.5% Cream] amLODIPine [Norvasc] 5 mg PO DAILY@0800 06/15/16 06/28/16 History guaiFENesin [Mucinex] 600 mg PO BID@0800,209906/15/16 06/28/16 History hydrALAZINE HCL [Apresoline] 25 mg PO DAILY@0800 06/15/16 06/28/16 History sitaGLIPtin PHOSPHATE [Januvia] 25 mg PO DAILY@0800 06/15/16 06/28/16 History Apixaban [Eliquis] 2.5 mg PO BID@0800,209906/28/16 06/28/16 History Bisacodyl [Dulcolax] 10 mg RECTAL DAILY PRN 06/28/16 06/28/16 History Budesonide [Pulmicort] 0.5 mg INHALATION RT-BID@0800,1700 06/28/16 06/28/16 History Furosemide [Lasix] 40 mg PO DAILY@0800 06/28/16 06/28/16 History HYDROcodone/APAP 5-325MG [[place] 1 tab PO DAILY PRN 06/28/16 06/28/16 History 5-325] INSULIN LISPRO (humaLOG) [humaLOG See Protocol SQ ACHS 06/28/16 06/28/16 History (formulary)] Ipratropium-Albuterol Nebulize 3 ml INHALATION RT-QID 06/28/16 06/28/16 History [Duoneb 0.5 mg-3 mg/3 ml Soln] Levofloxacin [Levaquin] 250 mg PO DAILY@0800 06/28/16 06/28/16 History Levothyroxine Sodium [Synthroid] 88 mcg PO DAILY@0600 06/28/16 06/28/16 History Magnesium Hydroxide [Milk of 2,400 mg PO DAILY PRN 06/28/16 06/28/16 History Magnesia] Multivitamins, Thera [Multivitamin] 1 tab PO DAILY@1700 06/28/16 06/28/16 History Na Phos,M-B/Na Phos,Di-Ba [Fleet 133 ml RECTAL ONCE PRN 06/28/16 06/28/16 History Adult] predniSONE 5 mg PO QID 06/28/16 06/28/16 History Allergies Allergy/AdvReac Type Severity Reaction Status Date / Time amoxicillin trihydrate Allergy Unknown Verified 06/28/16 12:04 [From Augmentin] cephalexin monohydrate Allergy Unknown Verified 06/28/16 12:04 [From Keflex] cyclobenzaprine HCl Allergy Unknown Verified 06/28/16 12:04 [From Flexeril] eszopiclone [From Lunesta] Allergy Unknown Verified 06/28/16 12:04 gabapentin [From Neurontin] Allergy Unknown Verified 06/28/16 12:04 levocetirizine Allergy Unknown Verified 06/28/16 12:04 dihydrochloride [From Xyzal] meperidine HCl [From Demerol] Allergy Unknown Verified 06/28/16 12:04 potassium clavulanate Allergy Unknown Verified 06/28/16 12:04 [From Augmentin] adhesive AdvReac Unknown Verified 06/28/16 12:04 hydromorphone HCl AdvReac Hallucinati Verified 06/28/16 12:04 [From Dilaudid] ons Physical Exam Vitals: Vital Signs Temp Pulse Pulse Resp BP BP Pulse Ox 07/01/16 08:35 88 07/01/16 08:24 88 07/01/16 08:00 98.0 F 86 18 135/62 100 07/01/16 04:00 97.1 F L 88 18 189/79 100 07/01/16 03:31 80 07/01/16 03:20 80 07/01/16 00:00 97.1 F L 86 18 150/66 100 06/30/16 20:29 76 06/30/16 20:18 76 06/30/16 20:00 97.1 F L 87 18 150/62 100 06/30/16 16:31 88 06/30/16 16:21 84 06/30/16 16:00 70 18 138/71 100 06/30/16 13:30 90 06/30/16 13:15 88 06/30/16 12:00 72 18 137/65 100 Intake and Output 06/30/16 07/01/16 07/01/16 22:59 06:59 14:59 Intake Total 360 180 Output Total 300 Balance 60 180 Intake: Oral 360 180 Output: Post Void Residual 300 Other: Voiding Method Diaper Diaper Diaper # Voids 1 1 # Bowel Movements 1 Weight 75 kg On exam concurrently she is tired and weak, wheezing at rest. Her voice is hoarse. HEENT exam no JVP neck is supple no facial asymmetry. Lungs are significant for occasional end expiratory wheezing. No crackles heard. Good air entry bilaterally no dullness percussion. Heart sounds are unremarkable except for a grade 1-2 systolic ejection murmur although the echocardiogram done on this admission shows tight aortic stenosis. Abdomen is soft but slightly tender all over no rebound bowel sounds are present. Extremity exam reveals trace edema. Warm to touch. Neurologically awake alert oriented except for the hoarseness of voice. She is able to move all her extremities but generalized weakness which is fairly profound. Results - Lab Results Most recent lab results Calcium 8.4 mg/dL (8.4-10.2) 07/01/16 06:20 Magnesium 2.4 mg/dL (1.6-2.3) H 06/28/16 12:12 07/01/16 06:20 07/01/16 06:20 Assessment and Plan Plan: Impression. 1. Acute kidney injury with creatinine going up from 1.3 dated 06/28/2016 to 1.6. Cause of this is likely prerenal from possibly volume depletion. 2. Chronic kidney disease with a baseline creatinine 1.3, diabetic nephropathy possibly with 1+ proteinuria, no quantification yet performed. 3. Recent admission twice, first one was 06/15/2069 after a fall and fracture status post hip surgery dated 06/16/2016. Readmitted within hours on 2016 with shortness of breath, possible acute TN 4. Recent suspicion for PE based on VQ scan dated 06/21/2016. 5. Acute TN non-ST troponin 0.2 admitted 06/28/2016 6. Severe anemia hemoglobin 7.1 saturation 22%, etiology is chronic kidney disease. Worse because of hospitalization. Symptomatic with shortness of breath. 7. History of COPD, 8. Tight aortic stenosis by echocardiogram. 9. High BUN from steroids and acute kidney injury. 10. Severe constipation. Recommendation. 1. Check bladder scan to rule out any outlet obstruction. 2. Transfuse one year packed cells. 3. We'll give her mineral oil enema. 4. Obtain chest x-ray to reassess his congestive heart failure. 5. Will obtain urinalysis to ensure there is no acute interstitial nephritis.
--- NOTE | 2016-07-01 12:04 | XR ---
EXAMINATION TYPE: XR chest 1V DATE OF EXAM: 07/01/2016 11:56 AM CLINICAL HISTORY: Difficulty breathing and CHF progress study. TECHNIQUE: Single AP portable upright view of the chest is obtained. COMPARISON: Chest x-ray from 3 days earlier FINDINGS: There is chronic parenchymal change without suspicious new focal airspace opacity, pleural effusion, or pneumothorax seen bilaterally. There is persistent cardiomegaly with atherosclerotic an d ectatic thoracic aorta. There is interval improvement in central vascular congestion. Osseous struc tures are demineralized. Long segment surgical change in thoracolumbar spine is partially imaged. Charlie gical change left humeral head level is redemonstrated. IMPRESSION: Cardiomegaly with improved central vascular congestion felt present, no new infiltrate is seen.
--- NOTE | 2016-07-01 12:11 | P.PN ---
Subjective Principal diagnosis: shortness of breath This is a pleasant 86-year-old lady who was recently discharged from the hospital to an extended care facility following a hip fracture and subsequent ORIF. At that time she developed some pneumonia however this seems to have improved. Prior to surgery she was evaluated by Dr. Garcia for surgical clearance and during that evaluation she was found have aortic stenosis. She was readmitted after developing complaints of sudden onset shortness of breath. Most recent echocardiogram during her last admission showed severe aortic stenosis with a normal LV function.upon examination today, patient appears to be quite comfortable. Breathing is improving. Objective - Vital Signs Vital signs: Vital Signs Temp 98.0 F 07/01/16 08:00 Pulse 88 07/01/16 08:35 Resp 18 07/01/16 08:00 BP 135/62 07/01/16 08:00 Pulse Ox 100 07/01/16 08:00 Intake & Output 06/30/16 07/01/16 07/01/16 18:59 06:59 18:59 Intake Total 920 180 Output Total 300 Balance 920 -300 180 Weight 75 kg Intake: Oral 920 180 Output: Post Void Residual 300 Other: Voiding Method Diaper Diaper # Voids 1 1 # Bowel Movements 1 1 - Exam PHYSICAL EXAMINATION: HEENT: Head is atraumatic, normocephalic. Pupils equal, round. Neck is supple. There is no elevated jugular venous pressure. HEART EXAMINATION: Heart sounds regular, S1 and S2 with a grade 4/6 systolic murmur. CHEST EXAMINATION: Lungs are clear to auscultation and precussion. No chest wall tenderness is noted on palpation or with deep breathing. ABDOMEN: Soft, nontender. Bowel sounds are heard. No organomegaly noted. EXTREMITIES: 2+ peripheral pulses with no evidence of peripheral edema and no calf tenderness noted. NEUROLOGIC patient is awake, alert and oriented x3. - Labs CBC & Chem 7: 07/01/16 06:20 07/01/16 06:20 Labs: Abnormal Lab Results - Last 24 Hours (Table) 06/29/16 06/30/16 06/30/16 Range/Units 05:57 13:00 16:47 WBC (3.8-10.6) k/uL RBC (3.80-5.40) m/uL Hgb (11.4-16.0) gm/dL Hct (34.0-46.0) % MCHC (31.0-37.0) g/dL RDW (11.5-15.5) % Sodium (137-145) mmol/L Chloride (98-107) mmol/L BUN (7-17) mg/dL Creatinine (0.52-1.04) mg/dL Glucose (74-99) mg/dL POC Glucose (mg/dL) 345 H 299 H (75-99) mg/dL RBC Folate 1,283 H (280 - 791) ng/mL Free [place] LC, Quant 2.36 H (0.33 - 1.94) mg/dL 06/30/16 07/01/16 07/01/16 Range/Units 21:02 06:20 06:20 WBC 18.3 H (3.8-10.6) k/uL RBC 2.48 L (3.80-5.40) m/uL Hgb 7.1 L (11.4-16.0) gm/dL Hct 23.5 L (34.0-46.0) % MCHC 30.4 L (31.0-37.0) g/dL RDW 18.6 H (11.5-15.5) % Sodium 132 L (137-145) mmol/L Chloride 94 L (98-107) mmol/L BUN 99 H* (7-17) mg/dL Creatinine 1.60 H (0.52-1.04) mg/dL Glucose 251 H (74-99) mg/dL POC Glucose (mg/dL) 367 H (75-99) mg/dL RBC Folate (280 - 791) ng/mL Free [place] LC, Quant (0.33 - 1.94) mg/dL 07/01/16 07/01/16 Range/Units 06:47 11:25 WBC (3.8-10.6) k/uL RBC (3.80-5.40) m/uL Hgb (11.4-16.0) gm/dL Hct (34.0-46.0) % MCHC (31.0-37.0) g/dL RDW (11.5-15.5) % Sodium (137-145) mmol/L Chloride (98-107) mmol/L BUN (7-17) mg/dL Creatinine (0.52-1.04) mg/dL Glucose (74-99) mg/dL POC Glucose (mg/dL) 265 H 355 H (75-99) mg/dL RBC Folate (280 - 791) ng/mL Free [place] LC, Quant (0.33 - 1.94) mg/dL Assessment and Plan (1) SOB (shortness of breath) Status: Acute (2) Severe aortic stenosis Status: Acute (3) Renal failure, acute Status: Acute (4) Hx of pulmonary embolus Status: Acute (5) HTN (hypertension) Status: Acute Plan: from cardiology's perspective, we will recommend to continue the patient on her current medications. DNP note has been reviewed, I agree with a documented findings and plan of care. Patient was seen and examined.
--- NOTE | 2016-07-01 13:28 | P.PN ---
Subjective Progress note dated 06/29/2016 This is an 86-year-old patient that was recently discharged from the hospital. I think she went home on June 27. She asked he was transferred from the hospital to [facility]. She has a history of hypertension hypothyroidism chronic kidney disease type 2 diabetes and a left hip fracture. She had a repair of the left hip fracture by one of the surgeons at [facility]. Surgical repair took place on . She developed some respiratory difficulty and was noted to have a basilar pneumonia. That has improved. She was discharged to [facility] I believe on the . She was readmitted either yesterday or last night. She apparently developed some chest discomfort and some shortness of breath there. Her troponin was mildly elevated. Her chest x- ray looks good. May be some mild heart failure. Nothing much. The infiltrate had actually cleared. He is not doing poorly today but this certainly feels or seems to be a little short of breath. Doesn't appear to have any cough or significant phlegm. No fever no chills. No nausea vomiting or diarrhea. Progress note dated 06/30/2016 86-year-old female who was recently discharged from the hospital to the custodial. She went home on . She has a history of hypertension hypothyroidism chronic kidney disease diabetes and left hip fracture. Had her left hip. Here and rehabilitated here for a bit and then discharged to the custodial. She was readmitted I believe on June 28. Doing much better. Her troponins were mildly elevated. She has some chest discomfort and some shortness of breath which all was consistent with some mild heart failure. Doing much better now. Progress note dated 07/01/2016 86-year-old female who is a no code. Recently discharged from the hospital to the [facility] became bright back in with complaints of not feeling well. She has a history of hypertension hypothyroidism chronic kidney disease diabetes and left hip fracture was recently repair the patient otherwise is doing well. Her issue today included worsening breathing. Her chest x-ray showed improved vascular congestion and heart failure. Her troponins were mildly elevated. She did have some chest discomfort. I talked my nurse practitioner about the fact that she might be someone who could of had a pulmonary embolism. She certainly is a perfect set up for being inactive and recently having left hip surgery. I'll look back and see if the CT angiogram or a VQ scan was done. Objective - Vital Signs Vital signs: Vital Signs Temp 98.0 F 07/01/16 08:00 Pulse 80 07/01/16 12:30 Resp 18 07/01/16 08:00 BP 135/62 07/01/16 08:00 Pulse Ox 100 07/01/16 08:00 Intake & Output 06/30/16 07/01/16 07/01/16 18:59 06:59 18:59 Intake Total 920 180 Output Total 300 Balance 920 -300 180 Weight 75 kg Intake: Oral 920 180 Output: Post Void Residual 300 Other: Voiding Method Diaper Diaper # Voids 1 1 # Bowel Movements 1 1 - Exam No acute distress, mildly tachypneic and dyspneic. Oriented 3. HEENT examination is grossly unremarkable. Neck supple. Full range of motion. No adenopathy. Cardio vascular examination reveals regular rhythm rate. A soft systolic murmurs heard. Lungs reveal clear breath sounds. No wheezes or rhonchi. No crackles. No adventitious lung sounds. Her lung sounds are better than they were the last time she was here. Abdomen soft bowel sounds are heard. Extremities are intact. - Labs CBC & Chem 7: 07/01/16 06:20 07/01/16 06:20 Labs: Abnormal Lab Results - Last 24 Hours (Table) 06/29/16 06/30/16 06/30/16 Range/Units 05:57 16:47 21:02 WBC (3.8-10.6) k/uL RBC (3.80-5.40) m/uL Hgb (11.4-16.0) gm/dL Hct (34.0-46.0) % MCHC (31.0-37.0) g/dL RDW (11.5-15.5) % Sodium (137-145) mmol/L Chloride (98-107) mmol/L BUN (7-17) mg/dL Creatinine (0.52-1.04) mg/dL Glucose (74-99) mg/dL POC Glucose (mg/dL) 299 H 367 H (75-99) mg/dL RBC Folate 1,283 H (280 - 791) ng/mL Free [place] LC, Quant 2.36 H (0.33 - 1.94) mg/dL Crossmatch 0207/01/16 07/01/16 Range/Units 06:20 06:20 06:47 WBC 18.3 H (3.8-10.6) k/uL RBC 2.48 L (3.80-5.40) m/uL Hgb 7.1 L (11.4-16.0) gm/dL Hct 23.5 L (34.0-46.0) % MCHC 30.4 L (31.0-37.0) g/dL RDW 18.6 H (11.5-15.5) % Sodium 132 L (137-145) mmol/L Chloride 94 L (98-107) mmol/L BUN 99 H* (7-17) mg/dL Creatinine 1.60 H (0.52-1.04) mg/dL Glucose 251 H (74-99) mg/dL POC Glucose (mg/dL) 265 H (75-99) mg/dL RBC Folate (280 - 791) ng/mL Free [place] LC, Quant (0.33 - 1.94) mg/dL Crossmatch 07/01/16 07/01/16 Range/Units 11:25 11:58 WBC (3.8-10.6) k/uL RBC (3.80-5.40) m/uL Hgb (11.4-16.0) gm/dL Hct (34.0-46.0) % MCHC (31.0-37.0) g/dL RDW (11.5-15.5) % Sodium (137-145) mmol/L Chloride (98-107) mmol/L BUN (7-17) mg/dL Creatinine (0.52-1.04) mg/dL Glucose (74-99) mg/dL POC Glucose (mg/dL) 355 H (75-99) mg/dL RBC Folate (280 - 791) ng/mL Free [place] LC, Quant (0.33 - 1.94) mg/dL Crossmatch See Detail Assessment and Plan (1) COPD (chronic obstructive pulmonary disease) Status: Acute (2) Non-STEMI (non-ST elevated myocardial infarction) Status: Acute (3) Chronic anemia Status: Acute (4) Chronic kidney failure Status: Acute (5) Chronic renal failure Status: Acute (6) Dehydration Status: Acute (7) Fracture of hip Status: Acute (8) HTN (hypertension) Status: Acute (9) Hip fracture, left Status: Acute (10) Leukocytosis Status: Acute (11) Severe aortic stenosis Status: Acute (12) TIA (transient ischemic attack) Status: Acute Plan: Plan Look back at her discharge medications and make sure she's back on the antibiotic she was discharged with. Her pulmonary status is stable. She's currently being evaluated by cardiology and other physicians. I don't believe he has an active infiltrate at this time. Her troponins were modestly elevated and she had a chest x-ray which suggested mild mild to moderate pulmonary venous hypertension. The issue may be more cardiac than pulmonary on this admission. Plan dated 06/30/2016 The patient's respiratory status on this as mentioned is relatively stable. Her chest x-ray seemed to show complete resolution of the basilar infiltrate. No shortness of breath. No cough. No wheezing. No phlegm production. No fever no chills. Still currently being evaluated by cardiology. We'll continue to follow. Prognosis is guarded. Plan dated 07/01/2016 The patient's chest x-rays actually improved. We'll look back to see whether or not she may have had a pulmonary embolism. Additional recommendations suggestions are forthcoming. Prognosis is guarded. She is a DO NOT RESUSCITATE. Medications x-rays labs are all reviewed. Time with Patient: Less than 30
[2016-07-01 16:16] LABS: Appearance,Urine Cloudy (Clear); Bacteria,Urine Rare /hpf; Bilirubin,Urine Negative (Negative); Glucose,Urine (UA) 1+ (Negative); Ketones,Urine Negative (Negative); Leukocyte Esterase,Urine Trace (Negative); Mucus,Urine Rare /hpf; Nitrite,Urine Negative (Negative); Particle Count 5768; Protein,Urine Trace (Negative); RBC,Urine 43 /hpf (0-5); Specific Gravity,Urine 1.013 (1.001-1.035); Squamous Epithelial Cell,Urine 3 /hpf (0-4); UA Billing (MACRO vs. MICRO) MICRO; Urobilinogen,Urine <2.0 mg/dL (<2.0); WBC,Urine 7 /hpf (0-5)
[2016-07-01 16:48] LABS: Glucose,Whole Blood 248 mg/dL (75-99)
--- NOTE | 2016-07-01 17:04 | US ---
EXAMINATION TYPE: US venous doppler duplex LE DATE OF EXAM: 07/01/2016 2:50 PM COMPARISON: NONE CLINICAL HISTORY: pitting edema in legs, calcified vessels and poor venous return. Technologist reports a limited exam. Grayscale, color Doppler, spectral Doppler imaging performed of the deep veins of the lower extremiti es. The left and right common femoral, superficial femoral, popliteal veins all compress normally and show no abnormal luminal echoes. Venous waveforms are within normal limits. Right Leg: Appears negative for DVT, in this somewhat limited study Left Leg: Appears negative for DVT, in this somewhat limited study IMPRESSION: No evident deep venous thrombosis within the deep veins of both lower extremities. Exam is limited
[2016-07-01] MEDS: ATORVASTATIN 20 MG TAB PO SCH (19:49)
[2016-07-01] MEDS: MELATONIN 3 MG TABLET PO SCH (19:49)
[2016-07-01] MEDS: HYDROcodone/APAP 5-325MG 1 EACH TAB PO PRN (19:54)
[2016-07-01 20:30] LABS: Glucose,Whole Blood 285 mg/dL (75-99)
[2016-07-02] MEDS: IPRATROPIUM-ALBUTEROL 3 ML NEB INHALATION PRN (04:30)
[2016-07-02] MEDS: traMADol 50 MG TAB PO PRN (04:53)
[2016-07-02] MEDS: LEVOTHYROXINE 88 MCG TAB PO SCH (06:21)
[2016-07-02 06:36] LABS: Glucose,Whole Blood 197 mg/dL (75-99)
[2016-07-02 06:41] LABS: Anisocytosis Slight; CH 29.7; CHCM 31.6; HCT 26.7 % (34.0-46.0); HDW 3.66; HGB 8.5 gm/dL (11.4-16.0); Hypochromasia Moderate; MCHC 31.8 g/dL (31.0-37.0); MCV 94.3 fL (80.0-100.0); Mean Platelet Volume 8.2; Poikilocytosis Slight; RBC 2.83 m/uL (3.80-5.40); RDW 17.8 % (11.5-15.5); WBC 17.7 k/uL (3.8-10.6)
[2016-07-02] MEDS: INSULIN LISPRO (humaLOG) 300 UNIT/3 ML VIAL SQ SCH ×4 (06:42→21:33)
[2016-07-02 06:54] LABS: Calcium 8.5 mg/dL (8.4-10.2); Potassium 5.4 mmol/L (3.5-5.1)
[2016-07-02] MEDS: IPRATROPIUM-ALBUTEROL 3 ML NEB INHALATION SCH ×4 (08:29→20:04)
[2016-07-02] MEDS: predniSONE 20 MG TAB PO SCH (10:06)
[2016-07-02] MEDS: DICLOFENAC 0.1% OPHTH SOLN 2.5 ML BTL BOTH EYES SCH ×4 (10:06→21:27)
[2016-07-02] MEDS: ALLOPURINOL 100 MG TAB PO SCH (10:06)
[2016-07-02] MEDS: SENNOSIDES 8.6 MG TAB PO SCH ×2 (10:06→21:26)
[2016-07-02] MEDS: LINAGLIPTIN 5 MG TABLET PO SCH (10:06)
[2016-07-02] MEDS: NYSTATIN 100,000 UNIT/ML SUSP 500,000 UNIT/5 ML CUP PO SCH ×4 (10:06→21:27)
[2016-07-02] MEDS: TRIAMCINOLONE ACET 0.5% CREAM 15 GM TUBE TOPICAL SCH ×2 (10:06→21:26)
[2016-07-02] MEDS: LORATADINE 10 MG TAB PO SCH (10:07)
[2016-07-02] MEDS: FLUCONAZOLE 100 MG TAB PO SCH (10:07)
[2016-07-02] MEDS: hydrALAZINE HCL 25 MG TAB PO SCH ×2 (10:07→21:26)
[2016-07-02] MEDS: ASPIRIN 81 MG CHEW PO SCH (10:07)
[2016-07-02] MEDS: APIXABAN 2.5 MG TABLET PO SCH ×2 (10:07→21:25)
[2016-07-02] MEDS: amLODIPine 5 MG TAB PO SCH (10:07)
[2016-07-02] MEDS: LEVOFLOXACIN 250 MG TAB PO SCH (10:07)
[2016-07-02] MEDS: guaiFENesin 600 MG TABLET.ER PO SCH ×2 (10:07→21:26)
[2016-07-02] MEDS: INSULIN GLARGINE 100 UNIT/ML 10 ML VIAL SQ SCH (10:22)
[2016-07-02] MEDS: predniSONE 10 MG TAB PO SCH (10:30)
--- NOTE | 2016-07-02 11:12 | P.PN ---
Subjective This is an 86-year-old female seen with chronic kidney disease, acute kidney injury. He was deemed to be from prerenal. She was diagnosed to have a non-ST AK with a troponin of 0.2. She was given 1 unit of packed cells yesterday because of hemoglobin of 7.1 and shortness of breath at rest and being symptomatic. Post transfusion she states she is not any significantly different. She looks depressed. She has had 2 hospitalizations. She initially presented on 2016 after a fall and had hip fracture and had surgery and was released on 06/27. During that hospitalization there was some questionable PE and she was started on anticoagulation. This is based on a VQ scan. [facility] within a few hours with shortness of breath and then was diagnosed to have acute AK non-ST. She has had vocal cord Dulzura because of the recent surgery. There is positive barium swallow for aspiration risk. She has poor appetite she looks depressed. She hardly speaks. Denies any fever chills cough. Shortness of breath is about the same. She has had severe constipation and I gave her mineral oil enema yesterday with considerable relief of abdominal discomfort. She is known with chronic kidney disease under our care with monthly Aranesp. She has previous history of tight aortic stenosis COPD, diabetes and left hip fracture recently earlier this month and underwent surgery. Objective - Vital Signs Vital signs: Vital Signs Temp 97.3 F L 07/02/16 04:00 Pulse 88 07/02/16 08:43 Resp 18 07/02/16 04:00 BP 137/63 07/02/16 04:00 Pulse Ox 100 07/02/16 04:00 Intake & Output 07/01/16 07/02/16 07/02/16 18:59 06:59 18:59 Intake Total 360 620 Output Total 560 Balance -200 620 Intake: Oral 360 Blood Product 620 Rc As-1 Unit 310 [id number] Output: Urine 560 Straight 560 Other: Voiding Method Diaper Diaper # Voids 1 2 # Bowel Movements 1 1 On examination she is awake alert looks depressed. HEENT exam no JVP, neck is supple no facial asymmetry. Lungs are clear to auscultation percussion good air entry bilaterally Heart sounds are remarkable for a grade 3 systolic ejection murmur with poor carotid upstrokes suggestive with type aortic stenosis Abdomen is soft nontender no rebound. Extremity exam was no edema Warm to touch Neurologically awake alert oriented no focal motor deficit. - Labs CBC & Chem 7: 07/02/16 06:18 07/02/16 06:18 Labs: Abnormal Lab Results - Last 24 Hours (Table) 07/01/16 07/01/16 07/01/16 Range/Units 11:25 11:58 15:50 WBC (3.8-10.6) k/uL RBC (3.80-5.40) m/uL Hgb (11.4-16.0) gm/dL Hct (34.0-46.0) % RDW (11.5-15.5) % Sodium (137-145) mmol/L Potassium (3.5-5.1) mmol/L Chloride (98-107) mmol/L BUN (7-17) mg/dL Creatinine (0.52-1.04) mg/dL Glucose (74-99) mg/dL POC Glucose (mg/dL) 355 H (75-99) mg/dL Urine Appearance Cloudy H (Clear) Urine Protein Trace H (Negative) Urine Glucose (UA) 1+ H (Negative) Urine Blood Moderate H (Negative) Ur Leukocyte Esterase Trace H (Negative) Urine RBC 43 H (0-5) /hpf Urine WBC 7 H (0-5) /hpf Urine Bacteria Rare H (None) /hpf Urine Mucus Rare H (None) /hpf Crossmatch See Detail 07/01/16 07/01/16 07/02/16 Range/Units 16:36 20:23 06:18 WBC 17.7 H (3.8-10.6) k/uL RBC 2.83 L (3.80-5.40) m/uL Hgb 8.5 L (11.4-16.0) gm/dL Hct 26.7 L (34.0-46.0) % RDW 17.8 H (11.5-15.5) % Sodium (137-145) mmol/L Potassium (3.5-5.1) mmol/L Chloride (98-107) mmol/L BUN (7-17) mg/dL Creatinine (0.52-1.04) mg/dL Glucose (74-99) mg/dL POC Glucose (mg/dL) 248 H 285 H (75-99) mg/dL Urine Appearance (Clear) Urine Protein (Negative) Urine Glucose (UA) (Negative) Urine Blood (Negative) Ur Leukocyte Esterase (Negative) Urine RBC (0-5) /hpf Urine WBC (0-5) /hpf Urine Bacteria (None) /hpf Urine Mucus (None) /hpf Crossmatch 07/02/16 07/02/16 Range/Units 06:18 06:35 WBC (3.8-10.6) k/uL RBC (3.80-5.40) m/uL Hgb (11.4-16.0) gm/dL Hct (34.0-46.0) % RDW (11.5-15.5) % Sodium 134 L (137-145) mmol/L Potassium 5.4 H (3.5-5.1) mmol/L Chloride 96 L (98-107) mmol/L BUN 100 H* (7-17) mg/dL Creatinine 1.56 H (0.52-1.04) mg/dL Glucose 177 H (74-99) mg/dL POC Glucose (mg/dL) 197 H (75-99) mg/dL Urine Appearance (Clear) Urine Protein (Negative) Urine Glucose (UA) (Negative) Urine Blood (Negative) Ur Leukocyte Esterase (Negative) Urine RBC (0-5) /hpf Urine WBC (0-5) /hpf Urine Bacteria (None) /hpf Urine Mucus (None) /hpf Crossmatch Assessment and Plan Plan: Impression. 1. Acute kidney injury with creatinine going up from 1.3 dated 06/28/2016 to 1.6. Cause of this is likely prerenal from possibly volume depletion. A urinalysis done yesterday had numerous rbc's but this was a catheterized specimen 2. She has an element of possible outlet obstruction and supposedly had a postvoid residual of 300 mL yesterday 2. Chronic kidney disease with a baseline creatinine 1.3, diabetic nephropathy possibly with 1+ proteinuria, no quantification yet performed. 3. Recent admission twice, first one was 06/15/2069 after a fall and fracture status post hip surgery dated 06/16/2016. Readmitted within hours on 2016 with shortness of breath, possible acute AK 4. Recent suspicion for PE based on VQ scan dated 06/21/2016. 5. Acute AK non-ST troponin 0.2 admitted 06/28/2016 6. Severe anemia hemoglobin 7.1 saturation 22%, etiology is chronic kidney disease. Worse because of hospitalization. Symptomatic with shortness of breath. 7. History of COPD, 8. Tight aortic stenosis by clinical exam and echocardiogram. 9. High BUN from steroids and acute kidney injury. 10. Severe constipation. 11. Chronically high white count since 2014 Recommendation. 1. Redo bladder scan to rule out any outlet obstruction. 2. Watch for acute interstitial nephritis as her urinalysis has RBCs but being a possible catheter is present we'll watch for right now and she is on steroids in any case for nonrenal indications
--- NOTE | 2016-07-02 11:51 | P.PN ---
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 She is relatively aphonic which has been a problem for about 2 weeks. Laryngoscopy reveals a right vocal cord paresis with severe hypopharyngeal inflammation. She's currently being treated with nystatin and Levaquin for her laryngitis. I did review the results of the patient's CAT scan and I did not see an arytenoid dislocation or any other trauma to the hypopharynx or larynx from her intubation for her hip surgery. 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 I do feel a that we should biopsy this mass and an ultrasound of the thyroid is also recommended. The patient in the past did have a hemithyroidectomy and/or a thyroid lobectomy. Again, we'll have a better assessment of her thyroid after ultrasound. A fine-needle aspiration has been ordered and I would anticipate it may take 3-5 days before we get that result return to us. I did discuss the issue with the family and I told them that since there does not appear to be an arytenoid dislocation watchful waiting to see if vocal cord paresis improves spontaneously. If it does not improve a right laryngoplasty with implant will be planned. Objective - Vital Signs Vital signs: Vital Signs Temp 97.3 F L 07/02/16 04:00 Pulse 88 07/02/16 08:43 Resp 18 07/02/16 04:00 BP 137/63 07/02/16 04:00 Pulse Ox 100 07/02/16 04:00 Intake & Output 07/01/16 07/02/16 07/02/16 18:59 06:59 18:59 Intake Total 360 620 Output Total 560 Balance -200 620 Intake: Oral 360 Blood Product 620 Rc As-1 Unit 310 [id number] Output: Urine 560 Straight 560 Other: Voiding Method Diaper Diaper # Voids 1 2 # Bowel Movements 1 1 - Constitutional General appearance: Present: average body habitus - EENT EENT Comment(s): Patient is still aphonic and only has a whisper voice Eyes: Present: PERRLA. Absent: abnormal pupil ENT: Present: normal oropharynx - Neck Neck: Absent: lymphadenopathy - Labs CBC & Chem 7: 07/02/16 06:18 07/02/16 06:18 Labs: Abnormal Lab Results - Last 24 Hours (Table) 07/01/16 07/01/16 07/01/16 Range/Units 11:58 15:50 16:36 WBC (3.8-10.6) k/uL RBC (3.80-5.40) m/uL Hgb (11.4-16.0) gm/dL Hct (34.0-46.0) % RDW (11.5-15.5) % Sodium (137-145) mmol/L Potassium (3.5-5.1) mmol/L Chloride (98-107) mmol/L BUN (7-17) mg/dL Creatinine (0.52-1.04) mg/dL Glucose (74-99) mg/dL POC Glucose (mg/dL) 248 H (75-99) mg/dL Urine Appearance Cloudy H (Clear) Urine Protein Trace H (Negative) Urine Glucose (UA) 1+ H (Negative) Urine Blood Moderate H (Negative) Ur Leukocyte Esterase Trace H (Negative) Urine RBC 43 H (0-5) /hpf Urine WBC 7 H (0-5) /hpf Urine Bacteria Rare H (None) /hpf Urine Mucus Rare H (None) /hpf Crossmatch See Detail 07/01/16 07/02/16 07/02/16 Range/Units 20:23 06:18 06:18 WBC 17.7 H (3.8-10.6) k/uL RBC 2.83 L (3.80-5.40) m/uL Hgb 8.5 L (11.4-16.0) gm/dL Hct 26.7 L (34.0-46.0) % RDW 17.8 H (11.5-15.5) % Sodium 134 L (137-145) mmol/L Potassium 5.4 H (3.5-5.1) mmol/L Chloride 96 L (98-107) mmol/L BUN 100 H* (7-17) mg/dL Creatinine 1.56 H (0.52-1.04) mg/dL Glucose 177 H (74-99) mg/dL POC Glucose (mg/dL) 285 H (75-99) mg/dL Urine Appearance (Clear) Urine Protein (Negative) Urine Glucose (UA) (Negative) Urine Blood (Negative) Ur Leukocyte Esterase (Negative) Urine RBC (0-5) /hpf Urine WBC (0-5) /hpf Urine Bacteria (None) /hpf Urine Mucus (None) /hpf Crossmatch 07/02/16 Range/Units 06:35 WBC (3.8-10.6) k/uL RBC (3.80-5.40) m/uL Hgb (11.4-16.0) gm/dL Hct (34.0-46.0) % RDW (11.5-15.5) % Sodium (137-145) mmol/L Potassium (3.5-5.1) mmol/L Chloride (98-107) mmol/L BUN (7-17) mg/dL Creatinine (0.52-1.04) mg/dL Glucose (74-99) mg/dL POC Glucose (mg/dL) 197 H (75-99) mg/dL Urine Appearance (Clear) Urine Protein (Negative) Urine Glucose (UA) (Negative) Urine Blood (Negative) Ur Leukocyte Esterase (Negative) Urine RBC (0-5) /hpf Urine WBC (0-5) /hpf Urine Bacteria (None) /hpf Urine Mucus (None) /hpf Crossmatch Assessment and Plan (1) Aphonia Narrative/Plan: We are awaiting a thyroid ultrasound along with a ultrasound-guided needle biopsy. I would anticipate those results may be available by the end of this week. I understand that she is to be transferred on Sunday or Sunday tomorrow with manner. We can arrange to stay in contact and ear with this on an outpatient basis which was discussed with the family. Since there is no evidence of an arytenoid dislocation, watchful waiting is recommended to see if this aphonic state spontaneously improves as it relates to her right vocal cord paresis. If it does not improve in the next 12 weeks a right laryngoplasty utilizing a Diana implant would be recommended for vocal anglican. This was discussed in detail. The surgery is done as a local with sedation and is not done under general anesthetic starting medically she would not have any difficulties and tolerating this procedure. Clearly, bringing her voice back would be significant for this patient. Since this vocal cord paresis may spontaneously resolve in time, I would wait at least 3 months before we proceed forward with surgical intervention. We're awaiting the results of a video stroboscopy by the department of speech therapy. I'm adding omeprazole to this patient's repeat along with her Levaquin and nystatin. She is to follow up with me on an outpatient basis and I can either see her in my office or see her at [facility]. Thank you Status: Acute (2) Vocal cord paresis determined by laryngoscopy Status: Acute (3) Acute laryngitis Status: Acute
--- NOTE | 2016-07-02 11:51 | P.PN ---
Subjective Progress note dated 06/29/2016 This is an 86-year-old patient that was recently discharged from the hospital. I think she went home on June 27. She asked he was transferred from the hospital to [facility]. She has a history of hypertension hypothyroidism chronic kidney disease type 2 diabetes and a left hip fracture. She had a repair of the left hip fracture by one of the surgeons at [facility]. Surgical repair took place on . She developed some respiratory difficulty and was noted to have a basilar pneumonia. That has improved. She was discharged to [facility] I believe on the . She was readmitted either yesterday or last night. She apparently developed some chest discomfort and some shortness of breath there. Her troponin was mildly elevated. Her chest x- ray looks good. May be some mild heart failure. Nothing much. The infiltrate had actually cleared. He is not doing poorly today but this certainly feels or seems to be a little short of breath. Doesn't appear to have any cough or significant phlegm. No fever no chills. No nausea vomiting or diarrhea. Progress note dated 06/30/2016 86-year-old female who was recently discharged from the [facility]. She went home on . She has a history of hypertension hypothyroidism chronic kidney disease diabetes and left hip fracture. Had her left hip. Here and rehabilitated here for a bit and then discharged to the [facility]. She was readmitted I believe on June 28. Doing much better. Her troponins were mildly elevated. She has some chest discomfort and some shortness of breath which all was consistent with some mild heart failure. Doing much better now. Progress note dated 07/01/2016 86-year-old female who is a no code. Recently discharged from the hospital to the [facility] became bright back in with complaints of not feeling well. She has a history of hypertension hypothyroidism chronic kidney disease diabetes and left hip fracture was recently repair the patient otherwise is doing well. Her issue today included worsening breathing. Her chest x-ray showed improved vascular congestion and heart failure. Her troponins were mildly elevated. She did have some chest discomfort. I talked my nurse practitioner about the fact that she might be someone who could of had a pulmonary embolism. She certainly is a perfect set up for being inactive and recently having left hip surgery. I'll look back and see if the CT angiogram or a VQ scan was done. Progress note dated 07/02/2016 86-year-old DO NOT RESUSCITATE female patient who was discharged from the hospital after having a left hip repair to [facility]. She came back Stable not feeling well. She does have a history of essential hypertension hypothyroidism chronic kidney disease diabetes left hip fracture with recent repair. Her breathing is been okay. Not great. Chest x-ray show what appeared to be improvement in her pneumonia. Her troponins were mildly elevated. She did have some chest discomfort. Her venous Doppler was negative. I don't think that needs be pursued any further at this time. Objective - Vital Signs Vital signs: Vital Signs Temp 97.3 F L 07/02/16 04:00 Pulse 88 07/02/16 08:43 Resp 18 07/02/16 04:00 BP 137/63 07/02/16 04:00 Pulse Ox 100 07/02/16 04:00 Intake & Output 07/01/16 07/02/16 07/02/16 18:59 06:59 18:59 Intake Total 360 620 Output Total 560 Balance -200 620 Intake: Oral 360 Blood Product 620 Rc As-1 Unit 310 [id number] Output: Urine 560 Straight 560 Other: Voiding Method Diaper Diaper # Voids 1 2 # Bowel Movements 1 1 - Exam No acute distress, mildly tachypneic and dyspneic. Oriented 3. HEENT examination is grossly unremarkable. Neck supple. Full range of motion. No adenopathy. Cardio vascular examination reveals regular rhythm rate. A soft systolic murmurs heard. Lungs reveal clear breath sounds. No wheezes or rhonchi. No crackles. No adventitious lung sounds. Her lung sounds are better than they were the last time she was here. Abdomen soft bowel sounds are heard. Extremities are intact. - Labs CBC & Chem 7: 07/02/16 06:18 07/02/16 06:18 Labs: Abnormal Lab Results - Last 24 Hours (Table) 07/01/16 07/01/16 07/01/16 Range/Units 11:58 15:50 16:36 WBC (3.8-10.6) k/uL RBC (3.80-5.40) m/uL Hgb (11.4-16.0) gm/dL Hct (34.0-46.0) % RDW (11.5-15.5) % Sodium (137-145) mmol/L Potassium (3.5-5.1) mmol/L Chloride (98-107) mmol/L BUN (7-17) mg/dL Creatinine (0.52-1.04) mg/dL Glucose (74-99) mg/dL POC Glucose (mg/dL) 248 H (75-99) mg/dL Urine Appearance Cloudy H (Clear) Urine Protein Trace H (Negative) Urine Glucose (UA) 1+ H (Negative) Urine Blood Moderate H (Negative) Ur Leukocyte Esterase Trace H (Negative) Urine RBC 43 H (0-5) /hpf Urine WBC 7 H (0-5) /hpf Urine Bacteria Rare H (None) /hpf Urine Mucus Rare H (None) /hpf Crossmatch See Detail 07/01/16 07/02/16 07/02/16 Range/Units 20:23 06:18 06:18 WBC 17.7 H (3.8-10.6) k/uL RBC 2.83 L (3.80-5.40) m/uL Hgb 8.5 L (11.4-16.0) gm/dL Hct 26.7 L (34.0-46.0) % RDW 17.8 H (11.5-15.5) % Sodium 134 L (137-145) mmol/L Potassium 5.4 H (3.5-5.1) mmol/L Chloride 96 L (98-107) mmol/L BUN 100 H* (7-17) mg/dL Creatinine 1.56 H (0.52-1.04) mg/dL Glucose 177 H (74-99) mg/dL POC Glucose (mg/dL) 285 H (75-99) mg/dL Urine Appearance (Clear) Urine Protein (Negative) Urine Glucose (UA) (Negative) Urine Blood (Negative) Ur Leukocyte Esterase (Negative) Urine RBC (0-5) /hpf Urine WBC (0-5) /hpf Urine Bacteria (None) /hpf Urine Mucus (None) /hpf Crossmatch 07/02/16 Range/Units 06:35 WBC (3.8-10.6) k/uL RBC (3.80-5.40) m/uL Hgb (11.4-16.0) gm/dL Hct (34.0-46.0) % RDW (11.5-15.5) % Sodium (137-145) mmol/L Potassium (3.5-5.1) mmol/L Chloride (98-107) mmol/L BUN (7-17) mg/dL Creatinine (0.52-1.04) mg/dL Glucose (74-99) mg/dL POC Glucose (mg/dL) 197 H (75-99) mg/dL Urine Appearance (Clear) Urine Protein (Negative) Urine Glucose (UA) (Negative) Urine Blood (Negative) Ur Leukocyte Esterase (Negative) Urine RBC (0-5) /hpf Urine WBC (0-5) /hpf Urine Bacteria (None) /hpf Urine Mucus (None) /hpf Crossmatch Assessment and Plan (1) COPD (chronic obstructive pulmonary disease) Status: Acute (2) Non-STEMI (non-ST elevated myocardial infarction) Status: Acute (3) Chronic anemia Status: Acute (4) Chronic kidney failure Status: Acute (5) Chronic renal failure Status: Acute (6) Dehydration Status: Acute (7) Fracture of hip Status: Acute (8) HTN (hypertension) Status: Acute (9) Hip fracture, left Status: Acute (10) Leukocytosis Status: Acute (11) Severe aortic stenosis Status: Acute (12) TIA (transient ischemic attack) Status: Acute Plan: Plan Look back at her discharge medications and make sure she's back on the antibiotic she was discharged with. Her pulmonary status is stable. She's currently being evaluated by cardiology and other physicians. I don't believe he has an active infiltrate at this time. Her troponins were modestly elevated and she had a chest x-ray which suggested mild mild to moderate pulmonary venous hypertension. The issue may be more cardiac than pulmonary on this admission. Plan dated 06/30/2016 The patient's respiratory status on this as mentioned is relatively stable. Her chest x-ray seemed to show complete resolution of the basilar infiltrate. No shortness of breath. No cough. No wheezing. No phlegm production. No fever no chills. Still currently being evaluated by cardiology. We'll continue to follow. Prognosis is guarded. Plan dated 07/01/2016 The patient's chest x-rays actually improved. We'll look back to see whether or not she may have had a pulmonary embolism. Additional recommendations suggestions are forthcoming. Prognosis is guarded. She is a DO NOT RESUSCITATE. Medications x-rays labs are all reviewed. Plan dated 07/02/2016 X The patient's chest x-ray has improved. She seems a bit less short of breath today. Doppler of lower extremity was negative. The patient seemed to be doing a bit better. Dr. Gaston Beltran's evaluating her hoarseness. We'll continue to follow. The fluid overload picture that was initially seen on admission has improved. We'll continue to follow. She is a DO NOT RESUSCITATE. Time with Patient: Less than 30
[2016-07-02 12:36] LABS: Glucose,Whole Blood 169 mg/dL (75-99)
--- NOTE | 2016-07-02 15:04 | PN ---
Mrs. Alfonso is comfortable, resting, breathing a little earlier today. She has significant aortic stenosis and also renal dysfunction. She received some packed RBCs. BUN is elevated, but she has received some hydration in the form of blood transfusion. Will continue oral hydration. Her shortness of breath seems to have improved somewhat. Prognosis is poor given her multiple medical comorbid condition. Vital signs are stable. S1, S2 are normal. Ejection systolic murmur is audible. Lungs revealed improved air entry. Abdomen is soft. Lower extremities reveal diminished pulses. Prognosis remains guarded. Will continue same medications.
[2016-07-02 17:28] LABS: Glucose,Whole Blood 233 mg/dL (75-99)
[2016-07-02] MEDS: FERROUS SULFATE 325 MG TAB PO SCH (17:53)
[2016-07-02] MEDS: CHOLECALCIFEROL 1,000 UNIT TAB PO SCH (17:53)
[2016-07-02] MEDS: MULTIVITAMINS, THERA 1 EACH TAB PO SCH (17:53)
[2016-07-02] MEDS: MAGNESIUM OXIDE 400 MG TAB PO SCH (17:53)
--- NOTE | 2016-07-02 18:35 | PN ---
INTERVAL HISTORY: Patient continues to be hemodynamically stable. No major events reported by nursing staff still. Patient still with hoarseness in her voice. Said that she is about the same since yesterday with minimal improvement. Her and son at the bedside, who stated that mother is technically improved but still complaining of generalized weakness. PHYSICAL EXAMINATION: VITAL SIGNS: Reviewed are stable. LUNGS: Diminished bilaterally. HEART: S1, S2. ABDOMEN: Soft, no tenderness, positive bowel sounds. LOWER EXTREMITY: Positive for muscle weakness. SKIN: No new rash. PSYCH: Alert and oriented x3. IMAGING AND LABS: White blood count is stable at 17.7, hemoglobin is 8.5, platelets within normal limit. Chem-7 revealed BUN stable at 100, creatinine is slightly lower at 1.56. Potassium is 5.4 and sodium is 134. Glucose was fluctuating between 169 and 248. ASSESSMENT AND PLAN: 1. Acute respiratory failure, seems to be improving. I would like to wean her off steroids slowly and gradually and decrease the dose from 40 to 30 mg of prednisone. Continue aggressive breathing treatment and continue with current antibiotics. 2. Acute kidney injury with elevated BUN. Patient understands that this could be a side effect from prednisone and I would like to decrease the dose of steroids as above. 3. Uncontrolled diabetes likely secondary to prednisone, wean off as tolerated. 4. Hoarseness in the voice. ENT evaluated the patient and recommended vocal cord biopsy and scope in the morning, which will be done. 5. Generalized weakness. We will have PT, OT evaluate the patient regarding discharge planning. Family is agreeable and we will follow up with ENT recommendation in the morning.
[2016-07-02 21:05] LABS: Glucose,Whole Blood 264 mg/dL (75-99)
[2016-07-02] MEDS: MELATONIN 3 MG TABLET PO SCH (21:26)
[2016-07-02] MEDS: ATORVASTATIN 20 MG TAB PO SCH (21:26)
[2016-07-03] MEDS: LEVOTHYROXINE 88 MCG TAB PO SCH (06:09)
[2016-07-03 07:27] LABS: Glucose,Whole Blood 147 mg/dL (75-99)
[2016-07-03 09:24] LABS: Anisocytosis Slight; CH 29.5; CHCM 31.1; HCT 25.5 % (34.0-46.0); HDW 3.28; Hypochromasia Moderate; MCH 30.1 pg (25.0-35.0); MCHC 31.5 g/dL (31.0-37.0); MCV 95.5 fL (80.0-100.0); Macrocytosis Slight; Mean Platelet Volume 7.9; RBC 2.67 m/uL (3.80-5.40); RDW 17.8 % (11.5-15.5); WBC 19.6 k/uL (3.8-10.6)
[2016-07-03 09:31] LABS: Calcium 8.4 mg/dL (8.4-10.2)
[2016-07-03] MEDS: NYSTATIN 100,000 UNIT/ML SUSP 500,000 UNIT/5 ML CUP PO SCH ×4 (10:10→20:57)
[2016-07-03] MEDS: ALLOPURINOL 100 MG TAB PO SCH (10:11)
[2016-07-03] MEDS: SENNOSIDES 8.6 MG TAB PO SCH ×2 (10:12→20:49)
[2016-07-03] MEDS: guaiFENesin 600 MG TABLET.ER PO SCH ×2 (10:12→20:48)
[2016-07-03] MEDS: hydrALAZINE HCL 25 MG TAB PO SCH ×2 (10:12→20:47)
[2016-07-03] MEDS: predniSONE 10 MG TAB PO SCH (10:12)
[2016-07-03] MEDS: LORATADINE 10 MG TAB PO SCH (10:13)
[2016-07-03] MEDS: amLODIPine 5 MG TAB PO SCH (10:13)
[2016-07-03] MEDS: LINAGLIPTIN 5 MG TABLET PO SCH (10:13)
[2016-07-03] MEDS: FLUCONAZOLE 100 MG TAB PO SCH (10:13)
[2016-07-03] MEDS: DICLOFENAC 0.1% OPHTH SOLN 2.5 ML BTL BOTH EYES SCH ×4 (10:14→20:57)
[2016-07-03] MEDS: TRIAMCINOLONE ACET 0.5% CREAM 15 GM TUBE TOPICAL SCH ×2 (10:14→20:49)
[2016-07-03] MEDS: ASPIRIN 81 MG CHEW PO SCH (10:16)
[2016-07-03] MEDS: INSULIN LISPRO (humaLOG) 300 UNIT/3 ML VIAL SQ SCH ×4 (10:17→21:50)
[2016-07-03] MEDS: APIXABAN 2.5 MG TABLET PO SCH ×2 (10:17→20:48)
[2016-07-03] MEDS: INSULIN GLARGINE 100 UNIT/ML 10 ML VIAL SQ SCH (10:31)
[2016-07-03 12:04] LABS: Glucose,Whole Blood 186 mg/dL (75-99)
[2016-07-03] MEDS: IPRATROPIUM-ALBUTEROL 3 ML NEB INHALATION SCH ×4 (12:45→20:26)
[2016-07-03 14:31] VITALS: BMI 30.2
[2016-07-03] MEDS: FUROSEMIDE 20 MG TAB PO SCH (15:43)
--- NOTE | 2016-07-03 15:51 | PN ---
Patient is seen for follow-up for CKD. She is currently lying in bed. She is comfortable. Patient denies any significant complaints. She is waiting to eat as the vocal cord biopsy has been canceled. On examination, blood pressure is 133/60, heart rate 76 per minute. She is afebrile. Examination of the heart S1 and S2. Examination of the lungs: Bilateral breath sounds are heard. ABDOMEN: Soft, nontender. Examination of lower extremities shows edema 2+ left lower extremity, 1+ in the right lower extremity. FILENET ARCHITECT exam is grossly intact. Labs show sodium 134, potassium 5.0, BUN 94, serum creatinine 1.35. Hemoglobin at 8.0 g/dL. ASSESSMENT: 1. Chronic kidney disease, NKF stage III, with renal function, currently at baseline. 2. Acute kidney injury, currently improved. Patient is nonoliguric. Appears to be mainly prerenal. 3. Bladder outlet obstruction currently with an indwelling Douglas catheter. 4. Acute non-ST elevation myocardial infarction. 5. Anemia of chronic disease, maintained on Aranesp. 6. Hypertension, controlled, partly volume sensitive. PLAN: Add low dose Lasix. Patient's BUN is disproportionately elevated, most likely from the steroids. We will repeat labs in a.m. Encourage increased oral intake
--- NOTE | 2016-07-03 16:42 | P.PN ---
Subjective This is a pleasant 86-year-old female patient with a history of hypertension, hypothyroidism, chronic kidney disease, diabetes mellitus type 2, left hip fracture. She was here recently for repair of the left hip and subsequently discharged to [facility]. She represented here on 06/28/2016 with complaints of increasing shortness of breath cough and congestion. She is seen again today 07/03/2016 in follow-up on the regular medical floor. She is awake and alert in no acute distress. The plan is for possible transfer back to [facility] later today or tomorrow. Objective - Vital Signs Vital signs: Vital Signs Temp 96.6 F L 07/03/16 15:00 Pulse 80 07/03/16 15:00 Resp 17 07/03/16 15:00 BP 114/56 07/03/16 15:00 Pulse Ox 100 07/03/16 15:00 Intake & Output 07/02/16 07/03/16 07/03/16 18:59 06:59 18:59 Intake Total 250 Output Total 2200 Balance -1950 Weight 75 kg Intake: Oral 250 Output: Urine 2200 Other: Voiding Method Indwelling Catheter Indwelling Catheter Indwelling Catheter # Bowel Movements 1 - Exam GENERAL EXAM: Alert, comfortable in no apparent distress. HEAD: Normocephalic. EYES: Normal reaction of pupils, equal size. NOSE: Clear with pink turbinates. THROAT: No erythema or exudates. NECK: No masses, no JVD. CHEST: No chest wall deformity. LUNGS: Equal air entry with no crackles, wheeze, rhonchi or dullness. CVS: S1 and S2 normal with no audible murmurs, regular rhythm. ABDOMEN: No hepatosplenomegaly, normal bowel sounds, no guarding or rigidity. Extremities: There is trace peripheral edema. No clubbing, no cyanosis. Peripheral pulses are intact. - Labs CBC & Chem 7: 07/03/16 08:54 07/03/16 08:54 Labs: Abnormal Lab Results - Last 24 Hours (Table) 06/29/16 07/02/16 07/02/16 Range/Units 05:57 17:24 20:49 WBC (3.8-10.6) k/uL RBC (3.80-5.40) m/uL Hgb (11.4-16.0) gm/dL Hct (34.0-46.0) % RDW (11.5-15.5) % Sodium (137-145) mmol/L BUN (7-17) mg/dL Creatinine (0.52-1.04) mg/dL Glucose (74-99) mg/dL POC Glucose (mg/dL) 233 H 264 H (75-99) mg/dL Total Protein (PEP) 5.1 L (6.2-8.2) g/dL Albumin (PEP) 3.28 L (3.80-4.90) g/dL Beta Globulins 0.55 L (0.60-1.30) g/dL Gamma Globulins 0.40 L (0.70-1.50) g/dL 07/03/16 07/03/16 07/03/16 Range/Units 07:22 08:54 08:54 WBC 19.6 H (3.8-10.6) k/uL RBC 2.67 L (3.80-5.40) m/uL Hgb 8.0 L (11.4-16.0) gm/dL Hct 25.5 L (34.0-46.0) % RDW 17.8 H (11.5-15.5) % Sodium 134 L (137-145) mmol/L BUN 94 H* (7-17) mg/dL Creatinine 1.35 H (0.52-1.04) mg/dL Glucose 135 H (74-99) mg/dL POC Glucose (mg/dL) 147 H (75-99) mg/dL Total Protein (PEP) (6.2-8.2) g/dL Albumin (PEP) (3.80-4.90) g/dL Beta Globulins (0.60-1.30) g/dL Gamma Globulins (0.70-1.50) g/dL 07/03/16 Range/Units 12:02 WBC (3.8-10.6) k/uL RBC (3.80-5.40) m/uL Hgb (11.4-16.0) gm/dL Hct (34.0-46.0) % RDW (11.5-15.5) % Sodium (137-145) mmol/L BUN (7-17) mg/dL Creatinine (0.52-1.04) mg/dL Glucose (74-99) mg/dL POC Glucose (mg/dL) 186 H (75-99) mg/dL Total Protein (PEP) (6.2-8.2) g/dL Albumin (PEP) (3.80-4.90) g/dL Beta Globulins (0.60-1.30) g/dL Gamma Globulins (0.70-1.50) g/dL Assessment and Plan Plan: Impression: #1 Acute hypoxic respiratory failure secondary to mild acute exacerbation of suspected diastolic congestive heart failure and non-STEMI as well as severe aortic stenosis, exacerbation of chronic obstructive pulmonary disease. #2 Severe aortic stenosis. #3 Hypertension. #4 Diabetes mellitus, type II with steroid-induced hyperglycemia. #5 Hypothyroidism. #6 Chronic kidney disease. #7 History of gout. Plan: The patient was seen and evaluated by Dr. Saba. She is currently stable from the pulmonary standpoint. The plan is for transfer back to the hospital at [facility] care facility. She'll continue with her current pulmonary medications, she remains anticoagulated on Eliquis.
[2016-07-03 17:08] LABS: Glucose,Whole Blood 272 mg/dL (75-99)
[2016-07-03] MEDS: MAGNESIUM OXIDE 400 MG TAB PO SCH (17:54)
[2016-07-03] MEDS: MULTIVITAMINS, THERA 1 EACH TAB PO SCH (17:55)
[2016-07-03] MEDS: FERROUS SULFATE 325 MG TAB PO SCH (17:55)
[2016-07-03] MEDS: CHOLECALCIFEROL 1,000 UNIT TAB PO SCH (17:55)
--- NOTE | 2016-07-03 20:29 | DS ---
DATE OF ADMISSION: 06/28/2016 DATE OF DISCHARGE: ADMISSION DIAGNOSES: 1. Elevated troponin. 2. Chronic obstructive pulmonary disease with exacerbation. 3. Tracheobronchitis. 4. Anemia. 5. Leukocytosis. DISCHARGE DIAGNOSES: 1. Elevated troponin. 2. Chronic obstructive pulmonary disease with exacerbation. 3. Tracheobronchitis. 4. Anemia. 5. Leukocytosis. HISTORY OF PRESENT ILLNESS: This is an 86-year-old female who resides at home with her . She presented to the hospital with ( ) patient was evaluated by Cardiology due to elevated troponin, which was felt to be related to demand ischemia. Patient was treated for COPD exacerbation ( ) with IV steroids ( ) breathing treatments and supplemental oxygen. Improved slowly and gradually but suffers from hoarseness in her voice. Was evaluated by EMNT, who recommended a vocal cord biopsy, which requires holding aspirin for 7 days. Patient's aspirin was discontinued at the time of discharge. The patient plans to continue taking Xarelto ( ) hours before the procedure, then she can be resumed after the biopsy if she is stable. Plan discussed with the patient and her at the bedside in the presence of her daughter, who all agreed with discharge. ( ) snf ( ) until patient is functional again and able to ( ) at home. Patient was discharged in stable condition. Discharge process 35 minutes.
[2016-07-03 20:46] LABS: Glucose,Whole Blood 301 mg/dL (75-99)
[2016-07-03] MEDS: traMADol 50 MG TAB PO PRN (20:46)
[2016-07-03] MEDS: MELATONIN 3 MG TABLET PO SCH (20:47)
[2016-07-03] MEDS: ATORVASTATIN 20 MG TAB PO SCH (20:49)
[2016-07-04] MEDS: LEVOTHYROXINE 88 MCG TAB PO SCH (06:11)
[2016-07-04 08:00] LABS: Glucose,Whole Blood 116 mg/dL (75-99)
[2016-07-04 08:16] VITALS: BP 135/65; PULSE 74; RESP 19; TEMP 96.3
[2016-07-04 09:03] LABS: Anisocytosis Slight; CH 29.3; CHCM 30.4; HDW 2.98; HGB 8.4 gm/dL (11.4-16.0); Hypochromasia Marked; MCH 30.2 pg (25.0-35.0); MCHC 31.2 g/dL (31.0-37.0); MCV 96.8 fL (80.0-100.0); Macrocytosis Slight; Mean Platelet Volume 7.9; RBC 2.78 m/uL (3.80-5.40); RDW 17.6 % (11.5-15.5); WBC 18.1 k/uL (3.8-10.6)
[2016-07-04] MEDS: INSULIN GLARGINE 100 UNIT/ML 10 ML VIAL SQ SCH (09:23)
[2016-07-04] MEDS: NYSTATIN 100,000 UNIT/ML SUSP 500,000 UNIT/5 ML CUP PO SCH (09:24)
[2016-07-04] MEDS: TRIAMCINOLONE ACET 0.5% CREAM 15 GM TUBE TOPICAL SCH (09:24)
[2016-07-04] MEDS: DICLOFENAC 0.1% OPHTH SOLN 2.5 ML BTL BOTH EYES SCH (09:24)
[2016-07-04] MEDS: INSULIN LISPRO (humaLOG) 300 UNIT/3 ML VIAL SQ SCH (09:24)
[2016-07-04] MEDS: APIXABAN 2.5 MG TABLET PO SCH (09:25)
[2016-07-04] MEDS: guaiFENesin 600 MG TABLET.ER PO SCH (09:25)
[2016-07-04] MEDS: predniSONE 10 MG TAB PO SCH (09:25)
[2016-07-04] MEDS: FLUCONAZOLE 100 MG TAB PO SCH (09:25)
[2016-07-04] MEDS: LORATADINE 10 MG TAB PO SCH (09:26)
[2016-07-04] MEDS: hydrALAZINE HCL 25 MG TAB PO SCH (09:26)
[2016-07-04] MEDS: amLODIPine 5 MG TAB PO SCH (09:26)
[2016-07-04] MEDS: SENNOSIDES 8.6 MG TAB PO SCH (09:26)
[2016-07-04] MEDS: FUROSEMIDE 20 MG TAB PO SCH (09:26)
[2016-07-04] MEDS: LINAGLIPTIN 5 MG TABLET PO SCH (09:27)
[2016-07-04] MEDS: ASPIRIN 81 MG CHEW PO SCH (09:27)
[2016-07-04] MEDS: ALLOPURINOL 100 MG TAB PO SCH (09:27)
[2016-07-04 09:34] LABS: Calcium 8.7 mg/dL (8.4-10.2); Potassium 4.9 mmol/L (3.5-5.1)
[2016-07-04] MEDS: traMADol 50 MG TAB PO PRN (09:42)
[2016-07-04] MEDS: MAGNESIUM HYDROXIDE 2,400 MG/10 ML CUP PO PRN (09:47)
[2016-07-04] MEDS: HYDROcodone/APAP 5-325MG 1 EACH TAB PO PRN (11:41)
[2016-07-04 12:23] LABS: Glucose,Whole Blood 154 mg/dL (75-99)
--- NOTE | 2016-07-18 10:55 | P.PN ---
Progress Note - Text Please add to discharge summary: Diagnosis of chronic diastolic heart failure with known EF 50-55%.
== END 2016-07-04 12:48 | DRG 190 ==
LOC: EC 11:31 → 6SEL 14:49 → 4MS4W 07-02 11:50
PROVIDERS: ADMIT Internal Medicine Geriatric Medicine; ATTEND Internal Medicine Geriatric Medicine
PROC: 0CJY8ZZ Inspection of Mouth and Throat, Via Natural or Artificial Opening Endoscopic (ICD-10-PCS; 2016-06-29)
PROC: 30233N1 Transfusion of Nonautologous Red Blood Cells into Peripheral Vein, Percutaneous Approach (ICD-10-PCS; principal; 2016-07-01)
DX: J44.1 Chronic obstructive pulmonary disease with (acute) exacerbation (principal); J96.01 Acute respiratory failure with hypoxia; N17.9 Acute kidney failure, unspecified; I50.33 Acute on chronic diastolic (congestive) heart failure; I27.2 Other secondary pulmonary hypertension; E11.22 Type 2 diabetes mellitus with diabetic chronic kidney disease; E11.65 Type 2 diabetes mellitus with hyperglycemia; R13.10 Dysphagia, unspecified; J38.01 Paralysis of vocal cords and larynx, unilateral; E86.0 Dehydration; I48.91 Unspecified atrial fibrillation; I13.0 Hypertensive heart and chronic kidney disease with heart failure and stage 1 through stage 4 chronic kidney disease, or unspecified chronic kidney disease; D63.1 Anemia in chronic kidney disease; I35.0 Nonrheumatic aortic (valve) stenosis; Z66 Do not resuscitate; T38.0X5A Adverse effect of glucocorticoids and synthetic analogues, initial encounter; E78.5 Hyperlipidemia, unspecified; J04.0 Acute laryngitis; J02.9 Acute pharyngitis, unspecified; N18.3 Chronic kidney disease, stage 3 (moderate); R94.31 Abnormal electrocardiogram [ECG] [EKG]; R80.9 Proteinuria, unspecified; D72.829 Elevated white blood cell count, unspecified; R74.8 Abnormal levels of other serum enzymes; R49.0 Dysphonia; R25.1 Tremor, unspecified; M10.9 Gout, unspecified; M19.90 Unspecified osteoarthritis, unspecified site; G89.29 Other chronic pain; N32.0 Bladder-neck obstruction; R53.1 Weakness; H91.90 Unspecified hearing loss, unspecified ear; E89.0 Postprocedural hypothyroidism; K59.00 Constipation, unspecified; R63.4 Abnormal weight loss; R49.1 Aphonia; Z87.81 Personal history of (healed) traumatic fracture; Z87.440 Personal history of urinary (tract) infections; Z96.652 Presence of left artificial knee joint; Z82.5 Family history of asthma and other chronic lower respiratory diseases; Z83.3 Family history of diabetes mellitus; Z79.4 Long term (current) use of insulin; Z91.81 History of falling; Z86.73 Personal history of transient ischemic attack (TIA), and cerebral infarction without residual deficits; Z96.612 Presence of left artificial shoulder joint; Z79.899 Other long term (current) drug therapy; Z90.49 Acquired absence of other specified parts of digestive tract; Z88.1 Allergy status to other antibiotic agents; Z88.5 Allergy status to narcotic agent; Z88.0 Allergy status to penicillin; Z88.8 Allergy status to other drugs, medicaments and biological substances; Z91.048 Other nonmedicinal substance allergy status; M54.9 Dorsalgia, unspecified; Z86.69 Personal history of other diseases of the nervous system and sense organs
CPT/HCPCS: 36415; 70490; 71010; 71020; 74230; 80048; 80053; 80061; 81001; 82550; 82553; 82607; 82728; 82747; 83540; 83550; 83735; 83883; 84165; 84443; 84484; 85025; 85027; 85045; 85610; 85730; 86334; 86800; 86850; 86900; 86901; 86920; 93005; 93970; 94640; 94760; 96374; 96375; 99291

== ENCOUNTER 2017-01-02 09:01 | Inpatient (IN) | payer MEDICARE, OTHER ==
[2017-01-02] MEDS ORDERED: SODIUM CHLORIDE 0.9% 1,000 ML IV STA (09:36)
[2017-01-02] MEDS ORDERED: IPRATROPIUM-ALBUTEROL 3 ML NEB INHALATION STA (09:36)
[2017-01-02 09:54] LABS: Glucose,Whole Blood 148 mg/dL (75-99)
--- NOTE | 2017-01-02 09:57 | ED ---
SOB HPI <Robby Wiley - Last Filed: 01/02/17 11:11> - General Source: patient, family, EMS, RN notes reviewed, old records reviewed Mode of arrival: EMS Limitations: physical limitation <Luisana Ford - Last Filed: 01/02/17 12:22> - General Chief Complaint: Shortness of Breath Stated Complaint: SOB Time Seen by Provider: 01/02/17 09:15 - History of Present Illness Initial Comments: This is an 86-year-old female presenting to the emergency department before being transferred from [facility]. Patient reports that she was having increased shortness of breath and chest pain for the past 2 days. Patient was diagnosed with bilateral pneumonia, and was noted to have an elevated BNP at 18, 000. Patient was started on vancomycin and azithromycin. Patient has associated Hospital acquired pneumonia as she is living in a assisted living facility. Patient case was discussed with Dr. Wiley prior to transfer here. Patient was noted to have a white blood cell count 22,000. They also note that she had elevated troponin of 0.83. This could be related to the heart failure, or pneumonia. Patient reports that she has not had much of a cough or productive sputum. (Luisana Ford) - Related Data Home Medications Medication Instructions Recorded Confirmed Allopurinol [Zyloprim] 100 mg PO DAILY@0800 01/18/14 01/02/17 Atorvastatin [Lipitor] 20 mg PO HS@2100 06/15/16 01/02/17 Cholecalciferol [Vitamin D3] 1,000 unit PO DAILY@1700 06/15/16 06/28/16 Diclofenac 0.1% Ophth Soln 1 drops BOTH EYES QID 06/15/16 01/02/17 [Voltaren 0.1% Ophth Soln] Epoetin Basim [Procrit] 20,000 unit SQ Q14D 06/15/16 01/02/17 Ferrous Sulfate [Iron (65 MG 325 mg PO DAILY@1700 06/15/16 06/28/16 Elemental)] Insulin Glargine,Hum.rec.anlog 12 unit SQ DAILY@0800 06/15/16 01/02/17 [Lantus Solostar] Loratadine [Claritin] 10 mg PO DAILY@0800 06/15/16 06/28/16 Magnesium Oxide [Mag-Ox] 800 mg PO DAILY@1700 06/15/16 06/28/16 Melatonin 3 mg PO HS@2100 06/15/16 06/28/16 amLODIPine [Norvasc] 5 mg PO DAILY@0800 06/15/16 01/02/17 sitaGLIPtin PHOSPHATE [Januvia] 25 mg PO DAILY@0800 06/15/16 01/02/17 Budesonide [Pulmicort] 0.5 mg INHALATION RT-BID@0800,1700 06/28/16 06/28/16 Furosemide [Lasix] 40 mg PO DAILY@0800 06/28/16 01/02/17 INSULIN LISPRO (humaLOG) [humaLOG See Protocol SQ ACHS 06/28/16 06/28/16 (formulary)] Ipratropium-Albuterol Nebulize 3 ml INHALATION RT-QID 06/28/16 06/28/16 [Duoneb 0.5 mg-3 mg/3 ml Soln] Levothyroxine Sodium [Synthroid] 88 mcg PO DAILY@0600 06/28/16 01/02/17 Multivitamins, Thera [Multivitamin 1 tab PO DAILY@1700 06/28/16 06/28/16 (formulary)] Clopidogrel [Plavix] 75 mg PO DAILY 01/02/17 01/02/17 HYDROcodone/APAP 5-325MG [[place] 1 tab PO TID@0800,1400,2000 01/02/17 01/02/17 5-325] Sennosides [Senna] 8.6 mg PO BID@0800,1700 01/02/17 01/02/17 Spironolactone [Aldactone] 12.5 mg PO DAILY 01/02/17 01/02/17 hydrALAZINE HCL [Apresoline] 25 mg PO BID@0800,1700 01/02/17 01/02/17 Previous Rx's Medication Instructions Recorded Nitroglycerin Sl Tabs [Nitrostat] 0.4 mg SUBLINGUAL Q5M PRN #0 tab 07/04/16 Allergies Allergy/AdvReac Type Severity Reaction Status Date / Time amoxicillin trihydrate Allergy Unknown Verified 01/02/17 11:03 [From Augmentin] cephalexin monohydrate Allergy Unknown Verified 01/02/17 11:03 [From Keflex] cyclobenzaprine HCl Allergy Unknown Verified 01/02/17 11:03 [From Flexeril] eszopiclone [From Lunesta] Allergy Unknown Verified 01/02/17 11:03 gabapentin [From Neurontin] Allergy Unknown Verified 01/02/17 11:03 levocetirizine Allergy Unknown Verified 01/02/17 11:03 dihydrochloride [From Xyzal] meperidine HCl [From Demerol] Allergy Unknown Verified 01/02/17 11:03 potassium clavulanate Allergy Unknown Verified 01/02/17 11:03 [From Augmentin] adhesive AdvReac Unknown Verified 01/02/17 11:03 hydromorphone HCl AdvReac Hallucinati Verified 01/02/17 11:03 [From Dilaudid] ons Review of Systems ROS Other: All systems not noted in ROS Statement are negative. <Robby Wiley - Last Filed: 01/02/17 11:11> ROS Other: All systems not noted in ROS Statement are negative. <Luisana Ford - Last Filed: 01/02/17 12:22> ROS Statement: Those systems with pertinent positive or pertinent negative responses have been documented in the HPI. Past Medical History Past Medical History: CVA/TIA, Diabetes Mellitus, Eye Disorder, Hyperlipidemia, Hypertension, Musculoskeletal Disorder, Osteoarthritis (OA), Pneumonia, Renal Disease, Thyroid Disorder Additional Past Medical History / Comment(s): chronic back pain HAS A BROKEN TITANIUM CESIA IN HER BACK, cardiac murmur,MURMUR,RETINAL ROBLEMS, ATHRITIS, history of aortic stenosis, severe, 2-2-17 fall/lt hip fx History of Any Multi-Drug Resistant Organisms: None Reported Past Surgical History: Back Surgery, Section, Cholecystectomy, Joint Replacement, Orthopedic Surgery Additional Past Surgical History / Comment(s): PARTIALthyroidECTOMY D/T NODULES trach 1195, TITANIUM CESIA IN BACK,LT KNEE REPLACEMENT,LT PARTIAL SHOULDER REPLACEMENT,2-3-17 operative fixation lt hip fx w/IM HIP SCREW. Past Anesthesia/Blood Transfusion Reactions: Postoperative Nausea & Vomiting ( PONV) Past Psychological History: No Psychological Hx Reported Smoking Status: Never smoker Past Alcohol Use History: None Reported Past Drug Use History: None Reported - Past Family History Father Family Medical History: Diabetes Mellitus Mother Family Medical History: COPD Additional Family Medical History / Comment(s): jeimy(non smoker) at age 65 Brother(s) Family Medical History: Diabetes Mellitus Sister(s) Family Medical History: No Reported History Son(s) Family Medical History: No Reported History Daughter(s) Family Medical History: Diabetes Mellitus <Luisana Ford - Last Filed: 01/02/17 12:22> General Exam <Robby Wiley - Last Filed: 01/02/17 11:11> Limitations: physical limitation General appearance: alert, in no apparent distress Head exam: Present: atraumatic, normocephalic, normal inspection Eye exam: Present: normal appearance, PERRL, EOMI. Absent: scleral icterus, conjunctival injection, periorbital swelling ENT exam: Present: normal exam, mucous membranes moist Neck exam: Present: normal inspection. Absent: tenderness, meningismus, lymphadenopathy Respiratory exam: Present: wheezes, rales (Patient has bilateral rales and crackles.). Absent: normal lung sounds bilaterally, respiratory distress, rhonchi, stridor Cardiovascular Exam: Present: regular rate, normal rhythm, normal heart sounds. Absent: systolic murmur, diastolic murmur, rubs, gallop, clicks GI/Abdominal exam: Present: soft, normal bowel sounds. Absent: distended, tenderness, guarding, rebound, rigid Extremities exam: Present: normal inspection, full ROM, normal capillary refill , other (pitting edema). Absent: tenderness, pedal edema, joint swelling, calf tenderness Back exam: Present: normal inspection Neurological exam: Present: alert, oriented X3, CN II-XII intact Psychiatric exam: Present: normal affect, normal mood Skin exam: Present: warm, dry, intact, normal color. Absent: rash <Luisana Ford - Last Filed: 01/02/17 12:22> - General Exam Comments Initial Comments: This is an 86-year-old frail female. Patient does not appear to be in any acute distress. (Luisana Ford) Course <Robby Wiley - Last Filed: 01/02/17 11:11> <Luisana Ford - Last Filed: 01/02/17 12:22> Vital Signs 01/02/17 01/02/17 01/02/17 09:08 09:50 09:57 Temperature 97.9 F Pulse Rate 88 90 89 Respiratory 18 18 Rate Blood Pressure 124/60 133/61 O2 Sat by Pulse 99 100 Oximetry 01/02/17 01/02/17 01/02/17 10:10 10:50 12:07 Temperature Pulse Rate 88 94 100 Respiratory 18 Rate Blood Pressure 132/63 O2 Sat by Pulse 99 Oximetry 01/02/17 01/02/17 12:14 12:19 Temperature 97.6 F Pulse Rate 102 H 105 H Respiratory 20 Rate Blood Pressure 140/62 O2 Sat by Pulse 99 Oximetry - Reevaluation(s) Reevaluation #1: 01/02/17 12:00 Patient was reevaluated this time and states that she is having worsening breathing. (Luisana Ford) Medical Decision Making <Robby Wiley - Last Filed: 01/02/17 11:11> - Lab Data Result diagrams: 01/02/17 09:54 - Radiology Data Radiology results: report reviewed <Luisana Ford - Last Filed: 01/02/17 12:22> - Medical Decision Making The patient was seen and examined. All diagnostics were reviewed. The case is discussed with the PA and I agree with the findings as documented. The case is discussed with Dr. Doty and he is agreeable with admission. (Robby Wiley) Patient is a 86-year-old female presenting to the emergency department from transfer for [facility]. Patient was diagnosed with bilateral pneumonia , chest pain and elevated troponin. Patient's troponin [facility] was 0.083. Repeated in our facility and was increasingTroponin of 0.145. Discussed this with Dr. Wiley. Patient will be started on Levaquin, Azactam, and the pharmacy to dose the vancomycin. This will cover for the hospital-acquired pneumonia. Patient was also given 40 mg of Lasix due to evidence of heart failure, and nitropaste on chest. Patient received aspirin at [facility]. Breathing treatments were ordered. Patient will be admitted with consult to cardiology. (Luisana Ford) - Lab Data Lab Results 01/02/17 01/02/17 01/02/17 Range/Units 09:51 09:54 09:54 Sodium 141 (137-145) mmol/L Potassium 4.4 (3.5-5.1) mmol/L Chloride 105 (98-107) mmol/L Carbon Dioxide 19 L (22-30) mmol/L Anion Gap 17 mmol/L BUN 66 H (7-17) mg/dL Creatinine 1.70 H (0.52-1.04) mg/dL Est GFR (MDRD) Af Amer 35 (>60 ml/min/1.73 sqM) Est GFR (MDRD) Non-Af 29 (>60 ml/min/1.73 sqM) Glucose 146 H (74-99) mg/dL POC Glucose (mg/dL) 148 H (75-99) mg/dL POC Glu Brake Coupler Dinkey ID Mirna Centeno Calcium 10.0 (8.4-10.2) mg/dL Total Creatine Kinase 28 L (30-135) U/L CK-MB (CK-2) 1.3 (0.0-2.4) ng/mL CK-MB (CK-2) Rel Index 4.6 Troponin I 0.145 H* (0.000-0.034) ng/mL Random Vancomycin ug/mL 01/02/17 Range/Units 09:54 Sodium (137-145) mmol/L Potassium (3.5-5.1) mmol/L Chloride (98-107) mmol/L Carbon Dioxide (22-30) mmol/L Anion Gap mmol/L BUN (7-17) mg/dL Creatinine (0.52-1.04) mg/dL Est GFR (MDRD) Af Amer (>60 ml/min/1.73 sqM) Est GFR (MDRD) Non-Af (>60 ml/min/1.73 sqM) Glucose (74-99) mg/dL POC Glucose (mg/dL) (75-99) mg/dL POC Glu Brake Coupler Dinkey ID Calcium (8.4-10.2) mg/dL Total Creatine Kinase (30-135) U/L CK-MB (CK-2) (0.0-2.4) ng/mL CK-MB (CK-2) Rel Index Troponin I (0.000-0.034) ng/mL Random Vancomycin 14.1 ug/mL 01/02/17 11:08 This was performed at 9:54. EKG was reviewed and shows sinus rhythm with PACs. This was evidence of septal infarct. Prolonged QT. Ventricular rate of 80 bpm. A 1 and she will seconds. Care estrogen 104 ms. QT QTc is 424/513 ms. ( Luisana Ford) - Radiology Data Patient's chest x-ray was reviewed in addition evidence of a bilateral pneumonia and evidence of consolidation consistent with heart failure. ( Luisana Ford) Disposition <Robby Wiley - Last Filed: 01/02/17 11:11> Time of Disposition: 11:24 <Luisana Ford - Last Filed: 01/02/17 12:22> Clinical Impression: Chest pain, Pneumonia, CHF (congestive heart failure), Elevated troponin Disposition: ADMITTED IP TO THIS HOSP Condition: Stable
[2017-01-02 10:42] LABS: Creatine Kinase MB 1.3 ng/mL (0.0-2.4)
[2017-01-02 10:47] LABS: Troponin I 0.145 ng/mL (0.000-0.034)
[2017-01-02] MEDS ORDERED: FUROSEMIDE 10 MG/ML 4 ML VIAL IV STA ×2 (11:12→12:23)
[2017-01-02] MEDS ORDERED: IV VANCOMYCIN PER PHARMACY 1 EACH MISC MISCELLANE PRN (11:12)
[2017-01-02] MEDS ORDERED: Acetaminophen-Codeine 300-30mg TAB PO PRN (11:14)
[2017-01-02] MEDS ORDERED: MORPHINE SULFATE 4 MG/ML SYRINGE IV PRN (11:14)
[2017-01-02] MEDS ORDERED: NITROGLYCERIN OINT 1 INCH/GM PACKET TOPICAL STA (11:14)
[2017-01-02] MEDS ORDERED: ACETAMINOPHEN TAB 325 MG TAB PO PRN (11:14)
[2017-01-02] MEDS ORDERED: ONDANSETRON 4 MG/2 ML VIAL IVP PRN (11:14)
[2017-01-02] MEDS ORDERED: NALOXONE 0.4 MG/ML 1 ML VIAL IV PRN (11:14)
[2017-01-02] MEDS ORDERED: LORazepam 2 MG/ML SYRINGE IV PRN (11:14)
[2017-01-02] MEDS ORDERED: ASPIRIN 81 MG CHEW PO STA (11:14)
[2017-01-02] MEDS ORDERED: LEVOFLOXACIN 750MG-D5W PMX 750 MG in DEXTROSE/WATER 1 150ML.BAG IVPB STA (11:18)
[2017-01-02] MEDS ORDERED: PNEUMONIA PROTOCOL UTILIZED 1 EACH MISC PO PRN (11:18)
[2017-01-02] MEDS ORDERED: AZTREONAM 2 GM in SODIUM CHLORIDE 0.9% 100 ML IVPB STA (11:18)
[2017-01-02] MEDS ORDERED: VANCOMYCIN 1,500 MG in SODIUM CHLORIDE 0.9% 250 ML IVPB ONE ×2 (11:45→15:00)
[2017-01-02] MEDS ORDERED: ALBUTEROL NEBULIZED 2.5 MG/3 ML INHALATION STA (12:00)
[2017-01-02 12:11] LABS: Potassium 4.4 mmol/L (3.5-5.1)
[2017-01-02] MEDS ORDERED: NITROGLYCERIN SL TABS 0.4 MG TAB SUBLINGUAL PRN (12:20)
[2017-01-02 13:34] LABS: Glucose,Whole Blood 232 mg/dL (75-99)
--- NOTE | 2017-01-02 13:43 | P.CNPUL ---
History of Present Illness Consult date: 01/02/17 Reason for consult: dyspnea, pneumonia, abnormal CXR/CT Chief complaint: Shortness of breath History of present illness: Consult dated 01/02/2017 This is a 86-year-old female who is a no code patient. She was transferred out from [facility] with complaints of shortness of breath. She also apparently had chest pain for the last 2 days prior to admission. She apparently was diagnosed as having bilateral pneumonia and had an elevated BNP at 18,000. The patient was started on vancomycin and Zithromax. The patient apparently lives in an assisted living facility in that area. Patient was transferred down.. Patient had a white count of 22,000. Admission diagnosis was diffuse bilateral infiltrates either consistent with heart failure and/or pneumonia. The patient's currently in the ICU poor urine. We'll admit her directly to the ICU here. We placed her on BiPAP at 10 and 5 and 100%. We will see for can upload her chest x-ray from the other hospital. We'll shoot a portable chest x-ray here. Review of Systems Review of systems cannot be obtained as the patient's in distress. ROS unobtainable: due to mental status Past Medical History Past Medical History: COPD, CVA/TIA, Dementia, Diabetes Mellitus, Eye Disorder, Hyperlipidemia, Hypertension, Osteoarthritis (OA), Pneumonia, Renal Disease, Thyroid Disorder Additional Past Medical History / Comment(s): CVA and TIA, IDDM type II, SLIGHT DEMENTIA, chronic back pain, HAS A BROKEN TITANIUM CESIA IN HER BACK, aortic stenosis, cardiac murmur, BRONCHITIS, RETINAL PROBLEMS, SEVERE GENERALIZED ARTHRITIS, 2--17 fall/lt hip fx with surgery, HYPOTHYROID. History of Any Multi-Drug Resistant Organisms: None Reported Past Surgical History: Back Surgery, Section, Cholecystectomy, Joint Replacement, Orthopedic Surgery Additional Past Surgical History / Comment(s): PARTIALTHYROIDECTOMY D/T NODULES , POST OP BLEED AFTER THYROID SX AND HAD A trach, TITANIUM CESIA IN BACK, LT KNEE REPLACEMENT, R PARTIAL SHOULDER REPLACEMENT, 2-3-17 ORIF lt hip fx w/IM HIP SCREW. Past Anesthesia/Blood Transfusion Reactions: Postoperative Nausea & Vomiting ( PONV) Additional Past Anesthesia/Blood Transfusion Reaction / Comment(s): Pt has a narrow airway/difficult intubation Smoking Status: Never smoker - Past Family History Father Family Medical History: Diabetes Mellitus Mother Family Medical History: COPD Additional Family Medical History / Comment(s): jeimy(non smoker) at age 65 Brother(s) Family Medical History: Diabetes Mellitus Sister(s) Family Medical History: No Reported History Son(s) Family Medical History: No Reported History Daughter(s) Family Medical History: Diabetes Mellitus Medications and Allergies Home Medications Medication Instructions Recorded Confirmed Type Allopurinol [Zyloprim] 100 mg PO DAILY@79901/18/14 01/02/17 History Atorvastatin [Lipitor] 20 mg PO DAILY@79906/15/16 01/02/17 History Cholecalciferol [Vitamin D3] 1,000 unit PO DAILY@79906/15/16 01/02/17 History Diclofenac 0.1% Ophth Soln 1 drops BOTH EYES QID 06/15/16 01/02/17 History [Voltaren 0.1% Ophth Soln] Epoetin Basim [Procrit] 20,000 unit SQ Q14D 06/15/16 01/02/17 History Ferrous Sulfate [Iron (65 MG 325 mg PO DAILY@169906/15/16 01/02/17 History Elemental)] Insulin Glargine,Hum.rec.anlog 12 unit SQ DAILY@79906/15/16 01/02/17 History [Lantus Solostar] Loratadine [Claritin] 10 mg PO DAILY@79906/15/16 01/02/17 History Magnesium Oxide [Mag-Ox] 800 mg PO DAILY@169906/15/16 01/02/17 History Melatonin 3 mg PO HS@199906/15/16 01/02/17 History amLODIPine [Norvasc] 5 mg PO DAILY@79906/15/16 01/02/17 History sitaGLIPtin PHOSPHATE [Januvia] 25 mg PO DAILY@79906/15/16 01/02/17 History Furosemide [Lasix] 40 mg PO DAILY@79906/28/16 01/02/17 History Ipratropium-Albuterol Nebulize 3 ml INHALATION RT-Q6H PRN 06/28/16 01/02/17 History [Duoneb 0.5 mg-3 mg/3 ml Soln] Levothyroxine Sodium [Synthroid] 88 mcg PO DAILY@0700 06/28/16 01/02/17 History Multivitamins, Thera [Multivitamin 1 tab PO DAILY@0800 06/28/16 01/02/17 History (formulary)] Aspirin [Children's Aspirin] 81 mg PO DAILY@0800 01/02/17 01/02/17 History Clopidogrel [Plavix] 75 mg PO DAILY@0800 01/02/17 01/02/17 History HYDROcodone/APAP 5-325MG [[place] 1 tab PO TID@0800,1400,2000 01/02/17 01/02/17 History 5-325] Sennosides [Senna] 8.6 mg PO BID@0800,1700 01/02/17 01/02/17 History Spironolactone [Aldactone] 12.5 mg PO DAILY@0800 01/02/17 01/02/17 History hydrALAZINE HCL [Apresoline] 25 mg PO BID@0800,1700 01/02/17 01/02/17 History Allergies Allergy/AdvReac Type Severity Reaction Status Date / Time amoxicillin trihydrate Allergy Unknown Verified 01/02/17 11:03 [From Augmentin] cephalexin monohydrate Allergy Unknown Verified 01/02/17 11:03 [From Keflex] cyclobenzaprine HCl Allergy Unknown Verified 01/02/17 11:03 [From Flexeril] eszopiclone [From Lunesta] Allergy Unknown Verified 01/02/17 11:03 gabapentin [From Neurontin] Allergy Unknown Verified 01/02/17 11:03 levocetirizine Allergy Unknown Verified 01/02/17 11:03 dihydrochloride [From Xyzal] meperidine HCl [From Demerol] Allergy Unknown Verified 01/02/17 11:03 potassium clavulanate Allergy Unknown Verified 01/02/17 11:03 [From Augmentin] adhesive AdvReac Unknown Verified 01/02/17 11:03 hydromorphone HCl AdvReac Hallucinati Verified 01/02/17 11:03 [From Dilaudid] ons Physical Exam Osteopathic Statement: *. No significant issues noted on an osteopathic structural exam other than those noted in the History and Physical/Consult. Vitals: Vital Signs Temp Pulse Resp BP Pulse Ox 01/02/17 13:36 96 01/02/17 12:54 124 H 40 H 104/77 92 L 01/02/17 12:36 99.0 F 121 H 38 H 102/63 93 L 01/02/17 12:19 105 H 01/02/17 12:14 97.6 F 102 H 20 140/62 99 01/02/17 12:07 100 01/02/17 10:50 94 18 132/63 99 01/02/17 10:10 88 01/02/17 09:57 89 01/02/17 09:50 90 18 133/61 100 01/02/17 09:08 97.9 F 88 18 124/60 99 Intake and Output 01/01/17 01/02/17 01/02/17 22:59 06:59 14:59 Other: Weight 70.76 kg Patient Weight 01/03/17 06:59 Weight 70.76 kg The patient is in the profound respiratory distress. Is pretty much nonverbal. She is awake. Is able to nod. Very tachypneic and dyspneic. HEENT examination is grossly unremarkable. Mucous membranes are moist. Neck supple. Full range of motion. No adenopathy. Neck veins are mildly distended. Cardiovascular examination reveals tachycardia. Heart rate 100. S1-S2 normal. Soft systolic murmurs heard. No distinct S3 or S4. Lungs reveal coarse rhonchi and crackles. Breath sounds are diminished. Abdomen soft bowel sounds are heard. Extremities reveal some mild edema. Skin without rash. Skin is dry. Neurologic examination cannot really be performed. Results - Laboratory Findings CBC and BMP: 01/02/17 09:54 Abnormal lab findings: Abnormal Labs 01/02/17 01/02/17 01/02/17 09:51 09:54 09:54 Carbon Dioxide 19 L BUN 66 H Creatinine 1.70 H Glucose 146 H POC Glucose (mg/dL) 148 H Total Creatine Kinase 28 L Troponin I 0.145 H* 01/02/17 13:32 Carbon Dioxide BUN Creatinine Glucose POC Glucose (mg/dL) 232 H Total Creatine Kinase Troponin I - Diagnostic Findings Chest x-ray: image reviewed (Chest x-ray labs and medications are all reviewed.) Assessment and Plan (1) CHF (congestive heart failure) Status: Acute (2) Chest pain Status: Acute (3) Elevated troponin Status: Acute (4) Pneumonia Status: Acute (5) Dehydration Status: Acute (6) Diabetes Status: Acute (7) Fracture of hip Status: Acute (8) HTN (hypertension) Status: Acute (9) Hypothyroid Status: Acute (10) SOB (shortness of breath) Status: Acute (11) Severe aortic stenosis Status: Acute (12) TIA (transient ischemic attack) Status: Acute Plan: Plan dated 01/02/2017 The patient really placed on BiPAP at 10 and 5 and 100%. We will titrate the oxygen levels down. She will get a repeat a chest x-ray. We'll make sure she has admission labs. Additional recommendations suggestions are forthcoming. We 'll put her on [employer]. I will talk to the family. Additional recommendations suggestions are forthcoming. Her daughter is actually one of my patients who I see for sarcoidosis. Time with Patient: Greater than 30
--- NOTE | 2017-01-02 13:56 | XR ---
EXAMINATION TYPE: XR chest 1V portable DATE OF EXAM: 01/02/2017 COMPARISON: Prior chest x-ray 07/01/2016 HISTORY: Dyspnea and shortness of breath TECHNIQUE: Single frontal view of the chest is obtained. FINDINGS: Interstitium and central vascularity are prominent. The heart is enlarged. Postop changes are again noted. No evident pneumothorax. Difficult to exclude a small effusion. Patient is rotated. IMPRESSION: Findings suggest congestive heart failure. Follow-up is recommended.
--- NOTE | 2017-01-02 13:59 | P.HPIM ---
History of Present Illness H&P Date: 01/02/17 Chief Complaint: Acute respiratory failure, acute coronary syndrome, unstable angina, bilate 86-year-old female one of our office patient with past medical history of CAD COPD valvular heart disease mild dementia type 2 diabetes previous history of CVA and hip fracture was in hospital last time over 6 month ago for ROM her hip fracture. Patient has been living in assisted living for the last few years. Patient developed to have worsening chest pain and worsening shortness of breath mild dyspnea and cough wheezes with severe hypoxia and mild change mental status with worsening confusion she ended up having nausea mild palpitation and lightheadedness. Patient ended up going to [facility] where was seen and evaluated x-ray showed bilateral pneumonia patient was started on vancomycin and azithromycin and decided to send patient to [facility]. Patient was seen in the emergency department at [facility] surprisingly very tachycardic running over 130 beats per minutes very irregular with A. fib her troponin was elevated chest x-ray and clinically she had acute pulmonary edema and looks like she is and acute coronary syndrome status with non-ST CT. Long discussion with the family with the patient status DO NOT RESUSCITATE she isn't quite bed discomfort with the kidney running over 40 time per minutes and tachycardia with severe hypoxia decided to put her on BiPAP consult cardiology consult pulmonary and transfer patient to the ICU for more calm further management for her current condition try to treated medically with no aggressive surgical intervention available. Review of Systems Constitutional: Reports anorexia, Reports chronic headaches, Reports chronic pain, Reports fatigue, Reports fever, Reports malaise, Reports poor appetite, Reports weakness, Denies as per HPI, Denies chills, Denies daytime sleepiness, Denies lethargy, Denies night sweats, Denies sweats, Denies weight gain, Denies weight loss Eyes: bilateral as per HPI Ears: bilateral: decreased hearing Ears, nose, mouth and throat: Reports ant. neck pain, Reports nasal congestion, Reports nasal discharge, Reports sinus pain, Reports sinus pressure, Denies as per HPI, Denies bleeding gums, Denies dental pain, Denies dysphagia, Denies epistaxis, Denies headache, Denies hoarseness, Denies mouth pain, Denies neck fullness/pressure, Denies neck lump, Denies nose pain, Denies odynophagia, Denies post-nasal drip, Denies swelling in mouth, Denies swelling in throat, Denies sore throat, Denies vertigo, Denies voice changes Breasts: bilateral: as per HPI Cardiovascular: Reports chest pain, Reports claudication, Reports orthopnea, Reports palpitations, Denies as per HPI, Denies decreased exercise tolerance, Denies dyspnea on exertion, Denies edema, Denies high blood pressure, Denies irregular heart beat, Denies leg edema, Denies lightheadedness, Denies paroxysmal nocturnal dyspnea, Denies phlebitis, Denies rapid heart beat, Denies shortness of breath, Denies syncope Respiratory: Reports congestion, Reports cough, Reports dyspnea, Reports pain on inspiration, Reports respiratory infections, Reports wheezing, Denies as per HPI, Denies cough with sputum, Denies excessive sputum, Denies hemoptysis, Denies home oxygen, Denies pain, Denies pleurisy, Denies sleep apnea, Denies snoring Gastrointestinal: Reports abdominal pain, Reports belching, Reports bloating, Reports dyspepsia, Reports indigestion, Reports nausea, Reports vomiting, Denies as per HPI, Denies BRBPR, Denies change in bowel habits, Denies coffee ground emesis, Denies constipation, Denies diarrhea, Denies early satiety, Denies excessive gas, Denies heartburn, Denies hematemesis, Denies hematochezia , Denies jaundice, Denies lactose intolerance, Denies loss of appetite, Denies melena Genitourinary: Reports dysuria, Reports urgency, Reports urinary frequency, Denies as per HPI, Denies abnormal vaginal bleeding, Denies decreased libido, Denies difficulty conceiving, Denies difficulty voiding, Denies dysmenorrhea, Denies dyspareunia, Denies flank pain, Denies genital sores, Denies hematuria, Denies hot flashes, Denies incomplete emptying, Denies kidney stones, Denies menorrhagia, Denies mixed incontinence, Denies nocturia, Denies pelvic pain, Denies post void dribbling, Denies , Denies prolapse symptoms, Denies stress incontinence, Denies urge incontinence, Denies vaginal discharge, Denies vaginal dryness, Denies vaginal itching, Denies vaginal odor Musculoskeletal: Reports arm numbness/tingling, Reports loss of height, Reports low back pain, Reports morning stiffness, Reports myalgias, Reports neck pain, Denies as per HPI, Denies atrophy, Denies fractures, Denies frequent falls, Denies gait dysfunction, Denies hot joints, Denies leg numbness/tingling, Denies limitation of motion, Denies muscle cramps, Denies muscle weakness, Denies neck stiffness, Denies prior amputations, Denies redness of joints, Denies shooting arm pain, Denies shooting leg pain Musculoskeletal: bilateral: ankle pain, ankle stiffness Integumentary: Reports dryness, Reports pruritus, Reports rash, Denies as per HPI, Denies acne, Denies boils, Denies brittle nails, Denies change in hair/ nails, Denies color changes, Denies darkening of skin, Denies depigmentation, Denies foot/leg ulcers, Denies growths, Denies hirsutism, Denies lesions, Denies onychomycosis, Denies sores, Denies striae, Denies unusual bruising, Denies wounds Neurological: Reports ataxia, Reports change in mentation, Reports gait dysfunction, Reports memory loss, Reports numbness, Reports paresthesias, Reports tingling, Reports vertigo, Reports weakness, Denies as per HPI, Denies aphasia, Denies balance difficulties, Denies burning pain, Denies change in smell/taste, Denies change in speech, Denies confusion, Denies convulsions, Denies double vision, Denies head injury, Denies headaches, Denies hearing difficulties, Denies lack of coordination, Denies loss of vision, Denies migraines, Denies motor disturbance, Denies paralysis, Denies seizures, Denies sensory deficit, Denies spasticity, Denies syncope, Denies tic, Denies transient paralysis, Denies tremors, Denies visual changes Psychiatric: Reports anhedonia, Reports anxiety attacks, Reports confusion, Reports depression, Reports irritability, Reports memory loss, Reports sadness/ tearfulness, Denies as per HPI, Denies anxiety, Denies change in appetite, Denies change in libido, Denies change in sleep habits, Denies difficulty concentrating, Denies disorientation, Denies hallucinations, Denies hopelessness , Denies hypersomnia, Denies insomnia, Denies mood swings, Denies paranoia, Denies sleep disturbances, Denies suicidal ideation Endocrine: Reports fatigue, Reports flushing, Reports high blood sugars, Reports polydipsia, Reports polyuria, Denies as per HPI, Denies cold intolerance , Denies deepening of the voice, Denies excessive sweating, Denies excessive thirst, Denies heat intolerance, Denies increase in ring/shoe/hat size, Denies low blood sugars, Denies nocturia, Denies palpitations, Denies polyphagia, Denies proptosis, Denies recent glucocorticoid use, Denies thyroid mass, Denies weight change Hematologic/Lymphatic: Reports easy bruising, Denies as per HPI, Denies easy bleeding, Denies lymphadenopathy, Denies lymphedema, Denies thrombophilia Allergic/Immunologic: Reports allergic rhinitis, Denies as per HPI, Denies anaphylaxis, Denies angioedema, Denies gluten intolerance, Denies persistent infections, Denies seasonal allergies, Denies urticaria, Denies wheezing Past Medical History Past Medical History: COPD, CVA/TIA, Dementia, Diabetes Mellitus, Eye Disorder, Hyperlipidemia, Hypertension, Osteoarthritis (OA), Pneumonia, Renal Disease, Thyroid Disorder Additional Past Medical History / Comment(s): CVA and TIA, IDDM type II, SLIGHT DEMENTIA, chronic back pain, HAS A BROKEN TITANIUM CESIA IN HER BACK, aortic stenosis, cardiac murmur, BRONCHITIS, RETINAL PROBLEMS, SEVERE GENERALIZED ARTHRITIS, 2-2-17 fall/lt hip fx with surgery, HYPOTHYROID. History of Any Multi-Drug Resistant Organisms: None Reported Past Surgical History: Back Surgery, Section, Cholecystectomy, Joint Replacement, Orthopedic Surgery Additional Past Surgical History / Comment(s): PARTIALTHYROIDECTOMY D/T NODULES , POST OP BLEED AFTER THYROID SX AND HAD A trach, TITANIUM CESIA IN BACK, LT KNEE REPLACEMENT, R PARTIAL SHOULDER REPLACEMENT, 2-3-17 ORIF lt hip fx w/IM HIP SCREW. Past Anesthesia/Blood Transfusion Reactions: Postoperative Nausea & Vomiting ( PONV) Additional Past Anesthesia/Blood Transfusion Reaction / Comment(s): Pt has a narrow airway/difficult intubation Smoking Status: Never smoker - Past Family History Father Family Medical History: Diabetes Mellitus Mother Family Medical History: COPD Additional Family Medical History / Comment(s): jeimy(non smoker) at age 65 Brother(s) Family Medical History: Diabetes Mellitus Sister(s) Family Medical History: No Reported History Son(s) Family Medical History: No Reported History Daughter(s) Family Medical History: Diabetes Mellitus Medications and Allergies Home Medications Medication Instructions Recorded Confirmed Type RX: Allopurinol [Zyloprim] 100 mg PO DAILY@79901/18/14 01/02/17 History RX: Atorvastatin [Lipitor] 20 mg PO DAILY@79906/15/16 01/02/17 History RX: Cholecalciferol [Vitamin D3] 1,000 unit PO DAILY@79906/15/16 01/02/17 History RX: Diclofenac 0.1% Ophth Soln 1 drops BOTH EYES QID 06/15/16 01/02/17 History [Voltaren 0.1% Ophth Soln] RX: Epoetin Basim [Procrit] 20,000 unit SQ Q14D 06/15/16 01/02/17 History RX: Ferrous Sulfate [Iron (65 MG 325 mg PO DAILY@169906/15/16 01/02/17 History Elemental)] RX: Insulin Glargine,Hum.rec.anlog 12 unit SQ DAILY@79906/15/16 01/02/17 History [Lantus Solostar] RX: Loratadine [Claritin] 10 mg PO DAILY@79906/15/16 01/02/17 History RX: Magnesium Oxide [Mag-Ox] 800 mg PO DAILY@169906/15/16 01/02/17 History RX: Melatonin 3 mg PO HS@199906/15/16 01/02/17 History RX: amLODIPine [Norvasc] 5 mg PO DAILY@79906/15/16 01/02/17 History RX: sitaGLIPtin PHOSPHATE [Januvia] 25 mg PO DAILY@79906/15/16 01/02/17 History RX: Furosemide [Lasix] 40 mg PO DAILY@79906/28/16 01/02/17 History RX: Ipratropium-Albuterol Nebulize 3 ml INHALATION RT-Q6H PRN 06/28/16 01/02/17 History [Duoneb 0.5 mg-3 mg/3 ml Soln] RX: Levothyroxine Sodium 88 mcg PO DAILY@69906/28/16 01/02/17 History [Synthroid] RX: Multivitamins, Thera 1 tab PO DAILY@79906/28/1617 History [Multivitamin (formulary)] Clopidogrel [Plavix] 75 mg PO DAILY@0800 01/02/17 01/02/17 History HYDROcodone/APAP 5-325MG [[place] 1 tab PO TID@0800,1400,2000 01/02/17 01/02/17 History 5-325] RX: Aspirin [Children's Aspirin] 81 mg PO DAILY@0800 01/02/17 01/02/17 History Sennosides [Senna] 8.6 mg PO BID@0800,1700 01/02/17 01/02/17 History Spironolactone [Aldactone] 12.5 mg PO DAILY@0800 01/02/17 01/02/17 History hydrALAZINE HCL [Apresoline] 25 mg PO BID@0800,1700 01/02/17 01/02/17 History Allergies Allergy/AdvReac Type Severity Reaction Status Date / Time amoxicillin trihydrate Allergy Unknown Verified 01/02/17 11:03 [From Augmentin] cephalexin monohydrate Allergy Unknown Verified 01/02/17 11:03 [From Keflex] cyclobenzaprine HCl Allergy Unknown Verified 01/02/17 11:03 [From Flexeril] eszopiclone [From Lunesta] Allergy Unknown Verified 01/02/17 11:03 gabapentin [From Neurontin] Allergy Unknown Verified 01/02/17 11:03 levocetirizine Allergy Unknown Verified 01/02/17 11:03 dihydrochloride [From Xyzal] meperidine HCl [From Demerol] Allergy Unknown Verified 01/02/17 11:03 potassium clavulanate Allergy Unknown Verified 01/02/17 11:03 [From Augmentin] adhesive AdvReac Unknown Verified 01/02/17 11:03 hydromorphone HCl AdvReac Hallucinati Verified 01/02/17 11:03 [From Dilaudid] ons Physical Exam Vitals: Vital Signs Temp Pulse Resp BP Pulse Ox 01/02/17 13:36 96 01/02/17 12:54 124 H 40 H 104/77 92 L 01/02/17 12:36 99.0 F 121 H 38 H 102/63 93 L 01/02/17 12:19 105 H 01/02/17 12:14 97.6 F 102 H 20 140/62 99 01/02/17 12:07 100 01/02/17 10:50 94 18 132/63 99 01/02/17 10:10 88 01/02/17 09:57 89 01/02/17 09:50 90 18 133/61 100 01/02/17 09:08 97.9 F 88 18 124/60 99 Intake and Output 01/01/17 01/02/17 01/02/17 22:59 06:59 14:59 Other: Weight 70.76 kg Patient Weight 01/03/17 06:59 Weight 70.76 kg - Constitutional General appearance: no average body habitus, no cooperative, disheveled, mild distress, no morbidly obese, no no acute distress, no obese, no severe distress , no thin - EENT Eyes: abnormal pupil, no anicteric sclerae, no disc margins sharp, no edentulous , no EOMI, no PERRLA, no fundus normal, no photophobia, no dentition normal, no poor dentition, no ptosis, no scleral icterus, normal appearance ENT: no hard of hearing, no hearing grossly normal, no NA/AT, normal oropharynx , no other, no pharyngeal erythema, no thrush, no tonsillar exudates, no tonsillar swelling Ears: bilateral: normal, bulging - Neck Neck: no lymphadenopathy, normal ROM, no other, no rigidity, no stridor, no thyromegaly Carotids: bilateral: upstroke normal Thyroid: bilateral: normal size - Respiratory Respiratory: bilateral: diminished, dullness, rales, wheezing, prolonged expiration - Cardiovascular Tachycardia S1-S2 positive S3 3/6 ejection systolic murmur at apex. Rhythm: irregularly irregular Heart sounds: normal: S1, S2 Abnormal Heart Sounds: systolic murmur, no diastolic murmur, no rub, S3 Gallop, no S4 Gallop, click, no other - Gastrointestinal General gastrointestinal: no absent bowel sounds, decreased bowel sounds, distended, no hepatomegaly, no hyperactive bowel sounds, normal bowel sounds, no organomegaly, no rigid, no scaphoid, soft, no splenomegaly, no tenderness, no umbilical hernia, no ventral hernia - Integumentary Integumentary: no calor, no cellulitis, no cyanotic, no decreased turgor, no flushed, no jaundiced, normal, no normal turgor, pale, rash, no ulcer - Neurologic Neurologic: CNII-XII intact - Musculoskeletal Musculoskeletal: gait normal, generalized weakness, strength equal bilaterally, no right sided weakness, no left sided weakness - Psychiatric Psychiatric: A&O x's 3, appropriate affect Results CBC & Chem 7: 01/04/17 03:45 01/04/17 03:45 Labs: Abnormal Lab Results - Last 24 Hours (Table) 01/02/17 01/02/17 01/02/17 Range/Units 09:51 09:54 09:54 Carbon Dioxide 19 L (22-30) mmol/L BUN 66 H (7-17) mg/dL Creatinine 1.70 H (0.52-1.04) mg/dL Glucose 146 H (74-99) mg/dL POC Glucose (mg/dL) 148 H (75-99) mg/dL Total Creatine Kinase 28 L (30-135) U/L Troponin I 0.145 H* (0.000-0.034) ng/mL 01/02/17 Range/Units 13:32 Carbon Dioxide (22-30) mmol/L BUN (7-17) mg/dL Creatinine (0.52-1.04) mg/dL Glucose (74-99) mg/dL POC Glucose (mg/dL) 232 H (75-99) mg/dL Total Creatine Kinase (30-135) U/L Troponin I (0.000-0.034) ng/mL Thrombosis Risk Factor Assmnt - DVT/VTE Prophylaxis DVT/VTE Prophylaxis: Pharmacologic Prophylaxis ordered, Mechanical Prophylaxis ordered Assessment and Plan Plan: 1 acute respiratory failure: With severe tachypnea hypoxia tachycardia this is caused by acute coronary syndrome, pulmonary edema, bilateral pneumonia and A. fib with RVR. Also patient is known to have severe aortic stenosis is not a candidate for surgery or any intervention. 2 acute coronary syndrome: With significantly elevated troponin with flush pulmonary edema with the rest of her symptoms continue CK with troponin will consult cardiology. 3 acute pulmonary edema: Patient will be on Lasix IV drip Douglas catheter will be inserted continue to reduce her water retention and watch her urine output. 4 bilateral pneumonia: Patient was started on Levaquin and vancomycin. 5 advance severe aortic stenosis: On medical management only not a candidate for surgery. 6 CVA/TIA: No residual except mild confusion at this point patient most likely confuse because of the hypoxia. 7 diabetes type 2: Continue patient on Accu-Chek with sliding scales coverage, still on Januvia along with NovoLog and Lantus. 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 9. Lipidemia: Continue patient on Lipitor 20 mg daily. 10 hypertension: Well controlled on Norvasc Aldactone and hydralazine. 11 acute kidney injury with chronic kidney disease III: Much worse continue to watch her kidney function would BUN/creatinine daily basis for now. 12 hyperuricemia: Has been on allopurinol 100 mg daily. 13 hypothyroidism: Continue patient on levothyroxine 88 g daily. 14 chronic COPD with mild acute component continue patient on DuoNeb will consult pulmonary. 15 GI prophylaxis: Patient will be on pantoprazole 40 mg daily. 16 DVT prophylaxis: Patient will be on anticoagulation and if needed Lovenox can be use. CODE STATUS: DO NOT RESUSCITATE but it CK to do BiPAP per family. Expectation from this admission: Patient be in the hospital for more than 2 nights.
[2017-01-02 14:44] LABS: Magnesium 2.6 mg/dL (1.6-2.3); Phosphorous 5.6 mg/dL (2.5-4.5); Potassium 4.5 mmol/L (3.5-5.1)
[2017-01-02 14:46] LABS: Anisocytosis Slight; Basophils # (A) 0.1 k/uL (0-0.2); Basophils % (A) 0 %; CH 29.1; Eosinophils % (A) 0 %; HCT 33.3 % (34.0-46.0); HDW 2.43; HGB 10.5 gm/dL (11.4-16.0); Hypochromasia Marked; Luc # (Auto) 0.32; Luc % (Auto) 2; Lymphocytes # (A) 0.7 k/uL (1.0-4.8); Lymphocytes % (A) 4 %; MCH 30.8 pg (25.0-35.0); MCHC 31.7 g/dL (31.0-37.0); MCV 97.4 fL (80.0-100.0); Macrocytosis Slight; Mean Platelet Volume 7.9; Monocytes # (A) 0.8 k/uL (0-1.0); Monocytes % (A) 4 %; Neutrophils # (A) 17.3 k/uL (1.3-7.7); Neutrophils % (A) 90 %; RBC 3.41 m/uL (3.80-5.40); RDW 17.3 % (11.5-15.5); WBC 19.2 k/uL (3.8-10.6); WBC (Perox) 19.37
[2017-01-02] MEDS: SODIUM CHLORIDE 0.9% 1,000 ML IV SCH (14:47)
[2017-01-02] MEDS: HYDROcodone/APAP 5-325MG 1 EACH TAB PO SCH ×2 (14:47→20:52)
[2017-01-02] MEDS ORDERED: LEVOFLOXACIN 750MG-D5W PMX 750 MG in DEXTROSE/WATER 1 150ML.BAG IVPB ONE (15:00)
[2017-01-02 15:13] LABS: Creatine Kinase MB 3.8 ng/mL (0.0-2.4); Troponin I 0.344 ng/mL (0.000-0.034)
[2017-01-02] MEDS: IPRATROPIUM-ALBUTEROL 3 ML NEB INHALATION PRN ×2 (15:17→19:40)
[2017-01-02] MEDS: FUROSEMIDE 250 MG in SODIUM CHLORIDE 0.9% 225 ML IVP SCH (16:13)
[2017-01-02] MEDS: DICLOFENAC 0.1% OPHTH SOLN 2.5 ML BTL BOTH EYES SCH ×3 (16:14→22:04)
[2017-01-02] MEDS: CHOLECALCIFEROL 1,000 UNIT TAB PO SCH (16:14)
[2017-01-02] MEDS: FERROUS SULFATE 325 MG TAB PO SCH (16:14)
[2017-01-02] MEDS: SENNOSIDES 8.6 MG TAB PO SCH (16:15)
[2017-01-02] MEDS: MULTIVITAMINS, THERA 1 EACH TAB PO SCH (16:15)
[2017-01-02] MEDS: hydrALAZINE HCL 25 MG TAB PO SCH (16:15)
[2017-01-02 18:20] LABS: Glucose,Whole Blood 187 mg/dL (75-99)
[2017-01-02] MEDS: INSULIN LISPRO (humaLOG) 300 UNIT/3 ML VIAL SQ SCH (18:20)
[2017-01-02 18:21] LABS: Appearance,Urine Cloudy (Clear); Bilirubin,Urine Negative (Negative); Glucose,Urine (UA) Negative (Negative); Ketones,Urine Negative (Negative); Leukocyte Esterase,Urine Large (Negative); Mucus,Urine Rare /hpf; Nitrite,Urine Negative (Negative); Particle Count 3838; Protein,Urine Negative (Negative); RBC,Urine 4 /hpf (0-5); Specific Gravity,Urine 1.008 (1.001-1.035); Squamous Epithelial Cell,Urine 1 /hpf (0-4); UA Billing (MACRO vs. MICRO) MICRO; Urobilinogen,Urine <2.0 mg/dL (<2.0); WBC,Urine 22 /hpf (0-5)
[2017-01-02] MEDS: BUDESONIDE 0.5 MG/2 ML NEBU INHALATION SCH (19:40)
[2017-01-02] MEDS ORDERED: AZTREONAM 1 GM in SODIUM CHLORIDE 0.9% 50 ML IVPB SCH (20:00)
[2017-01-02] MEDS ORDERED: AZTREONAM 2 GM in SODIUM CHLORIDE 0.9% 100 ML IVPB SCH (20:00)
[2017-01-02] MEDS: ATORVASTATIN 20 MG TAB PO SCH (20:45)
[2017-01-02] MEDS: MELATONIN 3 MG TABLET PO SCH (20:46)
[2017-01-02] MEDS ORDERED: FAMOTIDINE 20 MG/2 ML VIAL IV SCH (21:00)
[2017-01-02] MEDS ORDERED: hydrALAZINE HCL 25 MG TAB PO SCH (21:00)
[2017-01-02 21:59] LABS: Hemoglobin A1C 5.8 % (4.2-6.1)
[2017-01-02 22:31] LABS: Creatine Kinase MB 20.4 ng/mL (0.0-2.4); Troponin I 9.52 ng/mL (0.000-0.034)
[2017-01-03 00:14] LABS: Glucose,Whole Blood 110 mg/dL (75-99)
[2017-01-03 05:04] LABS: Calcium 9.7 mg/dL (8.4-10.2); Magnesium 2.4 mg/dL (1.6-2.3); Phosphorous 4.4 mg/dL (2.5-4.5); Potassium 4.3 mmol/L (3.5-5.1)
[2017-01-03 05:10] LABS: Anisocytosis Slight; Aty Lym Flag Slight; CH 29.1; CHCM 30.5; HCT 29.1 % (34.0-46.0); HDW 2.44; HGB 9.2 gm/dL (11.4-16.0); Hypochromasia Slight; MCH 30.4 pg (25.0-35.0); MCHC 31.7 g/dL (31.0-37.0); MCV 95.8 fL (80.0-100.0); Macrocytosis Slight; Mean Platelet Volume 8.3; RBC 3.04 m/uL (3.80-5.40); RDW 17.4 % (11.5-15.5); WBC 13.2 k/uL (3.8-10.6); WBC (Perox) 13.85
[2017-01-03] MEDS ORDERED: HEPARIN SODIUM,PORCINE 5,000 UNIT/ML 1 ML VIAL IV PRN (06:34)
[2017-01-03] MEDS ORDERED: HEPARIN SODIUM,PORCINE 5,000 UNIT/ML 1 ML VIAL IV STA (06:38)
[2017-01-03] MEDS: INSULIN LISPRO (humaLOG) 300 UNIT/3 ML VIAL SQ SCH ×5 (06:40→21:25)
[2017-01-03] MEDS: LEVOTHYROXINE 88 MCG TAB PO SCH (06:46)
[2017-01-03] MEDS: BUDESONIDE 0.5 MG/2 ML NEBU INHALATION SCH ×2 (07:07→19:46)
[2017-01-03] MEDS: IPRATROPIUM-ALBUTEROL 3 ML NEB INHALATION PRN ×3 (07:07→19:46)
[2017-01-03 07:15] LABS: Add Differential Manual Differential
[2017-01-03 07:20] LABS: INR 1.2 (<1.2); Prothrombin Time 11.8 sec (9.0-12.0)
[2017-01-03 07:21] LABS: Nucleated Red Blood Cells 0 /100 WBC (0-0); Total Cells Counted 100
[2017-01-03 07:34] LABS: Partial Thromboplastin Time 19.8 sec (22.0-30.0)
[2017-01-03] MEDS: HEPARIN SODIUM,PORCINE/D5W PMX 25,000 UNIT in DEXTROSE/WATER 1 500ML.BAG IV SCH (08:00)
[2017-01-03] MEDS ORDERED: FUROSEMIDE 40 MG TAB PO SCH (08:00)
[2017-01-03] MEDS ORDERED: amLODIPine 5 MG TAB PO SCH (08:00)
[2017-01-03] MEDS: DICLOFENAC 0.1% OPHTH SOLN 2.5 ML BTL BOTH EYES SCH ×4 (08:11→23:16)
[2017-01-03] MEDS: SENNOSIDES 8.6 MG TAB PO SCH ×2 (08:11→17:07)
[2017-01-03] MEDS: hydrALAZINE HCL 25 MG TAB PO SCH ×2 (08:12→17:09)
[2017-01-03] MEDS: HYDROcodone/APAP 5-325MG 1 EACH TAB PO SCH ×3 (08:23→21:02)
[2017-01-03] MEDS: INSULIN GLARGINE 100 UNIT/ML 10 ML VIAL SQ SCH (08:23)
[2017-01-03] MEDS: CLOPIDOGREL 75 MG TAB PO SCH (08:25)
[2017-01-03] MEDS: ALLOPURINOL 100 MG TAB PO SCH (08:25)
[2017-01-03] MEDS: LINAGLIPTIN 5 MG TABLET PO SCH (08:26)
[2017-01-03] MEDS: FAMOTIDINE 20 MG/2 ML VIAL IV SCH (08:27)
--- NOTE | 2017-01-03 08:27 | XR ---
EXAMINATION TYPE: XR chest 1V DATE OF EXAM: 01/03/2017 COMPARISON: 01/02/2017 HISTORY: Shortness of breath TECHNIQUE: Single frontal view of the chest is obtained. FINDINGS: Bilateral perihilar infiltrate with bilateral consolidation and small effusion are noted. No sizable pneumothorax. Postsurgical changes involving vertebral, left shoulder. Clip or calcification along the right apex m edially. Arthropathy of the AC joints. IMPRESSION: 1. Persistent changes most typical of CHF.
[2017-01-03] MEDS: SPIRONOLACTONE 25 MG TAB PO SCH (08:28)
[2017-01-03 08:52] LABS: Glucose,Whole Blood 201 mg/dL (75-99)
[2017-01-03] MEDS: METOPROLOL TARTRATE 25 MG TAB PO SCH ×2 (10:09→21:06)
--- NOTE | 2017-01-03 10:13 | P.CRDCN ---
History of Present Illness Consult reason: non-Q-wave SD History of present illness: 86-year-old female presents to the hospital being transferred from [facility]. Increasing shortness of breath and chest discomfort. She been diagnosed with bilateral pneumonia and with an elevated BNP of 18,000 she is currently on IV antibiotics, broad-spectrum white count is 22,000 cardio was consulted on account of an abnormal troponin, the patient denies any significant cough. She has had UTIs in the past Chest x-ray showed bilateral perihilar infiltrates with bilateral consolidation and small pleural effusion most consistent with CHF per radiology Past history of chronic disease, she was started on anticoagulation for suspected pulmonary embolism based upon a V/Q scan in June 2016 him a past history of severe anemia with a hemoglobin is 7.1 him a history of COPD, history of severe aortic stenosis, history of atrial fibrillation, hypertension , insulin requiring diabetes, in June 2016 ejection fraction was 50-55% him a severely dilated left atrium and severe aortic stenosis with a very high gradient of greater than 100 mmHg When I spoke to the patient she had been complaining of increasing shortness of breath and chest discomfort. Her heart rates are high with underlying atrial fibrillation On examination bibasal crackles noted, systolic murmur on examination over the precordium abdomen is soft nontender Blood pressure 180/51 mmHg currently the pulse rate is in the 80s Labs are reviewed white count is 13.2 thousand hemoglobin 9.2 BUN 17 creatinine 1.8 Troponin 0.1, 0.3 and 9.5 Impression Likely acute myocardial infarction non-ST elevation based upon troponins and based upon his symptoms of shortness of breath and chest discomfort being treated for ear infection and is on broad-spectrum antibiotics Suggest Continue IV Lasix continue IV heparin continue beta blockers and continue antiplatelet agents, add atorvastatin Medical management recommended Past Medical History Past Medical History: COPD, CVA/TIA, Dementia, Diabetes Mellitus, Eye Disorder, Hyperlipidemia, Hypertension, Osteoarthritis (OA), Pneumonia, Renal Disease, Thyroid Disorder Additional Past Medical History / Comment(s): CVA and TIA, IDDM type II, SLIGHT DEMENTIA, chronic back pain, HAS A BROKEN TITANIUM CESIA IN HER BACK, aortic stenosis, cardiac murmur, BRONCHITIS, RETINAL PROBLEMS, SEVERE GENERALIZED ARTHRITIS, 2-2-17 fall/lt hip fx with surgery, HYPOTHYROID. History of Any Multi-Drug Resistant Organisms: None Reported Past Surgical History: Back Surgery, Section, Cholecystectomy, Joint Replacement, Orthopedic Surgery Additional Past Surgical History / Comment(s): PARTIALTHYROIDECTOMY D/T NODULES , POST OP BLEED AFTER THYROID SX AND HAD A trach, TITANIUM CESIA IN BACK, LT KNEE REPLACEMENT, R PARTIAL SHOULDER REPLACEMENT, 06-16-16 ORIF lt hip fx w/IM HIP SCREW. Past Anesthesia/Blood Transfusion Reactions: Postoperative Nausea & Vomiting ( PONV) Additional Past Anesthesia/Blood Transfusion Reaction / Comment(s): Pt has a narrow airway/difficult intubation Smoking Status: Never smoker - Past Family History Father Family Medical History: Diabetes Mellitus Mother Family Medical History: COPD Additional Family Medical History / Comment(s): jeimy(non smoker) at age 65 Brother(s) Family Medical History: Diabetes Mellitus Sister(s) Family Medical History: No Reported History Son(s) Family Medical History: No Reported History Daughter(s) Family Medical History: Diabetes Mellitus Medications and Allergies Home Medications Medication Instructions Recorded Confirmed Type Allopurinol [Zyloprim] 100 mg PO DAILY@79901/18/14 01/02/17 History Atorvastatin [Lipitor] 20 mg PO DAILY@79906/15/16 01/02/17 History Cholecalciferol [Vitamin D3] 1,000 unit PO DAILY@79906/15/16 01/02/17 History Diclofenac 0.1% Ophth Soln 1 drops BOTH EYES QID 06/15/16 01/02/17 History [Voltaren 0.1% Ophth Soln] Epoetin Basim [Procrit] 20,000 unit SQ Q14D 06/15/16 01/02/17 History Ferrous Sulfate [Iron (65 MG 325 mg PO DAILY@169906/15/16 01/02/17 History Elemental)] Insulin Glargine,Hum.rec.anlog 12 unit SQ DAILY@79906/15/16 01/02/17 History [Lantus Solostar] Loratadine [Claritin] 10 mg PO DAILY@79906/15/16 01/02/17 History Magnesium Oxide [Mag-Ox] 800 mg PO DAILY@169906/15/16 01/02/17 History Melatonin 3 mg PO HS@199906/15/16 01/02/17 History amLODIPine [Norvasc] 5 mg PO DAILY@00 06/15/16 01/02/17 History sitaGLIPtin PHOSPHATE [Januvia] 25 mg PO DAILY@0800 06/15/16 01/02/17 History Furosemide [Lasix] 40 mg PO DAILY@0800 06/28/16 01/02/17 History Ipratropium-Albuterol Nebulize 3 ml INHALATION RT-Q6H PRN 06/28/16 01/02/17 History [Duoneb 0.5 mg-3 mg/3 ml Soln] Levothyroxine Sodium [Synthroid] 88 mcg PO DAILY@0706/28/16 01/02/17 History Multivitamins, Thera [Multivitamin 1 tab PO DAILY@0806/28/16 01/02/17 History (formulary)] Aspirin [Children's Aspirin] 81 mg PO DAILY@0801/02/17 01/02/17 History Clopidogrel [Plavix] 75 mg PO DAILY@0800 01/02/17 01/02/17 History HYDROcodone/APAP 5-325MG [[place] 1 tab PO TID@0800,1400,199901/02/17 01/02/17 History 5-325] Sennosides [Senna] 8.6 mg PO BID@0800,1700 01/02/17 01/02/17 History Spironolactone [Aldactone] 12.5 mg PO DAILY@0800 01/02/17 01/02/17 History hydrALAZINE HCL [Apresoline] 25 mg PO BID@0800,1700 01/02/17 01/02/17 History Allergies Allergy/AdvReac Type Severity Reaction Status Date / Time amoxicillin trihydrate Allergy Unknown Verified 01/02/17 11:03 [From Augmentin] cephalexin monohydrate Allergy Unknown Verified 01/02/17 11:03 [From Keflex] cyclobenzaprine HCl Allergy Unknown Verified 01/02/17 11:03 [From Flexeril] eszopiclone [From Lunesta] Allergy Unknown Verified 01/02/17 11:03 gabapentin [From Neurontin] Allergy Unknown Verified 01/02/17 11:03 levocetirizine Allergy Unknown Verified 01/02/17 11:03 dihydrochloride [From Xyzal] meperidine HCl [From Demerol] Allergy Unknown Verified 01/02/17 11:03 potassium clavulanate Allergy Unknown Verified 01/02/17 11:03 [From Augmentin] adhesive AdvReac Unknown Verified 01/02/17 11:03 hydromorphone HCl AdvReac Hallucinati Verified 01/02/17 11:03 [From Dilaudid] ons Physical Exam Vitals: Vital Signs Temp Pulse Resp BP Pulse Ox 01/03/17 07:25 84 01/03/17 07:10 81 97 01/03/17 06:00 85 16 108/51 99 01/03/17 05:00 79 16 112/55 100 01/03/17 04:00 98.9 F 84 18 109/52 99 01/03/17 03:00 79 18 111/55 100 01/03/17 02:00 80 18 96/52 100 01/03/17 01:00 78 18 111/58 100 01/03/17 00:00 97.5 F L 77 18 92/45 100 01/02/17 23:33 77 17 120/56 100 01/02/17 23:00 79 16 99/48 100 01/02/17 22:00 86 26 H 100/53 97 01/02/17 21:30 88 33 H 98/51 97 01/02/17 21:00 90 22 100/54 98 01/02/17 20:30 88 27 H 93/49 97 01/02/17 20:00 98.6 F 82 32 H 100/52 100 01/02/17 19:53 82 01/02/17 19:40 82 01/02/17 19:30 81 27 H 94/49 100 01/02/17 19:00 81 25 H 87/61 100 01/02/17 18:30 78 27 H 92/46 98 01/02/17 18:00 83 23 96/45 100 01/02/17 17:30 80 18 93/44 100 01/02/17 17:00 85 37 H 109/53 100 01/02/17 16:30 83 16 116/52 100 01/02/17 16:00 97.4 F L 88 23 130/66 100 01/02/17 15:30 83 15 127/64 100 01/02/17 15:18 83 01/02/17 15:00 84 21 146/71 100 01/02/17 14:30 85 27 H 127/62 100 01/02/17 14:00 97.6 F 99 19 113/63 99 01/02/17 13:36 96 01/02/17 12:54 124 H 40 H 104/77 92 L 01/02/17 12:36 99.0 F 121 H 38 H 102/63 93 L 01/02/17 12:19 105 H 01/02/17 12:14 97.6 F 102 H 20 140/62 99 01/02/17 12:07 100 01/02/17 10:50 94 18 132/63 99 Intake and Output 01/02/17 01/03/17 01/03/17 22:59 06:59 14:59 Intake Total 620 160 Output Total 715 525 Balance -95 -365 Intake: IV 60 160 Sodium Chloride 0.9% 1, 60 160 000 ml @ 20 mls/hr IV . Q24H [facility] Rx#:[id number] Intake, IV Titration 510 Amount Levofloxacin 750Mg-D5w 150 Pmx 750 mg In Dextrose/ Water 1 150ml.bag @ 100 mls/hr IVPB ONCE ONE Rx#: [id number] Sodium Chloride 0.9% 1, 110 000 ml @ 20 mls/hr IV . Q24H [facility] Rx#:[id number] Vancomycin 1,500 mg In 250 Sodium Chloride 0.9% 250 ml @ 125 mls/hr IVPB ONCE ONE Rx#:[id number] Oral 50 Output: Urine 715 525 Other: Voiding Method Indwelling Catheter Indwelling Catheter Weight 72 kg 73.2 kg Results 01/03/17 04:02 01/03/17 04:02 Cardiac Enzymes 01/02/17 01/02/17 01/02/17 Range/Units 09:54 14:20 21:15 CK-MB (CK-2) 1.3 3.8 H* 20.4 H* (0.0-2.4) ng/mL Troponin I 0.145 H* 0.344 H* 9.520 H* (0.000-0.034) ng/mL Coagulation 01/03/17 Range/Units 06:47 PT 11.8 (9.0-12.0) sec APTT 19.8 L (22.0-30.0) sec CBC 01/02/17 01/03/17 Range/Units 14:20 04:02 WBC 19.2 H 13.2 H (3.8-10.6) k/uL RBC 3.41 L 3.04 L (3.80-5.40) m/uL Hgb 10.5 L 9.2 L (11.4-16.0) gm/dL Hct 33.3 L 29.1 L (34.0-46.0) % Plt Count 314 268 (150-450) k/uL Comprehensive Metabolic Panel 01/02/17 01/02/17 01/02/17 Range/Units 09:54 14:20 21:15 Sodium 141 140 (137-145) mmol/L Potassium 4.4 4.5 4.8 (3.5-5.1) mmol/L Chloride 105 106 (98-107) mmol/L Carbon Dioxide 19 L 16 L (22-30) mmol/L BUN 66 H 66 H (7-17) mg/dL Creatinine 1.70 H 1.70 H (0.52-1.04) mg/dL Glucose 146 H 232 H (74-99) mg/dL Calcium 10.0 10.0 (8.4-10.2) mg/dL 01/03/17 Range/Units 04:02 Sodium 139 (137-145) mmol/L Potassium 4.3 (3.5-5.1) mmol/L Chloride 106 (98-107) mmol/L Carbon Dioxide 20 L (22-30) mmol/L BUN 70 H (7-17) mg/dL Creatinine 1.80 H (0.52-1.04) mg/dL Glucose 118 H (74-99) mg/dL Calcium 9.7 (8.4-10.2) mg/dL Current Medications Generic Name Dose Route Start Last Admin Trade Name Freq PRN Reason Stop Dose Admin Acetaminophen 650 mg 01/02/17 11:14 Tylenol Tab PO Q6HR PRN Mild Pain or Fever > 100.5 Acetaminophen/Codeine Phosphate 1 each 01/02/17 11:14 Tylenol #3 PO Q4HR PRN Moderate Pain Hydrocodone Bitart/Acetaminophen 1 each 01/02/17 14:00 01/03/17 08:23 [place] 5-325 PO 1 each TID@0800,1400,2000 RAISA Administration Albuterol/Ipratropium 3 ml 01/02/17 11:18 08/23/17 07:07 Duoneb 0.5 Mg-3 Mg/3 Ml Soln INHALATION 3 ml RT-Q4H PRN Administration shortness of breath Allopurinol 100 mg 01/03/17 08:00 01/03/17 08:25 Zyloprim PO 100 mg DAILY@0800 [facility] Administration Atorvastatin Calcium 20 mg 01/02/17 21:00 01/02/17 20:45 Lipitor PO 20 mg HS@2100 [facility] Administration Budesonide 0.5 mg 01/02/17 17:00 01/03/17 07:07 Pulmicort INHALATION 0.5 mg RT-BID@0800,1700 [facility] Administration Cholecalciferol 1,000 unit 01/02/17 17:00 01/02/17 16:14 Vitamin D3 PO Not Given DAILY@1700 [facility] Clopidogrel Bisulfate 75 mg 01/03/17 09:00 01/03/17 08:25 Plavix PO 75 mg DAILY [facility] Administration Darbepoetin Basim 60 mcg 01/05/17 12:00 Aranesp SQ Q14D [facility] Diclofenac Sodium 1 drops 01/02/17 13:00 01/03/17 08:11 Voltaren 0.1% Ophth Soln BOTH EYES 1 drops QID [facility] Administration Famotidine 20 mg 01/03/17 09:00 01/03/17 08:27 Pepcid IV 20 mg DAILY [facility] Administration Ferrous Sulfate 325 mg 01/02/17 17:00 01/02/17 16:14 Feosol PO Not Given DAILY@1700 [facility] Heparin Sodium (Porcine) 0 unit 01/03/17 06:34 Heparin IV PER PROTOCOL PRN Low PTT Protocol Hydralazine HCl 25 mg 01/02/17 17:00 01/03/17 08:12 Apresoline PO 25 mg BID@0800,1700 [facility] Administration Sodium Chloride 1,000 mls @ 20 mls/hr 01/02/17 11:15 01/02/17 14:47 Saline 0.9% IV 50 mls/hr .Q24H [facility] Administration Levofloxacin 750 mg/ IV 150 mls @ 100 mls/hr 01/04/17 15:00 Solution IVPB Q48H [facility] Furosemide 250 mg/ Sodium 250 mls @ 10 mls/hr 01/02/17 15:30 01/02/17 16:13 Chloride IVP 10 mg/hr .Q24H RAISA 10 mls/hr 10 MG/HR Administration Heparin Sodium/Dextrose 25,000 500 mls @ 17.56 mls/hr 01/03/17 07:30 08:00 unit/ IV Solution IV 12 units/kg/hr .Q24H [facility]ISA 17.56 mls/hr Protocol Administration 12 UNITS/KG/HR Vancomycin HCl 1,500 mg/ 250 mls @ 125 mls/hr 01/03/17 18:00 Sodium Chloride IVPB 01/03/17 19:59 ONCE ONE Insulin Glargine 12 unit 01/03/17 08:00 01/03/17 08:23 Lantus SQ 12 unit DAILY@0800 [facility] Administration Insulin Human Lispro 0 unit 01/03/17 12:30 Humalog SQ ACHS [facility] Protocol Levothyroxine Sodium 88 mcg 01/03/17 06:00 01/03/17 06:46 Synthroid PO 88 mcg DAILY@0600 [facility] Administration Linagliptin 5 mg 01/03/17 08:00 01/03/17 08:26 Tradjenta PO 5 mg DAILY@0800 [facility] Administration Lorazepam 0.5 mg 01/02/17 11:14 Ativan IV Q6HR PRN Anxiety Magnesium Hydroxide 2,400 mg 01/03/17 10:00 Milk Of Magnesia PO BID PRN Constipation Melatonin 3 mg 01/02/17 21:00 01/02/17 20:46 Melatonin PO 3 mg HS@2100 [facility] Administration Metoprolol Tartrate 25 mg 01/03/17 09:00 01/03/17 10:09 Lopressor PO 25 mg BID RAISA Administration Miscellaneous Information 1 each 01/02/17 11:12 Pharmacy To Dose Iv Vancomycin MISCELLANE DIRECTED PRN Per Protocol Miscellaneous Information 1 each 01/02/17 11:18 Pneumonia Protocol Utilized PO ONCE PRN Per Protocol Morphine Sulfate 4 mg 01/02/17 11:14 Morphine Sulfate (Inj) IV Q4HR PRN Severe Pain Multivitamins 1 each 01/02/17 17:00 01/02/17 16:15 Theragran PO Not Given DAILY@1700 [facility] Naloxone HCl 0.2 mg 01/02/17 11:14 Narcan IV Q2M PRN Opioid Reversal Nitroglycerin 0.4 mg 01/02/17 12:20 Nitrostat SUBLINGUAL Q5M PRN Chest Pain Ondansetron HCl 4 mg 01/02/17 11:14 Zofran IVP Q8HR PRN Nausea And Vomiting Senna 8.6 mg 01/02/17 17:00 01/03/17 08:11 Senokot PO 8.6 mg BID@0800,1700 RAISA Administration Spironolactone 12.5 mg 01/03/17 09:00 01/03/17 08:28 Aldactone PO 12.5 mg DAILY RAISA Administration Intake and Output 01/02/17 01/03/17 01/03/17 22:59 06:59 14:59 Intake Total 620 160 Output Total 715 525 Balance -95 -365 Intake: IV 60 160 Sodium Chloride 0.9% 1, 60 160 000 ml @ 20 mls/hr IV . Q24H [facility] Rx#:[id number] Intake, IV Titration 510 Amount Levofloxacin 750Mg-D5w 150 Pmx 750 mg In Dextrose/ Water 1 150ml.bag @ 100 mls/hr IVPB ONCE ONE Rx#: [id number] Sodium Chloride 0.9% 1, 110 000 ml @ 20 mls/hr IV . Q24H [facility] Rx#:[id number] Vancomycin 1,500 mg In 250 Sodium Chloride 0.9% 250 ml @ 125 mls/hr IVPB ONCE ONE Rx#:[id number] Oral 50 Output: Urine 715 525 Other: Voiding Method Indwelling Catheter Indwelling Catheter Weight 72 kg 73.2 kg 01/03/17 04:02 01/03/17 04:02
--- NOTE | 2017-01-03 10:21 | CDI ---
In responding to this query, please exercise your independent professional judgment. The [facility] Coding Staff and Clinical Documentation Specialists appreciate your assistance in clarifying documentation, maintaining compliance with coding guidelines, accurately documenting patients condition and capturing severity of illness. The fact that a question is asked does not imply that any particular answer is desired or expected. Communication forms are a method of clarifying documentation and are not made part of the Legal Health Record. Thank you in advance for your clarification. Last Revision, March 2015 Taran Monahan [address] [place] [address] Documentation Clarification Form Date: 01/03/2017 10:14:00 AM From: Hannah Kasper CCS, CCDS Admit Date: 01/02/2017 11:10:00 AM Patient Name: Sara Alfonso Visit Number: [id number] Discharge Date: Dr. Richie Doty: History/Risk Factors: CAD, COPD, Severe Aortic Stenosis, DM II, Dementia, hx of CVA & hip fracture 6 months ago, lives in assisted living facility. Current BUN: 66, Creatinine 1.70, GFR: 29 Clinical Indicators: 86 yo female, transferred from [facility] with bilateral pneumonia and elevated troponins, BNP. Diagnosed with NSTEMI, Acute on Chronic combined CHF, Acute kidney injury and pneumonia. Per History/Physical, patient has chronic kidney failure. Treatment: ICU, IV fluids & IV fluid bolus, IV abx, INH nebs, O2 2L, no BiPAP; Patient is a NO CODE. In order to capture the severity of condition, please clarify if the condition signifies: CKD Stage 1 (GFR > 90) CKD Stage 2 (GFR 60-89) CKD Stage 3 (GFR 30-59) CKD Stage 4 (GFR 15-29) CKD Stage 5 (GFR <15) ESRD Unable to determine Other condition, please specify Please document in your progress notes and discharge summary in order to capture severity of illness and risk of mortality. Include clinical findings that support your diagnosis. FYI: Press F11 to launch patient chart. 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
--- NOTE | 2017-01-03 11:03 | P.PN ---
Subjective This is a 86-year-old female who is a no code patient. She was transferred out from [facility] with complaints of shortness of breath. She also apparently had chest pain for the last 2 days prior to admission. She apparently was diagnosed as having bilateral pneumonia and had an elevated BNP at 18,000. The patient was started on vancomycin and Zithromax. The patient apparently lives in an assisted living facility in that area. Patient was transferred down.. Patient had a white count of 22,000. Admission diagnosis was diffuse bilateral infiltrates either consistent with heart failure and/or pneumonia. The patient's currently in the ICU poor urine. We'll admit her directly to the ICU here. We placed her on BiPAP at 10 and 5 and 100%. We will see for can upload her chest x-ray from the other hospital. We'll shoot a portable chest x-ray here. The patient is seen again today 01/03/2017 in follow-up in the intensive care unit. She is awake and alert in no acute distress. She is breathing quite a bit better today as compared to yesterday. She denies any significant chest discomfort which she is maintaining O2 saturations in the 90s on 4 L/m per nasal cannula. She had been somewhat reluctant to wear the BiPAP. She remains on a heparin drip per weight base protocol. She is also on Lasix drip at 10 mg per hour. She has a 0.9 normal saline at 20 mL per hour. She did rule in for myocardial infarction with a troponin of 9.52. Echocardiogram is pending. Her chest x-ray continues to show evidence of congestive heart failure with fluid volume overload. Creatinine remains elevated at 1.80 and urine culture is pending. He is currently on vancomycin and Levaquin. Objective - Vital Signs Vital signs: Vital Signs Temp 98.9 F 01/03/17 04:00 Pulse 84 01/03/17 07:25 Resp 16 01/03/17 06:00 BP 108/51 01/03/17 06:00 Pulse Ox 97 01/03/17 07:10 Intake & Output 01/02/17 01/03/17 01/03/17 18:59 06:59 18:59 Intake Total 540 290 Output Total 440 800 Balance 100 -510 Weight 72 kg 73.2 kg Intake: IV 220 Sodium Chloride 0.9% 1, 220 000 ml @ 20 mls/hr IV . Q[facility]H [facility] Rx#:[id number] Intake, IV Titration 540 20 Amount Levofloxacin 750Mg-D5w 150 Pmx 750 mg In Dextrose/ Water 1 150ml.bag @ 100 mls/hr IVPB ONCE ONE Rx#: [id number] Sodium Chloride 0.9% 1, 140 20 000 ml @ 20 mls/hr IV . Q24H [facility] Rx#:[id number] Vancomycin 1,500 mg In 250 Sodium Chloride 0.9% 250 ml @ 125 mls/hr IVPB ONCE ONE Rx#:[id number] Oral 50 Output: Urine 440 800 Other: Voiding Method Indwelling Catheter Indwelling Catheter - Exam GENERAL EXAM: Alert, fairly comfortable in no apparent distress. HEAD: Normocephalic. EYES: Normal reaction of pupils, equal size. NOSE: Clear with pink turbinates. THROAT: No erythema or exudates. NECK: No masses, no significant JVD. CHEST: No chest wall deformity. LUNGS: Equal air entry with crackles in the bilateral posterior bases. CVS: S1 and S2 normal with an audible murmur, regular rhythm. ABDOMEN: No hepatosplenomegaly, normal bowel sounds, no guarding or rigidity. SPINE: No scoliosis or deformity SKIN: No rashes CENTRAL NERVOUS SYSTEM: No focal deficits, tone is normal in all 4 extremities. Extremities: There is trace peripheral edema. No clubbing, no cyanosis. Peripheral pulses are intact. - Labs CBC & Chem 7: 01/03/17 04:02 01/03/17 04:02 Labs: Abnormal Lab Results - Last 24 Hours (Table) 01/02/17 01/02/17 01/02/17 Range/Units 09:54 13:32 14:20 WBC (3.8-10.6) k/uL RBC (3.80-5.40) m/uL Hgb (11.4-16.0) gm/dL Hct (34.0-46.0) % RDW (11.5-15.5) % Neutrophils # (1.3-7.7) k/uL Neutrophils # (Manual) (1.3-7.7) k/uL Lymphocytes # (1.0-4.8) k/uL Lymphocytes # (Manual) (1.0-4.8) k/uL INR (<1.2) APTT (22.0-30.0) sec Carbon Dioxide 19 L (22-30) mmol/L BUN 66 H (7-17) mg/dL Creatinine 1.70 H (0.52-1.04) mg/dL Glucose 146 H (74-99) mg/dL POC Glucose (mg/dL) 232 H (75-99) mg/dL Phosphorus (2.5-4.5) mg/dL Magnesium (1.6-2.3) mg/dL Total Creatine Kinase (30-135) U/L CK-MB (CK-2) 3.8 H* (0.0-2.4) ng/mL Troponin I 0.344 H* (0.000-0.034) ng/mL Urine Appearance (Clear) Ur Leukocyte Esterase (Negative) Urine WBC (0-5) /hpf Urine WBC Clumps (None) /hpf Hyaline Casts (0-2) /lpf Urine Mucus (None) /hpf 01/02/17 01/02/17 01/02/17 Range/Units 14:20 14:20 17:55 WBC 19.2 H (3.8-10.6) k/uL RBC 3.41 L (3.80-5.40) m/uL Hgb 10.5 L (11.4-16.0) gm/dL Hct 33.3 L (34.0-46.0) % RDW 17.3 H (11.5-15.5) % Neutrophils # 17.3 H (1.3-7.7) k/uL Neutrophils # (Manual) (1.3-7.7) k/uL Lymphocytes # 0.7 L (1.0-4.8) k/uL Lymphocytes # (Manual) (1.0-4.8) k/uL INR (<1.2) APTT (22.0-30.0) sec Carbon Dioxide 16 L (22-30) mmol/L BUN 66 H (7-17) mg/dL Creatinine 1.70 H (0.52-1.04) mg/dL Glucose 232 H (74-99) mg/dL POC Glucose (mg/dL) (75-99) mg/dL Phosphorus 5.6 H (2.5-4.5) mg/dL Magnesium 2.6 H (1.6-2.3) mg/dL Total Creatine Kinase (30-135) U/L CK-MB (CK-2) (0.0-2.4) ng/mL Troponin I (0.000-0.034) ng/mL Urine Appearance Cloudy H (Clear) Ur Leukocyte Esterase Large H (Negative) Urine WBC 22 H (0-5) /hpf Urine WBC Clumps Occasional H (None) /hpf Hyaline Casts 4 H (0-2) /lpf Urine Mucus Rare H (None) /hpf 01/02/17 01/02/17 01/03/17 Range/Units 18:19 21:15 00:12 WBC (3.8-10.6) k/uL RBC (3.80-5.40) m/uL Hgb (11.4-16.0) gm/dL Hct (34.0-46.0) % RDW (11.5-15.5) % Neutrophils # (1.3-7.7) k/uL Neutrophils # (Manual) (1.3-7.7) k/uL Lymphocytes # (1.0-4.8) k/uL Lymphocytes # (Manual) (1.0-4.8) k/uL INR (<1.2) APTT (22.0-30.0) sec Carbon Dioxide (22-30) mmol/L BUN (7-17) mg/dL Creatinine (0.52-1.04) mg/dL Glucose (74-99) mg/dL POC Glucose (mg/dL) 187 H 110 H (75-99) mg/dL Phosphorus (2.5-4.5) mg/dL Magnesium (1.6-2.3) mg/dL Total Creatine Kinase 260 H (30-135) U/L CK-MB (CK-2) 20.4 H* (0.0-2.4) ng/mL Troponin I 9.520 H* (0.000-0.034) ng/mL Urine Appearance (Clear) Ur Leukocyte Esterase (Negative) Urine WBC (0-5) /hpf Urine WBC Clumps (None) /hpf Hyaline Casts (0-2) /lpf Urine Mucus (None) /hpf 01/03/17 01/03/17 01/03/17 Range/Units 04:02 04:02 06:47 WBC 13.2 H (3.8-10.6) k/uL RBC 3.04 L (3.80-5.40) m/uL Hgb 9.2 L (11.4-16.0) gm/dL Hct 29.1 L (34.0-46.0) % RDW 17.4 H (11.5-15.5) % Neutrophils # (1.3-7.7) k/uL Neutrophils # (Manual) 11.35 H (1.3-7.7) k/uL Lymphocytes # (1.0-4.8) k/uL Lymphocytes # (Manual) 0.92 L (1.0-4.8) k/uL INR 1.2 H (<1.2) APTT 19.8 L (22.0-30.0) sec Carbon Dioxide 20 L (22-30) mmol/L BUN 70 H (7-17) mg/dL Creatinine 1.80 H (0.52-1.04) mg/dL Glucose 118 H (74-99) mg/dL POC Glucose (mg/dL) (75-99) mg/dL Phosphorus (2.5-4.5) mg/dL Magnesium 2.4 H (1.6-2.3) mg/dL Total Creatine Kinase (30-135) U/L CK-MB (CK-2) (0.0-2.4) ng/mL Troponin I (0.000-0.034) ng/mL Urine Appearance (Clear) Ur Leukocyte Esterase (Negative) Urine WBC (0-5) /hpf Urine WBC Clumps (None) /hpf Hyaline Casts (0-2) /lpf Urine Mucus (None) /hpf / Range/Units 08:49 WBC (3.8-10.6) k/uL RBC (3.80-5.40) m/uL Hgb (11.4-16.0) gm/dL Hct (34.0-46.0) % RDW (11.5-15.5) % Neutrophils # (1.3-7.7) k/uL Neutrophils # (Manual) (1.3-7.7) k/uL Lymphocytes # (1.0-4.8) k/uL Lymphocytes # (Manual) (1.0-4.8) k/uL INR (<1.2) APTT (22.0-30.0) sec Carbon Dioxide (22-30) mmol/L BUN (7-17) mg/dL Creatinine (0.52-1.04) mg/dL Glucose (74-99) mg/dL POC Glucose (mg/dL) 201 H (75-99) mg/dL Phosphorus (2.5-4.5) mg/dL Magnesium (1.6-2.3) mg/dL Total Creatine Kinase (30-135) U/L CK-MB (CK-2) (0.0-2.4) ng/mL Troponin I (0.000-0.034) ng/mL Urine Appearance (Clear) Ur Leukocyte Esterase (Negative) Urine WBC (0-5) /hpf Urine WBC Clumps (None) /hpf Hyaline Casts (0-2) /lpf Urine Mucus (None) /hpf Microbiology - Last 24 Hours (Table) 01/02/17 17:55 Urine Culture - Preliminary Urine,Catheterized Assessment and Plan Plan: Impression: #1 Acute exacerbation of suspected systolic congestive heart failure, echocardiogram pending. #2 Non-ST segment elevation myocardial infarction. #3 Severe aortic stenosis, history of. #4 Hypertension, history of. #5 Diabetes mellitus. #6 Hypothyroidism. #7 History of transient ischemic attack. #8 Acute renal failure, current creatinine 1.8. Plan: Vision was seen and evaluated by Dr. Mahan. Her chest x-ray and labs were reviewed. We'll go ahead and discontinue the vancomycin and convert her to oral Levaquin. Doubt pneumonia most likely I'll congestive heart failure secondary to myocardial infarction. Cultures are pending. We'll monitor her here another 24 hours in the intensive care unit. We'll continue to follow and make further recommendations based on her clinical status. Time with Patient: Greater than 30
[2017-01-03 12:09] LABS: Glucose,Whole Blood 155 mg/dL (75-99)
--- NOTE | 2017-01-03 12:12 | ECHOF ---
Referral Reason:chf MEASUREMENTS -------- HEIGHT: 162.6 cm WEIGHT: 73.0 kg BP: 105/48 IVSd: 1.2 cm (0.6 - 1.1) LVIDd: 5.7 cm (3.9 - 5.3) LVPWd: 1.2 cm (0.6 - 1.1) IVSs: 1.8 cm LVIDs: 3.7 cm LVPWs: 1.7 cm LAESV Index (A-L): 40.57 ml/m MV E Richard: 1.87 m/s MV DecT: 285 ms MV A Richard: 1.19 m/s MV E/A Ratio: 1.57 AV maxP.34 mmHg AV meanP.35 mmHg AR PHT: 276 ms RAP: 15.00 mmHg RVSP: 37.16 mmHg FINDINGS -------- Sinus rhythm. This was a technically adequate study. The left ventricle is mildly dilated. There is mild concentric left ventricular hypertrophy. Overall left ventricular systolic function is low-normal with, an EF between 50 - 55 %. The right ventricle is normal in size and function. LA is severely dilated >40 ml/m2 The right atrium is normal in size. Aortic valve is trileaflet and is severely thickened. There is [id number] aortic regurgitation. The aortic pressure half-time by doppler is 276ms. Severe aortic stenosis with peak/mean pressure gradient of 103.34mmHg / 69.35mmHg, the aortic valve area by continuity equation is 0.3cm. The mitral valve leaflets are severely thickened. Severe mitral annular calcification present. Severe mitral regurgitation is present. Kxtz-kb-oldumfnk mitral stenosis. Trace tricuspid regurgitation present. There is borderline pulmonary hypertension. The right ventricular systolic pressure, as measured by Doppler, is 37.16mmHg. The pulmonic valve was not well visualized. The aortic root size is normal. The inferior vena cava is dilated with poor inspiratory collapse which is consistent with estimated right atrial pressure of 20 mmHg. There is no pericardial effusion. Large Pleural Effusion. CONCLUSIONS -------- 1. Sinus rhythm. 2. Severe aortic stenosis with peak/mean pressure gradient of 103.34mmHg / 69.35mmHg, the aortic valve area by continuity equation is 0.3cm. 3. The mitral valve leaflets are severely thickened. 4. Severe mitral annular calcification present. 5. Severe mitral regurgitation is present. 6. Czyu-rb-xwsacyrs mitral stenosis. 7. Trace tricuspid regurgitation present. 8. There is borderline pulmonary hypertension. 9. The right ventricular systolic pressure, as measured by Doppler, is 37.16mmHg. 10. The pulmonic valve was not well visualized. 11. The aortic root size is normal. 12. This was a technically adequate study. 13. The inferior vena cava is dilated with poor inspiratory collapse which is consistent with estimated right atrial pressure of 20 mmHg. 14. There is no pericardial effusion. 15. Large Pleural Effusion. 16. The left ventricle is mildly dilated. 17. There is mild concentric left ventricular hypertrophy. 18. Overall left ventricular systolic function is low-normal with, an EF between 50 - 55 %. 19. LA is severely dilated >40 ml/m2 20. Aortic valve is trileaflet and is severely thickened. 21. There is vley-ep-cjynkcyb aortic regurgitation. 22. The aortic pressure half-time by doppler is 276ms. BRANCH CHIEF: Bahman Carmona RDCS
[2017-01-03] MEDS: SODIUM CHLORIDE 0.9% 1,000 ML IV SCH ×2 (13:23→21:28)
--- NOTE | 2017-01-03 13:25 | P.PN ---
Subjective 86-year-old female one of our office patient with past medical history of CAD COPD valvular heart disease mild dementia type 2 diabetes previous history of CVA and hip fracture was in hospital last time over 6 month ago for ROM her hip fracture. Patient has been living in assisted living for the last few years. Patient developed to have worsening chest pain and worsening shortness of breath mild dyspnea and cough wheezes with severe hypoxia and mild change mental status with worsening confusion she ended up having nausea mild palpitation and lightheadedness. Patient ended up going to [facility] where was seen and evaluated x-ray showed bilateral pneumonia patient was started on vancomycin and azithromycin and decided to send patient to [facility]. Patient was seen in the emergency department at [facility] surprisingly very tachycardic running over 130 beats per minutes very irregular with A. fib her troponin was elevated chest x-ray and clinically she had acute pulmonary edema and looks like she is and acute coronary syndrome status with non-ST [place]. Long discussion with the family with the patient status DO NOT RESUSCITATE she isn't quite bed discomfort with the kidney running over 40 time per minutes and tachycardia with severe hypoxia decided to put her on BiPAP consult cardiology consult pulmonary and transfer patient to the ICU for more calm further management for her current condition try to treated medically with no aggressive surgical intervention available. 01/03: Patient remains in the intensive care unit. Patient's respiratory status is much improved this morning. She has been seen by Dr. Mahan. Repeat chest x- ray this morning shows persistent changes most typical of CHF. Documented weight is up 3 kg. White count has improved to 13.2. BUN is 70 creatinine 1.8. Troponins have been 0.145, 0.344 and 9.5. She has been placed on heparin drip per cardiology and echocardiogram is pending. Regarding antibiotics, patient is currently on Levaquin and vancomycin. Urine culture is in progress. Sputum culture on collected. She does complain of constipation for which milk of magnesia added to Senokot. Dr. Mahan maybe adding Xanax. Objective - Vital Signs Vital signs: Vital Signs Temp 98.9 F 01/03/17 04:00 Pulse 84 01/03/17 07:25 Resp 16 01/03/17 06:00 BP 108/51 01/03/17 06:00 Pulse Ox 97 01/03/17 07:10 Intake & Output 01/02/17 01/03/17 01/03/17 18:59 06:59 18:59 Intake Total 540 290 Output Total 440 800 Balance 100 -510 Weight 72 kg 73.2 kg Intake: IV 220 Sodium Chloride 0.9% 1, 220 000 ml @ 20 mls/hr IV . Q24H [facility] Rx#:[id number] Intake, IV Titration 540 20 Amount Levofloxacin 750Mg-D5w 150 Pmx 750 mg In Dextrose/ Water 1 150ml.bag @ 100 mls/hr IVPB ONCE ONE Rx#: [id number] Sodium Chloride 0.9% 1, 140 20 000 ml @ 20 mls/hr IV . Q24H [facility] Rx#:[id number] Vancomycin 1,500 mg In 250 Sodium Chloride 0.9% 250 ml @ 125 mls/hr IVPB ONCE ONE Rx#:[id number] Oral 50 Output: Urine 440 800 Other: Voiding Method Indwelling Catheter Indwelling Catheter - Exam General appearance: no average body habitus, no cooperative, disheveled, mild distress, no morbidly obese, no no acute distress, no obese, no severe distress , no thin - EENT Eyes: abnormal pupil, no anicteric sclerae, no disc margins sharp, no edentulous , no EOMI, no PERRLA, no fundus normal, no photophobia, no dentition normal, no poor dentition, no ptosis, no scleral icterus, normal appearance ENT: no hard of hearing, no hearing grossly normal, no NA/AT, normal oropharynx , no other, no pharyngeal erythema, no thrush, no tonsillar exudates, no tonsillar swelling Ears: bilateral: normal, bulging - Neck Neck: no lymphadenopathy, normal ROM, no other, no rigidity, no stridor, no thyromegaly Carotids: bilateral: upstroke normal Thyroid: bilateral: normal size - Respiratory Respiratory: bilateral: diminished, dullness, rales, wheezing, prolonged expiration - Cardiovascular Tachycardia S1-S2 positive S3 3/6 ejection systolic murmur at apex. Rhythm: irregularly irregular Heart sounds: normal: S1, S2 Abnormal Heart Sounds: systolic murmur, no diastolic murmur, no rub, S3 Gallop, no S4 Gallop, click, no other - Gastrointestinal General gastrointestinal: no absent bowel sounds, decreased bowel sounds, distended, no hepatomegaly, no hyperactive bowel sounds, normal bowel sounds, no organomegaly, no rigid, no scaphoid, soft, no splenomegaly, no tenderness, no umbilical hernia, no ventral hernia - Integumentary Integumentary: no calor, no cellulitis, no cyanotic, no decreased turgor, no flushed, no jaundiced, normal, no normal turgor, pale, rash, no ulcer - Neurologic Neurologic: CNII-XII intact - Musculoskeletal Musculoskeletal: gait normal, generalized weakness, strength equal bilaterally, no right sided weakness, no left sided weakness - Psychiatric Psychiatric: A&O x's 3, appropriate affect - Labs CBC & Chem 7: 01/03/17 04:02 01/03/17 04:02 Labs: Abnormal Lab Results - Last 24 Hours (Table) 01/02/17 01/02/17 01/02/17 Range/Units 09:51 09:54 09:54 WBC (3.8-10.6) k/uL RBC (3.80-5.40) m/uL Hgb (11.4-16.0) gm/dL Hct (34.0-46.0) % RDW (11.5-15.5) % Neutrophils # (1.3-7.7) k/uL Neutrophils # (Manual) (1.3-7.7) k/uL Lymphocytes # (1.0-4.8) k/uL Lymphocytes # (Manual) (1.0-4.8) k/uL INR (<1.2) APTT (22.0-30.0) sec Carbon Dioxide 19 L (22-30) mmol/L BUN 66 H (7-17) mg/dL Creatinine 1.70 H (0.52-1.04) mg/dL Glucose 146 H (74-99) mg/dL POC Glucose (mg/dL) 148 H (75-99) mg/dL Phosphorus (2.5-4.5) mg/dL Magnesium (1.6-2.3) mg/dL Total Creatine Kinase 28 L (30-135) U/L CK-MB (CK-2) (0.0-2.4) ng/mL Troponin I 0.145 H* (0.000-0.034) ng/mL Urine Appearance (Clear) Ur Leukocyte Esterase (Negative) Urine WBC (0-5) /hpf Urine WBC Clumps (None) /hpf Hyaline Casts (0-2) /lpf Urine Mucus (None) /hpf 01/02/17 01/02/17 01/02/17 Range/Units 13:32 14:20 14:20 WBC 19.2 H (3.8-10.6) k/uL RBC 3.41 L (3.80-5.40) m/uL Hgb 10.5 L (11.4-16.0) gm/dL Hct 33.3 L (34.0-46.0) % RDW 17.3 H (11.5-15.5) % Neutrophils # 17.3 H (1.3-7.7) k/uL Neutrophils # (Manual) (1.3-7.7) k/uL Lymphocytes # 0.7 L (1.0-4.8) k/uL Lymphocytes # (Manual) (1.0-4.8) k/uL INR (<1.2) APTT (22.0-30.0) sec Carbon Dioxide (22-30) mmol/L BUN (7-17) mg/dL Creatinine (0.52-1.04) mg/dL Glucose (74-99) mg/dL POC Glucose (mg/dL) 232 H (75-99) mg/dL Phosphorus (2.5-4.5) mg/dL Magnesium (1.6-2.3) mg/dL Total Creatine Kinase (30-135) U/L CK-MB (CK-2) 3.8 H* (0.0-2.4) ng/mL Troponin I 0.344 H* (0.000-0.034) ng/mL Urine Appearance (Clear) Ur Leukocyte Esterase (Negative) Urine WBC (0-5) /hpf Urine WBC Clumps (None) /hpf Hyaline Casts (0-2) /lpf Urine Mucus (None) /hpf 01/02/17 01/02/17 01/02/17 Range/Units 14:20 17:55 18:19 WBC (3.8-10.6) k/uL RBC (3.80-5.40) m/uL Hgb (11.4-16.0) gm/dL Hct (34.0-46.0) % RDW (11.5-15.5) % Neutrophils # (1.3-7.7) k/uL Neutrophils # (Manual) (1.3-7.7) k/uL Lymphocytes # (1.0-4.8) k/uL Lymphocytes # (Manual) (1.0-4.8) k/uL INR (<1.2) APTT (22.0-30.0) sec Carbon Dioxide 16 L (22-30) mmol/L BUN 66 H (7-17) mg/dL Creatinine 1.70 H (0.52-1.04) mg/dL Glucose 232 H (74-99) mg/dL POC Glucose (mg/dL) 187 H (75-99) mg/dL Phosphorus 5.6 H (2.5-4.5) mg/dL Magnesium 2.6 H (1.6-2.3) mg/dL Total Creatine Kinase (30-135) U/L CK-MB (CK-2) (0.0-2.4) ng/mL Troponin I (0.000-0.034) ng/mL Urine Appearance Cloudy H (Clear) Ur Leukocyte Esterase Large H (Negative) Urine WBC 22 H (0-5) /hpf Urine WBC Clumps Occasional H (None) /hpf Hyaline Casts 4 H (0-2) /lpf Urine Mucus Rare H (None) /hpf 01/02/17 01/03/17 01/03/17 Range/Units 21:15 00:12 04:02 WBC (3.8-10.6) k/uL RBC (3.80-5.40) m/uL Hgb (11.4-16.0) gm/dL Hct (34.0-46.0) % RDW (11.5-15.5) % Neutrophils # (1.3-7.7) k/uL Neutrophils # (Manual) (1.3-7.7) k/uL Lymphocytes # (1.0-4.8) k/uL Lymphocytes # (Manual) (1.0-4.8) k/uL INR (<1.2) APTT (22.0-30.0) sec Carbon Dioxide 20 L (22-30) mmol/L BUN 70 H (7-17) mg/dL Creatinine 1.80 H (0.52-1.04) mg/dL Glucose 118 H (74-99) mg/dL POC Glucose (mg/dL) 110 H (75-99) mg/dL Phosphorus (2.5-4.5) mg/dL Magnesium 2.4 H (1.6-2.3) mg/dL Total Creatine Kinase 260 H (30-135) U/L CK-MB (CK-2) 20.4 H* (0.0-2.4) ng/mL Troponin I 9.520 H* (0.000-0.034) ng/mL Urine Appearance (Clear) Ur Leukocyte Esterase (Negative) Urine WBC (0-5) /hpf Urine WBC Clumps (None) /hpf Hyaline Casts (0-2) /lpf Urine Mucus (None) /hpf 01/03/17 01/03/17 01/03/17 Range/Units 04:02 06:47 08:49 WBC 13.2 H (3.8-10.6) k/uL RBC 3.04 L (3.80-5.40) m/uL Hgb 9.2 L (11.4-16.0) gm/dL Hct 29.1 L (34.0-46.0) % RDW 17.4 H (11.5-15.5) % Neutrophils # (1.3-7.7) k/uL Neutrophils # (Manual) 11.35 H (1.3-7.7) k/uL Lymphocytes # (1.0-4.8) k/uL Lymphocytes # (Manual) 0.92 L (1.0-4.8) k/uL INR 1.2 H (<1.2) APTT 19.8 L (22.0-30.0) sec Carbon Dioxide (22-30) mmol/L BUN (7-17) mg/dL Creatinine (0.52-1.04) mg/dL Glucose (74-99) mg/dL POC Glucose (mg/dL) 201 H (75-99) mg/dL Phosphorus (2.5-4.5) mg/dL Magnesium (1.6-2.3) mg/dL Total Creatine Kinase (30-135) U/L CK-MB (CK-2) (0.0-2.4) ng/mL Troponin I (0.000-0.034) ng/mL Urine Appearance (Clear) Ur Leukocyte Esterase (Negative) Urine WBC (0-5) /hpf Urine WBC Clumps (None) /hpf Hyaline Casts (0-2) /lpf Urine Mucus (None) /hpf Microbiology - Last 24 Hours (Table) 01/02/17 17:55 Urine Culture - Preliminary Urine,Catheterized Assessment and Plan Plan: 1 acute hypoxic respiratory failure: With severe tachypnea, hypoxia and tachycardia secondary to a combination of acute coronary syndrome, pulmonary edema, bilateral pneumonia and A. fib with RVR. Also patient is known to have severe aortic stenosis is not a candidate for surgery or any intervention. 2 acute coronary syndrome: With significantly elevated troponin with flush pulmonary edema with the rest of her symptoms continue CK with troponin will consult cardiology. Heparin drip started. Echocardiogram pending 3 acute pulmonary edema: Patient will be on Lasix IV drip Douglas catheter will be inserted continue to reduce her water retention and watch her urine output. 4 bilateral pneumonia, possible gram-negative pneumonia: Patient was started on Levaquin and vancomycin. 5 advance severe aortic stenosis: On medical management only not a candidate for surgery. 6 CVA/TIA: No residual except mild confusion at this point patient most likely confuse because of the hypoxia. 7 diabetes type 2: Continue patient on Accu-Chek with sliding scales coverage, still on Januvia along with NovoLog and Lantus. 8 acute on chronic systolic and diastolic heart failure. 9. Lipidemia: Continue patient on Lipitor 20 mg daily. 10 hypertension: Well controlled on Norvasc Aldactone and hydralazine. 11 acute kidney injury with chronic kidney disease stage III: Much worse continue to watch her kidney function would BUN/creatinine daily basis for now. 12 hyperuricemia: Has been on allopurinol 100 mg daily. 13 hypothyroidism: Continue patient on levothyroxine 88 g daily. 14 chronic COPD with mild acute component continue patient on DuoNeb will consult pulmonary. 15 GI prophylaxis: Patient will be on pantoprazole 40 mg daily. 16 DVT prophylaxis: Patient will be on anticoagulation and if needed Lovenox can be use. CODE STATUS: DO NOT RESUSCITATE but ok for BiPAP per family. Discharge plan: To be determined Heart no status: Guarded Impression and plan of care have been directed as dictated by the signing physician. Daiana Panda nurse practitioner acting as scribe for signing physician.
[2017-01-03] MEDS: FUROSEMIDE 250 MG in SODIUM CHLORIDE 0.9% 225 ML IVP SCH (15:42)
[2017-01-03] MEDS: LEVOFLOXACIN 500 MG TAB PO SCH (17:06)
[2017-01-03] MEDS: MULTIVITAMINS, THERA 1 EACH TAB PO SCH (17:08)
[2017-01-03] MEDS: CHOLECALCIFEROL 1,000 UNIT TAB PO SCH (17:08)
[2017-01-03] MEDS: FERROUS SULFATE 325 MG TAB PO SCH (17:08)
[2017-01-03 17:09] LABS: Glucose,Whole Blood 143 mg/dL (75-99)
[2017-01-03] MEDS ORDERED: VANCOMYCIN 1,500 MG in SODIUM CHLORIDE 0.9% 250 ML IVPB ONE (18:00)
[2017-01-03] MEDS: ATORVASTATIN 20 MG TAB PO SCH (21:00)
[2017-01-03] MEDS: MELATONIN 3 MG TABLET PO SCH (21:00)
[2017-01-03 21:11] LABS: Glucose,Whole Blood 185 mg/dL (75-99)
[2017-01-04 04:24] LABS: Anisocytosis Slight; Aty Lym Flag Slight; CH 29.2; CHCM 30.4; HCT 28.1 % (34.0-46.0); Hypochromasia Moderate; MCH 30.8 pg (25.0-35.0); MCV 96.4 fL (80.0-100.0); Macrocytosis Slight; Mean Platelet Volume 8.1; RBC 2.91 m/uL (3.80-5.40); RDW 17.5 % (11.5-15.5); WBC 12.5 k/uL (3.8-10.6); WBC (Perox) 13.19
[2017-01-04 04:57] LABS: Add Differential Manual Differential
[2017-01-04 05:00] LABS: Manual Review Performed; Nucleated Red Blood Cells 0 /100 WBC (0-0); Total Cells Counted 100
[2017-01-04 05:52] LABS: Calcium 9.4 mg/dL (8.4-10.2); Magnesium 2.2 mg/dL (1.6-2.3); Phosphorous 4.7 mg/dL (2.5-4.5); Potassium 3.8 mmol/L (3.5-5.1)
[2017-01-04] MEDS: LEVOTHYROXINE 88 MCG TAB PO SCH (06:25)
[2017-01-04] MEDS: BUDESONIDE 0.5 MG/2 ML NEBU INHALATION SCH ×2 (07:12→19:10)
[2017-01-04] MEDS: IPRATROPIUM-ALBUTEROL 3 ML NEB INHALATION PRN ×3 (07:12→19:10)
[2017-01-04 07:32] LABS: Glucose,Whole Blood 144 mg/dL (75-99)
[2017-01-04] MEDS: hydrALAZINE HCL 25 MG TAB PO SCH ×2 (07:39→15:56)
[2017-01-04] MEDS: LINAGLIPTIN 5 MG TABLET PO SCH (07:39)
[2017-01-04] MEDS: ALLOPURINOL 100 MG TAB PO SCH (07:39)
[2017-01-04] MEDS: SENNOSIDES 8.6 MG TAB PO SCH ×2 (07:39→17:26)
[2017-01-04] MEDS: HYDROcodone/APAP 5-325MG 1 EACH TAB PO SCH ×3 (07:39→20:57)
[2017-01-04] MEDS: METOPROLOL TARTRATE 25 MG TAB PO SCH ×2 (07:42→20:58)
[2017-01-04] MEDS: SPIRONOLACTONE 25 MG TAB PO SCH (07:43)
[2017-01-04] MEDS: DICLOFENAC 0.1% OPHTH SOLN 2.5 ML BTL BOTH EYES SCH ×3 (07:44→19:45)
[2017-01-04] MEDS: CLOPIDOGREL 75 MG TAB PO SCH (07:44)
[2017-01-04] MEDS: INSULIN LISPRO (humaLOG) 300 UNIT/3 ML VIAL SQ SCH ×3 (07:45→17:29)
[2017-01-04] MEDS: INSULIN GLARGINE 100 UNIT/ML 10 ML VIAL SQ SCH (07:45)
--- NOTE | 2017-01-04 08:14 | XR ---
EXAMINATION TYPE: XR chest 1V DATE OF EXAM: 01/04/2017 COMPARISON: 01/03/2017 HISTORY: Shortness of breath TECHNIQUE: Single frontal view of the chest is obtained. FINDINGS: Bilateral consolidation and pleural effusion noted. Postsurgical changes seen. Diffuse ost eopenia noted. Perihilar interstitial changes noted. Atherosclerotic change aorta. Surgical clip over lying right neck. Heart size stable. IMPRESSION: 1. Stable x-ray with bilateral infiltrate and pleural effusion correlate for CHF.
[2017-01-04] MEDS ORDERED: POTASSIUM CHLORIDE ER 20 MEQ TAB.ER PO SCH (09:00)
--- NOTE | 2017-01-04 09:01 | P.PN ---
Subjective This is a 86-year-old female who is a no code patient. She was transferred out from [facility] with complaints of shortness of breath. She also apparently had chest pain for the last 2 days prior to admission. She apparently was diagnosed as having bilateral pneumonia and had an elevated BNP at 18,000. The patient was started on vancomycin and Zithromax. The patient apparently lives in an assisted living facility in that area. Patient was transferred down.. Patient had a white count of 22,000. Admission diagnosis was diffuse bilateral infiltrates either consistent with heart failure and/or pneumonia. The patient's currently in the ICU poor urine. We'll admit her directly to the ICU here. We placed her on BiPAP at 10 and 5 and 100%. We will see for can upload her chest x-ray from the other hospital. We'll shoot a portable chest x-ray here. The patient is seen again today 01/03/2017 in follow-up in the intensive care unit. She is awake and alert in no acute distress. She is breathing quite a bit better today as compared to yesterday. She denies any significant chest discomfort which she is maintaining O2 saturations in the 90s on 4 L/m per nasal cannula. She had been somewhat reluctant to wear the BiPAP. She remains on a heparin drip per weight base protocol. She is also on Lasix drip at 10 mg per hour. She has a 0.9 normal saline at 20 mL per hour. She did rule in for myocardial infarction with a troponin of 9.52. Echocardiogram is pending. Her chest x-ray continues to show evidence of congestive heart failure with fluid volume overload. Creatinine remains elevated at 1.80 and urine culture is pending. He is currently on vancomycin and Levaquin. The patient is seen again today 01/04/2017 in follow-up in the intensive care unit. She is currently awake and alert in no acute distress. She states she is breathing about the same today as compared to yesterday. Her chest x-ray does not show significant improvement. There is still evidence of fluid volume overload and congestive heart failure. Maintaining good O2 saturations up to 100% on 2 L/m per nasal cannula. She's been hemodynamically stable. Creatinine is gradually increasing however currently at 2.02. Remains on a Lasix drip at 10 mg per hour. She remains on a heparin drip per weight base protocol. Objective - Vital Signs Vital signs: Vital Signs Temp 98.4 F 01/04/17 08:00 Pulse 75 01/04/17 08:00 Resp 24 01/04/17 08:00 BP 124/62 01/04/17 08:00 Pulse Ox 100 01/04/17 08:00 Intake & Output 01/03/17 01/04/17 01/04/17 18:59 06:59 18:59 Intake Total 1291.833 773.16 345.12 Output Total 815 745 225 Balance 476.833 28.16 120.12 Weight 74.2 kg Intake: IV 523.16 95.12 Furosemide 250 mg In 110 20 Sodium Chloride 0.9% 225 ml @ 10 MG/HR 10 mls/hr IVP .Q24H [facility] Rx#: [id number] Heparin Sodium,Porcine/ 193.16 35.12 D5w Pmx 25,000 unit In Dextrose/Water 1 500ml. bag @ 12 UNITS/KG/HR 17. 56 mls/hr IV .Q24H [facility] Rx #:[id number] Sodium Chloride 0.9% 1, 220 40 000 ml @ 20 mls/hr IV . Q24H [facility] Rx#:[id number] Intake, IV Titration 234.833 Amount Furosemide 250 mg In 234.833 Sodium Chloride 0.9% 225 ml @ 10 MG/HR 10 mls/hr IVP .Q24H [facility] Rx#: [id number] Oral 1057 250 250 Output: Urine 815 745 225 Other: Voiding Method Indwelling Catheter Indwelling Catheter Indwelling Catheter - Exam GENERAL EXAM: Alert, fairly comfortable in no apparent distress. HEAD: Normocephalic. EYES: Normal reaction of pupils, equal size. NOSE: Clear with pink turbinates. THROAT: No erythema or exudates. NECK: No masses, no significant JVD. CHEST: No chest wall deformity. LUNGS: Equal air entry with crackles in the bilateral posterior bases. CVS: S1 and S2 normal with an audible murmur, regular rhythm. ABDOMEN: No hepatosplenomegaly, normal bowel sounds, no guarding or rigidity. SPINE: No scoliosis or deformity SKIN: No rashes CENTRAL NERVOUS SYSTEM: No focal deficits, tone is normal in all 4 extremities. Extremities: There is trace peripheral edema. No clubbing, no cyanosis. Peripheral pulses are intact. - Labs CBC & Chem 7: 01/04/17 03:45 01/04/17 03:45 Labs: Abnormal Lab Results - Last 24 Hours (Table) 01/03/17 01/03/17 01/03/17 Range/Units 12:08 13:53 17:06 WBC (3.8-10.6) k/uL RBC (3.80-5.40) m/uL Hgb (11.4-16.0) gm/dL Hct (34.0-46.0) % RDW (11.5-15.5) % Neutrophils # (Manual) (1.3-7.7) k/uL Monocytes # (Manual) (0-1.0) k/uL APTT 53.5 H (22.0-30.0) sec Carbon Dioxide (22-30) mmol/L BUN (7-17) mg/dL Creatinine (0.52-1.04) mg/dL Glucose (74-99) mg/dL POC Glucose (mg/dL) 155 H 143 H (75-99) mg/dL Phosphorus (2.5-4.5) mg/dL 01/03/17 01/04/17 01/04/17 Range/Units 21:09 03:45 03:45 WBC 12.5 H (3.8-10.6) k/uL RBC 2.91 L (3.80-5.40) m/uL Hgb 9.0 L (11.4-16.0) gm/dL Hct 28.1 L (34.0-46.0) % RDW 17.5 H (11.5-15.5) % Neutrophils # (Manual) 9.38 H (1.3-7.7) k/uL Monocytes # (Manual) 1.25 H (0-1.0) k/uL APTT (22.0-30.0) sec Carbon Dioxide 17 L (22-30) mmol/L BUN 77 H (7-17) mg/dL Creatinine 2.02 H (0.52-1.04) mg/dL Glucose 103 H (74-99) mg/dL POC Glucose (mg/dL) 185 H (75-99) mg/dL Phosphorus 4.7 H (2.5-4.5) mg/dL 01/04/17 01/04/17 Range/Units 03:45 07:31 WBC (3.8-10.6) k/uL RBC (3.80-5.40) m/uL Hgb (11.4-16.0) gm/dL Hct (34.0-46.0) % RDW (11.5-15.5) % Neutrophils # (Manual) (1.3-7.7) k/uL Monocytes # (Manual) (0-1.0) k/uL APTT 62.0 H (22.0-30.0) sec Carbon Dioxide (22-30) mmol/L BUN (7-17) mg/dL Creatinine (0.52-1.04) mg/dL Glucose (74-99) mg/dL POC Glucose (mg/dL) 144 H (75-99) mg/dL Phosphorus (2.5-4.5) mg/dL Microbiology - Last 24 Hours (Table) 01/02/17 17:55 Urine Culture - Final Urine,Catheterized 01/02/17 18:15 Blood Culture - Preliminary Blood No Growth after 24 hours 01/02/17 18:15 Blood Culture - Preliminary Blood No Growth after 24 hours Assessment and Plan Plan: Impression: #1 Acute exacerbation of suspected systolic congestive heart failure, echocardiogram pending. #2 Non-ST segment elevation myocardial infarction. #3 Severe aortic stenosis, history of. #4 Hypertension, history of. #5 Diabetes mellitus. #6 Hypothyroidism. #7 History of transient ischemic attack. #8 Acute renal failure, current creatinine 2.02. Plan: The patient was seen and evaluated by Dr. Mahan. Her chest x-ray and labs were reviewed. Creatinine continues to climb. We will discontinue the Lasix drip and initiate Lasix 40 mg IV push every 8 hours. Repeat her chest x-ray and labs in the a.m. BiPAP remains at the bedside. We'll keep her here another 24 hours in the intensive care unit for closer monitoring. We will increase her activity as tolerated. We'll continue to follow. Critical Care time 34 minutes. Time with Patient: Greater than 30
[2017-01-04] MEDS: FAMOTIDINE 20 MG/2 ML VIAL IV SCH (09:02)
[2017-01-04] MEDS: MAGNESIUM HYDROXIDE 2,400 MG/10 ML CUP PO PRN (11:06)
[2017-01-04 12:38] LABS: Glucose,Whole Blood 135 mg/dL (75-99)
--- NOTE | 2017-01-04 13:38 | P.PN ---
Subjective 86-year-old female one of our office patient with past medical history of CAD COPD valvular heart disease mild dementia type 2 diabetes previous history of CVA and hip fracture was in hospital last time over 6 month ago for ROM her hip fracture. Patient has been living in assisted living for the last few years. Patient developed to have worsening chest pain and worsening shortness of breath mild dyspnea and cough wheezes with severe hypoxia and mild change mental status with worsening confusion she ended up having nausea mild palpitation and lightheadedness. Patient ended up going to [facility] where was seen and evaluated x-ray showed bilateral pneumonia patient was started on vancomycin and azithromycin and decided to send patient to [facility]. Patient was seen in the emergency department at [facility] surprisingly very tachycardic running over 130 beats per minutes very irregular with A. fib her troponin was elevated chest x-ray and clinically she had acute pulmonary edema and looks like she is and acute coronary syndrome status with non-ST IN. Long discussion with the family with the patient status DO NOT RESUSCITATE she isn't quite bed discomfort with the kidney running over 40 time per minutes and tachycardia with severe hypoxia decided to put her on BiPAP consult cardiology consult pulmonary and transfer patient to the ICU for more calm further management for her current condition try to treated medically with no aggressive surgical intervention available. 01/03: Patient remains in the intensive care unit. Patient's respiratory status is much improved this morning. She has been seen by Dr. Mahan. Repeat chest x- ray this morning shows persistent changes most typical of CHF. Documented weight is up 3 kg. White count has improved to 13.2. BUN is 70 creatinine 1.8. Troponins have been 0.145, 0.344 and 9.5. She has been placed on heparin drip per cardiology and echocardiogram is pending. Regarding antibiotics, patient is currently on Levaquin and vancomycin. Urine culture is in progress. Sputum culture on collected. She does complain of constipation for which milk of magnesia added to Senokot. Dr. Mahan maybe adding Xanax. 01/04: Patient remains in the intensive care unit. She is continued also on Lasix drip with plan to switch to IV push. She is also on heparin drip. She is followed by pulmonary medicine and cardiology. Kidney function is higher with BUN 77 and creatinine 2.02. Patient denies any new complaints today. She does continue have constipation but milk of magnesia was not given yesterday or this morning which will most likely relieve her symptoms. Anticipate she'll be ready to transferred to the [facility] care tomorrow. IV Levaquin has been switched to oral. Objective - Vital Signs Vital signs: Vital Signs Temp 98.4 F 01/04/17 08:00 Pulse 75 01/04/17 08:00 Resp 24 01/04/17 08:00 BP 124/62 01/04/17 08:00 Pulse Ox 100 01/04/17 08:00 Intake & Output 01/03/17 01/04/17 01/04/17 18:59 06:59 18:59 Intake Total 1291.833 773.16 345.12 Output Total 815 745 225 Balance 476.833 28.16 120.12 Weight 74.2 kg Intake: IV 523.16 95.12 Furosemide 250 mg In 110 20 Sodium Chloride 0.9% 225 ml @ 10 MG/HR 10 mls/hr IVP .Q24H [facility] Rx#: [id number] Heparin Sodium,Porcine/ 193.16 35.12 D5w Pmx 25,000 unit In Dextrose/Water 1 500ml. bag @ 12 UNITS/KG/HR 17. 56 mls/hr IV .Q24H [facility] Rx #:[id number] Sodium Chloride 0.9% 1, 220 40 000 ml @ 20 mls/hr IV . Q24H [facility] Rx#:[id number] Intake, IV Titration 234.833 Amount Furosemide 250 mg In 234.833 Sodium Chloride 0.9% 225 ml @ 10 MG/HR 10 mls/hr IVP .Q24H [facility] Rx#: [id number] Oral 1057 250 250 Output: Urine 815 745 225 Other: Voiding Method Indwelling Catheter Indwelling Catheter - Exam General appearance: no average body habitus, no cooperative, disheveled, mild distress, no morbidly obese, no no acute distress, no obese, no severe distress , no thin - EENT Eyes: abnormal pupil, no anicteric sclerae, no disc margins sharp, no edentulous , no EOMI, no PERRLA, no fundus normal, no photophobia, no dentition normal, no poor dentition, no ptosis, no scleral icterus, normal appearance ENT: no hard of hearing, no hearing grossly normal, no NA/AT, normal oropharynx , no other, no pharyngeal erythema, no thrush, no tonsillar exudates, no tonsillar swelling Ears: bilateral: normal, bulging - Neck Neck: no lymphadenopathy, normal ROM, no other, no rigidity, no stridor, no thyromegaly Carotids: bilateral: upstroke normal Thyroid: bilateral: normal size - Respiratory Respiratory: bilateral: diminished, dullness, rales, wheezing, prolonged expiration - Cardiovascular Tachycardia S1-S2 positive S3 3/6 ejection systolic murmur at apex. Rhythm: irregularly irregular Heart sounds: normal: S1, S2 Abnormal Heart Sounds: systolic murmur, no diastolic murmur, no rub, S3 Gallop, no S4 Gallop, click, no other - Gastrointestinal General gastrointestinal: no absent bowel sounds, decreased bowel sounds, distended, no hepatomegaly, no hyperactive bowel sounds, normal bowel sounds, no organomegaly, no rigid, no scaphoid, soft, no splenomegaly, no tenderness, no umbilical hernia, no ventral hernia - Integumentary Integumentary: no calor, no cellulitis, no cyanotic, no decreased turgor, no flushed, no jaundiced, normal, no normal turgor, pale, rash, no ulcer - Neurologic Neurologic: CNII-XII intact - Musculoskeletal Musculoskeletal: gait normal, generalized weakness, strength equal bilaterally, no right sided weakness, no left sided weakness - Psychiatric Psychiatric: A&O x's 3, appropriate affect - Labs CBC & Chem 7: 01/04/17 03:45 01/04/17 03:45 Labs: Abnormal Lab Results - Last 24 Hours (Table) 01/03/17 01/03/17 01/03/17 Range/Units 08:49 12:08 13:53 WBC (3.8-10.6) k/uL RBC (3.80-5.40) m/uL Hgb (11.4-16.0) gm/dL Hct (34.0-46.0) % RDW (11.5-15.5) % Neutrophils # (Manual) (1.3-7.7) k/uL Monocytes # (Manual) (0-1.0) k/uL APTT 53.5 H (22.0-30.0) sec Carbon Dioxide (22-30) mmol/L BUN (7-17) mg/dL Creatinine (0.52-1.04) mg/dL Glucose (74-99) mg/dL POC Glucose (mg/dL) 201 H 155 H (75-99) mg/dL Phosphorus (2.5-4.5) mg/dL 01/03/17 01/03/17 01/04/17 Range/Units 17:06 21:09 03:45 WBC (3.8-10.6) k/uL RBC (3.80-5.40) m/uL Hgb (11.4-16.0) gm/dL Hct (34.0-46.0) % RDW (11.5-15.5) % Neutrophils # (Manual) (1.3-7.7) k/uL Monocytes # (Manual) (0-1.0) k/uL APTT (22.0-30.0) sec Carbon Dioxide 17 L (22-30) mmol/L BUN 77 H (7-17) mg/dL Creatinine 2.02 H (0.52-1.04) mg/dL Glucose 103 H (74-99) mg/dL POC Glucose (mg/dL) 143 H 185 H (75-99) mg/dL Phosphorus 4.7 H (2.5-4.5) mg/dL 01/04/17 01/04/17 01/04/17 Range/Units 03:45 03:45 07:31 WBC 12.5 H (3.8-10.6) k/uL RBC 2.91 L (3.80-5.40) m/uL Hgb 9.0 L (11.4-16.0) gm/dL Hct 28.1 L (34.0-46.0) % RDW 17.5 H (11.5-15.5) % Neutrophils # (Manual) 9.38 H (1.3-7.7) k/uL Monocytes # (Manual) 1.25 H (0-1.0) k/uL APTT 62.0 H (22.0-30.0) sec Carbon Dioxide (22-30) mmol/L BUN (7-17) mg/dL Creatinine (0.52-1.04) mg/dL Glucose (74-99) mg/dL POC Glucose (mg/dL) 144 H (75-99) mg/dL Phosphorus (2.5-4.5) mg/dL Microbiology - Last 24 Hours (Table) 01/02/17 17:55 Urine Culture - Final Urine,Catheterized 01/02/17 18:15 Blood Culture - Preliminary Blood No Growth after 24 hours 01/02/17 18:15 Blood Culture - Preliminary Blood No Growth after 24 hours Assessment and Plan Plan: 1 acute hypoxic respiratory failure: With severe tachypnea, hypoxia and tachycardia secondary to a combination of acute coronary syndrome, pulmonary edema, bilateral pneumonia and A. fib with RVR. Also patient is known to have severe aortic stenosis is not a candidate for surgery or any intervention. 2 acute non-ST elevated myocardial infarction: With significantly elevated troponin with flush pulmonary edema with the rest of her symptoms continue CK with troponin will consult cardiology. Heparin drip started. Echocardiogram above 3 acute pulmonary edema: Patient will be on Lasix IV drip to IVP, Douglas catheter will be inserted continue to reduce her water retention and watch her urine output. 4 bilateral pneumonia, possible gram-negative pneumonia: Patient was started on Levaquin and vancomycin. 5 advance severe aortic stenosis: On medical management only not a candidate for surgery. 6 CVA/TIA: No residual except mild confusion at this point patient most likely confuse because of the hypoxia. 7 diabetes type 2: Continue patient on Accu-Chek with sliding scales coverage, still on Januvia along with NovoLog and Lantus. 8 acute on chronic systolic and diastolic heart failure. 9. Lipidemia: Continue patient on Lipitor 20 mg daily. 10 hypertension: Well controlled on Norvasc Aldactone and hydralazine. 11 acute kidney injury with chronic kidney disease stage III: monitor kidney function, avoid hypotension and nephrotoxic agents 12 hyperuricemia: Has been on allopurinol 100 mg daily. 13 hypothyroidism: Continue patient on levothyroxine 88 g daily. 14 chronic COPD with mild acute component continue patient on DuoNeb will consult pulmonary. 15 GI prophylaxis: Patient will be on pantoprazole 40 mg daily. 16 DVT prophylaxis: Patient will be on anticoagulation and if needed Lovenox can be use. CODE STATUS: DO NOT RESUSCITATE but ok for BiPAP per family. Discharge plan: To be determined Heart no status: Guarded Impression and plan of care have been directed as dictated by the signing physician. Daiana Panda nurse practitioner acting as scribe for signing physician.
--- NOTE | 2017-01-04 14:39 | P.PN ---
Subjective Patient looks comfortable she's not short of breath today no chest discomfort On examination blood pressure 106/50 mmHg respirations 20 also rate in the 60s afebrile Breath sounds are reduced bilaterally systolic murmur over the precordium Abdomen soft nontender Extremities are warm no edema Labs are reviewed white count is elevated to 1.5 thousand left foot shift, sodium and potassium are normal BUN 77 creatinine 2.2 Yesterday her creatinine was 1.8 She is on a Lasix drip 10 mg per hour Also being treated for pneumonitis Troponin was 9.5 2-D echo report was reviewed and shows severe mitral regurgitation mild to moderate mitral stenosis severe aortic stenosis left ventricular ejection fraction 57 5%, low normal Impression Bilateral pneumonitis Severe heart failure on account of valvular heart disease with severe mitral regurgitation she also has severe aortic stenosis Worsening kidney function on IV Lasix Remained short of breath Plan Continue IV Lasix In view of severe valvular heart disease prognosis is poor Detailed discussion with the daughter, suggest hospice Objective - Vital Signs Vital signs: Vital Signs Temp 98.5 F 01/04/17 12:00 Pulse 61 01/04/17 13:00 Resp 19 01/04/17 13:00 BP 106/50 01/04/17 13:00 Pulse Ox 100 01/04/17 13:00 Intake & Output 01/03/17 01/04/17 01/04/17 18:59 06:59 18:59 Intake Total 1291.833 773.16 1185.92 Output Total 815 745 540 Balance 476.833 28.16 645.92 Weight 74.2 kg 74.2 kg Intake: IV 523.16 282.92 Furosemide 250 mg In 110 20 Sodium Chloride 0.9% 225 ml @ 10 MG/HR 10 mls/hr IVP .Q24H [facility] Rx#: [id number] Heparin Sodium,Porcine/ 193.16 122.92 D5w Pmx 25,000 unit In Dextrose/Water 1 500ml. bag @ 12 UNITS/KG/HR 17. 56 mls/hr IV .Q24H [facility] Rx #:[id number] Sodium Chloride 0.9% 1, 220 140 000 ml @ 20 mls/hr IV . Q24H [facility] Rx#:[id number] Intake, IV Titration 234.833 173 Amount Furosemide 250 mg In 234.833 173 Sodium Chloride 0.9% 225 ml @ 10 MG/HR 10 mls/hr IVP .Q24H [facility] Rx#: [id number] Oral 1057 250 730 Output: Urine 815 745 540 Other: Voiding Method Indwelling Catheter Indwelling Catheter Indwelling Catheter - Labs CBC & Chem 7: 01/04/17 03:45 01/04/17 03:45 Labs: Abnormal Lab Results - Last 24 Hours (Table) 01/03/17 01/03/17 01/03/17 Range/Units 13:53 17:06 21:09 WBC (3.8-10.6) k/uL RBC (3.80-5.40) m/uL Hgb (11.4-16.0) gm/dL Hct (34.0-46.0) % RDW (11.5-15.5) % Neutrophils # (Manual) (1.3-7.7) k/uL Monocytes # (Manual) (0-1.0) k/uL APTT 53.5 H (22.0-30.0) sec Carbon Dioxide (22-30) mmol/L BUN (7-17) mg/dL Creatinine (0.52-1.04) mg/dL Glucose (74-99) mg/dL POC Glucose (mg/dL) 143 H 185 H (75-99) mg/dL Phosphorus (2.5-4.5) mg/dL 01/04/17 01/04/17 01/04/17 Range/Units 03:45 03:45 03:45 WBC 12.5 H (3.8-10.6) k/uL RBC 2.91 L (3.80-5.40) m/uL Hgb 9.0 L (11.4-16.0) gm/dL Hct 28.1 L (34.0-46.0) % RDW 17.5 H (11.5-15.5) % Neutrophils # (Manual) 9.38 H (1.3-7.7) k/uL Monocytes # (Manual) 1.25 H (0-1.0) k/uL APTT 62.0 H (22.0-30.0) sec Carbon Dioxide 17 L (22-30) mmol/L BUN 77 H (7-17) mg/dL Creatinine 2.02 H (0.52-1.04) mg/dL Glucose 103 H (74-99) mg/dL POC Glucose (mg/dL) (75-99) mg/dL Phosphorus 4.7 H (2.5-4.5) mg/dL 01/04/17 01/04/17 Range/Units 07:31 12:36 WBC (3.8-10.6) k/uL RBC (3.80-5.40) m/uL Hgb (11.4-16.0) gm/dL Hct (34.0-46.0) % RDW (11.5-15.5) % Neutrophils # (Manual) (1.3-7.7) k/uL Monocytes # (Manual) (0-1.0) k/uL APTT (22.0-30.0) sec Carbon Dioxide (22-30) mmol/L BUN (7-17) mg/dL Creatinine (0.52-1.04) mg/dL Glucose (74-99) mg/dL POC Glucose (mg/dL) 144 H 135 H (75-99) mg/dL Phosphorus (2.5-4.5) mg/dL Microbiology - Last 24 Hours (Table) 01/02/17 17:55 Urine Culture - Final Urine,Catheterized 01/02/17 18:15 Blood Culture - Preliminary Blood No Growth after 24 hours 01/02/17 18:15 Blood Culture - Preliminary Blood No Growth after 24 hours
[2017-01-04] MEDS ORDERED: LEVOFLOXACIN 750MG-D5W PMX 750 MG in DEXTROSE/WATER 1 150ML.BAG IVPB SCH (15:00)
[2017-01-04] MEDS: FUROSEMIDE 250 MG in SODIUM CHLORIDE 0.9% 225 ML IVP SCH (15:53)
[2017-01-04] MEDS: CHOLECALCIFEROL 1,000 UNIT TAB PO SCH (15:56)
[2017-01-04] MEDS: FERROUS SULFATE 325 MG TAB PO SCH (15:56)
[2017-01-04] MEDS: HEPARIN SODIUM,PORCINE/D5W PMX 25,000 UNIT in DEXTROSE/WATER 1 500ML.BAG IV SCH (15:56)
[2017-01-04] MEDS: LEVOFLOXACIN 500 MG TAB PO SCH (15:57)
[2017-01-04] MEDS: MULTIVITAMINS, THERA 1 EACH TAB PO SCH (15:57)
[2017-01-04] MEDS: FUROSEMIDE 10 MG/ML 4 ML VIAL IV SCH ×2 (17:24→23:04)
[2017-01-04 17:30] LABS: Glucose,Whole Blood 105 mg/dL (75-99)
[2017-01-04] MEDS: MELATONIN 3 MG TABLET PO SCH (20:58)
[2017-01-04] MEDS: ATORVASTATIN 20 MG TAB PO SCH (20:58)
[2017-01-04 21:04] LABS: Glucose,Whole Blood 124 mg/dL (75-99)
[2017-01-05 05:41] LABS: Anisocytosis Slight; Aty Lym Flag Slight; CHCM 30.6; HCT 28.3 % (34.0-46.0); HDW 2.39; HGB 8.5 gm/dL (11.4-16.0); Hypochromasia Slight; MCH 29.7 pg (25.0-35.0); MCV 98.9 fL (80.0-100.0); Macrocytosis Slight; Mean Platelet Volume 8.6; RBC 2.86 m/uL (3.80-5.40); RDW 18.1 % (11.5-15.5); WBC 9.8 k/uL (3.8-10.6); WBC (Perox) 9.84
[2017-01-05 06:19] LABS: Calcium 9.4 mg/dL (8.4-10.2); Magnesium 2.7 mg/dL (1.6-2.3); Phosphorous 5.5 mg/dL (2.5-4.5); Potassium 4.2 mmol/L (3.5-5.1)
[2017-01-05] MEDS: LEVOTHYROXINE 88 MCG TAB PO SCH (06:32)
[2017-01-05] MEDS: DICLOFENAC 0.1% OPHTH SOLN 2.5 ML BTL BOTH EYES SCH ×5 (06:33→23:36)
[2017-01-05] MEDS: INSULIN LISPRO (humaLOG) 300 UNIT/3 ML VIAL SQ SCH ×5 (06:36→20:10)
[2017-01-05 06:38] LABS: Glucose,Whole Blood 113 mg/dL (75-99)
--- NOTE | 2017-01-05 07:50 | XR ---
EXAMINATION TYPE: XR chest 1V DATE OF EXAM: 01/05/2017 HISTORY: Shortness of breath. COMPARISON: 01/04/2017 TECHNIQUE: Single view of the chest is submitted. FINDINGS: Demonstrated are scattered senescent parenchymal change. Persistent perihilar and basilar infiltrates with pulmonary venous congestion and mild cardiomegaly. Small effusions noted. Correlate for CHF. Hilar and mediastinal structures are within normal limits. Degenerative changes are seen of the dorsal spine. IMPRESSION: 1. Persistent perihilar and basilar infiltrates with pulmonary venous congestion and mild cardiomega ly. Small effusions noted. Correlate for CHF.
[2017-01-05] MEDS: INSULIN GLARGINE 100 UNIT/ML 10 ML VIAL SQ SCH (08:01)
[2017-01-05] MEDS: HYDROcodone/APAP 5-325MG 1 EACH TAB PO SCH ×3 (08:01→20:07)
[2017-01-05] MEDS: MAGNESIUM HYDROXIDE 2,400 MG/10 ML CUP PO PRN (08:02)
[2017-01-05] MEDS: ALLOPURINOL 100 MG TAB PO SCH (08:02)
[2017-01-05] MEDS: hydrALAZINE HCL 25 MG TAB PO SCH ×2 (08:03→16:01)
[2017-01-05] MEDS: FUROSEMIDE 10 MG/ML 4 ML VIAL IV SCH ×3 (08:03→23:36)
[2017-01-05] MEDS: LINAGLIPTIN 5 MG TABLET PO SCH (08:03)
[2017-01-05] MEDS: CLOPIDOGREL 75 MG TAB PO SCH (08:04)
[2017-01-05] MEDS: SENNOSIDES 8.6 MG TAB PO SCH ×2 (08:04→16:01)
[2017-01-05] MEDS: SPIRONOLACTONE 25 MG TAB PO SCH (08:05)
[2017-01-05] MEDS: BUDESONIDE 0.5 MG/2 ML NEBU INHALATION SCH ×2 (08:08→19:17)
[2017-01-05] MEDS: IPRATROPIUM-ALBUTEROL 3 ML NEB INHALATION PRN ×4 (08:08→19:17)
[2017-01-05] MEDS: FAMOTIDINE 20 MG/2 ML VIAL IV SCH (08:38)
[2017-01-05 09:00] LABS: Add Differential Manual Differential
[2017-01-05 09:02] LABS: Manual Review Performed; Nucleated Red Blood Cells 0 /100 WBC (0-0); Total Cells Counted 100
[2017-01-05] MEDS: METOPROLOL TARTRATE 25 MG TAB PO SCH ×2 (09:45→20:11)
--- NOTE | 2017-01-05 10:35 | P.PN ---
Subjective This is a 86-year-old female who is a no code patient. She was transferred out from [facility] with complaints of shortness of breath. She also apparently had chest pain for the last 2 days prior to admission. She apparently was diagnosed as having bilateral pneumonia and had an elevated BNP at 18,000. The patient was started on vancomycin and Zithromax. The patient apparently lives in an assisted living facility in that area. Patient was transferred down.. Patient had a white count of 22,000. Admission diagnosis was diffuse bilateral infiltrates either consistent with heart failure and/or pneumonia. The patient's currently in the ICU poor urine. We'll admit her directly to the ICU here. We placed her on BiPAP at 10 and 5 and 100%. We will see for can upload her chest x-ray from the other hospital. We'll shoot a portable chest x-ray here. The patient is seen again today 01/03/2017 in follow-up in the intensive care unit. She is awake and alert in no acute distress. She is breathing quite a bit better today as compared to yesterday. She denies any significant chest discomfort which she is maintaining O2 saturations in the 90s on 4 L/m per nasal cannula. She had been somewhat reluctant to wear the BiPAP. She remains on a heparin drip per weight base protocol. She is also on Lasix drip at 10 mg per hour. She has a 0.9 normal saline at 20 mL per hour. She did rule in for myocardial infarction with a troponin of 9.52. Echocardiogram is pending. Her chest x-ray continues to show evidence of congestive heart failure with fluid volume overload. Creatinine remains elevated at 1.80 and urine culture is pending. He is currently on vancomycin and Levaquin. The patient is seen again today 01/04/2017 in follow-up in the intensive care unit. She is currently awake and alert in no acute distress. She states she is breathing about the same today as compared to yesterday. Her chest x-ray does not show significant improvement. There is still evidence of fluid volume overload and congestive heart failure. Maintaining good O2 saturations up to 100% on 2 L/m per nasal cannula. She's been hemodynamically stable. Creatinine is gradually increasing however currently at 2.02. Remains on a Lasix drip at 10 mg per hour. She remains on a heparin drip per weight base protocol. The patient is seen again today 01/05/2017 in follow-up in the intensive care unit. She is currently awake and alert in no acute distress. She is feeling a little better today as compared to yesterday. Require any BiPAP support last night. She is maintaining good O2 saturations in the 90s on 2 L/m per nasal cannula. Her chest x-ray continues to show some evidence of mild congestive heart failure. She is maintained on diuretics. Creatinine at 2.10. Hemoglobin 8.5. Objective - Vital Signs Vital signs: Vital Signs Temp 98.3 F 01/05/17 08:00 Pulse 62 01/05/17 10:00 Resp 17 01/05/17 10:00 BP 104/52 01/05/17 10:00 Pulse Ox 100 01/05/17 10:00 Intake & Output 01/04/17 01/05/17 01/05/17 18:59 06:59 18:59 Intake Total 2181.04 923.16 80 Output Total 900 765 330 Balance 1281.04 158.16 -250 Weight 74.2 kg 74.3 kg Intake: IV 418.04 433.16 80 Furosemide 250 mg In 20 Sodium Chloride 0.9% 225 ml @ 10 MG/HR 10 mls/hr IVP .Q24H RAISA Rx#: [id number] Heparin Sodium,Porcine/ 158.04 193.16 D5w Pmx 25,000 unit In Dextrose/Water 1 500ml. bag @ 12 UNITS/KG/HR 17. 56 mls/hr IV .Q24H RAISA Rx #:[id number] Sodium Chloride 0.9% 1, 240 240 80 000 ml @ 20 mls/hr IV . Q24H RAISA Rx#:[id number] Intake, IV Titration 673 Amount Furosemide 250 mg In 173 Sodium Chloride 0.9% 225 ml @ 10 MG/HR 10 mls/hr IVP .Q24H RAISA Rx#: [id number] Heparin Sodium,Porcine/ 500 D5w Pmx 25,000 unit In Dextrose/Water 1 500ml. bag @ 12 UNITS/KG/HR 17. 56 mls/hr IV .Q24H [facility]ISA Rx #:[id number] Oral 1090 490 Output: Urine 900 765 330 Other: Voiding Method Indwelling Catheter Indwelling Catheter Indwelling Catheter - Exam GENERAL EXAM: Alert, fairly comfortable in no apparent distress. HEAD: Normocephalic. EYES: Normal reaction of pupils, equal size. NOSE: Clear with pink turbinates. THROAT: No erythema or exudates. NECK: No masses, no significant JVD. CHEST: No chest wall deformity. LUNGS: Equal air entry with crackles in the bilateral posterior bases. CVS: S1 and S2 normal with an audible murmur, regular rhythm. ABDOMEN: No hepatosplenomegaly, normal bowel sounds, no guarding or rigidity. SPINE: No scoliosis or deformity SKIN: No rashes CENTRAL NERVOUS SYSTEM: No focal deficits, tone is normal in all 4 extremities. Extremities: There is trace peripheral edema. No clubbing, no cyanosis. Peripheral pulses are intact. - Labs CBC & Chem 7: 01/05/17 05:10 01/05/17 05:10 Labs: Abnormal Lab Results - Last 24 Hours (Table) 01/04/17 01/04/17 01/04/17 Range/Units 12:36 17:28 21:02 RBC (3.80-5.40) m/uL Hgb (11.4-16.0) gm/dL Hct (34.0-46.0) % MCHC (31.0-37.0) g/dL RDW (11.5-15.5) % Monocytes # (Manual) (0-1.0) k/uL APTT (22.0-30.0) sec Sodium (137-145) mmol/L Carbon Dioxide (22-30) mmol/L BUN (7-17) mg/dL Creatinine (0.52-1.04) mg/dL Glucose (74-99) mg/dL POC Glucose (mg/dL) 135 H 105 H 124 H (75-99) mg/dL Phosphorus (2.5-4.5) mg/dL Magnesium (1.6-2.3) mg/dL 01/05/17 01/05/17 01/05/17 Range/Units 05:10 05:10 05:15 RBC 2.86 L (3.80-5.40) m/uL Hgb 8.5 L (11.4-16.0) gm/dL Hct 28.3 L (34.0-46.0) % MCHC 30.0 L (31.0-37.0) g/dL RDW 18.1 H (11.5-15.5) % Monocytes # (Manual) 1.27 H (0-1.0) k/uL APTT 62.8 H (22.0-30.0) sec Sodium 135 L (137-145) mmol/L Carbon Dioxide 20 L (22-30) mmol/L BUN 82 H* (7-17) mg/dL Creatinine 2.10 H (0.52-1.04) mg/dL Glucose 121 H (74-99) mg/dL POC Glucose (mg/dL) (75-99) mg/dL Phosphorus 5.5 H (2.5-4.5) mg/dL Magnesium 2.7 H (1.6-2.3) mg/dL 01/05/17 Range/Units 06:37 RBC (3.80-5.40) m/uL Hgb (11.4-16.0) gm/dL Hct (34.0-46.0) % MCHC (31.0-37.0) g/dL RDW (11.5-15.5) % Monocytes # (Manual) (0-1.0) k/uL APTT (22.0-30.0) sec Sodium (137-145) mmol/L Carbon Dioxide (22-30) mmol/L BUN (7-17) mg/dL Creatinine (0.52-1.04) mg/dL Glucose (74-99) mg/dL POC Glucose (mg/dL) 113 H (75-99) mg/dL Phosphorus (2.5-4.5) mg/dL Magnesium (1.6-2.3) mg/dL Microbiology - Last 24 Hours (Table) 01/02/17 18:15 Blood Culture - Preliminary Blood No Growth after 48 hours 01/02/17 18:15 Blood Culture - Preliminary Blood No Growth after 48 hours Assessment and Plan Plan: Impression: #1 Acute exacerbation of suspected systolic congestive heart failure, echocardiogram pending. #2 Non-ST segment elevation myocardial infarction. #3 Severe aortic stenosis, history of. #4 Hypertension, history of. #5 Diabetes mellitus. #6 Hypothyroidism. #7 History of transient ischemic attack. #8 Acute renal failure, current creatinine 2.10. Plan: The patient was seen and evaluated by Dr. Mahan. Her chest x-ray and labs were reviewed. Continue with her diuretics. We'll discontinue the BiPAP at the bedside. She is cleared for transfer to the selective care unit. We will increase her activity as tolerated. We'll continue to follow.
[2017-01-05] MEDS ORDERED: BISACODYL 10 MG SUPP RECTAL STA (10:44)
[2017-01-05] MEDS: HEPARIN SODIUM,PORCINE/D5W PMX 25,000 UNIT in DEXTROSE/WATER 1 500ML.BAG IV SCH (10:52)
[2017-01-05 11:47] LABS: Glucose,Whole Blood 140 mg/dL (75-99)
[2017-01-05] MEDS ORDERED: DARBEPOETIN ALFA 60 MCG/0.3 ML SYRINGE SQ SCH (12:00)
--- NOTE | 2017-01-05 13:49 | P.PN ---
Subjective 86-year-old female one of our office patient with past medical history of CAD COPD valvular heart disease mild dementia type 2 diabetes previous history of CVA and hip fracture was in hospital last time over 6 month ago for ROM her hip fracture. Patient has been living in assisted living for the last few years. Patient developed to have worsening chest pain and worsening shortness of breath mild dyspnea and cough wheezes with severe hypoxia and mild change mental status with worsening confusion she ended up having nausea mild palpitation and lightheadedness. Patient ended up going to [facility] where was seen and evaluated x-ray showed bilateral pneumonia patient was started on vancomycin and azithromycin and decided to send patient to [facility]. Patient was seen in the emergency department at [facility] surprisingly very tachycardic running over 130 beats per minutes very irregular with A. fib her troponin was elevated chest x-ray and clinically she had acute pulmonary edema and looks like she is and acute coronary syndrome status with non-ST UT. Long discussion with the family with the patient status DO NOT RESUSCITATE she isn't quite bed discomfort with the kidney running over 40 time per minutes and tachycardia with severe hypoxia decided to put her on BiPAP consult cardiology consult pulmonary and transfer patient to the ICU for more calm further management for her current condition try to treated medically with no aggressive surgical intervention available. 01/03: Patient remains in the intensive care unit. Patient's respiratory status is much improved this morning. She has been seen by Dr. Mahan. Repeat chest x- ray this morning shows persistent changes most typical of CHF. Documented weight is up 3 kg. White count has improved to 13.2. BUN is 70 creatinine 1.8. Troponins have been 0.145, 0.344 and 9.5. She has been placed on heparin drip per cardiology and echocardiogram is pending. Regarding antibiotics, patient is currently on Levaquin and vancomycin. Urine culture is in progress. Sputum culture on collected. She does complain of constipation for which milk of magnesia added to Senokot. Dr. Mahan maybe adding Xanax. 01/04: Patient remains in the intensive care unit. She is continued also on Lasix drip with plan to switch to IV push. She is also on heparin drip. She is followed by pulmonary medicine and cardiology. Kidney function is higher with BUN 77 and creatinine 2.02. Patient denies any new complaints today. She does continue have constipation but milk of magnesia was not given yesterday or this morning which will most likely relieve her symptoms. Anticipate she'll be ready to transferred to the [facility] care tomorrow. IV Levaquin has been switched to oral. 01/05: White count is down to 9.8. Renal function is slightly higher from yesterday with BUN of 82 and creatinine 2.1. Patient is continued on IV Lasix. Dr. Madera has discontinued heparin drip. Repeat chest x-ray shows persistent. Hilar and basilar infiltrates with pulmonary venous congestion and mild cardiomegaly. Small effusions noted. Patient has been cleared to leave ICU by Dr. Mahan. Patient continues to have constipation for which a Dulcolax suppository added. Present status has been stable and she has been off BiPAP for greater than 24 hours. Pulse ox is 96% on room air. Objective - Vital Signs Vital signs: Vital Signs Temp 98.9 F 01/04/17 20:00 Pulse 62 01/05/17 08:26 Resp 17 01/05/17 07:00 BP 99/56 01/05/17 07:00 Pulse Ox 98 01/05/17 07:00 Intake & Output 01/04/17 01/05/17 01/05/17 18:59 06:59 18:59 Intake Total 2181.04 923.16 20 Output Total 900 765 40 Balance 1281.04 158.16 -20 Weight 74.2 kg 74.3 kg Intake: IV 418.04 433.16 20 Furosemide 250 mg In 20 Sodium Chloride 0.9% 225 ml @ 10 MG/HR 10 mls/hr IVP .Q24H [facility]ISA Rx#: [id number] Heparin Sodium,Porcine/ 158.04 193.16 D5w Pmx 25,000 unit In Dextrose/Water 1 500ml. bag @ 12 UNITS/KG/HR 17. 56 mls/hr IV .Q24H [facility]ISA Rx #:[id number] Sodium Chloride 0.9% 1, 240 240 20 000 ml @ 20 mls/hr IV . Q24H RAISA Rx#:[id number] Intake, IV Titration 673 Amount Furosemide 250 mg In 173 Sodium Chloride 0.9% 225 ml @ 10 MG/HR 10 mls/hr IVP .Q24H RAISA Rx#: [id number] Heparin Sodium,Porcine/ 500 D5w Pmx 25,000 unit In Dextrose/Water 1 500ml. bag @ 12 UNITS/KG/HR 17. 56 mls/hr IV .Q24H [facility]ISA Rx #:[id number] Oral 1090 490 Output: Urine 900 765 40 Other: Voiding Method Indwelling Catheter Indwelling Catheter - Exam General appearance: no average body habitus, no cooperative, disheveled, mild distress, no morbidly obese, no no acute distress, no obese, no severe distress , no thin - EENT Eyes: abnormal pupil, no anicteric sclerae, no disc margins sharp, no edentulous , no EOMI, no PERRLA, no fundus normal, no photophobia, no dentition normal, no poor dentition, no ptosis, no scleral icterus, normal appearance ENT: no hard of hearing, no hearing grossly normal, no NA/AT, normal oropharynx , no other, no pharyngeal erythema, no thrush, no tonsillar exudates, no tonsillar swelling Ears: bilateral: normal, bulging - Neck Neck: no lymphadenopathy, normal ROM, no other, no rigidity, no stridor, no thyromegaly Carotids: bilateral: upstroke normal Thyroid: bilateral: normal size - Respiratory Respiratory: bilateral: diminished, dullness, rales, wheezing, prolonged expiration - Cardiovascular Tachycardia S1-S2 positive S3 3/6 ejection systolic murmur at apex. Rhythm: irregularly irregular Heart sounds: normal: S1, S2 Abnormal Heart Sounds: systolic murmur, no diastolic murmur, no rub, S3 Gallop, no S4 Gallop, click, no other - Gastrointestinal General gastrointestinal: no absent bowel sounds, decreased bowel sounds, distended, no hepatomegaly, no hyperactive bowel sounds, normal bowel sounds, no organomegaly, no rigid, no scaphoid, soft, no splenomegaly, no tenderness, no umbilical hernia, no ventral hernia - Integumentary Integumentary: no calor, no cellulitis, no cyanotic, no decreased turgor, no flushed, no jaundiced, normal, no normal turgor, pale, rash, no ulcer - Neurologic Neurologic: CNII-XII intact - Musculoskeletal Musculoskeletal: gait normal, generalized weakness, strength equal bilaterally, no right sided weakness, no left sided weakness - Psychiatric Psychiatric: A&O x's 3, appropriate affect - Labs CBC & Chem 7: 01/05/17 05:10 01/05/17 05:10 Labs: Abnormal Lab Results - Last 24 Hours (Table) 01/04/17 01/04/17 01/04/17 Range/Units 12:36 17:28 21:02 RBC (3.80-5.40) m/uL Hgb (11.4-16.0) gm/dL Hct (34.0-46.0) % MCHC (31.0-37.0) g/dL RDW (11.5-15.5) % APTT (22.0-30.0) sec Sodium (137-145) mmol/L Carbon Dioxide (22-30) mmol/L BUN (7-17) mg/dL Creatinine (0.52-1.04) mg/dL Glucose (74-99) mg/dL POC Glucose (mg/dL) 135 H 105 H 124 H (75-99) mg/dL Phosphorus (2.5-4.5) mg/dL Magnesium (1.6-2.3) mg/dL 01/05/17 01/05/17 01/05/17 Range/Units 05:10 05:10 05:15 RBC 2.86 L (3.80-5.40) m/uL Hgb 8.5 L (11.4-16.0) gm/dL Hct 28.3 L (34.0-46.0) % MCHC 30.0 L (31.0-37.0) g/dL RDW 18.1 H (11.5-15.5) % APTT 62.8 H (22.0-30.0) sec Sodium 135 L (137-145) mmol/L Carbon Dioxide 20 L (22-30) mmol/L BUN 82 H* (7-17) mg/dL Creatinine 2.10 H (0.52-1.04) mg/dL Glucose 121 H (74-99) mg/dL POC Glucose (mg/dL) (75-99) mg/dL Phosphorus 5.5 H (2.5-4.5) mg/dL Magnesium 2.7 H (1.6-2.3) mg/dL 01/05/17 Range/Units 06:37 RBC (3.80-5.40) m/uL Hgb (11.4-16.0) gm/dL Hct (34.0-46.0) % MCHC (31.0-37.0) g/dL RDW (11.5-15.5) % APTT (22.0-30.0) sec Sodium (137-145) mmol/L Carbon Dioxide (22-30) mmol/L BUN (7-17) mg/dL Creatinine (0.52-1.04) mg/dL Glucose (74-99) mg/dL POC Glucose (mg/dL) 113 H (75-99) mg/dL Phosphorus (2.5-4.5) mg/dL Magnesium (1.6-2.3) mg/dL Microbiology - Last 24 Hours (Table) 01/02/17 18:15 Blood Culture - Preliminary Blood No Growth after 48 hours 01/02/17 18:15 Blood Culture - Preliminary Blood No Growth after 48 hours Assessment and Plan Plan: 1 acute hypoxic respiratory failure: With severe tachypnea, hypoxia and tachycardia secondary to a combination of acute coronary syndrome, pulmonary edema, bilateral pneumonia and A. fib with RVR. Also patient is known to have severe aortic stenosis is not a candidate for surgery or any intervention. 2 acute non-ST elevated myocardial infarction: With significantly elevated troponin with flush pulmonary edema with the rest of her symptoms continue CK with troponin will consult cardiology. Heparin drip started. Echocardiogram above 3 acute pulmonary edema: Patient will be on Lasix IV drip to IVP, Douglas catheter will be inserted continue to reduce her water retention and watch her urine output. 4 bilateral pneumonia, possible gram-negative pneumonia: Patient was started on Levaquin and vancomycin. 5 advance severe aortic stenosis: On medical management only not a candidate for surgery. 6 CVA/TIA: No residual except mild confusion at this point patient most likely confuse because of the hypoxia. 7 diabetes type 2: Continue patient on Accu-Chek with sliding scales coverage, still on Januvia along with NovoLog and Lantus. 8 acute on chronic systolic and diastolic heart failure. 9. hyperlipidemia: Continue patient on Lipitor 20 mg daily. 10 hypertension: Well controlled on Norvasc Aldactone and hydralazine. 11 acute kidney injury with chronic kidney disease stage III: monitor kidney function, avoid hypotension and nephrotoxic agents 12 hyperuricemia: Has been on allopurinol 100 mg daily. 13 hypothyroidism: Continue patient on levothyroxine 88 g daily. 14 chronic COPD with mild acute component continue patient on DuoNeb will consult pulmonary. 15 GI prophylaxis: Patient will be on pantoprazole 40 mg daily. 16 DVT prophylaxis: Patient will be on anticoagulation and if needed Lovenox can be use. 17 constipation. Continue Senokot twice daily, milk of magnesia twice daily, Dulcolax suppository CODE STATUS: DO NOT RESUSCITATE but ok for BiPAP per family. Discharge plan: To be determined Prognosis: Guarded Impression and plan of care have been directed as dictated by the signing physician. Daiana Panda nurse practitioner acting as scribe for signing physician.
[2017-01-05] MEDS: HEPARIN SODIUM,PORCINE 5,000 UNIT/ML 1 ML VIAL SQ SCH ×2 (15:57→23:37)
[2017-01-05] MEDS: CHOLECALCIFEROL 1,000 UNIT TAB PO SCH (16:01)
[2017-01-05] MEDS: MULTIVITAMINS, THERA 1 EACH TAB PO SCH (17:12)
[2017-01-05] MEDS: FERROUS SULFATE 325 MG TAB PO SCH (17:12)
[2017-01-05 17:13] LABS: Glucose,Whole Blood 163 mg/dL (75-99)
[2017-01-05] MEDS: ATORVASTATIN 20 MG TAB PO SCH (20:07)
[2017-01-05] MEDS: MAGNESIUM HYDROXIDE 2,400 MG/10 ML CUP PO SCH (20:07)
[2017-01-05] MEDS: MELATONIN 3 MG TABLET PO SCH (20:08)
[2017-01-05 20:10] LABS: Glucose,Whole Blood 167 mg/dL (75-99)
[2017-01-06 05:45] LABS: Anisocytosis Slight; Aty Lym Flag Slight; CH 29.6; CHCM 31.1; HCT 27.6 % (34.0-46.0); HDW 2.44; HGB 8.9 gm/dL (11.4-16.0); Hypochromasia Slight; MCH 30.9 pg (25.0-35.0); MCHC 32.4 g/dL (31.0-37.0); MCV 95.4 fL (80.0-100.0); Macrocytosis Slight; RDW 17.4 % (11.5-15.5); WBC 10.9 k/uL (3.8-10.6); WBC (Perox) 11.62
[2017-01-06 05:57] LABS: Add Differential Manual Differential
[2017-01-06 05:59] LABS: Calcium 9.7 mg/dL (8.4-10.2); Magnesium 3.4 mg/dL (1.6-2.3); Phosphorous 4.8 mg/dL (2.5-4.5); Potassium 4.4 mmol/L (3.5-5.1)
[2017-01-06 06:01] LABS: Manual Review Performed; Metamyelocytes % 2 %; Nucleated Red Blood Cells 0 /100 WBC (0-0); Total Cells Counted 200
[2017-01-06 06:03] LABS: Basophilic Stippling Present
[2017-01-06] MEDS: LEVOTHYROXINE 88 MCG TAB PO SCH (06:10)
--- NOTE | 2017-01-06 07:13 | XR ---
EXAMINATION TYPE: XR chest 1V DATE OF EXAM: 01/06/2017 COMPARISON: 01/05/2017 HISTORY: Shortness of breath FINDINGS: There are bilateral pleural effusions with cardiomegaly and bibasilar infiltrate. There is a diffuse interstitial pattern. Postsurgical changes involving the vertebral column and left shoulder. IMPRESSION: 1. Persistent perihilar and basilar infiltrates with bilateral consolidation and pleural effusion. Co rrelate for pulmonary edema.
[2017-01-06] MEDS: INSULIN LISPRO (humaLOG) 300 UNIT/3 ML VIAL SQ SCH ×4 (07:46→20:32)
[2017-01-06 07:47] LABS: Glucose,Whole Blood 127 mg/dL (75-99)
[2017-01-06] MEDS: ALLOPURINOL 100 MG TAB PO SCH (07:47)
[2017-01-06] MEDS: HEPARIN SODIUM,PORCINE 5,000 UNIT/ML 1 ML VIAL SQ SCH ×3 (07:48→23:17)
[2017-01-06] MEDS: FUROSEMIDE 10 MG/ML 4 ML VIAL IV SCH (07:48)
[2017-01-06] MEDS: LINAGLIPTIN 5 MG TABLET PO SCH (07:49)
[2017-01-06] MEDS: hydrALAZINE HCL 25 MG TAB PO SCH ×2 (07:49→17:36)
[2017-01-06] MEDS: DICLOFENAC 0.1% OPHTH SOLN 2.5 ML BTL BOTH EYES SCH ×4 (07:50→20:33)
[2017-01-06] MEDS: SENNOSIDES 8.6 MG TAB PO SCH ×2 (07:50→17:34)
[2017-01-06] MEDS: CLOPIDOGREL 75 MG TAB PO SCH (07:50)
[2017-01-06] MEDS: FAMOTIDINE 20 MG TAB PO SCH (07:51)
[2017-01-06] MEDS: METOPROLOL TARTRATE 25 MG TAB PO SCH ×2 (07:51→20:31)
[2017-01-06] MEDS: SPIRONOLACTONE 25 MG TAB PO SCH (07:51)
[2017-01-06] MEDS: MAGNESIUM HYDROXIDE 2,400 MG/10 ML CUP PO SCH ×2 (07:59→21:30)
[2017-01-06] MEDS: INSULIN GLARGINE 100 UNIT/ML 10 ML VIAL SQ SCH (07:59)
[2017-01-06] MEDS: HYDROcodone/APAP 5-325MG 1 EACH TAB PO SCH ×3 (07:59→20:31)
[2017-01-06] MEDS: BUDESONIDE 0.5 MG/2 ML NEBU INHALATION SCH ×2 (08:58→19:29)
--- NOTE | 2017-01-06 10:31 | P.PN ---
Subjective This is a 86-year-old female who is a no code patient. She was transferred out from [facility] with complaints of shortness of breath. She also apparently had chest pain for the last 2 days prior to admission. She apparently was diagnosed as having bilateral pneumonia and had an elevated BNP at 18,000. The patient was started on vancomycin and Zithromax. The patient apparently lives in an assisted living facility in that area. Patient was transferred down.. Patient had a white count of 22,000. Admission diagnosis was diffuse bilateral infiltrates either consistent with heart failure and/or pneumonia. The patient's currently in the ICU poor urine. We'll admit her directly to the ICU here. We placed her on BiPAP at 10 and 5 and 100%. We will see for can upload her chest x-ray from the other hospital. We'll shoot a portable chest x-ray here. The patient is seen again today 01/03/2017 in follow-up in the intensive care unit. She is awake and alert in no acute distress. She is breathing quite a bit better today as compared to yesterday. She denies any significant chest discomfort which she is maintaining O2 saturations in the 90s on 4 L/m per nasal cannula. She had been somewhat reluctant to wear the BiPAP. She remains on a heparin drip per weight base protocol. She is also on Lasix drip at 10 mg per hour. She has a 0.9 normal saline at 20 mL per hour. She did rule in for myocardial infarction with a troponin of 9.52. Echocardiogram is pending. Her chest x-ray continues to show evidence of congestive heart failure with fluid volume overload. Creatinine remains elevated at 1.80 and urine culture is pending. He is currently on vancomycin and Levaquin. The patient is seen again today 01/04/2017 in follow-up in the intensive care unit. She is currently awake and alert in no acute distress. She states she is breathing about the same today as compared to yesterday. Her chest x-ray does not show significant improvement. There is still evidence of fluid volume overload and congestive heart failure. Maintaining good O2 saturations up to 100% on 2 L/m per nasal cannula. She's been hemodynamically stable. Creatinine is gradually increasing however currently at 2.02. Remains on a Lasix drip at 10 mg per hour. She remains on a heparin drip per weight base protocol. The patient is seen again today 01/05/2017 in follow-up in the intensive care unit. She is currently awake and alert in no acute distress. She is feeling a little better today as compared to yesterday. Require any BiPAP support last night. She is maintaining good O2 saturations in the 90s on 2 L/m per nasal cannula. Her chest x-ray continues to show some evidence of mild congestive heart failure. She is maintained on diuretics. Creatinine at 2.10. Hemoglobin 8.5. She is seen again today 01/06/2017 in follow-up in the intensive care unit. She is currently a selective care unit overflow. Awake and alert in no acute distress. Maintaining good O2 saturations in the 90s on room air. She's been afebrile. Hemodynamically stable. Urine and blood cultures revealed no growth. No significant leukocytosis. Hemoglobin 8.9. Creatinine stable at 2.10. Objective - Vital Signs Vital signs: Vital Signs Temp 98.2 F 01/06/17 08:00 Pulse 64 01/06/17 08:00 Resp 12 01/06/17 08:00 BP 122/62 01/06/17 08:00 Pulse Ox 95 01/06/17 08:00 Intake & Output 01/05/17 01/06/17 01/06/17 18:59 06:59 18:59 Intake Total 653.64 Output Total 805 1000 Balance -151.36 -1000 Weight 73.4 kg Intake: IV 120 Sodium Chloride 0.9% 1, 120 000 ml @ 20 mls/hr IV . Q24H RAISA Rx#:[id number] Intake, IV Titration 333.64 Amount Heparin Sodium,Porcine/ 333.64 D5w Pmx 25,000 unit In Dextrose/Water 1 500ml. bag @ 12 UNITS/KG/HR 17. 56 mls/hr IV .Q24H [facility]ISA Rx #:[id number] Oral 200 Output: Urine 805 1000 Other: Voiding Method Indwelling Catheter Indwelling Catheter - Exam GENERAL EXAM: Alert, fairly comfortable in no apparent distress. HEAD: Normocephalic. EYES: Normal reaction of pupils, equal size. NOSE: Clear with pink turbinates. THROAT: No erythema or exudates. NECK: No masses, no significant JVD. CHEST: No chest wall deformity. LUNGS: Equal air entry with crackles in the bilateral posterior bases. CVS: S1 and S2 normal with an audible murmur, regular rhythm. ABDOMEN: No hepatosplenomegaly, normal bowel sounds, no guarding or rigidity. SPINE: No scoliosis or deformity SKIN: No rashes CENTRAL NERVOUS SYSTEM: No focal deficits, tone is normal in all 4 extremities. Extremities: There is trace peripheral edema. No clubbing, no cyanosis. Peripheral pulses are intact. - Labs CBC & Chem 7: 01/06/17 05:01 01/06/17 05:01 Labs: Abnormal Lab Results - Last 24 Hours (Table) 01/05/17 01/05/17 01/05/17 Range/Units 11:46 17:11 20:09 WBC (3.8-10.6) k/uL RBC (3.80-5.40) m/uL Hgb (11.4-16.0) gm/dL Hct (34.0-46.0) % RDW (11.5-15.5) % Neutrophils # (Manual) (1.3-7.7) k/uL Metamyelocytes # (Man) (0) k/uL Sodium (137-145) mmol/L BUN (7-17) mg/dL Creatinine (0.52-1.04) mg/dL Glucose (74-99) mg/dL POC Glucose (mg/dL) 140 H 163 H 167 H (75-99) mg/dL Phosphorus (2.5-4.5) mg/dL Magnesium (1.6-2.3) mg/dL 01/06/17 01/06/17 01/06/17 Range/Units 05:01 05:01 07:45 WBC 10.9 H (3.8-10.6) k/uL RBC 2.90 L (3.80-5.40) m/uL Hgb 8.9 L (11.4-16.0) gm/dL Hct 27.6 L (34.0-46.0) % RDW 17.4 H (11.5-15.5) % Neutrophils # (Manual) 7.96 H (1.3-7.7) k/uL Metamyelocytes # (Man) 0.22 H (0) k/uL Sodium 136 L (137-145) mmol/L BUN 84 H* (7-17) mg/dL Creatinine 2.10 H (0.52-1.04) mg/dL Glucose 112 H (74-99) mg/dL POC Glucose (mg/dL) 127 H (75-99) mg/dL Phosphorus 4.8 H (2.5-4.5) mg/dL Magnesium 3.4 H (1.6-2.3) mg/dL Microbiology - Last 24 Hours (Table) 01/02/17 18:15 Blood Culture - Preliminary Blood No Growth after 72 hours 01/02/17 18:15 Blood Culture - Preliminary Blood No Growth after 72 hours Assessment and Plan Plan: Impression: #1 Acute exacerbation of suspected systolic congestive heart failure #2 Non-ST segment elevation myocardial infarction. #3 Severe aortic stenosis, history of. #4 Hypertension, history of. #5 Diabetes mellitus. #6 Hypothyroidism. #7 History of transient ischemic attack. #8 Acute renal failure, current creatinine 2.10. Plan: The patient was seen and evaluated by Dr. Mahan. We will increase her activity as tolerated. We'll continue to follow.
[2017-01-06] MEDS: IPRATROPIUM-ALBUTEROL 3 ML NEB INHALATION PRN ×2 (13:24→19:29)
[2017-01-06] MEDS ORDERED: POLYETHYLENE GLYCOL 3350 17 GM POWD.PACK PO PRN (14:03)
[2017-01-06] MEDS: LACTULOSE 20 GM/30 ML CUP PO SCH (14:04)
[2017-01-06] MEDS ORDERED: LEVOFLOXACIN 500 MG TAB PO SCH (17:00)
[2017-01-06 17:27] LABS: Glucose,Whole Blood 188 mg/dL (75-99)
[2017-01-06] MEDS: FERROUS SULFATE 325 MG TAB PO SCH (17:35)
[2017-01-06] MEDS: CHOLECALCIFEROL 1,000 UNIT TAB PO SCH (17:36)
[2017-01-06] MEDS: MULTIVITAMINS, THERA 1 EACH TAB PO SCH (17:36)
[2017-01-06] MEDS: FUROSEMIDE 40 MG TAB PO SCH (17:37)
--- NOTE | 2017-01-06 17:45 | P.PN ---
Subjective Principal diagnosis: Dyspnea Patient was seen and examined in the ICU. She is still being held there is an overflow patient from the selective care unit. Her daughter Sara is at the bedside. Patient is awake alert and appropriate. Patient indicates that she is still having some constipation as she has not had a bowel movement in several days and this is bothering her. She did have abdominal pain with this yesterday but indicates this seems to have subsided today. She indicates that the food that is being served is difficult to eat as it is not palatable. She is interested in some orange protein shakes. She indicates she would also eat some oatmeal. Patient states breathing is improved. She is not experiencing any pain at this time. No sensation of fever, chills, nausea or vomiting. Patient's daughter indicates that she has not been ambulatory for a while now and may not be able to get up to the chair with assistance. Case was discussed with Dr. Doty earlier in the day. He indicates the patient is interested in hospice care transfer on Sunday after discussion with the patient and her family. This is discussed with the patient and her daughter at the bedside at this time. They indicate that the plan is for her to go Sunday to her facility in [place] and to proceed with palliative and comfort care. They indicate with her multiple medical problems including all of her cardiac issues they had discussed with this with the physicians caring for her and felt that this was the most appropriate course. With that in mind did discuss whether to continue with lab draws Accu-Cheks etc. for the patient with the family. They indicate that they are still agreeable to what needs to be done for her care and comfort at this time. Additional bowel regime of medications will be added to help with the patient's constipation. Have discontinued the a.m. lab draws as not certain that this is needed if the future courses to be palliative and comfort care. If patient were to choose more aggressive care would more aggressively workup the renal failure issues at this time. All questions answered. Case discussed with nurse on the unit. Objective - Vital Signs Vital signs: Vital Signs Temp 98.2 F 01/06/17 08:00 Pulse 68 01/06/17 13:42 Resp 12 01/06/17 13:24 BP 122/62 01/06/17 08:00 Pulse Ox 95 01/06/17 08:00 Intake & Output 01/05/17 01/06/17 01/06/17 18:59 06:59 18:59 Intake Total 653.64 100 Output Total 805 1000 1000 Balance -151.36 -1000 -900 Weight 73.4 kg Intake: IV 120 Sodium Chloride 0.9% 1, 120 000 ml @ 20 mls/hr IV . Q24H RAISA Rx#:[id number] Intake, IV Titration 333.64 Amount Heparin Sodium,Porcine/ 333.64 D5w Pmx 25,000 unit In Dextrose/Water 1 500ml. bag @ 12 UNITS/KG/HR 17. 56 mls/hr IV .Q24H RAISA Rx #:[id number] Oral 200 100 Output: Urine 805 1000 1000 Other: Voiding Method Indwelling Catheter Indwelling Catheter Indwelling Catheter - Exam General: Patient awake alert and appropriate. No acute distress. HEENT: Sclerae are clear. Mucous membranes are dry. Chest: Heart regular in rate and rhythm positive S1 and S2. Positive murmur systolic and diastolic over aortic listening post and mitral listening post. Lungs: Fairly clear at the apices anteriorly. Diminished slightly in the apices posteriorly. Faint crackles at the bases right greater than left. Respirations are even and nonlabored. Abdomen/GI: Bowel sounds present in all 4 quadrants. Bowel sounds normoactive. No abdominal tenderness. No mass. No hepatomegaly or splenomegaly appreciated. : Douglas catheter in place draining light yellow urine. Musculoskeletal/ Extremities: No tenderness on muscular exam. Ecchymosis throughout extremities especially in the upper extremities likely from previous blood draws by appearance. Vascular: Radial pulses equal. 2/4. Feet warm and DP pulses intact. Skin: No rash. Neurologic: Awake, alert and oriented times 3. No lateralizing deficits noted on gross inspection. Diffusely weak throughout. Psychiatric: Patient alert. Regards examiner. Answers questions appropriately. Pleasant demeanor. - Labs CBC & Chem 7: 01/06/17 05:01 01/06/17 05:01 Labs: Abnormal Lab Results - Last 24 Hours (Table) 01/05/17 01/05/17 01/06/17 Range/Units 17:11 20:09 05:01 WBC (3.8-10.6) k/uL RBC (3.80-5.40) m/uL Hgb (11.4-16.0) gm/dL Hct (34.0-46.0) % RDW (11.5-15.5) % Neutrophils # (Manual) (1.3-7.7) k/uL Metamyelocytes # (Man) (0) k/uL Sodium 136 L (137-145) mmol/L BUN 84 H* (7-17) mg/dL Creatinine 2.10 H (0.52-1.04) mg/dL Glucose 112 H (74-99) mg/dL POC Glucose (mg/dL) 163 H 167 H (75-99) mg/dL Phosphorus 4.8 H (2.5-4.5) mg/dL Magnesium 3.4 H (1.6-2.3) mg/dL 01/06/17 01/06/17 Range/Units 05:01 07:45 WBC 10.9 H (3.8-10.6) k/uL RBC 2.90 L (3.80-5.40) m/uL Hgb 8.9 L (11.4-16.0) gm/dL Hct 27.6 L (34.0-46.0) % RDW 17.4 H (11.5-15.5) % Neutrophils # (Manual) 7.96 H (1.3-7.7) k/uL Metamyelocytes # (Man) 0.22 H (0) k/uL Sodium (137-145) mmol/L BUN (7-17) mg/dL Creatinine (0.52-1.04) mg/dL Glucose (74-99) mg/dL POC Glucose (mg/dL) 127 H (75-99) mg/dL Phosphorus (2.5-4.5) mg/dL Magnesium (1.6-2.3) mg/dL Microbiology - Last 24 Hours (Table) 01/02/17 18:15 Blood Culture - Preliminary Blood No Growth after 72 hours 01/02/17 18:15 Blood Culture - Preliminary Blood No Growth after 72 hours Assessment and Plan Plan: Assessment : 1. Non-ST elevation OH 2. Multiple valvular abnormalities and non-ST elevation OH contributing to pulmonary edema. These valvular abnormalities including severe aortic stenosis with severe left atrial dilatation, mild to moderate aortic regurgitation, severe mitral regurgitation, mild to moderate mitral stenosis, and trace tricuspid regurgitation. Echocardiogram is read out as preserved systolic function. 3. Diabetes mellitus 4. Hypothyroidism 5. Prior history of TIA 6. Acute renal failure with GFR in the 23-29 range. This is an acute change compared to spring. Possibly multifactorial secondary to prerenal factors including cardiac factors listed in #2. 7. Leukocytosis secondary to pneumonia and non-ST elevation OH improving. 8. Pneumonia felt to be controlling factor upon admission. Patient remains on Levaquin. Component of pneumonia contributing to bibasilar process still a possibility. Await further input from pulmonary as to whether they feel this is still a contributing factor. 9. TIA by history. 10. Constipation. 11. Hyperlipidemia by history 12. Gout by history. 13. Normocytic normochromic anemia. Plan: 1. Patient and family indicated the plan is for patient to return to [place] to an assisted living situation on Sunday. They will proceed with comfort palliative and hospice care at that time. 2. Will add to bowel regime, add MiraLAX for when necessary use daily. 3. Continue current medication regime including Levaquin antibiotic, current Lantus and log insulin. Medications reviewed. 4. Will decrease Lasix to oral Lasix twice a day trying to balance patient's renal and cardiac issues. Will monitor patient's clinical status with this change. 5. Because of Lasix change and patient still being on aldactone will check a.m. electrolytes while therapeutic goals are being determined. 6. Change to regular diet to hopefully get patient to eat some food. 7. Hopeful to get patient up in a chair but does not sound like that has been able to happen for a long time, her baseline is to transfer with [facility] lift prior to admission. 8. Patient and family desire Accu-Cheks to continue while on Lantus and log therapy. 9. Will not pursue any aggressive workup regarding renal issues at this time given desire for palliative and comfort care. 10. Will review further goals for treatment and specific medications further with family tomorrow to determine goals for her return to [facility].
[2017-01-06 20:28] LABS: Glucose,Whole Blood 182 mg/dL (75-99)
[2017-01-06] MEDS: MELATONIN 3 MG TABLET PO SCH (20:31)
[2017-01-06] MEDS: ATORVASTATIN 20 MG TAB PO SCH (20:31)
[2017-01-07 05:09] LABS: Calcium 9.5 mg/dL (8.4-10.2); Potassium 4.5 mmol/L (3.5-5.1)
[2017-01-07] MEDS: LEVOTHYROXINE 88 MCG TAB PO SCH (06:31)
--- NOTE | 2017-01-07 07:16 | XR ---
EXAMINATION TYPE: XR chest 1V DATE OF EXAM: 01/07/2017 COMPARISON: 01/06/2017 HISTORY: Shortness of breath TECHNIQUE: Single frontal view of the chest is obtained. FINDINGS: There are bilateral pleural effusions with cardiomegaly and bibasilar infiltrate. There is a diffuse interstitial pattern. Postsurgical changes involving the vertebral column and left shoulde r. IMPRESSION: 1. Persistent perihilar and basilar infiltrates with bilateral consolidation and pleural effusion. C orrelate for pulmonary edema.
[2017-01-07] MEDS: INSULIN LISPRO (humaLOG) 300 UNIT/3 ML VIAL SQ SCH ×4 (07:54→21:10)
[2017-01-07] MEDS: INSULIN GLARGINE 100 UNIT/ML 10 ML VIAL SQ SCH (07:54)
[2017-01-07 07:55] LABS: Glucose,Whole Blood 123 mg/dL (75-99)
[2017-01-07] MEDS: hydrALAZINE HCL 25 MG TAB PO SCH ×2 (07:55→18:13)
[2017-01-07] MEDS: ALLOPURINOL 100 MG TAB PO SCH (07:55)
[2017-01-07] MEDS: HEPARIN SODIUM,PORCINE 5,000 UNIT/ML 1 ML VIAL SQ SCH ×3 (07:55→21:46)
[2017-01-07] MEDS: CLOPIDOGREL 75 MG TAB PO SCH (07:56)
[2017-01-07] MEDS: HYDROcodone/APAP 5-325MG 1 EACH TAB PO SCH ×3 (07:56→21:11)
[2017-01-07] MEDS: SENNOSIDES 8.6 MG TAB PO SCH ×2 (07:56→18:14)
[2017-01-07] MEDS: LINAGLIPTIN 5 MG TABLET PO SCH (07:56)
[2017-01-07] MEDS: FAMOTIDINE 20 MG TAB PO SCH (08:00)
[2017-01-07] MEDS: METOPROLOL TARTRATE 25 MG TAB PO SCH ×2 (08:00→21:45)
[2017-01-07] MEDS: DICLOFENAC 0.1% OPHTH SOLN 2.5 ML BTL BOTH EYES SCH ×4 (08:00→21:12)
[2017-01-07] MEDS: SPIRONOLACTONE 25 MG TAB PO SCH (08:00)
[2017-01-07] MEDS: BUDESONIDE 0.5 MG/2 ML NEBU INHALATION SCH ×2 (08:01→20:47)
[2017-01-07] MEDS: IPRATROPIUM-ALBUTEROL 3 ML NEB INHALATION PRN ×2 (08:01→15:43)
[2017-01-07] MEDS ORDERED: MAGNESIUM HYDROXIDE 2,400 MG/10 ML CUP PO PRN (09:12)
[2017-01-07] MEDS ORDERED: LACTULOSE 20 GM/30 ML CUP PO PRN (09:12)
--- NOTE | 2017-01-07 09:19 | P.PN ---
Subjective Progress note dated 01/07/2017 86-year-old female admitted with a diagnosis of congestive heart failure. She' s been sitting here in the ICU for a couple days longer than that she needed to be because there is no beds out on the sixth floor. She feeling much better. Much less short of breath. Eating. Sitting up. Has been not receiving any IV fluids. Her more acute problem was constipation. We will use lactulose and that really seemed to help. She's been otherwise stable. Stable vital signs. Feeling much better. Her daughters at the bedside. No chest pain. No fever no chills. No cough. No phlegm production. No nausea vomiting or diarrhea. Objective - Vital Signs Vital signs: Vital Signs Temp 97.8 F 01/07/17 04:00 Pulse 68 01/07/17 08:27 Resp 23 01/07/17 04:00 BP 113/57 01/07/17 00:00 Pulse Ox 98 01/07/17 04:00 Intake & Output 01/06/17 01/07/17 01/07/17 18:59 06:59 18:59 Intake Total 700 250 Output Total 2150 540 Balance -1450 -290 Weight 74 kg Intake: Oral 700 250 Output: Urine 2150 540 Other: Voiding Method Indwelling Catheter Indwelling Catheter - Exam No acute distress, oriented 3. HEENT examination is grossly unremarkable. Mucous membranes are moist. No oral lesions. Neck supple. Full range of motion. No adenopathy or thyromegaly. Cardiovascular examination reveals regular rhythm rate. Heart systolic murmurs heard. S1-S2 normal. No S3-S4. Lungs reveal some very mild bibasilar crackles. No wheezes or rhonchi. Breath sounds are equal. Abdomen soft bowel sounds are heard. Extremities are intact. No cyanosis clubbing or edema. Skin without rash. Neurologic examination is nonfocal. - Labs CBC & Chem 7: 01/06/17 05:01 01/07/17 03:58 Labs: Abnormal Lab Results - Last 24 Hours (Table) 01/06/17 01/06/17 01/07/17 Range/Units 17:25 20:26 03:58 Sodium 135 L (137-145) mmol/L BUN 85 H* (7-17) mg/dL Creatinine 2.20 H (0.52-1.04) mg/dL Glucose 124 H (74-99) mg/dL POC Glucose (mg/dL) 188 H 182 H (75-99) mg/dL 01/07/17 Range/Units 07:53 Sodium (137-145) mmol/L BUN (7-17) mg/dL Creatinine (0.52-1.04) mg/dL Glucose (74-99) mg/dL POC Glucose (mg/dL) 123 H (75-99) mg/dL Microbiology - Last 24 Hours (Table) 01/02/17 18:15 Blood Culture - Preliminary Blood No Growth after 96 hours 01/02/17 18:15 Blood Culture - Preliminary Blood No Growth after 96 hours Assessment and Plan (1) CHF (congestive heart failure) Status: Acute (2) Chest pain Status: Acute (3) Elevated troponin Status: Acute (4) Pneumonia Status: Acute (5) Dehydration Status: Acute (6) Diabetes Status: Acute (7) Fracture of hip Status: Acute (8) HTN (hypertension) Status: Acute (9) Hypothyroid Status: Chronic (10) SOB (shortness of breath) Status: Acute (11) Severe aortic stenosis Status: Acute (12) TIA (transient ischemic attack) Status: Resolved Plan: Plan dated 01/02/2017 The patient really placed on BiPAP at 10 and 5 and 100%. We will titrate the oxygen levels down. She will get a repeat a chest x-ray. We'll make sure she has admission labs. Additional recommendations suggestions are forthcoming. We 'll put her on updrafts. I will talk to the family. Additional recommendations suggestions are forthcoming. Her daughter is actually one of my patients who I see for sarcoidosis. Plan dated 01/07/2017 The patient will be transferred out to the general medical floor over to 6 selective or aerobic and finding of the OR bed. She's doing very well. Constipation is not an issue anymore. Her respiratory status is stable and her chest x-ray my opinion is somewhat improved. She continues on all the appropriate medications. No additional recommendations are made. Prognosis is guarded given her severe heart failure and cardiac situation as well as her severe aortic stenosis. She is a DO NOT RESUSCITATE. Time with Patient: Less than 30
--- NOTE | 2017-01-07 09:47 | P.PN ---
Subjective Principal diagnosis: Dyspnea Patient was seen and examined in the ICU. She is still being held there is an overflow patient from the selective care unit. Her daughter Sara is at the bedside. Patient is awake and alert, falling intermittently back to sleep but easily arousable. Patient did have multiple bowel movements after lactulose. Patient was able to eat some chicken noodle soup and oatmeal. Doing better with less restricted diet. No further abdominal pain. No dyspnea currently. She is not experiencing any pain at this time. Has been on the scheduled [place] for a long time per daughter at the bedside. No nausea. Patient's daughter indicates that she has not been ambulatory for a while now and may not be able to get up to the chair with assistance. Occasionally has sacral ulcers that then heal over. Plan is that patient is interested in palliative care when returning to care at her assisted living facility on Sunday as per yesterday's note. All questions answered. Case discussed with nurse on the unit. Objective - Vital Signs Vital signs: Vital Signs Temp 97.8 F 01/07/17 04:00 Pulse 68 01/07/17 08:27 Resp 23 01/07/17 04:00 BP 113/57 01/07/17 00:00 Pulse Ox 98 01/07/17 04:00 Intake & Output 01/06/17 01/07/17 01/07/17 18:59 06:59 18:59 Intake Total 700 250 Output Total 2150 540 Balance -1450 -290 Weight 74 kg Intake: Oral 700 250 Output: Urine 2150 540 Other: Voiding Method Indwelling Catheter Indwelling Catheter - Exam General: Patient awake alert and appropriate. No acute distress. HEENT: Sclerae are clear. Mucous membranes are dry. Chest: Heart regular in rate and rhythm positive S1 and S2. Positive murmur systolic and diastolic over aortic listening post and mitral listening post and throughout the precordium. Lungs: Fairly clear at the apices anteriorly. Faint crackles at the bases right greater than left, left base better than yesterday. Respirations are even and nonlabored. Abdomen/GI: Bowel sounds present in all 4 quadrants. Bowel sounds normoactive. No abdominal tenderness. No mass. Musculoskeletal/ Extremities: No tenderness on muscular exam. Ecchymosis throughout extremities especially in the upper extremities likely from previous blood draws by appearance. Vascular: Radial pulses equal. 2/4. Feet warm and DP pulses intact. Skin: No rash.No heel ulcers. Neurologic: Awake, alert and appropriate. No lateralizing deficits noted on gross inspection. Diffusely weak throughout. Psychiatric: Patient alert. Regards examiner. Answers questions appropriately. Pleasant demeanor. - Labs CBC & Chem 7: 01/06/17 05:01 01/07/17 03:58 Labs: Abnormal Lab Results - Last 24 Hours (Table) 01/06/17 01/06/17 01/07/17 Range/Units 17:25 20:26 03:58 Sodium 135 L (137-145) mmol/L BUN 85 H* (7-17) mg/dL Creatinine 2.20 H (0.52-1.04) mg/dL Glucose 124 H (74-99) mg/dL POC Glucose (mg/dL) 188 H 182 H (75-99) mg/dL 01/07/17 Range/Units 07:53 Sodium (137-145) mmol/L BUN (7-17) mg/dL Creatinine (0.52-1.04) mg/dL Glucose (74-99) mg/dL POC Glucose (mg/dL) 123 H (75-99) mg/dL Microbiology - Last 24 Hours (Table) 01/02/17 18:15 Blood Culture - Preliminary Blood No Growth after 96 hours 01/02/17 18:15 Blood Culture - Preliminary Blood No Growth after 96 hours Assessment and Plan Plan: Assessment : 1. Non-ST elevation NH 2. Multiple valvular abnormalities and non-ST elevation NH contributing to pulmonary edema. These valvular abnormalities including severe aortic stenosis with severe left atrial dilatation, mild to moderate aortic regurgitation, severe mitral regurgitation, mild to moderate mitral stenosis, and trace tricuspid regurgitation. Echocardiogram is read out as preserved systolic function. 3. Diabetes mellitus 4. Hypothyroidism 5. Prior history of TIA 6. Acute renal failure with GFR in the 23-29 range. This is an acute change compared to spring. Possibly multifactorial secondary to prerenal factors including cardiac factors listed in #2 and diuresis. 7. Leukocytosis secondary to pneumonia and non-ST elevation NH improving. 8. Pneumonia. Patient remains on Levaquin. Component of pneumonia contributing to bibasilar process. 9. TIA by history. 10. Constipation. 11. Hyperlipidemia by history. 12. Gout by history. 13. Normocytic normochromic anemia. Plan: 1. Patient and family indicated the plan is for patient to return to [place] to an assisted living situation on Sunday. They will proceed with comfort palliative and hospice care at that time. 2. Bowel regime changed to PRN to be available for future use. Lactulose was effective. Will d/c Miralax as was not used. 3. Continue current medication regime including Levaquin antibiotic, current Lantus and log insulin. Medications reviewed. 4. We will decrease Lasix to daily today. Best balance outpatient may be to have twice a day Lasix 2 or 3 days a week. Sounds like of Lasix has been increased and decreased many times over many hospitalizations per the daughter at the bedside. She indicates it is always a delicate balance with her mother. 5. Continue regular diet so the patient's oral intake may improve. It is better today compared to yesterday. 6. Continue turning patient help prevent ulceration. 7. Patient and family desire Accu-Cheks to continue while on Lantus and log therapy. 8. Will not pursue any aggressive workup regarding renal issues at this time given desire for palliative and comfort care. 9. Risks and benefits of lab values to help monitor patient's Lasix and Aldactone therapy as an outpatient will need to be discussed between patient's family and new physician. The patient to remain on these medications may be worthwhile to periodically check labs to adjust the balance between the patient' s renal function and pulmonary edema. 10. Plan to return to [place] likely tomorrow. 11. Patient to be transferred to selective care unit today as it appears they may have a bed for her today.
[2017-01-07] MEDS ORDERED: MD COMMUNICATION TO PHARMACY 1 EACH MISC PO PRN (09:48)
[2017-01-07 11:24] LABS: Glucose,Whole Blood 240 mg/dL (75-99)
[2017-01-07] MEDS: FUROSEMIDE 40 MG TAB PO SCH (12:49)
[2017-01-07] MEDS: MAGNESIUM HYDROXIDE 2,400 MG/10 ML CUP PO SCH (12:49)
[2017-01-07] MEDS: LACTULOSE 20 GM/30 ML CUP PO SCH (12:49)
[2017-01-07] MEDS ORDERED: FUROSEMIDE 40 MG TAB PO SCH (16:00)
[2017-01-07 17:02] LABS: Glucose,Whole Blood 146 mg/dL (75-99)
[2017-01-07] MEDS: MULTIVITAMINS, THERA 1 EACH TAB PO SCH (18:13)
[2017-01-07] MEDS: CHOLECALCIFEROL 1,000 UNIT TAB PO SCH (18:13)
[2017-01-07] MEDS: FERROUS SULFATE 325 MG TAB PO SCH (18:13)
[2017-01-07 20:50] LABS: Glucose,Whole Blood 166 mg/dL (75-99)
[2017-01-07] MEDS: ATORVASTATIN 20 MG TAB PO SCH (21:10)
[2017-01-07] MEDS: MELATONIN 3 MG TABLET PO SCH (21:10)
[2017-01-07 22:49] VITALS: RESP 16
[2017-01-08] MEDS: LEVOTHYROXINE 88 MCG TAB PO SCH (06:19)
[2017-01-08 07:20] LABS: Glucose,Whole Blood 113 mg/dL (75-99)
[2017-01-08 08:05] VITALS: BP 122/57; TEMP 97.5
[2017-01-08] MEDS: BUDESONIDE 0.5 MG/2 ML NEBU INHALATION SCH (08:08)
[2017-01-08 08:21] VITALS: PULSE 72
[2017-01-08] MEDS: INSULIN LISPRO (humaLOG) 300 UNIT/3 ML VIAL SQ SCH ×2 (08:51→12:16)
[2017-01-08] MEDS ORDERED: FUROSEMIDE 40 MG TAB PO SCH (09:00)
[2017-01-08] MEDS: HYDROcodone/APAP 5-325MG 1 EACH TAB PO SCH (09:14)
[2017-01-08] MEDS: INSULIN GLARGINE 100 UNIT/ML 10 ML VIAL SQ SCH (09:15)
[2017-01-08] MEDS: SENNOSIDES 8.6 MG TAB PO SCH (09:15)
[2017-01-08] MEDS: FAMOTIDINE 20 MG TAB PO SCH (09:16)
[2017-01-08] MEDS: hydrALAZINE HCL 25 MG TAB PO SCH (09:16)
[2017-01-08] MEDS: SPIRONOLACTONE 25 MG TAB PO SCH (09:17)
[2017-01-08] MEDS: HEPARIN SODIUM,PORCINE 5,000 UNIT/ML 1 ML VIAL SQ SCH (09:17)
[2017-01-08] MEDS: METOPROLOL TARTRATE 25 MG TAB PO SCH (09:18)
[2017-01-08] MEDS: ALLOPURINOL 100 MG TAB PO SCH (09:18)
[2017-01-08] MEDS: LINAGLIPTIN 5 MG TABLET PO SCH (09:18)
[2017-01-08] MEDS: FUROSEMIDE 40 MG TAB PO SCH ×2 (09:19→09:21)
[2017-01-08] MEDS: DICLOFENAC 0.1% OPHTH SOLN 2.5 ML BTL BOTH EYES SCH ×2 (09:19→12:17)
[2017-01-08] MEDS: CLOPIDOGREL 75 MG TAB PO SCH (09:20)
[2017-01-08 11:10] LABS: Glucose,Whole Blood 178 mg/dL (75-99)
[2017-01-08 13:41] VITALS: BMI 26.6
--- NOTE | 2017-01-08 15:48 | P.PN ---
Subjective This is a 86-year-old female who is a no code patient. She was transferred out from [facility] with complaints of shortness of breath. She also apparently had chest pain for the last 2 days prior to admission. She apparently was diagnosed as having bilateral pneumonia and had an elevated BNP at 18,000. The patient was started on vancomycin and Zithromax. The patient apparently lives in an assisted living facility in that area. Patient was transferred down.. Patient had a white count of 22,000. Admission diagnosis was diffuse bilateral infiltrates either consistent with heart failure and/or pneumonia. The patient's currently in the ICU poor urine. We'll admit her directly to the ICU here. We placed her on BiPAP at 10 and 5 and 100%. We will see for can upload her chest x-ray from the other hospital. We'll shoot a portable chest x-ray here. The patient is seen again today 01/03/2017 in follow-up in the intensive care unit. She is awake and alert in no acute distress. She is breathing quite a bit better today as compared to yesterday. She denies any significant chest discomfort which she is maintaining O2 saturations in the 90s on 4 L/m per nasal cannula. She had been somewhat reluctant to wear the BiPAP. She remains on a heparin drip per weight base protocol. She is also on Lasix drip at 10 mg per hour. She has a 0.9 normal saline at 20 mL per hour. She did rule in for myocardial infarction with a troponin of 9.52. Echocardiogram is pending. Her chest x-ray continues to show evidence of congestive heart failure with fluid volume overload. Creatinine remains elevated at 1.80 and urine culture is pending. He is currently on vancomycin and Levaquin. The patient is seen again today 01/04/2017 in follow-up in the intensive care unit. She is currently awake and alert in no acute distress. She states she is breathing about the same today as compared to yesterday. Her chest x-ray does not show significant improvement. There is still evidence of fluid volume overload and congestive heart failure. Maintaining good O2 saturations up to 100% on 2 L/m per nasal cannula. She's been hemodynamically stable. Creatinine is gradually increasing however currently at 2.02. Remains on a Lasix drip at 10 mg per hour. She remains on a heparin drip per weight base protocol. The patient is seen again today 01/05/2017 in follow-up in the intensive care unit. She is currently awake and alert in no acute distress. She is feeling a little better today as compared to yesterday. Require any BiPAP support last night. She is maintaining good O2 saturations in the 90s on 2 L/m per nasal cannula. Her chest x-ray continues to show some evidence of mild congestive heart failure. She is maintained on diuretics. Creatinine at 2.10. Hemoglobin 8.5. She is seen again today 01/06/2017 in follow-up in the intensive care unit. She is currently a selective care unit overflow. Awake and alert in no acute distress. Maintaining good O2 saturations in the 90s on room air. She's been afebrile. Hemodynamically stable. Urine and blood cultures revealed no growth. No significant leukocytosis. Hemoglobin 8.9. Creatinine stable at 2.10. On 01/08/2017 the patient is being seen in follow-up. The patient got moved out of the intensive care unit. She is resting comfortably in bed. She is on room air oxygen for now. No dyspnea at rest. No angina. No syncope. No major swelling lower extremities. Creatinine is also stable at 2.2. No major it right imbalance. The patient be discharged today to be followed up with hospice care now outpatient basis. I had a lengthy discussion with the daughter the bedside. They're very much in agreement with the treatment plan. Objective - Vital Signs Vital signs: Vital Signs Temp 97.5 F L 01/08/17 07:00 Pulse 72 01/08/17 08:21 Resp 16 01/08/17 07:00 BP 122/57 01/08/17 07:00 Pulse Ox 94 L 01/08/17 07:00 Intake & Output 01/07/17 01/08/17 01/08/17 18:59 06:59 18:59 Intake Total 440 420 Output Total 250 Balance 190 420 Weight 74 kg 70.5 kg Intake: Oral 440 420 Output: Urine 250 Other: Voiding Method Diaper Diaper Diaper # Voids 2 4 # Bowel Movements 1 - Exam GENERAL EXAM: Alert, fairly comfortable in no apparent distress. HEAD: Normocephalic. EYES: Normal reaction of pupils, equal size. NOSE: Clear with pink turbinates. THROAT: No erythema or exudates. NECK: No masses, no significant JVD. CHEST: No chest wall deformity. LUNGS: Equal air entry with crackles in the bilateral posterior bases. CVS: S1 and S2 normal with an audible murmur, regular rhythm. ABDOMEN: No hepatosplenomegaly, normal bowel sounds, no guarding or rigidity. SPINE: No scoliosis or deformity SKIN: No rashes CENTRAL NERVOUS SYSTEM: No focal deficits, tone is normal in all 4 extremities. Extremities: There is trace peripheral edema. No clubbing, no cyanosis. Peripheral pulses are intact. - Labs CBC & Chem 7: 01/06/17 05:01 01/07/17 03:58 Labs: Abnormal Lab Results - Last 24 Hours (Table) 01/07/17 01/07/17 01/08/17 Range/Units 17:01 20:40 07:04 POC Glucose (mg/dL) 146 H 166 H 113 H (75-99) mg/dL 01/08/17 Range/Units 11:07 POC Glucose (mg/dL) 178 H (75-99) mg/dL Microbiology - Last 24 Hours (Table) 01/02/17 18:15 Blood Culture - Preliminary Blood No Growth after 120 hours 01/02/17 18:15 Blood Culture - Preliminary Blood No Growth after 120 hours Assessment and Plan Plan: Impression: #1 Acute exacerbation of suspected systolic congestive heart failure. Echocardiogram was done during this current admission. The patient was found to have severe aortic stenosis with a peak gradient of 103 and a mean gradient of 69 and a valve area of 0.3 cm. The patient also has severe mitral annular calcification, severe mitral regurgitation, mild to moderate mitral stenosis and moderate degree of pulmonary hypertension with a PA pressure of 37.1. Left ventricle ejection fraction was 50-55%. #2 Non-ST segment elevation myocardial infarction. #3 Severe aortic stenosis, history of. #4 Hypertension, history of. #5 Diabetes mellitus. #6 Hypothyroidism. #7 History of transient ischemic attack. #8 Acute renal failure, current creatinine 2.10. #9 bilateral consolidation/pleural effusion/pulmonary edema #10 left-sided pleural effusion #11 previous history of TIA #12 gout #13 chronic anemia Plan The patient will be discharged out of the hospital today to be followed up by hospice care. The pulmonary status is stable. Continue oral diuretics with Lasix 40 mg once a day. Completed the course of Levaquin. Outpatient follow- up.
--- NOTE | 2017-01-09 13:13 | P.DS ---
Providers Date of admission: 01/02/17 11:10 Expected date of discharge: 01/08/17 Attending physician: Richie Doty Consults: 01/02/17 11:14 Consult Physician Stat Consulting Provider: Isaias Brito Consult Reason/Comments: CHF, Chest Pain, Elevated Troponin Do you want consulting provider notified?: Yes 01/02/17 12:23 Consult Physician Routine Consulting Provider: Robby Mahan Consult Reason/Comments: ONI Do you want consulting provider notified?: Yes Primary care physician: Armand Ahuja [facility] Course: 86-year-old female one of our office patient with past medical history of CAD COPD valvular heart disease mild dementia type 2 diabetes previous history of CVA and hip fracture was in hospital last time over 6 month ago for ROM her hip fracture. Patient has been living in assisted living for the last few years. Patient developed to have worsening chest pain and worsening shortness of breath mild dyspnea and cough wheezes with severe hypoxia and mild change mental status with worsening confusion she ended up having nausea mild palpitation and lightheadedness. Patient ended up going to [facility] where was seen and evaluated x-ray showed bilateral pneumonia patient was started on vancomycin and azithromycin and decided to send patient to [facility]. Patient was seen in the emergency department at [facility] surprisingly very tachycardic running over 130 beats per minutes very irregular with A. fib her troponin was elevated chest x-ray and clinically she had acute pulmonary edema and looks like she is and acute coronary syndrome status with non-ST [place]. Long discussion with the family with the patient status DO NOT RESUSCITATE she isn't quite bed discomfort with the kidney running over 40 time per minutes and tachycardia with severe hypoxia decided to put her on BiPAP consult cardiology consult pulmonary and transfer patient to the ICU for more calm further management for her current condition try to treated medically with no aggressive surgical intervention available. 01/03: Patient remains in the intensive care unit. Patient's respiratory status is much improved this morning. She has been seen by Dr. Mahan. Repeat chest x- ray this morning shows persistent changes most typical of CHF. Documented weight is up 3 kg. White count has improved to 13.2. BUN is 70 creatinine 1.8. Troponins have been 0.145, 0.344 and 9.5. She has been placed on heparin drip per cardiology and echocardiogram is pending. Regarding antibiotics, patient is currently on Levaquin and vancomycin. Urine culture is in progress. Sputum culture on collected. She does complain of constipation for which milk of magnesia added to Senokot. Dr. Mahan maybe adding Xanax. 01/04: Patient remains in the intensive care unit. She is continued also on Lasix drip with plan to switch to IV push. She is also on heparin drip. She is followed by pulmonary medicine and cardiology. Kidney function is higher with BUN 77 and creatinine 2.02. Patient denies any new complaints today. She does continue have constipation but milk of magnesia was not given yesterday or this morning which will most likely relieve her symptoms. Anticipate she'll be ready to transferred to the [facility] tomorrow. IV Levaquin has been switched to oral. 01/05: White count is down to 9.8. Renal function is slightly higher from yesterday with BUN of 82 and creatinine 2.1. Patient is continued on IV Lasix. Dr. Madera has discontinued heparin drip. Repeat chest x-ray shows persistent. Hilar and basilar infiltrates with pulmonary venous congestion and mild cardiomegaly. Small effusions noted. Patient has been cleared to leave ICU by Dr. Mahan. Patient continues to have constipation for which a Dulcolax suppository added. Present status has been stable and she has been off BiPAP for greater than 24 hours. Pulse ox is 96% on room air. 01/08: Over the weekend, patient was transferred out of the intensive care unit. At this time, patient is ready for discharge back to her assisted living with plan for hospice. Patient is being discharged in stable condition. Discharge Diagnoses: 1 acute hypoxic respiratory failure: With severe tachypnea, hypoxia and tachycardia secondary to a combination of acute coronary syndrome, pulmonary edema, bilateral pneumonia and A. fib with RVR. 2 acute non-ST elevated myocardial infarction with flush pulmonary edema 3 acute pulmonary edema: 4 bilateral pneumonia, possible gram-negative pneumonia 5 advance severe aortic stenosis 6 CVA/TIA: No residual except mild confusion 7 diabetes type 2 8 acute on chronic systolic and diastolic heart failure. 9. hyperlipidemia: 10 hypertension 11 acute kidney injury with chronic kidney disease stage III 12 hyperuricemia 13 hypothyroidism 14 chronic COPD 15 constipation. Discharge plan: [facility] with [facility] Impression and plan of care have been directed as dictated by the signing physician. Daiana Panda nurse practitioner acting as scribe for signing physician. Patient Condition at Discharge: Stable Plan - Discharge Summary New Discharge Prescriptions: New Budesonide [Pulmicort] 0.5 mg INHALATION RT-BID@0800,1700 #60 neb Levofloxacin [Levaquin] 500 mg PO Q48H #5 tab LORazepam ORAL CONC [Ativan Intensol] 2 mg PO Q4H #30 ml Metoprolol Tartrate [Lopressor] 25 mg PO BID #60 tab Polyethylene Glycol 3350 [Miralax] 17 gm PO DAILY PRN #30 pack PRN Reason: Constipation Furosemide [Lasix] 40 mg PO DAILY #45 tablet MORPHINE ORAL SOLN 20mg/mL [Roxanol Oral Soln Conc 20MG/ML] 5 mg PO Q4H PRN # 30 ml PRN Reason: Pain Continue Allopurinol [Zyloprim] 100 mg PO DAILY@0800 Atorvastatin [Lipitor] 20 mg PO DAILY@0800 Cholecalciferol [Vitamin D3] 1,000 unit PO DAILY@0800 Diclofenac 0.1% Ophth Soln [Voltaren 0.1% Ophth Soln] 1 drops BOTH EYES QID Epoetin Basim [Procrit] 20,000 unit SQ Q14D Ferrous Sulfate [Iron (65 MG Elemental)] 325 mg PO DAILY@1700 Insulin Glargine,Hum.rec.anlog [Lantus Solostar] 12 unit SQ DAILY@0800 Loratadine [Claritin] 10 mg PO DAILY@0800 Magnesium Oxide [Mag-Ox] 800 mg PO DAILY@1700 Melatonin 3 mg PO HS@2000 sitaGLIPtin PHOSPHATE [Januvia] 25 mg PO DAILY@0800 Ipratropium-Albuterol Nebulize [Duoneb 0.5 mg-3 mg/3 ml Soln] 3 ml INHALATION RT-Q6H PRN PRN Reason: sob Levothyroxine Sodium [Synthroid] 88 mcg PO DAILY@0700 Multivitamins, Thera [Multivitamin (formulary)] 1 tab PO DAILY@0800 Nitroglycerin Sl Tabs [Nitrostat] 0.4 mg SUBLINGUAL Q5M PRN #0 tab PRN Reason: Chest Pain Spironolactone [Aldactone] 12.5 mg PO DAILY@0800 Clopidogrel [Plavix] 75 mg PO DAILY@0800 hydrALAZINE HCL [Apresoline] 25 mg PO BID@0800,1700 HYDROcodone/APAP 5-325MG [[place] 5-325] 1 tab PO TID@0800,1400,1999 Sennosides [Senna] 8.6 mg PO BID@0800,1700 Aspirin [Children's Aspirin] 81 mg PO DAILY@0800 Discontinued amLODIPine [Norvasc] 5 mg PO DAILY@0800 Discharge Medication List Allopurinol [Zyloprim] 100 mg PO DAILY@0800 01/18/14 [History] Atorvastatin [Lipitor] 20 mg PO DAILY@0806/15/16 [History] Cholecalciferol [Vitamin D3] 1,000 unit PO DAILY@0806/15/16 [History] Diclofenac 0.1% Ophth Soln [Voltaren 0.1% Ophth Soln] 1 drops BOTH EYES QID 06/30 [History] Epoetin Basim [Procrit] 20,000 unit SQ Q14D 06/15/16 [History] Ferrous Sulfate [Iron (65 MG Elemental)] 325 mg PO DAILY@17006/15/16 [History] Insulin Glargine,Hum.rec.anlog [Lantus Solostar] 12 unit SQ DAILY@0806/15/16 [History] Loratadine [Claritin] 10 mg PO DAILY@0806/15/16 [History] Magnesium Oxide [Mag-Ox] 800 mg PO DAILY@17006/15/16 [History] Melatonin 3 mg PO HS@199906/15/16 [History] sitaGLIPtin PHOSPHATE [Januvia] 25 mg PO DAILY@0806/15/16 [History] Ipratropium-Albuterol Nebulize [Duoneb 0.5 mg-3 mg/3 ml Soln] 3 ml INHALATION RT -Q6H PRN 06/28/16 [History] Levothyroxine Sodium [Synthroid] 88 mcg PO DAILY@0706/28/16 [History] Multivitamins, Thera [Multivitamin (formulary)] 1 tab PO DAILY@0806/28/16 [ History] Nitroglycerin Sl Tabs [Nitrostat] 0.4 mg SUBLINGUAL Q5M PRN #0 tab 02/21/17 [Rx] Aspirin [Children's Aspirin] 81 mg PO DAILY@0800 01/02/17 [History] Clopidogrel [Plavix] 75 mg PO DAILY@0800 01/02/17 [History] HYDROcodone/APAP 5-325MG [[place] 5-325] 1 tab PO TID@0800,1400,2000 01/02/17 [ History] Sennosides [Senna] 8.6 mg PO BID@0800,1700 01/02/17 [History] Spironolactone [Aldactone] 12.5 mg PO DAILY@0800 01/02/17 [History] hydrALAZINE HCL [Apresoline] 25 mg PO BID@0800,1700 01/02/17 [History] Budesonide [Pulmicort] 0.5 mg INHALATION RT-BID@0800,1700 #60 neb 01/08/17 [Rx] Furosemide [Lasix] 40 mg PO DAILY #45 tablet 01/08/17 [Rx] LORazepam ORAL CONC [Ativan Intensol] 2 mg PO Q4H #30 ml 01/08/17 [Rx] Levofloxacin [Levaquin] 500 mg PO Q48H #5 tab 01/08/17 [Rx] MORPHINE ORAL SOLN 20mg/mL [Roxanol Oral Soln Conc 20MG/ML] 5 mg PO Q4H PRN #30 ml 01/08/17 [Rx] Metoprolol Tartrate [Lopressor] 25 mg PO BID #60 tab 01/08/17 [Rx] Polyethylene Glycol 3350 [Miralax] 17 gm PO DAILY PRN #30 pack 01/08/17 [Rx] Follow up Appointment(s)/Referral(s): Armand Ahuja MD [Primary Care Provider] - As Needed Patient Instructions/Handouts: Metoprolol (By mouth), Furosemide (By mouth), Lorazepam (By mouth), Morphine, Rapid Release (By mouth), Levofloxacin (By mouth ), Budesonide (By breathing), Polyethylene Glycol 3350 (By mouth), Heart Failure (DC), Chest Pain (DC), Pneumonia (DC) Activity/Diet/Wound Care/Special Instructions: [facility] Discharge Disposition: HOME WITH HOSPICE
== END 2017-01-08 15:15 | disposition hospice, home (50) | DRG 280 ==
LOC: EC 09:01 → 6SEL 11:10 → 6ICU 13:03 → 5ONC 01-07 10:05
PROVIDERS: ADMIT Internal Medicine Geriatric Medicine; ATTEND Internal Medicine Geriatric Medicine
DX: I21.4 Non-ST elevation (NSTEMI) myocardial infarction (principal); J96.01 Acute respiratory failure with hypoxia; J15.6 Pneumonia due to other Gram-negative bacteria; I50.43 Acute on chronic combined systolic (congestive) and diastolic (congestive) heart failure; N17.9 Acute kidney failure, unspecified; J44.0 Chronic obstructive pulmonary disease with (acute) lower respiratory infection; F03.90 Unspecified dementia, unspecified severity, without behavioral disturbance, psychotic disturbance, mood disturbance, and anxiety; I13.0 Hypertensive heart and chronic kidney disease with heart failure and stage 1 through stage 4 chronic kidney disease, or unspecified chronic kidney disease; E86.0 Dehydration; Z66 Do not resuscitate; Z51.5 Encounter for palliative care; I48.91 Unspecified atrial fibrillation; E11.22 Type 2 diabetes mellitus with diabetic chronic kidney disease; I27.2 Other secondary pulmonary hypertension; E78.5 Hyperlipidemia, unspecified; I25.110 Atherosclerotic heart disease of native coronary artery with unstable angina pectoris; N18.3 Chronic kidney disease, stage 3 (moderate); M13.0 Polyarthritis, unspecified; M54.9 Dorsalgia, unspecified; R53.1 Weakness; E89.0 Postprocedural hypothyroidism; M10.9 Gout, unspecified; K59.00 Constipation, unspecified; R11.0 Nausea; I35.0 Nonrheumatic aortic (valve) stenosis; I34.2 Nonrheumatic mitral (valve) stenosis; I34.0 Nonrheumatic mitral (valve) insufficiency; G89.29 Other chronic pain; Z79.899 Other long term (current) drug therapy; Z82.5 Family history of asthma and other chronic lower respiratory diseases; Z83.3 Family history of diabetes mellitus; Z79.4 Long term (current) use of insulin; Z90.49 Acquired absence of other specified parts of digestive tract; Z87.81 Personal history of (healed) traumatic fracture; Z87.01 Personal history of pneumonia (recurrent); Z91.81 History of falling; Z86.69 Personal history of other diseases of the nervous system and sense organs; Z86.19 Personal history of other infectious and parasitic diseases; Z87.09 Personal history of other diseases of the respiratory system; Z96.652 Presence of left artificial knee joint; Z96.611 Presence of right artificial shoulder joint; Z79.02 Long term (current) use of antithrombotics/antiplatelets; Z79.82 Long term (current) use of aspirin; Z79.891 Long term (current) use of opiate analgesic; Z86.73 Personal history of transient ischemic attack (TIA), and cerebral infarction without residual deficits; Z87.440 Personal history of urinary (tract) infections; Z71.3 Dietary counseling and surveillance; Z83.2 Family history of diseases of the blood and blood-forming organs and certain disorders involving the immune mechanism; Z88.1 Allergy status to other antibiotic agents; Z88.5 Allergy status to narcotic agent; Z88.0 Allergy status to penicillin; Z88.8 Allergy status to other drugs, medicaments and biological substances; Z91.048 Other nonmedicinal substance allergy status
CPT/HCPCS: 36415; 71010; 80048; 80202; 81001; 82550; 82553; 83036; 83735; 84100; 84132; 84484; 85025; 85610; 85730; 87040; 87086; 93005; 93306; 94640; 94660; 96361; 96365; 96375; 99285